=== PATIENT | male | born 1940 | race Caucasian/White ===

== ENCOUNTER → 2018-09-29 10:09 | Outpatient (CLI) | payer OTHER, SELFPAY ==
[2018-09-29 11:30] LABS: Add Manual Diff / Slide Review NO; Basophils Percent Auto 0.8 % (0-2); Eosinophils Percent Auto 1.8 % (2-4); Hematocrit 42.4 % (41-53); Hemoglobin 14.6 g/dL (13.5-17.5); Lymphocytes Percent Auto 21.1 % (25-40); Mean Corpuscular HGB Conc 34.4 % (30-36); Mean Corpuscular Hemoglobin 32.9 PG (26-34); Mean Corpuscular Volume 95.6 fL (80-100); Monocytes Percent Auto 11.4 % (3-14); Neutrophils Absolute Auto 2900 /uL (3000-5900); Neutrophils Percent Auto 64.9 % (50-75); Platelet Count 315 X10^3/uL (150-400); Red Blood Cell Count 4.43 X10^6/uL (4.5-5.9); Red Cell Distribution Width 13.1 % (11.6-14.8); White Blood Cell Count 4.4 X10^3/uL (4.5-11.0)
[2018-09-29 11:45] LABS: Carbon Dioxide 29 mmol/L (22-32); Chloride 94 mmol/L (98-107); HEMOLYSIS < 15 (0-50); Potassium 4.5 mmol/L (3.4-5.1); Sodium 134 mmol/L (137-145)
== END ==
PROVIDERS: Visit Provider Orthopaedic Surgery
DX: M17.12 Unilateral primary osteoarthritis, left knee (principal); Z01.812 Encounter for preprocedural laboratory examination
CPT/HCPCS: 36415; 80051; 85025; 93005

== ENCOUNTER → 2018-10-24 11:00 | Outpatient (CLI) | payer OTHER, SELFPAY ==
[2018-10-24 12:03] LABS: Carbon Dioxide 29 mmol/L (22-32); Chloride 93 mmol/L (98-107); HEMOLYSIS < 15 (0-50); Potassium 4.2 mmol/L (3.4-5.1); Sodium 132 mmol/L (137-145)
[2018-10-24 12:21] LABS: Add Manual Diff / Slide Review NO; Basophils Percent Auto 0.9 % (0-2); Eosinophils Percent Auto 1.5 % (2-4); Hematocrit 41.4 % (41-53); Hemoglobin 14.1 g/dL (13.5-17.5); Lymphocytes Percent Auto 23.1 % (25-40); Mean Corpuscular HGB Conc 34.1 % (30-36); Mean Corpuscular Hemoglobin 32.9 PG (26-34); Mean Corpuscular Volume 96.5 fL (80-100); Monocytes Percent Auto 12.6 % (3-14); Neutrophils Absolute Auto 2300 /uL (3000-5900); Neutrophils Percent Auto 61.9 % (50-75); Platelet Count 314 X10^3/uL (150-400); Red Blood Cell Count 4.29 X10^6/uL (4.5-5.9); Red Cell Distribution Width 12.8 % (11.6-14.8); White Blood Cell Count 3.7 X10^3/uL (4.5-11.0)
== END ==
PROVIDERS: Visit Provider Orthopaedic Surgery
DX: Z01.818 Encounter for other preprocedural examination (principal)
CPT/HCPCS: 36415; 80051; 85025

== ENCOUNTER → 2018-11-17 15:08 | Outpatient (CLI) | payer OTHER, SELFPAY ==
[2018-11-17 16:05] LABS: Add Manual Diff / Slide Review NO; Basophils Percent Auto 0.7 % (0-2); Hematocrit 41.8 % (41-53); Hemoglobin 14.3 g/dL (13.5-17.5); Lymphocytes Percent Auto 17.2 % (25-40); Mean Corpuscular HGB Conc 34.3 % (30-36); Mean Corpuscular Hemoglobin 32.9 PG (26-34); Mean Corpuscular Volume 96.2 fL (80-100); Monocytes Percent Auto 11.5 % (3-14); Neutrophils Absolute Auto 3500 /uL (1500-7000); Neutrophils Percent Auto 69.6 % (50-75); Platelet Count 321 X10^3/uL (150-400); Red Blood Cell Count 4.35 X10^6/uL (4.5-5.9); White Blood Cell Count 5.1 X10^3/uL (4.5-11.0)
[2018-11-17 16:44] LABS: Blood Urea Nitrogen 16 mg/dL (9-20); Calcium 9.9 mg/dL (8.4-10.2); Carbon Dioxide 27 mmol/L (22-32); Chloride 93 mmol/L (98-107); Estimated Glomerular Filt Rate > 60.0 mL/min (>60); Glucose 89 mg/dL (80-110); HEMOLYSIS < 15 (0-50); Potassium 4.2 mmol/L (3.4-5.1); Sodium 131 mmol/L (137-145)
== END ==
PROVIDERS: Visit Provider Physician Assistant Surgical
DX: Z01.818 Encounter for other preprocedural examination (principal)
CPT/HCPCS: 36415; 80048; 85025

== ENCOUNTER 2018-12-17 09:11 | Inpatient (IN) | payer OTHER, SELFPAY ==
[2018-11-27 08:32] VITALS: BMI 26.7
[2018-12-17] VITALS (14 sets, daily range): BP systolic 114–164; BP diastolic 68–93; PULSE 69–85; RESP 14–20; TEMP 36–37; O2SAT 93–99; BMI 26.6
--- NOTE | 2018-12-17 06:00 | DI.RAD.S_ITS ---
PROCEDURE: XR KNEE LT 1TO2V INDICATIONS: post op film TECHNIQUE: 2 view(s) of the knee acquired. COMPAR[facility]: [facility] SullyHarry Ramirez, CR, XR BONE LENGTH SCANOGRAM, 08/28/2018, 9:25. FINDINGS: Bones: Patient is status post knee joint arthroplasty. Hardware components are in expected positions. Visualized bony structures are intact. Soft tissues: Overlying postoperative changes are noted. IMPRESSION: Left knee total plasty with prosthesis in anatomic alignment. Dictated by: Jen Carmichael M.D. on 12/17/2018 at 14:25 Approved by: Jen Carmichael M.D. on 12/17/2018 at 14:26
--- NOTE | 2018-12-17 10:12 | PM.PREOP ---
Pre-operative Note Interval Note History & Physical reviewed/Exam performed by Physician: Yes Changes to H&P: No
--- NOTE | 2018-12-17 10:13 | P.OP_ITS ---
Operative Date/Time/Diagnoses Date of procedure: 12/17/18 Time of procedure: 13:36 Pre-op diagnosis: Left knee osteoarthritis History of previous high tibial osteotomy Post-op diagnosis: same Procedure & Clinicians Procedure: Left total knee arthroplasty Removal of jad left proximal tibia Same procedure as scheduled: Yes Indications: The patient presents today for total knee arthroplasty after failure of conservative treatment. The nature of the procedure including the risks and benefits, alternatives, postoperative course and expected outcome were discussed and all questions answered. Consent was obtained. Operative site confirmed and marked. Surgeon: Lalo Tomlinson Operative Notes Implants & Drains: Bobo and Nephkrissy Cardozo BCS: 7 femoral component, 6 tibial component with 100 mm by 16 mm stem extension, 9 mm BCS polyethylene tray and 35 x 9 mm round patella Procedure in detail: The patient was taken to the operative suite and placed under general and spinal anesthesia. The patient was given prophylactic antibiotics prior to surgery. The patient was also given tranexamic acid, 1 g, just prior to surgery for postoperative hemostasis. The lateral knee was prepped and the joint injected with 20 mL of 1% Lidocaine with epinephrine. The knee was then prepped and draped in usual sterile fashion. The leg was exsanguinated with an Esmarch dressing and the tourniquet raised to Two hundred fifty torr. The vertical limb of the previous lateral incision for his high tibial osteotomy was opened for a length of 4 cm. The fascia was opened and the jad were identified . Both jad were removed with minimal bone loss. The fascia was closed with #1 Vicryl. Subcutaneous tissue was closed with 2 Vicryl and the skin with jad. A 15 cm anterior incision was made. Next a medial trivector arthrotomy was made. The extensor mechanism was marked to ensure accurate repair. Initial exposing dissection was carried out medially and laterally. The knee was then extended and the patellar thickness was measured and a cut made removing approximately 9 mm of bone. The patella was then sized and drilled. Some excess lateral bone was excised and the patellofemoral ligament released. The knee was then flexed and the intramedullary femoral guide hayden placed. The distal femoral cut was made in 6? of valgus at the +0 position. The femoral size was measured and the appropriate cutting block was then placed and the anterior, posterior and chamfer cuts made. The extra medullary tibial alignment hayden was then placed along the anatomic axis of the tibia approximating the normal slope. The guide was set to remove approximately 2 lateral side. The proximal tibial cut was then made with an oscillating saw. A fairly minimal cut was made initially to check the gaps. In extension the knee had appropriate laxity medially but was somewhat tight laterally. Inflexion there was some excessive laxity medially and it was slightly tight laterally. I felt that a 2 degree valgus cut of the tibia with best correct the gaps. After the cut was made the flexion extends were well-balanced except for some increased laxity medially in flexion. All meniscus and bony debris was then removed. The soft tissues were then injected with a combination of 20 mL of half percent Marcaine with epinephrine and 20 mL of Exparel. The trial components were then placed. The knee went into full extension and flexion beyond 120?. There was excellent medial- lateral balance in extension with still some laxity medially in flexion. Patellar tracking was excellent. The trial components were removed and the knee was cleansed with Pulsavac irrigation and dried. The final components were cemented in with high viscosity vacuum mixed bone cement with antibiotics. The knee was held in extension and the patellar clamp until the cement had adequately cured. The knee was irrigated and inspected for any further debris. The knee was then irrigated with dilute Betadine solution. The extensor mechanism was closed with 5 interrupted #1 Vicryl sutures in 90 degrees of flexion. The joint was then injected with a combination of 1 g of tranexamic acid and 20 mL of quarter percent Marcaine with epinephrine. The subcutaneous tissue was closed with 2-0 Vicryl. The skin was closed with jad and surgical adhesive. An Aquacell dressing and Tony wrap were then applied. The patient tolerated the procedure well and was returned to recovery room in good condition. Plan for aftercare: [facility] protocol for total knee arthroplasty.
[2018-12-17] MEDS: ACETAMINOPHEN 325 MG TABLET 975 MG PO ×3 (10:23→20:36)
[2018-12-17] MEDS: LACTATED RINGERS 1,000 ML 42 ML IV (10:23)
[2018-12-17] MEDS: PREGABALIN 75 MG CAPSULE PO (10:23)
[2018-12-17] MEDS: CELECOXIB 200 MG CAPSULE PO (10:23)
[2018-12-17] MEDS: CEFAZOLIN 2 GM/100 ML FROZ.PIGGY IV ×2 (10:50→19:26)
--- NOTE | 2018-12-17 11:44 | SUR.OPER ---
Supine on padded OR bed. Pillow under head, arms secured on padded armboards <90 degree abduction. Safety belt across torso. Non-operative leg secured with tape over blanket over lower leg. Operative leg secured in DeMayo/Pavel positioner. Foam padded brace at thigh of operative leg.
[2018-12-17] MEDS: TRANEXAMIC ACID 1,000 MG VIAL 1000 MG INJ (11:53)
[2018-12-17] MEDS: LIDOCAINE 1% W/EPI INJ 20 ML INJ (11:53)
[2018-12-17] MEDS: POVIDONE-IODINE 15 ML, SODIUM CHLORIDE 0.9% 250 ML TOP (11:53)
[2018-12-17] MEDS: BUPIVACAINE 0.5% W/ EPI (PF) 10 ML, TRANEXAMIC ACID 1,000 MG, SODIUM CHLORIDE 0.9% 20 ML INJ (11:54)
[2018-12-17] MEDS: BUPIVACAINE LIPOSOME 266 MG/20 ML VIAL INJ (11:55)
[2018-12-17] MEDS: BUPIVACAINE 0.25% W/ EPI VIAL 50 ML INJ (11:58)
--- NOTE | 2018-12-17 13:57 | SUR.PHASEI ---
REPORT CALLED TO KARTIK CUI ON ACUTE CARE FLOOR. PT IN STABLE CONDITION, VSS. PT LAYING IN BED TALKING TO RN. PT DENIES ANY NAUSEA/ PAIN/OR DISCOMFORT. DRSG TO SURGICAL SITE REMAINS C/D/I. SURGICAL EXTREMITY +PULSE, WARM TO TOUCH, +STRENGTH. PT BEING TRANSFERRED TO FLOOR AT THIS TIME.
--- NOTE | 2018-12-17 14:09 | SUR.PHASEI ---
PT TRANSFERRED TO ACUTE CARE FLOOR IN STABLE CONDITION. PT ALERT AND TALKING TO STAFF THROUGHOUT TRANSFERED. BEDSIDE REPORT GIVEN TO KARTIK CUI. TRANSFERRED CARE OF PT TO KARTIK CUI AT THAT TIME.
[2018-12-17] MEDS: LACTATED RINGERS 1,000 ML 125 ML IV ×2 (16:02→23:26)
[2018-12-17] MEDS: ASPIRIN EC 81 MG TABLET PO (20:36)
--- NOTE | 2018-12-17 22:26 | PC.NURSE ---
Evening Shift Note- Patient unable to void after surgery. Patient arrived to room approx 1430, patient bladder scanned at 2115. Over 950cc'S urine shown on bladder scan. Called on-call surgeon Dr. Bobo due to patient history of prostate issues and urinary retentionafter surgery. Recieved orders to place miranda and leave in over night. 16 Fr Coude Cath with 5cc balloon used. patient tolerated. Miranda patent and draining clear yellow urine. miranda to d/c in the morning.
--- NOTE | 2018-12-17 23:39 | PC.NURSE ---
Addendum entered by Sanaz Sweeney R.N. 12/18/18 06:08: Slept at intervals. CMS remains intact. Patient continues to deny pain. Original Note: Patient is alert and oriented. Breath sounds CTA with RA sat of 96%; on continuous oximetry. HRR. Denies nausea. BT present and states he has passed flatus. Indwelling catheter is patent with clear, light miryam urine. Able to turn self in bed. Reportedly out of bed with 1 assist + walker and states he has no weakness or unsteadiness. Dressing (Aquacel + ralf wrap) to left knee is CDI. Denies pain. CMS is intact. Wearing bilateral SCD's. Fall risk score is moderate; bed alarm is activated.
[2018-12-18] VITALS (7 sets, daily range): BP systolic 116–142; BP diastolic 58–72; PULSE 65–80; RESP 16–20; TEMP 36.3–37.1; O2SAT 93–98
[2018-12-18] MEDS: CEFAZOLIN 2 GM/100 ML FROZ.PIGGY IV (03:14)
[2018-12-18 05:41] LABS: Hematocrit 35.6 % (41-53); Hemoglobin 12.2 g/dL (13.5-17.5)
[2018-12-18] MEDS: ASPIRIN EC 81 MG TABLET PO ×2 (08:47→20:40)
[2018-12-18] MEDS: LISINOPRIL 20 MG TABLET 40 MG PO (08:47)
[2018-12-18] MEDS: AMLODIPINE 5 MG TABLET 10 MG PO (08:48)
[2018-12-18] MEDS: hydroCHLOROthiazide 25 MG TABLET PO (08:48)
[2018-12-18] MEDS: ACETAMINOPHEN 325 MG TABLET 975 MG PO ×2 (08:48→14:19)
--- NOTE | 2018-12-18 09:15 | PT.IIE ---
Current Diagnoses Unilateral primary osteoarthritis, left knee (12/17/18) Surgery Performed Operation Date: 12/17/18 11:00 Actual Procedures p Total Knee Arthroplasty w/Hardware removal(Left) - Lalo Tomlinson MD Surgical History (Last Updated 11/27/18 @ 09:21 by Nikki Mario, RN) History of arthroplasty of right knee (Acute ~2007) History of prostate surgery (Acute ~2003) Hx of decompressive lumbar laminectomy (Acute ~2011) Hx of hernia repair (Acute) Status post cataract extraction of both eyes with insertion of intraocular lens (Acute ~2016) Status post osteotomy (Acute ~1995) Medical History (Last Updated 11/27/18 @ 09:21 by Nikki Mario RN) Basal cell carcinoma (BCC) (Acute) HTN (hypertension) (Acute) Hypochloremia (Acute) Hyponatremia (Acute) Osteoarthritis (Acute) Spinal stenosis (Acute) Physical Therapy Inpatient Evaluation/Re-Eval M1 PT/OT-IP Prior Functional Status Start: 12/18/18 14:14 Freq: NEEDED Status: Active Protocol: Document 12/18/18 09:15 AB (Rec: 12/18/18 14:30 AB [email or web address]) Medical Review Prior Functional Status Medical History Reviewed Yes Communication able to make needs known Mobility and Gait pt stated that he is independent with all mobilities and ambulation without AD Social History Household Members spouse Living Arrangements House Number of Floors (Floors) Two Floors Number of Stairs To Enter/Railing? pt stays on main level of the house; has 2 steps without rail s but has L ledge to lean onto Home Environment Standard Height Toilet Walk in Shower Home Equipment Front Wheel Walker Crutches Raised Toilet Seat w/Armrests Shower Seat without Backrest Hand Held Shower Grab Bars In Shower Employment Status Retired M2 PT-IP Current Condition Start: 12/18/18 14:14 Freq: NEEDED Status: Active Protocol: Document 12/18/18 09:15 AB (Rec: 12/18/18 14:30 AB [email or web address]) Physical Therapy Current Condition Current Condition Evaluation Date 12/18/18 Treatment Diagnosis s/p L TKA; difficulty in walking Onset Date 12/17/18 Weight Bearing Status Weight Bearing Status Weight Bear as Tolerated M3 PT-IP Subjective Start: 12/18/18 14:14 Freq: NEEDED Status: Active Protocol: Document 12/18/18 09:15 AB (Rec: 12/18/18 14:30 AB [email or web address]) Subjective Physical Therapy Visit Type Type Initial Evaluation Visit Start Time 09:15 Visit Stop Time 10:15 Total Visit Minutes 60 Number of JAVA SOFTWARE Visits 0 Physical Therapy Visit Comments Patient Comments pt agreeable to do PT Therapy Pain Assessment Pain When Pain Assessed At Rest Pain Present Pain Present Pain Reported Location L knee Intensity 3 Scale Used Numeric (1 - 10) Pain Management Techniques Apply Cold Timing of Activity with Medications M4 PT-IP Mobility and Gait Start: 12/18/18 14:14 Freq: NEEDED Status: Active Protocol: Document 12/18/18 09:15 AB (Rec: 12/18/18 14:30 AB [email or web address]) PT-Bed Mobility Assessment Supine to Sit Supine to Sit Standby Assistance 1 Person Assistance Sit to Supine Sit to Supine Standby Assistance 1 Person Assistance PT-Transfer Assessment Sit to and From Stand Sit to and from Stand Contact Guard Assistance Equipment Transfer Assistive Device Gait Belt Front Wheeled Walker Orthotic/Prosthetic Devices or Brace: No Gait Assessment Gait Gait Assistance Required: Contact Guard Assist Distance (Feet) 100 Able to Maintain Weight Bearing Status Yes During Gait Assistive Devices Assistive Device Gait Belt Front Wheeled Walker Orthotic/Prosthetic Devices or Brace: No Gait Deviations General Gait Pattern Antalgic Decreased Stride Length Decreased Feet Clearance Factors Limiting Gait Function Factors Limiting Gait Function Decreased Activity Tolerance Decreased Strength Limited Range of Motion Pain Poor Balance Poor Safety Awareness Stair Climbing Assessment Evaluation Level of Assist On Stairs Contact Guard Assistance Devices Stair Climbing Assistive Devices Axillary Crutches Left Railing Technique/Endurance Stair Climbing Direction Ascend and Descend Stair Climbing Technique Step to Step Number of Steps Climbed 3 Query Text: Stair Climbing Set # Repetitions (reps) 2 PT-Balance Assessment Sitting Balance and Reactions Static Sitting Balance Ability Good Dynamic Sitting Balance Ability Good Standing Balance and Reactions Static Standing Balance Ability Fair Dynamic Standing Balance Ability Fair Device Used FWW M5 PT-IP Objective Assessments Start: 12/18/18 14:14 Freq: NEEDED Status: Active Protocol: Document 12/18/18 09:15 AB (Rec: 12/18/18 14:30 AB [email or web address]) Orientation Orientation/Cognition Level of Alertness Alert Orientation Name Age Birthday Month Date Year Day of Week Place Situation Safety Awareness Understands Safety Issues Memory Description No Deficits Noted Gross Range of Motion Lower Extremity ROM Assessment Left Impaired Impairments L knee flexion: ~ 70 deg L knee extension: lacking ~ 10 deg to neutral Strength Lower Extremity Strength Assessment Left Impaired Knee 3+/5 Coordination Assessment Gross Coordination Gross Coordination WNL Muscle Tone Muscle Tone WNL Yes M6 PT-IP Treatment Start: 12/18/18 14:14 Freq: NEEDED Status: Active Protocol: Document 12/18/18 09:15 AB (Rec: 12/18/18 14:30 AB [email or web address]) Physical Therapy Treatment Education Education Provided Precautions Weight Bearing Status Post-Op Packet Safety Other Treatments Other Treatment Performed caregiver training conducted for use of safety belt, transfers, ambulation and stair climbing. pt's spouse was able to assist pt safely. M7 PT-IP Assessment and Plan Start: 12/18/18 14:14 Freq: NEEDED Status: Active Protocol: Document 12/18/18 09:15 AB (Rec: 12/18/18 14:30 AB [email or web address]) PT Summary Assessment and Plan Potential Rehabilitation Potential Good Status of Condition at Evaluation Stable Summary Impairments Pain ROM Strength Balance Coordination Bed Mobility Transfers Gait Activity Tolerance Assessment Summary pt doing well with mobility and will have spouse to assist him at home. caregiver training conducted and spouse is able to assist pt safely. pt stated that he is set up for outpt PT already. Goals Bed Mobility Goal Independent Transfer Goal Independent Front Wheeled Walker Gait Goal Independent Front Wheel Walker Gait Distance 250 Other Goals up/down 2 steps L rail/crutch SBA Days to Meet Goals 3 Frequency of Treatment Frequency Of Treatment Twice a Day Treatment Plan Physical Therapy Treatment Plan Bed Mobility Training Transfer Training Gait Training Therapeutic Exercise Balance Retraining Post Op Education Discharge Planning Hot or Cold Pack Neuromuscular Re-ed Coordination Retraining Manual Therapy Other Recommendations and Next Treatment ambulation, stair climbing, Focus caregiver training Recommendations To Nursing Amount of Assist Needed 1 Person Assist Discharge Recommendations PT Discharge Recommendations Home with Assistance Outpatient PT
[2018-12-18] MEDS: TAMSULOSIN 0.4 MG CAPSULE PO (09:28)
--- NOTE | 2018-12-18 14:15 | CM.IDA ---
Discharge Planning/Care Management CM Discharge Assessment Start: 12/18/18 14:10 Freq: Status: Active Protocol: Document 12/18/18 14:10 EDGAR (Rec: 12/18/18 14:14 EDGAR [email or web address]) Discharge Planning Assessment Assigned Yard Inspector MAURA Grullon DPOA/Assigned Designee Name Nina Saenz, spouse Contact Information [phone] Advance Directives? Yes Advance Directives on File No History Provided By Patient Prior Living Arrangements House Household Members spouse Type of transporation used prior to Drives own vehicle admit Independent with ADL's Yes Is patient alert and oriented? Yes Barriers to Discharge No Comment Met w/pt and his Nina. Pt indp at baseline, active. Pt and spouse very pleasant and appreciative of the visit. Both expect no DC needs although pt still has not voided today after removal of catheter this morning. Both awaiting pt to void since they are eager to get pt home. Pt has h/o multiple surgeries, he feels he has what he needs at home and spouse available to assist 24/06. Home likely today or tomorrow, w/spouse and likely outpt PT, no PT notes available. Discharge Plan Home Transportation Arrangement Family Referrals Initiated None needed Whiteboard Updated in Patient Room with Yes name and ext. # of Yard Inspector Review Status In Process
--- NOTE | 2018-12-18 16:08 | PT.IPTN ---
Current Diagnoses Unilateral primary osteoarthritis, left knee (12/17/18) Surgery Performed Operation Date: 12/17/18 11:00 Actual Procedures p Total Knee Arthroplasty w/Hardware removal(Left) - Lalo Tomlinson MD Physical Therapy Treatment Note M2 PT-IP Current Condition Start: 12/18/18 14:14 Freq: NEEDED Status: Active Protocol: Document 12/18/18 09:15 AB (Rec: 12/18/18 14:30 AB [email or web address]) Physical Therapy Current Condition Current Condition Evaluation Date 12/18/18 Treatment Diagnosis s/p L TKA; difficulty in walking Onset Date 12/17/18 Weight Bearing Status Weight Bearing Status Weight Bear as Tolerated M3 PT-IP Subjective Start: 12/18/18 14:14 Freq: NEEDED Status: Active Protocol: Document 12/18/18 15:58 SA (Rec: 12/18/18 16:08 SA [id number]) Subjective Physical Therapy Visit Type Type Treatment Note Visit Start Time 14:45 Visit Stop Time 15:10 Total Visit Minutes 25 Number of CEMENT PRODUCTION PLANT OPERATOR Visits 1 Physical Therapy Visit Comments Patient Comments Pt in bed with present, agreeable to PT. Nursing to re-catheter patient as he was unable to urinate today. Therapy Pain Assessment Pain When Pain Assessed During Mobility Pain Present Pain Present Pain Reported Location L knee Intensity 4 Scale Used Numeric (1 - 10) Pain Management Techniques Apply Cold Timing of Activity with Medications M4 PT-IP Mobility and Gait Start: 12/18/18 14:14 Freq: NEEDED Status: Active Protocol: Document 12/18/18 15:58 SA (Rec: 12/18/18 16:08 SA [id number]) PT-Bed Mobility Assessment Rolling Type of Rolling Roll to Right Level of Assist Standby Assistance Supine to Sit Supine to Sit Standby Assistance 1 Person Assistance Sit to Supine Sit to Supine Standby Assistance 1 Person Assistance Scooting Scooting to Edge of Bed Standby Assistance PT-Transfer Assessment Sit to and From Stand Sit to and from Stand Standby Assistance Equipment Transfer Assistive Device Gait Belt Front Wheeled Walker Orthotic/Prosthetic Devices or Brace: No Transfers Transfer Destination Bed Transfer Technique Stand Step Pivot Transfer Ability Level of Assist Standby Assistance Comments Mobility Comments Pt SBA with mobility tasks, demonstrates safe use of FWW and safety habits. Gait Assessment Gait Gait Assistance Required: Standby Assistance Contact Guard Assist Distance (Feet) 150 Able to Maintain Weight Bearing Status Yes During Gait Assistive Devices Assistive Device Gait Belt Front Wheeled Walker Orthotic/Prosthetic Devices or Brace: No Gait Deviations General Gait Pattern Antalgic Decreased Stride Length Decreased Feet Clearance Factors Limiting Gait Function Factors Limiting Gait Function Decreased Activity Tolerance Decreased Strength Limited Range of Motion Pain Poor Balance Poor Safety Awareness Comments Gait Comments Pt with even step length and good foot elevation, WBs heavily through UEs and is able to partially correct with cues, good gait speed and safe with use of FWW. Stair Climbing Assessment Evaluation Level of Assist On Stairs Contact Guard Assistance Devices Stair Climbing Assistive Devices Axillary Crutches Left Railing Technique/Endurance Stair Climbing Direction Ascend and Descend Stair Climbing Technique Step to Step Number of Steps Climbed 3 Query Text: Stair Climbing Set # Repetitions (reps) 3 Comments Stair Climbing Comments Conducted cargiver training with , last repetition was completed with pt and as caregiveer, min cues required . Pt use single crutch in RUE and L ascending ledge. PT-Balance Assessment Sitting Balance and Reactions Static Sitting Balance Ability Good Dynamic Sitting Balance Ability Good M5 PT-IP Objective Assessments Start: 12/18/18 14:14 Freq: NEEDED Status: Active Protocol: Document 12/18/18 09:15 AB (Rec: 12/18/18 14:30 AB [email or web address]) Orientation Orientation/Cognition Level of Alertness Alert Orientation Name Age Birthday Month Date Year Day of Week Place Situation Safety Awareness Understands Safety Issues Memory Description No Deficits Noted Gross Range of Motion Lower Extremity ROM Assessment Left Impaired Impairments L knee flexion: ~ 70 deg L knee extension: lacking ~ 10 deg to neutral Strength Lower Extremity Strength Assessment Left Impaired Knee 3+/5 Coordination Assessment Gross Coordination Gross Coordination WNL Muscle Tone Muscle Tone WNL Yes M6 PT-IP Treatment Start: 12/18/18 14:14 Freq: NEEDED Status: Active Protocol: Document 12/18/18 15:58 SA (Rec: 12/18/18 16:08 SA [id number]) Physical Therapy Treatment Exercises Exercises Ankle Pumps Quad Sets Heel Slides Seated Knee Flexion/Extension Education Education Provided Precautions Weight Bearing Status Post-Op Packet Safety Other Treatments Other Treatment Performed Continued caregiver training with , she was able to reverse demonstrate most tasks . M7 PT-IP Assessment and Plan Start: 12/18/18 14:14 Freq: NEEDED Status: Active Protocol: Document 12/18/18 15:58 SA (Rec: 12/18/18 16:08 [email or web address]) PT Summary Assessment and Plan Summary Assessment Summary Pt progressing well with functional mobility, gait and stair climb. Ready for d/c home with from PT perspective but pt continues to have urinary retention issues. Frequency of Treatment Frequency Of Treatment Twice a Day Recommendations To Nursing Amount of Assist Needed 1 Person Assist Discharge Recommendations PT Discharge Recommendations Home with Assistance Outpatient PT
[2018-12-18] MEDS: OXYCODONE IR 5 MG TABLET PO (20:41)
[2018-12-19] VITALS (7 sets, daily range): BP systolic 108–141; BP diastolic 60–84; PULSE 76–99; RESP 16–20; TEMP 36.7–37.2; O2SAT 93–97
--- NOTE | 2018-12-19 00:10 | PC.NURSE ---
Addendum entered by Sanaz Sweeney R.N. 12/19/18 05:17: 0500 Catheter d'cd as per order; had 550cc UOP. Tolerated procedure well. Instructed in sx/prevention of UTI; verbalizes understanding. Original Note: Addendum entered by Sanaz Sweeney R.N. 12/19/18 03:51: Complains of 5/10 left knee pain; medicated with Oxycodone. Original Note: Patient is alert and oriented. Breath sounds with inspiratory crackles in left LL; RA sat is 93%. Patient states he has been working with I.S. and able to get to 2500; reminded to be coughing as well as deep breathing. HRR. Denies nausea. BT present and is passing flatus. Dressing/ralf to left knee is CDI. States pain is 1/10 at rest and 4/10 with movement but tolerable and declines offer of pain med; ice pack applied for comfort. CMS intact bilaterally. Able to move self in bed. States he is doing well with therapy and plan is to DC home in morning. Indwelling catheter is patent; was replaced after patient unable to void yesterday after catheter removal and plan is to remove at 0500 this morning. Wearing bilateral SCD's. Fall risk score is moderate; bed alarm is activated.
[2018-12-19] MEDS: OXYCODONE IR 5 MG TABLET PO ×4 (03:42→12:28)
[2018-12-19] MEDS: ACETAMINOPHEN 325 MG TABLET 975 MG PO ×3 (08:46→21:35)
[2018-12-19] MEDS: TAMSULOSIN 0.4 MG CAPSULE PO (08:47)
[2018-12-19] MEDS: ASPIRIN EC 81 MG TABLET PO ×2 (08:48→21:35)
[2018-12-19] MEDS: SODIUM CHLORIDE 0.9% FLUSH 10 ML IV ×2 (08:48→21:36)
[2018-12-19] MEDS: hydroCHLOROthiazide 25 MG TABLET PO (08:48)
--- NOTE | 2018-12-19 09:23 | PM.DS.1 ---
History of Present Illness Date Patient Seen: 12/19/18 Time Patient Seen: 09:23 Chief complaint: total knee arthroplasty left [id number] Narrative: The patient presents today for total knee arthroplasty after failure of conservative treatment. The nature of the procedure including the risks and benefits, alternatives, postoperative course and expected outcome were discussed and all questions answered. Consent was obtained. Operative site confirmed and marked. Discharge Providers Date of admission: 12/17/18 09:11 Primary care physician: JILLIAN WHITE Consults: 12/17/18 14:13 Consult to Discharge Planning Routine Comment: Consult to Physical Therapy Evaluate & Treat Comment: Physician Instructions: postop TKA protocol Consult to Respiratory Therapy Evaluate & Treat Comment: Physician Instructions: Evaluate and treat Discharge provider: Abigail Pollard PA-C Discharge Date: 12/20/18 Summary Discharge Diagnosis: s/p total knee arthroplasty Hypertension History of Prostate surgery Hospital Course: Sunny was admitted for left total knee arthroplasty with Dr. Tomlinson and he consented to procedure. Hospital course was remarkable for urinary retention. The patient has had previous prostate surgery. Following previous surgeries he required multiple in-out catheterizations and prolonged catheterizations. Throughout his stay he had urinary retention symptoms worse at night requiring catheterization each night of his stay. On POD #3 patient was ready for DC home with his . His pain was well controlled. He has mobilized with PT throughout his stay. He was eating and voiding without difficulty or assistance. Status at Discharge Functional status at discharge: uses cane/walker Exam Vital Signs (past 8 hours): - 12/19/18 03:52 12/19/18 08:00 12/19/18 08:42 Temperature 98.4 F 98.1 F Pulse Rate 76 79 83 Respiratory Rate 18 16 Blood Pressure 135/71 122/70 108/60 Pulse Oximetry 93 97 12/19/18 08:43 Temperature Pulse Rate 83 Respiratory Rate Blood Pressure 108/60 Pulse Oximetry Fraction of Inspired Oxygen 21 Oxygen Delivery Method Room Air Oxygen Flow Rate 0 Narrative Exam Narrative: Patient sitting up in bed in NAD. He is alert and oriented X3. Dressing on left knee is CDI. Calves are soft, compressible, and nontender bilaterally. SILT throughout BLEs. He is able to actively dorsiflex and plantarflex. Pain well controlled last night. Denies chest pain or shortness of breath. Objective Labs Result Diagrams: 12/18/18 05:20 Discharge Plan Discharge Plan Patient Disposition: Home Discharge comment: See [facility] manual for postoperative instructions. Discharge Med Rec/Prescriptions Prescriptions: New tamsulosin [Flomax] 0.4 mg Capsule 0.4 mg PO DAILY Qty: 30 RF: 0 Continue amlodipine 10 mg Tablet 10 mg PO DAILY RF: 0 ibuprofen 200 mg Tablet 2 tab PO DAILY PRN (Reason: pain) RF: 0 hydrochlorothiazide 25 mg Tablet 25 mg PO DAILY RF: 0 lisinopril 40 mg Tablet 40 mg PO DAILY RF: 0 cholecalciferol (vitamin D3) [Vitamin D3] 400 unit Tablet 400 unit PO DAILY RF: 0 Follow up/Referrals: JILLIAN WHITE [Other] Lalo Tomlinson MD [Physician] - 1 Week Provider Discharge Instructions Diet: Regular Activity: Activity as tolerated. Start physical therapy as directed. Cold/Heat Therapy: Ice the knee as needed for comfort. Skin/Wound/Dressing Care Report to your healthcare provider any signs of infection, such as:: chills, fever, increased pain, unusual drainage and unusual redness Dressing: May leave dressing in place for 7-10 days. May shower over dressing. Visit Report/Discharge Packet Instructions: DI for Knee Replacement Visit Report Forms: Stroke Signs & Symptoms Discharge Data Attending Provider: Lalo Tomlinson Admit Date/Time: 12/17/18 09:11 Quality VTE Deep Vein Thrombosis/Pulmonary Embolism Present on Admission: No
[2018-12-19] MEDS: ONDANSETRON 4 MG ODT PO (11:31)
[2018-12-19] MEDS: SODIUM CHLORIDE 0.9% 500 ML 1000 ML IV (11:55)
--- NOTE | 2018-12-19 11:56 | PT.IPTN ---
Current Diagnoses Unilateral primary osteoarthritis, left knee (12/17/18) Retention of urine, unspecified (12/17/18) Presence of unspecified artificial knee joint (12/17/18) Surgery Performed Operation Date: 12/17/18 11:00 Actual Procedures p Total Knee Arthroplasty w/Hardware removal(Left) - Lalo Tomlinson MD Physical Therapy Treatment Note M2 PT-IP Current Condition Start: 12/18/18 14:14 Freq: NEEDED Status: Active Protocol: Document 12/18/18 09:15 AB (Rec: 12/18/18 14:30 AB [email or web address]) Physical Therapy Current Condition Current Condition Evaluation Date 12/18/18 Treatment Diagnosis s/p L TKA; difficulty in walking Onset Date 12/17/18 Weight Bearing Status Weight Bearing Status Weight Bear as Tolerated M3 PT-IP Subjective Start: 12/18/18 14:14 Freq: NEEDED Status: Active Protocol: Document 12/19/18 11:56 AB (Rec: 12/19/18 13:31 AB [id number]) Subjective Physical Therapy Visit Type Notes checked pt and pt in the toilet with NAC. spouse in room and stated that pt is not feeling well and has more pain today and is nauseated and will not be able to do PT. will f/u. M4 PT-IP Mobility and Gait Start: 12/18/18 14:14 Freq: NEEDED Status: Active Protocol: Document 12/18/18 15:58 SA (Rec: 12/18/18 16:08 SA [id number]) PT-Bed Mobility Assessment Rolling Type of Rolling Roll to Right Level of Assist Standby Assistance Supine to Sit Supine to Sit Standby Assistance 1 Person Assistance Sit to Supine Sit to Supine Standby Assistance 1 Person Assistance Scooting Scooting to Edge of Bed Standby Assistance PT-Transfer Assessment Sit to and From Stand Sit to and from Stand Standby Assistance Equipment Transfer Assistive Device Gait Belt Front Wheeled Walker Orthotic/Prosthetic Devices or Brace: No Transfers Transfer Destination Bed Transfer Technique Stand Step Pivot Transfer Ability Level of Assist Standby Assistance Comments Mobility Comments Pt SBA with mobility tasks, demonstrates safe use of FWW and safety habits. Gait Assessment Gait Gait Assistance Required: Standby Assistance Contact Guard Assist Distance (Feet) 150 Able to Maintain Weight Bearing Status Yes During Gait Assistive Devices Assistive Device Gait Belt Front Wheeled Walker Orthotic/Prosthetic Devices or Brace: No Gait Deviations General Gait Pattern Antalgic Decreased Stride Length Decreased Feet Clearance Factors Limiting Gait Function Factors Limiting Gait Function Decreased Activity Tolerance Decreased Strength Limited Range of Motion Pain Poor Balance Poor Safety Awareness Comments Gait Comments Pt with even step length and good foot elevation, WBs heavily through UEs and is able to partially correct with cues, good gait speed and safe with use of FWW. Stair Climbing Assessment Evaluation Level of Assist On Stairs Contact Guard Assistance Devices Stair Climbing Assistive Devices Axillary Crutches Left Railing Technique/Endurance Stair Climbing Direction Ascend and Descend Stair Climbing Technique Step to Step Number of Steps Climbed 3 Query Text: Stair Climbing Set # Repetitions (reps) 3 Comments Stair Climbing Comments Conducted cargiver training with , last repetition was completed with pt and as caregiveer, min cues required . Pt use single crutch in RUE and L ascending ledge. PT-Balance Assessment Sitting Balance and Reactions Static Sitting Balance Ability Good Dynamic Sitting Balance Ability Good M5 PT-IP Objective Assessments Start: 12/18/18 14:14 Freq: NEEDED Status: Active Protocol: Document 12/18/18 09:15 AB (Rec: 12/18/18 14:30 AB [email or web address]) Orientation Orientation/Cognition Level of Alertness Alert Orientation Name Age Birthday Month Date Year Day of Week Place Situation Safety Awareness Understands Safety Issues Memory Description No Deficits Noted Gross Range of Motion Lower Extremity ROM Assessment Left Impaired Impairments L knee flexion: ~ 70 deg L knee extension: lacking ~ 10 deg to neutral Strength Lower Extremity Strength Assessment Left Impaired Knee 3+/5 Coordination Assessment Gross Coordination Gross Coordination WNL Muscle Tone Muscle Tone WNL Yes M6 PT-IP Treatment Start: 12/18/18 14:14 Freq: NEEDED Status: Active Protocol: Document 12/18/18 15:58 SA (Rec: 12/18/18 16:08 [id number]) Physical Therapy Treatment Exercises Exercises Ankle Pumps Quad Sets Heel Slides Seated Knee Flexion/Extension Education Education Provided Precautions Weight Bearing Status Post-Op Packet Safety Other Treatments Other Treatment Performed Continued caregiver training with , she was able to reverse demonstrate most tasks . M7 PT-IP Assessment and Plan Start: 12/18/18 14:14 Freq: NEEDED Status: Active Protocol: Document 12/18/18 15:58 SA (Rec: 12/18/18 16:08 SA [id number]) PT Summary Assessment and Plan Summary Assessment Summary Pt progressing well with functional mobility, gait and stair climb. Ready for d/c home with from PT perspective but pt continues to have urinary retention issues. Frequency of Treatment Frequency Of Treatment Twice a Day Recommendations To Nursing Amount of Assist Needed 1 Person Assist Discharge Recommendations PT Discharge Recommendations Home with Assistance Outpatient PT
--- NOTE | 2018-12-19 12:07 | PM.PNPO.1 ---
Subjective Date Patient Seen: 12/19/18 Time Patient Seen: 10:07 Interval history: POD #2 s/p left TKA with Dr. Tomlinson. Patient has had previous prostate cancer, and difficulty urinating after previous surgeries. Patient's catheter was removed yesterday but need to be placed again later in the afternoon. This catheter was removed this morning. He had a bladder scan done this morning with only 300 ml. Patient did have increased pain with ambulation with physical therapy. He did get lightheaded. Exam Vital Signs (past 8 hours): - 12/19/18 08:00 12/19/18 08:42 12/19/18 08:43 Temperature 98.1 F Pulse Rate 79 83 83 Respiratory Rate 16 Blood Pressure 122/70 108/60 108/60 Pulse Oximetry 97 Fraction of Inspired Oxygen 21 Oxygen Delivery Method Room Air Oxygen Flow Rate 0 Narrative Exam Narrative: Patient is sitting at bedside chair in no acute distress. He is alert and oriented x3. Both dressings on left knee is CDI. Calves are soft, compressible, nontender bilaterally. He is able to actively dorsiflex and plantar flex. Sensation intact light touch throughout bilateral lower extremities. Objective Labs Result Diagrams: 12/18/18 05:20 Assessment & Plan Post-op (1) S/P total knee arthroplasty: Current Visit: Yes Status: Acute (2) Urinary retention: Current Visit: Yes Status: Acute Postoperative Procedures Operation Date: 12/17/18 11:00 Actual Procedures Side Surgeon p Total Knee Arthroplasty w/Hardware removal Left Lalo Tomlinson MD Patient will continue mobilize with physical therapy. He needs to take his time when going from sitting to standing position. He will need to increase his fluids and will get a bolus. Continue to bladder scan patient if not urinating. Patient could possibly discharge home tonight if pain well controlled and urinating on his own. If he is not, then we will evaluate him again tomorrow. Quality VTE Deep Vein Thrombosis/Pulmonary Embolism Present on Admission: No
--- NOTE | 2018-12-19 12:40 | PT.IPTN ---
Current Diagnoses Unilateral primary osteoarthritis, left knee (12/17/18) Retention of urine, unspecified (12/17/18) Presence of unspecified artificial knee joint (12/17/18) Surgery Performed Operation Date: 12/17/18 11:00 Actual Procedures p Total Knee Arthroplasty w/Hardware removal(Left) - Lalo Tomlinson MD Physical Therapy Treatment Note M2 PT-IP Current Condition Start: 12/18/18 14:14 Freq: NEEDED Status: Active Protocol: Document 12/18/18 09:15 AB (Rec: 12/18/18 14:30 AB [email or web address]) Physical Therapy Current Condition Current Condition Evaluation Date 12/18/18 Treatment Diagnosis s/p L TKA; difficulty in walking Onset Date 12/17/18 Weight Bearing Status Weight Bearing Status Weight Bear as Tolerated M3 PT-IP Subjective Start: 12/18/18 14:14 Freq: NEEDED Status: Active Protocol: Document 12/19/18 12:40 AB (Rec: 12/19/18 16:03 AB [id number]) Subjective Physical Therapy Visit Type Type Treatment Note Visit Start Time 12:40 Visit Stop Time 13:40 Total Visit Minutes 60 Number of FOOD CHECKER Visits 0 Physical Therapy Visit Comments Patient Comments pt stated that he was not feeling well this morning and has an episode of nausea and dizziness Therapy Pain Assessment Pain When Pain Assessed At Rest Pain Present Pain Present Pain Reported Location L knee Intensity 5 Scale Used Numeric (1 - 10) Pain Management Techniques Apply Cold Re-positioning Timing of Activity with Medications M4 PT-IP Mobility and Gait Start: 12/18/18 14:14 Freq: NEEDED Status: Active Protocol: Document 12/19/18 12:40 AB (Rec: 12/19/18 16:03 AB [id number]) PT-Transfer Assessment Sit to and From Stand Sit to and from Stand Contact Guard Assistance 1 Person Assistance Use of Upper Extremities Equipment Transfer Assistive Device Gait Belt Front Wheeled Walker Orthotic/Prosthetic Devices or Brace: No Comments Mobility Comments BP monitored during tx session . initial BP reclined on chair: 144/70 ; BP upright on chair prior to standin/ 62. pt completed sit to stand CGA. Pt required CGA to maintain standing using FWW for support. BP in standin/67. pt amublated in room using FWW ~ 30 ft without c/o lightheadedness/nausea. BP sitting on chair after ambulation: 127/57. pt agreed to ambulate out in the hallway Gait Assessment Gait Gait Assistance Required: Contact Guard Assist Minimum Assistance Distance (Feet) 150 Able to Maintain Weight Bearing Status Yes During Gait Assistive Devices Assistive Device Gait Belt Front Wheeled Walker Orthotic/Prosthetic Devices or Brace: No Gait Deviations General Gait Pattern Antalgic Decreased Stride Length Decreased Feet Clearance Factors Limiting Gait Function Factors Limiting Gait Function Decreased Activity Tolerance Decreased Strength Limited Range of Motion Pain Poor Balance Poor Safety Awareness Comments Gait Comments pt ambulated in the hallway using FWW ~ 150 ft CGA to min A with (+) L knee buckling x 2 but able to catch himself. pt cued with quads activation. educated spouse to hold on to pt at home for safety and agreed. caregiver training with spouse was conducted yesterday. Pt and spouse stated that they are confident with stair climbing and does not want to do it again this afternoon. BP sitting on chair after ambulation in hallway: 129/64 M5 PT-IP Objective Assessments Start: 12/18/18 14:14 Freq: NEEDED Status: Active Protocol: Document 12/18/18 09:15 AB (Rec: 12/18/18 14:30 AB [email or web address]) Orientation Orientation/Cognition Level of Alertness Alert Orientation Name Age Birthday Month Date Year Day of Week Place Situation Safety Awareness Understands Safety Issues Memory Description No Deficits Noted Gross Range of Motion Lower Extremity ROM Assessment Left Impaired Impairments L knee flexion: ~ 70 deg L knee extension: lacking ~ 10 deg to neutral Strength Lower Extremity Strength Assessment Left Impaired Knee 3+/5 Coordination Assessment Gross Coordination Gross Coordination WNL Muscle Tone Muscle Tone WNL Yes M6 PT-IP Treatment Start: 12/18/18 14:14 Freq: NEEDED Status: Active Protocol: Document 12/19/18 12:40 AB (Rec: 12/19/18 16:03 AB [id number]) Physical Therapy Treatment Education Education Provided Precautions Safety M7 PT-IP Assessment and Plan Start: 12/18/18 14:14 Freq: NEEDED Status: Active Protocol: Document 12/19/18 12:40 AB (Rec: 12/19/18 16:03 AB [id number]) PT Summary Assessment and Plan Potential Rehabilitation Potential Good Summary Impairments Pain ROM Strength Balance Coordination Sensation Bed Mobility Transfers Gait Activity Tolerance Progress Towards Goals Progressing Toward Goals Assessment Summary pt requiring CGA to min A with ambulation and plans to go home with spouse to assist him . caregiver training was conducted yesterday as well as stair training. pt may go home when medically stable. Goals Bed Mobility Goal Independent Transfer Goal Independent Front Wheeled Walker Gait Goal Independent Front Wheel Walker Gait Distance 250 Other Goals up/down 2 steps L rail/crutch SBA Days to Meet Goals 3 Frequency of Treatment Frequency Of Treatment Twice a Day Treatment Plan Physical Therapy Treatment Plan Bed Mobility Training Transfer Training Gait Training Therapeutic Exercise Balance Retraining Post Op Education Discharge Planning Hot or Cold Pack Neuromuscular Re-ed Coordination Retraining Manual Therapy Other Recommendations and Next Treatment ambulation, stair climbing, Focus caregiver training Recommendations To Nursing Amount of Assist Needed 1 Person Assist Discharge Recommendations PT Discharge Recommendations Home with Assistance Outpatient PT
--- NOTE | 2018-12-19 12:41 | PC.NURSE ---
Patient has been unable to void, ambulating resulted in patient reporting nausea and feeling lightheaded. Pain also increased significantly. 300ml bladder scan - 500ml bolus given. [place] oxy[place]one to 10mg as an option. Gave an additional 5 to equal a 10mg dose. He is resting in the chair comfortably at this time.
[2018-12-19] MEDS: OXYCODONE IR 10 MG TABLET PO ×2 (16:21→19:43)
--- NOTE | 2018-12-19 22:37 | PC.NURSE ---
Evening shift 1530: Assumed care of pt with safe hand off. Safety checks done. Pt a/o x4. Complains of left knee pain 5/10. Pt able to void in urinal. PO pain medication given 1700: Pt voided 275 ml. Bladder scanned post void >900. Educated pt on need to attempt to void again otherwise a miranda will need to be placed again. 1800: Dr. Langford called for pt's urinary retention. OK to place Miranda catheter over night. Updated pt. Pt would like to wait an hour. 1900: 16 fr Miranda catheter placed, first attempt using sterile technique. Pt tolerated well. 400 ml drained into Miranda 5 minutes post placement.
[2018-12-20 00:41] VITALS: BP 130/73; PULSE 93; RESP 20; TEMP 36.8; O2SAT 92
[2018-12-20] MEDS: OXYCODONE IR 5 MG TABLET PO ×2 (00:42→07:47)
[2018-12-20 06:46] VITALS: BP 155/83; PULSE 102; RESP 20; TEMP 36.7; O2SAT 94
[2018-12-20] MEDS: ACETAMINOPHEN 325 MG TABLET 975 MG PO ×2 (07:41→15:38)
[2018-12-20] MEDS: AMLODIPINE 5 MG TABLET 10 MG PO (07:42)
[2018-12-20 07:43] VITALS: BP 155/72; PULSE 105
[2018-12-20] MEDS: LISINOPRIL 20 MG TABLET 40 MG PO (07:43)
[2018-12-20] MEDS: ASPIRIN EC 81 MG TABLET PO (07:43)
[2018-12-20] MEDS: TAMSULOSIN 0.4 MG CAPSULE PO (07:44)
[2018-12-20] MEDS: SODIUM CHLORIDE 0.9% FLUSH 10 ML IV (07:44)
[2018-12-20] MEDS: hydroCHLOROthiazide 25 MG TABLET PO (07:44)
[2018-12-20 08:00] VITALS: PULSE 84; RESP 20; TEMP 37; O2SAT 96
--- NOTE | 2018-12-20 09:36 | PT.IPTN ---
Current Diagnoses Unilateral primary osteoarthritis, left knee (12/17/18) Retention of urine, unspecified (12/17/18) Presence of unspecified artificial knee joint (12/17/18) Surgery Performed Operation Date: 12/17/18 11:00 Actual Procedures p Total Knee Arthroplasty w/Hardware removal(Left) - Lalo Tomlinson MD Physical Therapy Treatment Note M2 PT-IP Current Condition Start: 12/18/18 14:14 Freq: NEEDED Status: Active Protocol: Document 12/18/18 09:15 AB (Rec: 12/18/18 14:30 AB [email or web address]) Physical Therapy Current Condition Current Condition Evaluation Date 12/18/18 Treatment Diagnosis s/p L TKA; difficulty in walking Onset Date 12/17/18 Weight Bearing Status Weight Bearing Status Weight Bear as Tolerated M3 PT-IP Subjective Start: 12/18/18 14:14 Freq: NEEDED Status: Active Protocol: Document 12/20/18 09:36 AB (Rec: 12/20/18 12:52 AB [id number]) Subjective Physical Therapy Visit Type Type Treatment Note Visit Start Time 09:36 Visit Stop Time 10:22 Total Visit Minutes 46 Number of BODY STRAIGHTENER Visits 0 Physical Therapy Visit Comments Patient Comments pt agreeable to do PT Therapy Pain Assessment Pain When Pain Assessed At Rest Pain Present Pain Present Pain Reported Location L knee Intensity 3 Scale Used Numeric (1 - 10) Pain Management Techniques Apply Cold Re-positioning Timing of Activity with Medications M4 PT-IP Mobility and Gait Start: 12/18/18 14:14 Freq: NEEDED Status: Active Protocol: Document 12/20/18 09:36 AB (Rec: 12/20/18 12:52 AB [id number]) PT-Transfer Assessment Sit to and From Stand Sit to and from Stand Standby Assistance Use of Upper Extremities Comments Mobility Comments BP monitored: sitting on chair prior to tx session: 96/54. pt stated that he was a little lightheaded. Checked BP again prior to standin/53 . pt completed sit to stand SBA. BP checked after ~ 2min of standing with c/o light headedness with standing but not more than what he felt when he was sitting. BP: 89/ 52. instructed pt to sit down . reclined pt on chair. BP: 122/58. Pt rested for a few minutes. sat pt upright again and BP: 98/52. Pt agreed to stand again. completed with SBA. stood up for a few minutes. continued to c/o lightheadedness but not worse. BP: 101/55, pt completed marching in place using FWW for support CGA and cues for L quads activation. BP checked again: 99/54. ambulated in room using FWW ~ 25 ft CGA in room. pt stated that lightheadedness is the same. BP checked: 78/42. instructed pt to sit down. BP checked: 119/52. Set pt up on chair. ice pack, call light and table placed within reach. Left pt with spouse in room. spouse expressed concerns regarding BP. informed nurse regarding BP and family's concerns. Gait Assessment Gait Gait Assistance Required: Contact Guard Assist Distance (Feet) 25 Able to Maintain Weight Bearing Status Yes During Gait Assistive Devices Assistive Device Gait Belt Front Wheeled Walker Gait Deviations General Gait Pattern Antalgic Factors Limiting Gait Function Factors Limiting Gait Function Decreased Activity Tolerance Decreased Strength Pain Poor Balance Poor Safety Awareness Comments Gait Comments pls refer to mobility section for details M5 PT-IP Objective Assessments Start: 12/18/18 14:14 Freq: NEEDED Status: Active Protocol: Document 12/18/18 09:15 AB (Rec: 12/18/18 14:30 AB [email or web address]) Orientation Orientation/Cognition Level of Alertness Alert Orientation Name Age Birthday Month Date Year Day of Week Place Situation Safety Awareness Understands Safety Issues Memory Description No Deficits Noted Gross Range of Motion Lower Extremity ROM Assessment Left Impaired Impairments L knee flexion: ~ 70 deg L knee extension: lacking ~ 10 deg to neutral Strength Lower Extremity Strength Assessment Left Impaired Knee 3+/5 Coordination Assessment Gross Coordination Gross Coordination WNL Muscle Tone Muscle Tone WNL Yes M6 PT-IP Treatment Start: 12/18/18 14:14 Freq: NEEDED Status: Active Protocol: Document 12/20/18 09:36 AB (Rec: 12/20/18 12:52 AB [id number]) Physical Therapy Treatment Exercises Exercises Heel Slides Education Education Provided Precautions Safety M7 PT-IP Assessment and Plan Start: 12/18/18 14:14 Freq: NEEDED Status: Active Protocol: Document 12/20/18 09:36 AB (Rec: 12/20/18 12:52 AB [id number]) PT Summary Assessment and Plan Potential Rehabilitation Potential Good Summary Impairments Pain ROM Strength Balance Coordination Sensation Tone Cognition Bed Mobility Transfers Gait Activity Tolerance Progress Towards Goals Slow Progress due to Activity Tolerance Assessment Summary pt continues to have decrease BP with upright activities affecting mobility. pt requiring SBA to CGA with transfers and ambulation and caregiver training has been completed prior. pt may go home when medically stable. Goals Bed Mobility Goal Independent Transfer Goal Independent Front Wheeled Walker Gait Goal Independent Front Wheel Walker Gait Distance 250 Other Goals up/down 2 steps L rail/crutch SBA Days to Meet Goals 3 Frequency of Treatment Frequency Of Treatment Twice a Day Treatment Plan Physical Therapy Treatment Plan Bed Mobility Training Transfer Training Gait Training Therapeutic Exercise Balance Retraining Post Op Education Discharge Planning Hot or Cold Pack Neuromuscular Re-ed Coordination Retraining Manual Therapy Other Recommendations and Next Treatment ambulation, stair climbing, Focus caregiver training Recommendations To Nursing Amount of Assist Needed 1 Person Assist Discharge Recommendations PT Discharge Recommendations Home with Assistance Outpatient PT
--- NOTE | 2018-12-20 10:29 | PC.NURSE ---
Pt requesting urinary catheter be removed. States he thinks he will be able to void without it. Mcnamara removed at 0800 and pt has not yet voided. Seen by PA and plan to dc home after voiding. If no void, will replace catheter. Pt given 5mg oxycodone and noted hypotension after standing with PT with BP systolic 78. Pt sympomatic at the time and was seated. BP retaken with BP in normal range. Pt advised to see PCP about adjusting BP medications and advised about precautions when first standing to avoid postural hypotension. IV removed and pt is being prepared for dc later this afternoon.
[2018-12-20 12:00] VITALS: BP 116/59; PULSE 108; RESP 18; TEMP 37; O2SAT 99
[2018-12-20] MEDS: OXYCODONE IR 10 MG TABLET PO (12:46)
--- NOTE | 2018-12-20 14:29 | PT.IPTN ---
Current Diagnoses Unilateral primary osteoarthritis, left knee (12/17/18) Retention of urine, unspecified (12/17/18) Presence of unspecified artificial knee joint (12/17/18) Surgery Performed Operation Date: 12/17/18 11:00 Actual Procedures p Total Knee Arthroplasty w/Hardware removal(Left) - Lalo Tomlinson MD Physical Therapy Treatment Note M2 PT-IP Current Condition Start: 12/18/18 14:14 Freq: NEEDED Status: Active Protocol: Document 12/18/18 09:15 AB (Rec: 12/18/18 14:30 AB [email or web address]) Physical Therapy Current Condition Current Condition Evaluation Date 12/18/18 Treatment Diagnosis s/p L TKA; difficulty in walking Onset Date 12/17/18 Weight Bearing Status Weight Bearing Status Weight Bear as Tolerated M3 PT-IP Subjective Start: 12/18/18 14:14 Freq: NEEDED Status: Active Protocol: Document 12/20/18 14:29 AB (Rec: 12/20/18 15:28 AB [id number]) Subjective Physical Therapy Visit Type Type Treatment Note Visit Start Time 14:29 Visit Stop Time 14:55 Total Visit Minutes 26 Number of LOGISTICS PROGRAM MANAGER Visits 0 Physical Therapy Visit Comments Patient Comments pt wants to walk Therapy Pain Assessment Pain When Pain Assessed At Rest Pain Present Pain Present Pain Reported Location L knee Intensity 4 Scale Used Numeric (1 - 10) Pain Management Techniques Apply Cold M4 PT-IP Mobility and Gait Start: 12/18/18 14:14 Freq: NEEDED Status: Active Protocol: Document 12/20/18 14:29 AB (Rec: 12/20/18 15:28 AB [id number]) PT-Bed Mobility Assessment Supine to Sit Supine to Sit Standby Assistance PT-Transfer Assessment Comments Mobility Comments BP monitored: BP sittin/ 59 standin/59 after 2 min of standin/72 after ambulation: 108/55 Gait Assessment Gait Gait Assistance Required: Standby Assistance Contact Guard Assist 1 Person Assist Distance (Feet) 250 Able to Maintain Weight Bearing Status Yes During Gait Assistive Devices Assistive Device Gait Belt Front Wheeled Walker Orthotic/Prosthetic Devices or Brace: Yes Gait Deviations General Gait Pattern Antalgic Factors Limiting Gait Function Factors Limiting Gait Function Decreased Activity Tolerance Decreased Strength Pain Poor Balance Comments Gait Comments pt requires cues to activate L quads. needing CGA towards end of ambulation with (+) L knee slightly giving out. educated pt regarding safety and doing activities in phases and setting up chair stations to rest due to decrease activity tolerance and BP issues. pt and spouse understood and agreed. M5 PT-IP Objective Assessments Start: 12/18/18 14:14 Freq: NEEDED Status: Active Protocol: Document 12/18/18 09:15 AB (Rec: 12/18/18 14:30 AB [email or web address]) Orientation Orientation/Cognition Level of Alertness Alert Orientation Name Age Birthday Month Date Year Day of Week Place Situation Safety Awareness Understands Safety Issues Memory Description No Deficits Noted Gross Range of Motion Lower Extremity ROM Assessment Left Impaired Impairments L knee flexion: ~ 70 deg L knee extension: lacking ~ 10 deg to neutral Strength Lower Extremity Strength Assessment Left Impaired Knee 3+/5 Coordination Assessment Gross Coordination Gross Coordination WNL Muscle Tone Muscle Tone WNL Yes M6 PT-IP Treatment Start: 12/18/18 14:14 Freq: NEEDED Status: Active Protocol: Document 12/20/18 14:29 AB (Rec: 12/20/18 15:28 AB [id number]) Physical Therapy Treatment Education Education Provided Precautions Safety M7 PT-IP Assessment and Plan Start: 12/18/18 14:14 Freq: NEEDED Status: Active Protocol: Document 12/20/18 14:29 AB (Rec: 12/20/18 15:28 AB [id number]) PT Summary Assessment and Plan Potential Rehabilitation Potential Good Summary Impairments Pain ROM Strength Balance Bed Mobility Transfers Gait Activity Tolerance Progress Towards Goals Slow Progress due to Activity Tolerance Assessment Summary pt continues to have decrease BP with activity but able to ambulate without issues. educated to f/u with primary physician and educated on phasing activities for safety. pt plans to go home with spouse to assist. Goals Bed Mobility Goal Independent Transfer Goal Independent Front Wheeled Walker Gait Goal Independent Front Wheel Walker Gait Distance 250 Other Goals up/down 2 steps L rail/crutch SBA Days to Meet Goals 3 Frequency of Treatment Frequency Of Treatment Twice a Day Treatment Plan Physical Therapy Treatment Plan Bed Mobility Training Transfer Training Gait Training Therapeutic Exercise Balance Retraining Post Op Education Discharge Planning Hot or Cold Pack Neuromuscular Re-ed Coordination Retraining Manual Therapy Other Recommendations and Next Treatment ambulation, stair climbing, Focus caregiver training Recommendations To Nursing Amount of Assist Needed 1 Person Assist Discharge Recommendations PT Discharge Recommendations Home with Assistance Outpatient PT
--- NOTE | 2018-12-20 16:11 | PC.NURSE ---
Addendum entered by Kaitlin Lee R.N. 12/20/18 16:57: 400cc urine drained from miranda before switched to leg bag. spouse and pt instructed on the same. Original Note: DC/miranda pt denies any lightheaded/dizziness. VSS. Unable to void. This RN called who states to place indwelling miranda and educate pt on miranda and leg bag. miranda to be maintained until pt's f/u appt saturday. All teaching provided and supplies given to pt and spouse. 16F miranda placed with clear yellow urine outflow.
[2018-12-20 16:28] VITALS: BP 146/74; PULSE 92; RESP 20; TEMP 36.7; O2SAT 100
== END 2018-12-20 16:57 | disposition home or self-care (01) | DRG 470 ==
PROVIDERS: Admitting Provider Orthopaedic Surgery; Visit Provider Orthopaedic Surgery
PROC: 0SRD0JZ Replacement of Left Knee Joint with Synthetic Substitute, Open Approach (ICD-10-PCS; CPT 27447; principal; 2018-12-17 11:00)
DX: M17.12 Unilateral primary osteoarthritis, left knee (principal); I10 Essential (primary) hypertension; Z87.891 Personal history of nicotine dependence; Z96.651 Presence of right artificial knee joint; R33.9 Retention of urine, unspecified; Z85.46 Personal history of malignant neoplasm of prostate
CPT/HCPCS: 36415; 73560; 85014; 85018; 94760; 94762; 97116; 97161; 97530; C1776; C9290; J0690; J1100; J2250; J2274; J2405; J2704; J3010

== ENCOUNTER 2019-01-09 19:48 | Emergency (ER) | payer OTHER, SELFPAY ==
[2018-12-17 17:20] VITALS: BMI 26.6
[2019-01-09 19:52] VITALS: BP 179/84; PULSE 77; RESP 18; TEMP 36.4; O2SAT 100
--- NOTE | 2019-01-09 20:23 | ED.MALEGU ---
HPI - Male Genitourinary <REYES Sorensen - Last Filed: 01/09/19 22:20> General Chief complaint: Urogenital-Male Stated complaint: BLOOD IN CATH Time Seen by Provider: 01/09/19 20:23 Source: patient Mode of arrival: ambulatory Limitations: no limitations History of Present Illness HPI Narrative: 78-year-old male with history of a bladder cancer and urinary retention who is a nonsmoker here for comfort point of having clots in his Mcnamara catheter since earlier today. He states that he was doing physical therapy for his knee earlier today when he was doing the physical therapy felt like the Mcnamara bag was pulling on the Mcnamara catheter since that timeframe he reports having some blood clots and states that the Mcnamara catheter is not draining at this point. He denies any abdominal pain. Denies any flank pain. No burning. He positive p.o. intake. No nausea vomiting. No other concerns or complaints at this timeframe. Mcnamara catheter has been in the for approximately 1 week. He has a Mcnamara catheter after having urinary retention since December of This year post surgery. He is currently followed by Urology in [place] for this. Related Data Home Medications Medication Instructions Recorded Confirmed amlodipine 10 mg PO DAILY 11/27/18 12/17/18 cholecalciferol (vitamin D3) 400 unit PO DAILY 11/27/18 12/17/18 [Vitamin D3] hydrochlorothiazide 25 mg PO DAILY 11/27/18 12/17/18 ibuprofen 2 tab PO DAILY PRN 11/27/18 12/17/18 lisinopril 40 mg PO DAILY 11/27/18 12/17/18 Previous Rx's Medication Instructions Recorded tamsulosin [Flomax] 0.4 mg PO DAILY #30 cap 12/19/18 Allergies Allergy/AdvReac Type Severity Reaction Status Date / Time codeine [CODEINE] Allergy Intermediate HIVES, SOB Verified 12/17/18 10:01 Review of Systems <REYES Sorensen - Last Filed: 01/09/19 22:20> Constitutional Denies chills, Denies fever(s), Denies lethargy and Denies weakness Eyes Denies change in vision, Denies eye discharge, Denies irritation and Denies loss of vision ENT Ears, Nose, Mouth, and Throat: Denies change in voice, Denies neck pain and Denies sore throat Cardiovascular Denies chest pain, Denies irregular heart rhythm, Denies lightheadedness, Denies palpitations, Denies dyspnea, Denies dyspnea on exertion and Denies orthopnea Respiratory Denies cough, Denies dyspnea, Denies dyspnea on exertion and Denies wheezing Gastrointestinal Gastrointestinal: Denies abdominal pain, Denies change in bowel habits, Denies diarrhea, Denies nausea and Denies vomiting Genitourinary Comments: clots and blockage of Mcnamara catheter Musculoskeletal Denies neck pain Integumentary/Breasts Denies pruritus, Denies erythema, Denies rash and Denies wounds Neurologic Denies loss of vision and Denies weakness Endocrine Denies palpitations Hematologic/Lymphatic Denies easy bruising Allergic/Immunologic Denies wheezing PFSH <REYES Sorensen - Last Filed: 01/09/19 22:20> Medical History Basal cell carcinoma (BCC) (Acute) HTN (hypertension) (Acute) Hypochloremia (Acute) Hyponatremia (Acute) Osteoarthritis (Acute) Spinal stenosis (Acute) Surgical History History of arthroplasty of right knee (Acute ~2007) History of prostate surgery (Acute ~2003) Hx of decompressive lumbar laminectomy (Acute ~2011) Hx of hernia repair (Acute) Status post cataract extraction of both eyes with insertion of intraocular lens (Acute ~2016) Status post osteotomy (Acute ~1995) Social History Smoking Status: Never smoker Social History Smoking Status: Never smoker Exam <REYES Sorensen - Last Filed: 01/09/19 22:20> Initial Vital Signs Initial Vital Signs: Vital Signs Temperature 97.5 F L 01/09/19 19:52 Pulse Rate 77 01/09/19 19:52 Respiratory Rate 18 01/09/19 19:52 Blood Pressure 179/84 H 01/09/19 19:52 Pulse Oximetry 100 01/09/19 19:52 Const General: cooperative and well developed Nutritional Appearance: well nourished Orientation: alert, awake, oriented x3 and not confused HENMT Mouth: oral mucosae normal and moist mucous membranes Eyes Conjunctivae: conjunctivae normal Sclera: sclerae normal Pupils: PERRL EOM: EOM intact bilaterally Resp Effort & Inspection: normal respiratory effort, able to speak in complete sentences, no respiratory distress and no use of accessory muscles Auscultation: clear to auscultation bilaterally, no rales, no rhonchi and no wheezes Cardio Rate: regular rate Rhythm: regular rhythm Heart Sounds: no click, no gallops, no murmurs and no rubs Pulses: normal peripheral pulses GI Inspection: non-distended Palpation: soft, no hepatosplenomegaly, No guarding, No pulsatile mass and No tender Auscultation: normal bowel sounds General: No CVA tenderness Skin General: no rashes or lesions noted, No jaundice and No petechiae Neuro General: alert, oriented x3, gait normal and no focal motor deficits Speech: speech normal <Vaibhav Patel DO - Last Filed: 01/09/19 23:33> Initial Vital Signs Initial Vital Signs: Vital Signs Temperature 97.5 F L 01/09/19 19:52 Pulse Rate 77 01/09/19 19:52 Respiratory Rate 18 01/09/19 19:52 Blood Pressure 179/84 H 01/09/19 19:52 Pulse Oximetry 100 01/09/19 19:52 Course <REYES Sorensen - Last Filed: 01/09/19 22:20> Vital Signs - 8 hr 01/09/19 19:52 01/09/19 21:41 Temperature 97.5 F L Pulse Rate 77 75 Respiratory Rate 18 16 Blood Pressure 179/84 H Blood Pressure [Left Arm] 164/84 H Pulse Oximetry 100 96 <Vaibhav Patel DO - Last Filed: 01/09/19 23:33> Vital Signs - 8 hr 01/09/19 19:52 01/09/19 21:41 Temperature 97.5 F L Pulse Rate 77 75 Respiratory Rate 18 16 Blood Pressure 179/84 H Blood Pressure [Left Arm] 164/84 H Pulse Oximetry 100 96 MDM - Male Genitourinary <REYES Sorensen - Last Filed: 01/09/19 22:20> MDM Narrative Medical decision making narrative: Mcnamara catheter was irrigated a couple of times with normal saline and was able to drain out approximately 600 mL of urine. Patient states he feels or much better this time. He is instructed to follow up with primary care provider and Urology. For any worsening symptoms return to the emergency room. Discharge Plan Departure Patient Disposition: Home Clinical Impression: Complication of Mcnamara catheter Qualifiers: Encounter type: initial encounter Qualified Code(s): T83.9XXA - Unspecified complication of genitourinary prosthetic device, implant and graft, initial encounter Discharge Date/Time: 01/09/19 21:53 Interventions: ED Discharge Assessment Last Done: 01/09/19 21:51 Instructions: How to Care for Your Mcnamara Catheter -- Male Activity Restrictions/Additional Instructions: Mcnamara catheter was irrigated and is now draining. Follow up with her primary care provider. Follow up with Urology. For any worsening symptoms return to the emergency room. Prescriptions: No Action amlodipine 10 mg Tablet 10 mg PO DAILY RF: 0 ibuprofen 200 mg Tablet 2 tab PO DAILY PRN (Reason: pain) RF: 0 hydrochlorothiazide 25 mg Tablet 25 mg PO DAILY RF: 0 lisinopril 40 mg Tablet 40 mg PO DAILY RF: 0 cholecalciferol (vitamin D3) [Vitamin D3] 400 unit Tablet 400 unit PO DAILY RF: 0 tamsulosin [Flomax] 0.4 mg Capsule 0.4 mg PO DAILY Qty: 30 RF: 0 Referrals: [facility] [Provider Group] <Vaibhav Patel DO - Last Filed: 01/09/19 23:33> [facility] Rex Attestation: I was available for consultation during this patient's emergency department encounter
[2019-01-09 21:41] VITALS: BP 164/84; PULSE 75; RESP 16; O2SAT 96
== END 2019-01-09 21:53 | disposition home or self-care (01) ==
PROVIDERS: Emergency Provider Nurse Practitioner Family
DX: T83.9XXA Unspecified complication of genitourinary prosthetic device, implant and graft, initial encounter (principal)
CPT/HCPCS: 51700; 51798; 99283

== ENCOUNTER 2019-02-09 10:30 | Outpatient (RCR) | payer OTHER, SELFPAY ==
--- NOTE | 2018-12-08 16:33 | PT.OIE ---
Current Diagnoses Unilateral primary osteoarthritis, left knee (12/08/18) Other specified postprocedural states (12/08/18) Past Medical History (Last Updated 11/27/18 @ 09:21 by Nikki Mario RN) Basal cell carcinoma (BCC) (Acute) HTN (hypertension) (Acute) Hypochloremia (Acute) Hyponatremia (Acute) Osteoarthritis (Acute) Spinal stenosis (Acute) Past Surgical History (Last Updated 11/27/18 @ 09:21 by Nikki Mario RN) History of arthroplasty of right knee (Acute ~2007) History of prostate surgery (Acute ~2003) Hx of decompressive lumbar laminectomy (Acute ~2011) Hx of hernia repair (Acute) Status post cataract extraction of both eyes with insertion of intraocular lens (Acute ~2016) Status post osteotomy (Acute ~1995) Provider Visit Care Team Role Provider Type Primary Care Provider Specialty: Address: Phone: Fax: Email: Lalo Tomlinson MD Attending Provider Physician Specialty: Orthopedics Address: [address] [place] [address], [id number] Email: [email or web address] Therapy Initial Evaluation PT-OP-A Visit Information Start: 12/08/18 08:33 Freq: Status: Active Protocol: Document 12/08/18 11:32 LRN (Rec: 12/08/18 12:45 LRN [id number]) Out-Patient Physical Therapy Visit Information Visit Information Visit Type Initial Evaluation Visit Start Time 10:35 Visit Stop Time 11:20 Total Visit Minutes 45 Visit Number 1 Number of FORENSIC AUDIT EXPERT Visits 0 Evaluation Information Evaluation Date 12/08/18 Precautions Precautions Pt reports: Hx of Prostate CA 2003; R TKA 2007, Fusion of Lower Lumbar spine. PT-OP-B Current Condition Start: 12/08/18 08:33 Freq: Status: Active Protocol: Document 12/08/18 11:32 LRN (Rec: 12/08/18 12:45 LRN [id number]) Current Condition History of Current Condition Onset Date 5 yrs ago Current Complaints Limited in function with walking, especially downhill ambulation. History of Current Condition Pt has a 5 yr history of arthritis of the knees and has had a R TKA in 2007. He is here today for a preop physical therapy visit for an elective L TKA on 12/17/18 per [facility] protocol, pre and post operatively. Future Testing and Treatments Planned The pt is scheduled for a physical therapy re-assessment and rehabilitation post operatively starting on . Treatment Goals Patient/Caregiver Goals Today, set up and training for use of crutches and walker, and self care instructions. Post-surgery he hopes to regain mobility to exercise and hike and to be able to walk downhill without pain. Prior Functional Status Baseline Function- ADL's Independent Baseline Function- Mobility Independent Baseline Function- Recreation/Hobbies Progressive difficulty walking downhill. Current Functional Impairments (Reported) Functional Limitations- Mobility/Gait Walking with increasing level of difficulty over time. Functional Limitations- Recreation/ Painful walking downhill. Hobbies Limited with ability to exercise due to L knee pain. Personal Factors Other Personal Factors That May Effect Chronicity of condition. Therapy/Recovery PT-OP-C Subjective Start: 12/08/18 08:33 Freq: Status: Active Protocol: Document 12/08/18 11:32 LRN (Rec: 12/08/18 12:45 LRN [id number]) Patient Questionnaires Lower Extremity Functional Scale LEFS Score 48 LEFS Impairment 20 to 39% Impaired (Score 48- 62) OP-PT Pain Assessment Pain Assessment Grid Paper Pain Assessment Grid Completed Yes Location L knee Pain Location Details Generally at joint Intensity 8 Scale Used Numeric (1 - 10) Description Aching Description- Other Pain at least is 0 Pain Aggravating Factors Exercise Walking PT-OP-G Mobility & Gait Start: 12/08/18 08:33 Freq: Status: Active Protocol: Document 12/08/18 11:32 LRN (Rec: 12/08/18 12:45 LRN [id number]) OP Mobility Evaluation Bed Mobility Rolling Independent Supine to and from Sit Independent Transfers Sit to Stand Independent Bed to Chair Transfers Independent Car Transfers Independent OP Gait Assessment Comments Gait Comments Pt currently can ambulate with a mild antalgic gait, FWBing bilaterally, no assistive device. With training the pt was able to demonstrate a mlkw-[id number]-[id number] pattern and a normal gait pattern, w/partial WBing LLE/ FWW and crutches using. Stair Climbing Evaluation Evaluation Level of Assist On Stairs Independent Comments Stair Climbing Comments Pt was independent with stair ambulation w/partial weight bearing LLE/2 railings. Pt was independent with stair ambulation w/FWBing bilaterally/use of bilateral railing. PT-OP-K Range of Motion Start: 12/08/18 08:33 Freq: Status: Active Protocol: Document 12/08/18 11:32 LRN (Rec: 12/08/18 12:45 LRN [id number]) Knee Goniometric Range of Motion Knee Measured in Degrees Right Knee ROM WFL No Patient Position Supine Flexion Active (degrees) 110 Left Patient Position Supine Flexion Active (degrees) 105 Knee ROM Limitations Comments Bilateral Knee ext: Lacks 3 deg's. PT-OP-M Strength Start: 12/08/18 08:33 Freq: Status: Active Protocol: Document 12/08/18 11:32 LRN (Rec: 12/08/18 12:45 LRN [id number]) Hip Strength Hip Manual Muscle Testing Left Flexion (L2) 3+ Fair+ Knee Strength Knee Manual Muscle Testing Right Flexion (S2) 4+ Good+ Extension (L3) 5 Normal Left Flexion (S2) 3+ Fair+ Extension (L3) 4 Good PT-OP-Q Treatments Start: 12/08/18 08:33 Freq: Status: Active Protocol: Document 12/08/18 11:32 LRN (Rec: 12/08/18 12:45 LRN [id number]) Therapeutic Activity Therapeutic Activity Transfers Name Transfer training Comments In/out of car, In/out of bed, Up/down chair & bed with use of Assistive device as appropriate. Gait Training Gait Activity 1 Description Gait training with use of FWW & Crutches Device Used FWW & Crutches Surface Level Distance/Duration 100+' Treatment Focus Step to and Normal gait with use of assistive devices. Comments FWW & Crutches were adjusted and training given as to proper use. Self-Care/Home Management Treatment Education Patient Education Home Exercise Program Other Education Educated pt in fainting precautions, use of crotherapy and frostbite prevention, proper elevation techniques in supine and sitting, reviewed use of DME's as appropriate, and discussed edema management . Activities Self-Care/Home Management Activities Issued HEP of SAQ. Reviewed exercise handouts issued by physician office. PT-OP-T Assessment and Plan Start: 12/08/18 08:33 Freq: Status: Active Protocol: Document 12/08/18 11:32 LRN (Rec: 12/08/18 12:45 LRN [id number]) Physical Therapy Assessment Rehab Potential Rehabilitation Potential Excellent Evaluation Complexity Number of Personal Factors/Comorbidities 1-2 Number of Body Systems Impaired 4 or More Clinical Presentation at Evaluation Evolving Impairments Impairments Activity Tolerance Pain ROM Strength Other Concerns Age Related Concerns Pt is 64+ yrs old. Barriers to Rehabilitation Chronicity of condition. Goals Three Impairment Decreased function per LEFS score of 48 Developer Automatic Goal (LTG) LEFS score of no less than 63. LTG Duration 02/11/19 Two Impairment Pt lacks knowledge of self care/HEP post-operative LTKA on 12/17/18. Half-Way Goal (LTG) Pt will be independent with a HEP of self care ex's. LTG Duration 02/11/19 One Impairment Pt lacks self care knowledge per [facility] protocol for pre-op care. Short Term Goal (STG) Pt will be educated in safe and proper management for mobility and self care per [facility] protocol pre- operatively. STG Duration 12/08/18. Assessment Summary Assessment Pt presents with good limited L knee mobility and strength and pain limiting ability to participate in recreational activities of walking ( primarily walking downhill). The pt was very receptive to L TKA training and education in self care activities pre- operatively. His loaned walker and crutches have been adjusted for is height although the crutches might be better set 1 below the pt's reported height for better comfort. The pt will continue with his ex's per his handouts and will be seen for a re-check and rehabilitation post operatively. Physical Therapy Plan Frequency and Duration Frequency of Treatment 2x/Week Plan of Care Start Date 12/08/18 Plan of Care End Date 02/11/19 Therapeutic Interventions Therapeutic Interventions Aquatic Therapy Balance Training Gait Training Home Exercise Program Manual Therapy Neuromuscular Re-education Patient/Caregiver Education Self-Care/Home Management Soft Tissue Mobilization Taping Therapeutic Activities Therapeutic Exercises Modalities Cold Pack/Ice Massage Next Visit Focus/Plan Next Note Type Re-Evaluation Next Visit Plan Re-Eval due to pt change in status to post-operative L TKA .
--- NOTE | 2018-12-08 16:34 | PT.OPPOC ---
Current Diagnoses Unilateral primary osteoarthritis, left knee (12/08/18) Other specified postprocedural states (12/08/18) Provider Visit Care Team Role Provider Type Primary Care Provider Specialty: Address: Phone: Fax: Email: Lalo Tomlinson MD Attending Provider Physician Specialty: Orthopedics Address: [address] [place] [address], [place], [address] Email: [email or web address] Plan Of Care PT-OP-T Assessment and Plan Start: 12/08/18 08:33 Freq: Status: Active Protocol: Document 12/08/18 11:32 LRN (Rec: 12/08/18 12:45 LRN [id number]) Physical Therapy Assessment Rehab Potential Rehabilitation Potential Excellent Evaluation Complexity Number of Personal Factors/Comorbidities 1-2 Number of Body Systems Impaired 4 or More Clinical Presentation at Evaluation Evolving Impairments Impairments Activity Tolerance Pain ROM Strength Other Concerns Age Related Concerns Pt is 64+ yrs old. Barriers to Rehabilitation Chronicity of condition. Goals Three Impairment Decreased function per LEFS score of 48 Security Services Manager Goal (LTG) LEFS score of no less than 63. LTG Duration 02/11/19 Two Impairment Pt lacks knowledge of self care/HEP post-operative LTKA on 12/17/18. Chcf Goal (LTG) Pt will be independent with a HEP of self care ex's. LTG Duration 02/11/19 One Impairment Pt lacks self care knowledge per [facility] protocol for pre-op care. Short Term Goal (STG) Pt will be educated in safe and proper management for mobility and self care per [facility] protocol pre- operatively. STG Duration 12/08/18. Assessment Summary Assessment Pt presents with good limited L knee mobility and strength and pain limiting ability to participate in recreational activities of walking ( primarily walking downhill). The pt was very receptive to L TKA training and education in self care activities pre- operatively. His loaned walker and crutches have been adjusted for is height although the crutches might be better set 1 below the pt's reported height for better comfort. The pt will continue with his ex's per his handouts and will be seen for a re-check and rehabilitation post operatively. Physical Therapy Plan Frequency and Duration Frequency of Treatment 2x/Week Plan of Care Start Date 12/08/18 Plan of Care End Date 02/11/19 Therapeutic Interventions Therapeutic Interventions Aquatic Therapy Balance Training Gait Training Home Exercise Program Manual Therapy Neuromuscular Re-education Patient/Caregiver Education Self-Care/Home Management Soft Tissue Mobilization Taping Therapeutic Activities Therapeutic Exercises Modalities Cold Pack/Ice Massage Next Visit Focus/Plan Next Note Type Re-Evaluation Next Visit Plan Re-Eval due to pt change in status to post-operative L TKA . Plan of Care Dates Plan of Care Start Date 12/08/18 Plan of Care End Date 02/11/19 Please Sign and Return: I have reviewed this Plan of Care and certify that the skilled therapy services above are required to meet the patient?s needs. Physician Signature Date Printed Name and Credentials Clinical Instructor Signature Printed Name and Credentials
--- NOTE | 2018-12-22 12:29 | PT.OTRE ---
Current Diagnoses Unilateral primary osteoarthritis, left knee (12/22/18) Other specified postprocedural states (12/22/18) Past Medical History (Last Updated 11/27/18 @ 09:21 by Nikki Mario RN) Basal cell carcinoma (BCC) (Acute) HTN (hypertension) (Acute) Hypochloremia (Acute) Hyponatremia (Acute) Osteoarthritis (Acute) Spinal stenosis (Acute) Surgical History (Last Updated 11/27/18 @ 09:21 by Nikki Mario RN) History of arthroplasty of right knee (Acute ~2007) History of prostate surgery (Acute ~2003) Hx of decompressive lumbar laminectomy (Acute ~2011) Hx of hernia repair (Acute) Status post cataract extraction of both eyes with insertion of intraocular lens (Acute ~2016) Status post osteotomy (Acute ~1995) Provider Visit Care Team Role Provider Type Primary Care Provider Specialty: Address: Phone: Fax: Email: Lalo Tomlinson MD Attending Provider Physician Specialty: Orthopedic Surgery Address: [address] [place] [address], [id number] Email: [email or web address] Physical Therapy Re-Evaluation PT-OP-A Visit Information Start: 12/08/18 08:33 Freq: Status: Active Protocol: Document 12/22/18 10:30 HH (Rec: 12/22/18 12:27 [email or web address]) Out-Patient Physical Therapy Visit Information Visit Information Visit Type Treatment Note Visit Note Re-eval today. Pt underwent L TKA on 12/17/18 at . Visit Start Time 10:30 Visit Stop Time 11:25 Total Visit Minutes 55 Visit Number 2 Number of SVP CHIEF MARKETING OFFICER Visits 0 PT-OP-B Current Condition Start: 12/08/18 08:33 Freq: Status: Active Protocol: Document 12/22/18 10:30 HH (Rec: 12/22/18 12:27 [email or web address]) Current Condition History of Current Condition Onset Date 12/17/18 Current Complaints Limited in function with walking, especially downhill ambulation. History of Current Condition Pt underwent L TKA on 12/17/18 at due to history of arthritis. Pt was hospitalized until last Saturday due to onset of hypotension, diarrhea , dizziness and nausea feeling . Pt had multiple episodes of hypotension at 70s/50s during hospital stay. But his states his BP has been stabilized since d/c 110s/70s. Pt reports his pain has been well controlled at around 3-5/ 10 in a daily basis. However, pt reports he feels very nausea and dizzy yesterday most likely because he took oxycodone, tylenol, ibuprofen and aspirin together in the morning. Pt's states He probably took too much meds at the same time but we will ask the PA tomorrow. Pt also has been using his FWW primarily and crutches for 2 steps to get into the house. Pt lives on the [facility] right now but he has a recreational floor at the basement which has 19 steps to go down. Future Testing and Treatments Planned pt is scheduled for follow up with PA 12/23/18 and possibly removal of catheter PT-OP-C Subjective Start: 12/08/18 08:33 Freq: Status: Active Protocol: Document 12/22/18 10:30 HH (Rec: 12/22/18 12:27 HH [email or web address]) OP-PT Subjective Patient Comments Patient Comments I still have my catheter on and will ask the PA to take it away tomorrow. And i only took 2 tylenol this morning. Patient Reported Progress Improving OP-PT Pain Assessment Location L knee Pain Location Details Generally at joint Intensity 5 Scale Used Numeric (1 - 10) Description Aching Pain Aggravating Factors Exercise Walking PT-OP-G Mobility & Gait Start: 12/08/18 08:33 Freq: Status: Active Protocol: Document 12/22/18 10:30 HH (Rec: 12/22/18 12:27 HH [email or web address]) OP Mobility Evaluation Bed Mobility Rolling Independent Supine to and from Sit Independent Transfers Sit to Stand Independent Bed to Chair Transfers Independent with FWW Car Transfers Independent with FWW OP Gait Assessment Assistive Devices Assistive Device Gait Belt Front Wheeled Walker Gait Deviations General Gait Pattern Antalgic Decreased Stride Length Decreased Feet Clearance Comments Gait Comments Pt currently amb with finger touch with the FWW to facilitate FWB. He does demonstrate slight L antalgic gait due to pain but he is aware of it and cont increase Wb on his L side. Pt's also states pt has been doing high knee walking occasionally to facilitate single leg stance and WB. PT-OP-K Range of Motion Start: 12/08/18 08:33 Freq: Status: Active Protocol: Document 12/22/18 10:30 HH (Rec: 12/22/18 12:27 [email or web address]) Knee Goniometric Range of Motion Knee Measured in Degrees Right Knee ROM WFL No Patient Position Sitting Flexion Active (degrees) 110 Extension Active (degrees) 3 Left Patient Position Sitting Flexion Active (degrees) 90 Flexion Passive (degrees) 100 Extension Active (degrees) 6 Extension Passive (degrees) 4 PT-OP-M Strength Start: 12/08/18 08:33 Freq: Status: Active Protocol: Document 12/22/18 10:30 HH (Rec: 12/22/18 12:27 [email or web address]) Hip Strength Hip Manual Muscle Testing Left Flexion (L2) 3+ Fair+ Knee Strength Knee Manual Muscle Testing Right Flexion (S2) 4+ Good+ Extension (L3) 5 Normal Left Flexion (S2) 3- Fair- Extension (L3) 3- Fair- PT-OP-Q Treatments Start: 12/08/18 08:33 Freq: Status: Active Protocol: Document 12/22/18 10:30 HH (Rec: 12/22/18 12:27 [email or web address]) Therapeutic Exercises Supine Exercises L knee flexion Equipment Used towel for sliding Reps/Minutes 6 x 3 L TKE Supine Exercise Name iso hold Equipment Used towel at ankle Reps/Minutes 10 secs hold x 8 Comments iso hold Sitting Exercises L TKe Equipment Used slider Comments active knee ext to 3 degrees ER L knee flexion Sitting Exercise Name end range knee flexion Equipment Used slider Comments active knee flexion to 105 degrees sit to stand Reps/Minutes 3 x 3 Comments with hip hinge and use of momentum Manual Therapy Treatment Soft Tissue Mobilization l TKE Mobilization Type Sustained Pressure Intensity/Depth Superficial Body Position Supine PT-OP-T Assessment and Plan Start: 12/08/18 08:33 Freq: Status: Active Protocol: Document 12/22/18 10:30 HH (Rec: 12/22/18 12:27 [email or web address]) Physical Therapy Assessment Rehab Potential Rehabilitation Potential Excellent Impairments Impairments Activity Tolerance Pain ROM Strength Goals 5 Impairment Pain Short Term Goal (STG) To reduce his knee pain by 2/ 10 points during mobility Usp Goal (LTG) To reduce his knee pain by 4/ 10 points during mobility LTG Duration 02/11/19 4 Impairment ROM Short Term Goal (STG) To increase L knee flexion by 10 degrees Postdoctoral Research Fellow Goal (LTG) To increase L knee flexion by 20 degrees LTG Duration 02/11/19 Three Impairment Decreased function per LEFS score of 48 Usp Goal (LTG) LEFS score of no less than 63. LTG Duration 02/11/19 Two Impairment Pt lacks knowledge of self care/HEP post-operative LTKA on 12/17/18. Usp Goal (LTG) Pt will be independent with a HEP of self care ex's. LTG Duration 02/11/19 One Impairment Pt lacks self care knowledge per [facility] protocol for pre-op care. Short Term Goal (STG) Pt will be educated in safe and proper management for mobility and self care per [facility] protocol pre- operatively. Assessment Summary Assessment Pt is s/p week 1 L TKA. Pt is compliant to current HEP except terminal knee extension . Pt education on importance of L TKE on gait mechanics today. Upon assessment, pt has difficulty to engage quad muscle for knee extension who requires tactile cues and use of his good R knee for comparison. Introduced hip hinge (use of momentum) to facilitate sit to stand movements. Pt is also able to reach active L knee flexion to 105 degrees at the end of tx session and states reduced pain and increased fluidity of knee ROM. Pt's BP also maintains at safe and stable range 110s/70s. Pt will follow up with his PA tomorrow and possibly remove his catheter and ralf wrap. Physical Therapy Plan Frequency and Duration Frequency of Treatment 2x/Week Plan of Care Start Date 12/08/18 Plan of Care End Date 02/11/19 Therapeutic Interventions Therapeutic Interventions Aquatic Therapy Balance Training Gait Training Home Exercise Program Manual Therapy Neuromuscular Re-education Patient/Caregiver Education Self-Care/Home Management Soft Tissue Mobilization Taping Therapeutic Activities Therapeutic Exercises Modalities Cold Pack/Ice Massage Next Visit Focus/Plan Next Note Type Treatment Note Next Visit Plan cont monitor pt's BP reassess L TKE, overall ROM gait training without FWW possible recumbent bike
--- NOTE | 2018-12-26 09:00 | PT.OTN ---
Current Diagnoses Unilateral primary osteoarthritis, left knee (12/26/18) Other specified postprocedural states (12/26/18) Physical Therapy Treatment Note PT-OP-A Visit Information Start: 12/08/18 08:33 Freq: Status: Active Protocol: Document 12/26/18 09:00 RCC (Rec: 12/26/18 13:46 RCC [email or web address]) Out-Patient Physical Therapy Visit Information Visit Information Visit Type Treatment Note Visit Start Time 09:00 Visit Stop Time 09:50 Total Visit Minutes 50 Visit Number 3 Number of WASTE EXAMINER Visits 0 Evaluation Information Evaluation Date 12/08/18 PT-OP-B Current Condition Start: 12/08/18 08:33 Freq: Status: Active Protocol: Document 12/22/18 10:30 HH (Rec: 12/22/18 12:27 HH [email or web address]) Current Condition History of Current Condition Onset Date 12/17/18 Current Complaints Limited in function with walking, especially downhill ambulation. History of Current Condition Pt underwent L TKA on 12/17/18 at due to history of arthritis. Pt was hospitalized until last Saturday due to onset of hypotension, diarrhea , dizziness and nausea feeling . Pt had multiple episodes of hypotension at 70s/50s during hospital stay. But his states his BP has been stabilized since d/c 110s/70s. Pt reports his pain has been well controlled at around 3-5/ 10 in a daily basis. However, pt reports he feels very nausea and dizzy yesterday most likely because he took oxycodone, tylenol, ibuprofen and aspirin together in the morning. Pt's states He probably took too much meds at the same time but we will ask the PA tomorrow. Pt also has been using his FWW primarily and crutches for 2 steps to get into the house. Pt lives on the [facility] right now but he has a recreational floor at the basement which has 19 steps to go down. Future Testing and Treatments Planned pt is scheduled for follow up with PA 12/23/18 and possibly removal of catheter PT-OP-C Subjective Start: 12/08/18 08:33 Freq: Status: Active Protocol: Document 12/26/18 09:00 RCC (Rec: 12/26/18 13:46 RCC [email or web address]) OP-PT Subjective Patient Comments Patient Comments Pt and reports BP has been stable. Pt has had a difficult time sleeping as he possible has sleep apnea, and managing his catheter. He reports compliance with HEP. PT-OP-G Mobility & Gait Start: 12/08/18 08:33 Freq: Status: Active Protocol: Document 12/22/18 10:30 HH (Rec: 12/22/18 12:27 HH [email or web address]) OP Mobility Evaluation Bed Mobility Rolling Independent Supine to and from Sit Independent Transfers Sit to Stand Independent Bed to Chair Transfers Independent with FWW Car Transfers Independent with FWW OP Gait Assessment Assistive Devices Assistive Device Gait Belt Front Wheeled Walker Gait Deviations General Gait Pattern Antalgic Decreased Stride Length Decreased Feet Clearance Comments Gait Comments Pt currently amb with finger touch with the FWW to facilitate FWB. He does demonstrate slight L antalgic gait due to pain but he is aware of it and cont increase Wb on his L side. Pt's also states pt has been doing high knee walking occasionally to facilitate single leg stance and WB. PT-OP-K Range of Motion Start: 12/08/18 08:33 Freq: Status: Active Protocol: Document 12/26/18 09:00 RCC (Rec: 12/26/18 13:46 RCC [email or web address]) Knee Goniometric Range of Motion Knee Measured in Degrees Left Patient Position Supine Flexion Active (degrees) 100 Extension Active (degrees) 3 Extension Passive (degrees) 2 PT-OP-M Strength Start: 12/08/18 08:33 Freq: Status: Active Protocol: Document 12/22/18 10:30 HH (Rec: 12/22/18 12:27 HH [email or web address]) Hip Strength Hip Manual Muscle Testing Left Flexion (L2) 3+ Fair+ Knee Strength Knee Manual Muscle Testing Right Flexion (S2) 4+ Good+ Extension (L3) 5 Normal Left Flexion (S2) 3- Fair- Extension (L3) 3- Fair- PT-OP-Q Treatments Start: 12/08/18 08:33 Freq: Status: Active Protocol: Document 12/26/18 09:00 RCC (Rec: 12/26/18 13:46 RCC [email or web address]) Cardio Equipment Recumbent Bicycle Duration (Minutes) 6 Resistance 1 Other progression of ROM L knee Therapeutic Exercises Supine Exercises HS stretch Side left Reps/Minutes 2x30 sec Comments manual Quad set Side left Reps/Minutes 2x10 L knee flexion Supine Exercise Name heel slides Side left Equipment Used towel for sliding Reps/Minutes 2x10 Sitting Exercises knee extension Sitting Exercise Name L knee extension 90 to 5 degrees Side left Reps/Minutes x12 Comments no pain Standing Exercises TKE Side left Resistance L2 band Reps/Minutes 2x10 Manual Therapy Treatment Soft Tissue Mobilization L knee Mobilization Type Other Intensity/Depth Superficial Body Position Supine Comments gentle for edema Joint Mobilizations L tibiofemoral Direction AP Grade II Body Position Supine Reps/Duration 5 min PT-OP-R Modalities Start: 12/08/18 08:33 Freq: Status: Active Protocol: Document 12/26/18 09:00 [facility] (Rec: 12/26/18 13:46 [facility] [email or web address]) Hot Pack/Cold Pack Treatment Cold Pack Location L knee Patient Position Supine Treatment Duration (minutes) 10 Comments 5 min with towel under calf to increase extension, 5 min with LEs elevated on bolster PT-OP-T Assessment and Plan Start: 12/08/18 08:33 Freq: Status: Active Protocol: Document 12/26/18 09:00 [facility] (Rec: 12/26/18 13:46 [facility] [email or web address]) Physical Therapy Assessment Assessment Summary Assessment Pt tolerated standing TKE well with good weight shift and improved quadriceps activation on the L knee. Pt is ambulating with a single axillary crutch with good technique and appropriate crutch height. Pt's sleep disruptions appear to not be due to significant pain, and he is following up with his PCP to discuss sleep assistance options. Physical Therapy Plan Frequency and Duration Frequency of Treatment 2x/Week Plan of Care Start Date 12/08/18 Plan of Care End Date 02/11/19 Next Visit Focus/Plan Next Note Type Treatment Note Next Visit Plan gait training, progress L knee ROM as tolerated
--- NOTE | 2018-12-29 15:30 | PT.OTN ---
Current Diagnoses Unilateral primary osteoarthritis, left knee (12/29/18) Other specified postprocedural states (12/29/18) Physical Therapy Treatment Note PT-OP-A Visit Information Start: 12/08/18 08:33 Freq: Status: Active Protocol: Document 12/29/18 10:40 LRN (Rec: 12/29/18 11:17 LRN [id number]) Out-Patient Physical Therapy Visit Information Visit Information Visit Type Treatment Note Visit Start Time 10:40 Visit Stop Time 11:34 Total Visit Minutes 54 Visit Number 4 Number of ICT PROJECT MANAGER Visits 0 Evaluation Information Evaluation Date 12/08/18 PT-OP-B Current Condition Start: 12/08/18 08:33 Freq: Status: Active Protocol: Document 12/22/18 10:30 HH (Rec: 12/22/18 12:27 HH [email or web address]) Current Condition History of Current Condition Onset Date 12/17/18 Current Complaints Limited in function with walking, especially downhill ambulation. History of Current Condition Pt underwent L TKA on 12/17/18 at due to history of arthritis. Pt was hospitalized until last Saturday due to onset of hypotension, diarrhea , dizziness and nausea feeling . Pt had multiple episodes of hypotension at 70s/50s during hospital stay. But his states his BP has been stabilized since d/c 110s/70s. Pt reports his pain has been well controlled at around 3-5/ 10 in a daily basis. However, pt reports he feels very nausea and dizzy yesterday most likely because he took oxycodone, tylenol, ibuprofen and aspirin together in the morning. Pt's states He probably took too much meds at the same time but we will ask the PA tomorrow. Pt also has been using his FWW primarily and crutches for 2 steps to get into the house. Pt lives on the [facility] right now but he has a recreational floor at the basement which has 19 steps to go down. Future Testing and Treatments Planned pt is scheduled for follow up with PA 12/23/18 and possibly removal of catheter PT-OP-C Subjective Start: 12/08/18 08:33 Freq: Status: Active Protocol: Document 12/29/18 10:40 LRN (Rec: 12/29/18 11:17 LRN [id number]) OP-PT Subjective Patient Comments Patient Comments Seeing Saturday (4 days). Had a little pain after last session because of the assisted knee straightening. PT-OP-G Mobility & Gait Start: 12/08/18 08:33 Freq: Status: Active Protocol: Document 12/22/18 10:30 HH (Rec: 12/22/18 12:27 HH [email or web address]) OP Mobility Evaluation Bed Mobility Rolling Independent Supine to and from Sit Independent Transfers Sit to Stand Independent Bed to Chair Transfers Independent with FWW Car Transfers Independent with FWW OP Gait Assessment Assistive Devices Assistive Device Gait Belt Front Wheeled Walker Gait Deviations General Gait Pattern Antalgic Decreased Stride Length Decreased Feet Clearance Comments Gait Comments Pt currently amb with finger touch with the FWW to facilitate FWB. He does demonstrate slight L antalgic gait due to pain but he is aware of it and cont increase Wb on his L side. Pt's also states pt has been doing high knee walking occasionally to facilitate single leg stance and WB. PT-OP-K Range of Motion Start: 12/08/18 08:33 Freq: Status: Active Protocol: Document 12/26/18 09:00 RCC (Rec: 12/26/18 13:46 RCC [email or web address]) Knee Goniometric Range of Motion Knee Measured in Degrees Left Patient Position Supine Flexion Active (degrees) 100 Extension Active (degrees) 3 Extension Passive (degrees) 2 PT-OP-M Strength Start: 12/08/18 08:33 Freq: Status: Active Protocol: Document 12/22/18 10:30 HH (Rec: 12/22/18 12:27 HH [email or web address]) Hip Strength Hip Manual Muscle Testing Left Flexion (L2) 3+ Fair+ Knee Strength Knee Manual Muscle Testing Right Flexion (S2) 4+ Good+ Extension (L3) 5 Normal Left Flexion (S2) 3- Fair- Extension (L3) 3- Fair- PT-OP-Q Treatments Start: 12/08/18 08:33 Freq: Status: Active Protocol: Document 12/29/18 10:40 LRN (Rec: 12/29/18 11:17 LRN [id number]) Cardio Equipment Recumbent Bicycle Duration (Minutes) 8 Resistance 0 Seat Position 8 Therapeutic Exercises Supine Exercises SLR Side left Reps/Minutes 10x Comments Quad set before lifting Quad set Side left Reps/Minutes 2x10 L knee flexion Supine Exercise Name heel slides Side left Equipment Used Gait belt Reps/Minutes 2x10 Comments Self assisted heel slide L TKE Supine Exercise Name iso hold Equipment Used Small bolster under the knee Reps/Minutes 10 secs hold x 8 Comments iso hold Sitting Exercises knee extension Sitting Exercise Name L knee extension 90 to 5 degrees Side left Resistance 1# Reps/Minutes x12 Comments no pain sit to stand Reps/Minutes 10x Comments with hip hinge and use of momentum Standing Exercises TKE Standing Exercise Name Shallow squats Side left Resistance L2 band Reps/Minutes 2x10 PT-OP-R Modalities Start: 12/08/18 08:33 Freq: Status: Active Protocol: Document 12/26/18 09:00 RCC (Rec: 12/26/18 13:46 RCC [email or web address]) Hot Pack/Cold Pack Treatment Cold Pack Location L knee Patient Position Supine Treatment Duration (minutes) 10 Comments 5 min with towel under calf to increase extension, 5 min with LEs elevated on bolster PT-OP-T Assessment and Plan Start: 12/08/18 08:33 Freq: Status: Active Protocol: Document 12/29/18 10:40 LRN (Rec: 12/29/18 11:17 LRN [id number]) Physical Therapy Assessment Assessment Summary Assessment L knee active flex is 97 deg's , improved. Physical Therapy Plan Frequency and Duration Frequency of Treatment 2x/Week Plan of Care Start Date 12/08/18 Plan of Care End Date 02/11/19 Next Visit Focus/Plan Next Note Type Treatment Note Next Visit Plan gait training, progress L knee ROM as tolerated
--- NOTE | 2019-01-05 12:09 | PT.OTN ---
Current Diagnoses Unilateral primary osteoarthritis, left knee (01/05/19) Other specified postprocedural states (01/05/19) Physical Therapy Treatment Note PT-OP-A Visit Information Start: 12/08/18 08:33 Freq: Status: Active Protocol: Document 01/05/19 10:34 LRN (Rec: 01/05/19 11:49 LRN [id number]) Out-Patient Physical Therapy Visit Information Visit Information Visit Type Treatment Note Visit Start Time 10:34 Visit Stop Time 11:30 Total Visit Minutes 56 Visit Number 5 Number of HOSPICE MUSIC THERAPY Visits 0 Evaluation Information Evaluation Date 12/08/18 PT-OP-B Current Condition Start: 12/08/18 08:33 Freq: Status: Active Protocol: Document 12/22/18 10:30 HH (Rec: 12/22/18 12:27 HH [email or web address]) Current Condition History of Current Condition Onset Date 12/17/18 Current Complaints Limited in function with walking, especially downhill ambulation. History of Current Condition Pt underwent L TKA on 12/17/18 at due to history of arthritis. Pt was hospitalized until last Saturday due to onset of hypotension, diarrhea , dizziness and nausea feeling . Pt had multiple episodes of hypotension at 70s/50s during hospital stay. But his states his BP has been stabilized since d/c 110s/70s. Pt reports his pain has been well controlled at around 3-5/ 10 in a daily basis. However, pt reports he feels very nausea and dizzy yesterday most likely because he took oxycodone, tylenol, ibuprofen and aspirin together in the morning. Pt's states He probably took too much meds at the same time but we will ask the PA tomorrow. Pt also has been using his FWW primarily and crutches for 2 steps to get into the house. Pt lives on the [facility] right now but he has a recreational floor at the basement which has 19 steps to go down. Future Testing and Treatments Planned pt is scheduled for follow up with PA 12/23/18 and possibly removal of catheter PT-OP-C Subjective Start: 12/08/18 08:33 Freq: Status: Active Protocol: Document 01/05/19 10:34 LRN (Rec: 01/05/19 11:49 LRN [id number]) OP-PT Subjective Patient Comments Patient Comments Has been trying to walk without support and doing ex's 3x/day, so has had more pain and couldn't sleep well. Today pain in L knee. Catheter still in. PT-OP-G Mobility & Gait Start: 12/08/18 08:33 Freq: Status: Active Protocol: Document 12/22/18 10:30 HH (Rec: 12/22/18 12:27 HH [email or web address]) OP Mobility Evaluation Bed Mobility Rolling Independent Supine to and from Sit Independent Transfers Sit to Stand Independent Bed to Chair Transfers Independent with FWW Car Transfers Independent with FWW OP Gait Assessment Assistive Devices Assistive Device Gait Belt Front Wheeled Walker Gait Deviations General Gait Pattern Antalgic Decreased Stride Length Decreased Feet Clearance Comments Gait Comments Pt currently amb with finger touch with the FWW to facilitate FWB. He does demonstrate slight L antalgic gait due to pain but he is aware of it and cont increase Wb on his L side. Pt's also states pt has been doing high knee walking occasionally to facilitate single leg stance and WB. PT-OP-K Range of Motion Start: 12/08/18 08:33 Freq: Status: Active Protocol: Document 01/05/19 10:34 LRN (Rec: 01/05/19 12:04 LRN [id number]) Knee Goniometric Range of Motion Knee Measured in Degrees Right Knee ROM WFL No Patient Position Sitting Flexion Active (degrees) 110 Extension Active (degrees) 3 Left Patient Position Supine Flexion Active (degrees) 100 Knee ROM Limitations Comments L knee active extension: lacks 5 deg's. PT-OP-M Strength Start: 12/08/18 08:33 Freq: Status: Active Protocol: Document 12/22/18 10:30 HH (Rec: 12/22/18 12:27 HH [email or web address]) Hip Strength Hip Manual Muscle Testing Left Flexion (L2) 3+ Fair+ Knee Strength Knee Manual Muscle Testing Right Flexion (S2) 4+ Good+ Extension (L3) 5 Normal Left Flexion (S2) 3- Fair- Extension (L3) 3- Fair- PT-OP-Q Treatments Start: 12/08/18 08:33 Freq: Status: Active Protocol: Document 01/05/19 10:34 LRN (Rec: 01/05/19 11:49 LRN [id number]) Cardio Equipment Recumbent Bicycle Duration (Minutes) 8 Resistance 0 Seat Position 8 Therapeutic Exercises Supine Exercises LE Roll in/out Supine Exercise Name Roll in/outs Side right Reps/Minutes 15x Comments Handout for PF strengthening HS stretch Side left Reps/Minutes 2x30 sec Comments manual Quad set Side left Reps/Minutes 3x10 L knee flexion Supine Exercise Name heel slides Side left Reps/Minutes 6 x Comments Self assisted heel slide Sidelying Exercises Glut Medius/Hip AB strengthening Sidelying Exercise Name Clamshell Side left Reps/Minutes 25 x Standing Exercises Hip AB Side left Resistance 0 Reps/Minutes 15x Gait Training Gait Activity 1 Description Gait training with/without SPC Device Used SPC Surface Level Distance/Duration 15' Treatment Focus Normalizing gait: improve hip lateral shift left and decrease Trendelenburg Comments FWW & Crutches were adjusted and training given as to proper use. Manual Therapy Treatment Soft Tissue Mobilization L knee Body Location Anterior L knee, & above and below. Mobilization Type Myofascial Release Intensity/Depth Moderate Body Position Supine w/L leg elevated Comments Gently for edema and to improve tissue mobility. Joint Mobilizations L tibiofemoral Direction AP Grade II Body Position Supine Reps/Duration 5 min Self-Care/Home Management Treatment Education Patient Education Home Exercise Program Activities Self-Care/Home Management Activities Handout issued for PF exercise to be done with Roll in/out ex. PT-OP-R Modalities Start: 12/08/18 08:33 Freq: Status: Active Protocol: Document 12/26/18 09:00 RCC (Rec: 12/26/18 13:46 RCC [email or web address]) Hot Pack/Cold Pack Treatment Cold Pack Location L knee Patient Position Supine Treatment Duration (minutes) 10 Comments 5 min with towel under calf to increase extension, 5 min with LEs elevated on bolster PT-OP-T Assessment and Plan Start: 12/08/18 08:33 Freq: Status: Active Protocol: Document 01/05/19 10:34 LRN (Rec: 01/05/19 11:49 LRN [id number]) Physical Therapy Assessment Goals 5 Impairment Pain Short Term Goal (STG) To reduce his knee pain by 2/ 10 points during mobility Alf Goal (LTG) To reduce his knee pain by 4/ 10 points during mobility LTG Duration 02/11/19 4 Impairment ROM Short Term Goal (STG) To increase L knee flexion by 10 degrees Alf Goal (LTG) To increase L knee flexion by 20 degrees LTG Duration 02/11/19 Three Impairment Decreased function per LEFS score of 48 [employer] Goal (LTG) LEFS score of no less than 63. LTG Duration 02/11/19 Two Impairment Pt lacks knowledge of self care/HEP post-operative LTKA on 12/17/18. Alf Goal (LTG) Pt will be independent with a HEP of self care ex's. LTG Duration 02/11/19 One Impairment Pt lacks self care knowledge per [facility] protocol for pre-op care. Short Term Goal (STG) Pt will be educated in safe and proper management for mobility and self care per [facility] protocol pre- operatively. Assessment Summary Assessment L knee AROM is 5-100 deg's, improved. Gait without cane is a Trendelenburg type gait with decreased L hip AB strength and too much R hip IR on stance phase. Physical Therapy Plan Frequency and Duration Frequency of Treatment 2x/Week Plan of Care Start Date 12/08/18 Plan of Care End Date 02/11/19 Next Visit Focus/Plan Next Note Type Treatment Note Next Visit Plan Cont manual therapy/MFR, Gait training, progress L knee ROM and strength, edema and soft tissue mobility management ( STM, K-tape).
--- NOTE | 2019-01-08 11:59 | PT.OTN ---
Current Diagnoses Unilateral primary osteoarthritis, left knee (01/08/19) Other specified postprocedural states (01/08/19) Physical Therapy Treatment Note PT-OP-A Visit Information Start: 12/08/18 08:33 Freq: Status: Active Protocol: Document 01/08/19 10:34 LRN (Rec: 01/08/19 11:18 LRN [id number]) Out-Patient Physical Therapy Visit Information Visit Information Visit Type Treatment Note Visit Start Time 10:34 Visit Stop Time 11:29 Total Visit Minutes 55 Visit Number 5 Number of INTAKE MANAGER Visits 0 Evaluation Information Evaluation Date 12/08/18 PT-OP-B Current Condition Start: 12/08/18 08:33 Freq: Status: Active Protocol: Document 12/22/18 10:30 HH (Rec: 12/22/18 12:27 HH [email or web address]) Current Condition History of Current Condition Onset Date 12/17/18 Current Complaints Limited in function with walking, especially downhill ambulation. History of Current Condition Pt underwent L TKA on 12/17/18 at due to history of arthritis. Pt was hospitalized until last Saturday due to onset of hypotension, diarrhea , dizziness and nausea feeling . Pt had multiple episodes of hypotension at 70s/50s during hospital stay. But his states his BP has been stabilized since d/c 110s/70s. Pt reports his pain has been well controlled at around 3-5/ 10 in a daily basis. However, pt reports he feels very nausea and dizzy yesterday most likely because he took oxycodone, tylenol, ibuprofen and aspirin together in the morning. Pt's states He probably took too much meds at the same time but we will ask the PA tomorrow. Pt also has been using his FWW primarily and crutches for 2 steps to get into the house. Pt lives on the [facility] right now but he has a recreational floor at the basement which has 19 steps to go down. Future Testing and Treatments Planned pt is scheduled for follow up with PA 12/23/18 and possibly removal of catheter PT-OP-C Subjective Start: 12/08/18 08:33 Freq: Status: Active Protocol: Document 01/08/19 10:34 LRN (Rec: 01/08/19 11:18 LRN [id number]) OP-PT Subjective Patient Comments Patient Comments States he has been working on his walking. Pain in the knee is 1-1.5 since he has been massaging his scar. PT-OP-G Mobility & Gait Start: 12/08/18 08:33 Freq: Status: Active Protocol: Document 12/22/18 10:30 HH (Rec: 12/22/18 12:27 HH [email or web address]) OP Mobility Evaluation Bed Mobility Rolling Independent Supine to and from Sit Independent Transfers Sit to Stand Independent Bed to Chair Transfers Independent with FWW Car Transfers Independent with FWW OP Gait Assessment Assistive Devices Assistive Device Gait Belt Front Wheeled Walker Gait Deviations General Gait Pattern Antalgic Decreased Stride Length Decreased Feet Clearance Comments Gait Comments Pt currently amb with finger touch with the FWW to facilitate FWB. He does demonstrate slight L antalgic gait due to pain but he is aware of it and cont increase Wb on his L side. Pt's also states pt has been doing high knee walking occasionally to facilitate single leg stance and WB. PT-OP-K Range of Motion Start: 12/08/18 08:33 Freq: Status: Active Protocol: Document 01/05/19 10:34 LRN (Rec: 01/05/19 12:04 LRN [id number]) Knee Goniometric Range of Motion Knee Measured in Degrees Right Knee ROM WFL No Patient Position Sitting Flexion Active (degrees) 110 Extension Active (degrees) 3 Left Patient Position Supine Flexion Active (degrees) 100 Knee ROM Limitations Comments L knee active extension: lacks 5 deg's. PT-OP-M Strength Start: 12/08/18 08:33 Freq: Status: Active Protocol: Document 12/22/18 10:30 HH (Rec: 12/22/18 12:27 HH [email or web address]) Hip Strength Hip Manual Muscle Testing Left Flexion (L2) 3+ Fair+ Knee Strength Knee Manual Muscle Testing Right Flexion (S2) 4+ Good+ Extension (L3) 5 Normal Left Flexion (S2) 3- Fair- Extension (L3) 3- Fair- PT-OP-Q Treatments Start: 12/08/18 08:33 Freq: Status: Active Protocol: Document 01/08/19 10:34 LRN (Rec: 01/08/19 11:18 LRN [id number]) Cardio Equipment Recumbent Bicycle Duration (Minutes) 10 Resistance 0 Seat Position 8 Therapeutic Exercises Supine Exercises SLR Side left Reps/Minutes 30x Comments Quad set before lifting Quad set Side left Reps/Minutes 3x10 Sitting Exercises L knee Flexion Sitting Exercise Name Knee flexion strengthening Side left Resistance Lev 2 T- Band Gait Training Gait Activity 1 Description Gait training with/without SPC Device Used SPC Surface Level Distance/Duration 15' Treatment Focus Normalizing gait: improve hip lateral shift left and decrease Trendelenburg Manual Therapy Treatment Soft Tissue Mobilization Scar Body Location L knee Mobilization Type Myofascial Release Other Body Position Supine L knee Body Location Anterior L knee, & above and below. Mobilization Type Myofascial Release Intensity/Depth Moderate Body Position Supine w/L leg elevated Comments Gently for edema and to improve tissue mobility. Taping L knee Body Location L anterior knee Treatment Focus Edema reduction Type of Tape Kinesio Tape L knee Scar Body Location L knee scar Treatment Focus Scar mobilization Type of Tape Kinesio Tape Skin Inspection Good Manual Techniques Assisted knee ext stretch Type Manual assist stretch Body Location L knee Body Position Supine PT-OP-R Modalities Start: 12/08/18 08:33 Freq: Status: Active Protocol: Document 01/08/19 10:34 LRN (Rec: 01/08/19 11:18 LRN [id number]) Hot Pack/Cold Pack Treatment Cold Pack Location L knee Patient Position Supine Treatment Duration (minutes) 10 Comments Bolster for edema PT-OP-T Assessment and Plan Start: 12/08/18 08:33 Freq: Status: Active Protocol: Document 01/08/19 10:34 LRN (Rec: 01/08/19 11:18 LRN [id number]) Physical Therapy Assessment Assessment Summary Assessment Much improved gait. Minimal to no Trendelenburg type gait. The L hip lacks good weight shift and pelvic positioning requires physical and verbal cuing for proper sequencing with gait. L hip AB strength may be decreased. He may have overcompensated with changing his gait and now need a little more L hip IR with RLE swing through. Physical Therapy Plan Frequency and Duration Frequency of Treatment 2x/Week Plan of Care Start Date 12/08/18 Plan of Care End Date 02/11/19 Next Visit Focus/Plan Next Note Type Treatment Note Next Visit Plan Assess response to K-tape, may try fan strip taping if I- strips not helpful. Add LE lymphedema self massage & ex's if needed. Cont manual therapy/MFR to anterior L knee , Gait training, and progress L knee ROM and strength, edema and soft tissue mobility management (STM, K-tape).
--- NOTE | 2019-01-12 14:37 | PT.OTN ---
Current Diagnoses Unilateral primary osteoarthritis, left knee (01/12/19) Other specified postprocedural states (01/12/19) Physical Therapy Treatment Note PT-OP-A Visit Information Start: 12/08/18 08:33 Freq: Status: Active Protocol: Document 01/12/19 10:31 LRN (Rec: 01/12/19 11:20 LRN [id number]) Out-Patient Physical Therapy Visit Information Visit Information Visit Type Treatment Note Visit Start Time 10:31 Visit Stop Time 11:29 Total Visit Minutes 58 Visit Number 6 Number of NEWS COMMENTATOR Visits 0 Evaluation Information Evaluation Date 12/08/18 PT-OP-B Current Condition Start: 12/08/18 08:33 Freq: Status: Active Protocol: Document 12/22/18 10:30 HH (Rec: 12/22/18 12:27 HH [email or web address]) Current Condition History of Current Condition Onset Date 12/17/18 Current Complaints Limited in function with walking, especially downhill ambulation. History of Current Condition Pt underwent L TKA on 12/17/18 at due to history of arthritis. Pt was hospitalized until last Saturday due to onset of hypotension, diarrhea , dizziness and nausea feeling . Pt had multiple episodes of hypotension at 70s/50s during hospital stay. But his states his BP has been stabilized since d/c 110s/70s. Pt reports his pain has been well controlled at around 3-5/ 10 in a daily basis. However, pt reports he feels very nausea and dizzy yesterday most likely because he took oxycodone, tylenol, ibuprofen and aspirin together in the morning. Pt's states He probably took too much meds at the same time but we will ask the PA tomorrow. Pt also has been using his FWW primarily and crutches for 2 steps to get into the house. Pt lives on the [facility] right now but he has a recreational floor at the basement which has 19 steps to go down. Future Testing and Treatments Planned pt is scheduled for follow up with PA 12/23/18 and possibly removal of catheter PT-OP-C Subjective Start: 12/08/18 08:33 Freq: Status: Active Protocol: Document 01/12/19 10:31 LRN (Rec: 01/12/19 11:20 LRN [id number]) OP-PT Subjective Patient Comments Patient Comments States on 01/09/19 he had to go to ER because of bleeding at the catheter site. He is fine today and has modified his exercises to stay upright and is walking. He was transferring off of his sofa and the catheter caught and felt the catheter being pulled out. He is on a baby aspirin morning and night. He is trying to get in to see his urologist. K-tape was irritation and not tolerated well, prefers not to use. PT-OP-G Mobility & Gait Start: 12/08/18 08:33 Freq: Status: Active Protocol: Document 12/22/18 10:30 HH (Rec: 12/22/18 12:27 HH [email or web address]) OP Mobility Evaluation Bed Mobility Rolling Independent Supine to and from Sit Independent Transfers Sit to Stand Independent Bed to Chair Transfers Independent with FWW Car Transfers Independent with FWW OP Gait Assessment Assistive Devices Assistive Device Gait Belt Front Wheeled Walker Gait Deviations General Gait Pattern Antalgic Decreased Stride Length Decreased Feet Clearance Comments Gait Comments Pt currently amb with finger touch with the FWW to facilitate FWB. He does demonstrate slight L antalgic gait due to pain but he is aware of it and cont increase Wb on his L side. Pt's also states pt has been doing high knee walking occasionally to facilitate single leg stance and WB. PT-OP-K Range of Motion Start: 12/08/18 08:33 Freq: Status: Active Protocol: Document 01/05/19 10:34 LRN (Rec: 01/05/19 12:04 LRN [id number]) Knee Goniometric Range of Motion Knee Measured in Degrees Right Knee ROM WFL No Patient Position Sitting Flexion Active (degrees) 110 Extension Active (degrees) 3 Left Patient Position Supine Flexion Active (degrees) 100 Knee ROM Limitations Comments L knee active extension: lacks 5 deg's. PT-OP-M Strength Start: 12/08/18 08:33 Freq: Status: Active Protocol: Document 12/22/18 10:30 HH (Rec: 12/22/18 12:27 HH [email or web address]) Hip Strength Hip Manual Muscle Testing Left Flexion (L2) 3+ Fair+ Knee Strength Knee Manual Muscle Testing Right Flexion (S2) 4+ Good+ Extension (L3) 5 Normal Left Flexion (S2) 3- Fair- Extension (L3) 3- Fair- PT-OP-Q Treatments Start: 12/08/18 08:33 Freq: Status: Active Protocol: Document 01/12/19 10:31 LRN (Rec: 01/12/19 11:20 LRN [id number]) Therapeutic Exercises Supine Exercises Bridge w/T-Ball Reps/Minutes 15x Knee flex w/T-Ball Side left Reps/Minutes 15x Comments With added heel dig LLE lymph ex Side left Reps/Minutes 10x each L TKE Supine Exercise Name LE lymph ex program Reps/Minutes 10x each movement Comments Heel slide, BKFO, SLR, TKE, ankle IV/EV Sitting Exercises L knee Flexion Sitting Exercise Name Stretch Side left Manual Therapy Treatment Soft Tissue Mobilization LE Lymph massage Body Location Left LE Mobilization Type Manual Lymphatic Drainage Intensity/Depth Superficial Body Position Supine Self-Care/Home Management Treatment Education Patient Education Home Exercise Program Activities Self-Care/Home Management Activities Issued & Reviewed manual self LE lymph massage and exercise program. PT-OP-R Modalities Start: 12/08/18 08:33 Freq: Status: Active Protocol: Document 01/12/19 10:31 LRN (Rec: 01/12/19 11:20 LRN [id number]) Hot Pack/Cold Pack Treatment Cold Pack Location L knee Patient Position Supine Treatment Duration (minutes) 10 Comments Cryocuff with Bolster for edema PT-OP-T Assessment and Plan Start: 12/08/18 08:33 Freq: Status: Active Protocol: Document 01/12/19 10:31 LRN (Rec: 01/12/19 11:20 LRN [id number]) Physical Therapy Assessment Goals 5 Impairment Pain Short Term Goal (STG) To reduce his knee pain by 2/ 10 points during mobility Senior Process Engineer Goal (LTG) To reduce his knee pain by 4/ 10 points during mobility LTG Duration 02/11/19 4 Impairment ROM Short Term Goal (STG) To increase L knee flexion by 10 degrees Senior Process Engineer Goal (LTG) To increase L knee flexion by 20 degrees LTG Duration 02/11/19 Three Impairment Decreased function per LEFS score of 48 Senior Process Engineer Goal (LTG) LEFS score of no less than 63. LTG Duration 02/11/19 Two Impairment Pt lacks knowledge of self care/HEP post-operative LTKA on 12/17/18. Senior Living Goal (LTG) Pt will be independent with a HEP of self care ex's. LTG Duration 02/11/19 (Progressing) One Impairment Pt lacks self care knowledge per [facility] protocol for pre-op care. Short Term Goal (STG) Pt will be educated in safe and proper management for mobility and self care per [facility] protocol pre- operatively. STG Duration GOAL MET Progress Towards Goals Progress Towards Goals Slow Progress due to Medical Issues Progress Comments Goal #1: MET. Goal #2: Progressing HEP. Goal #3: LEFS score not assessed. Goal #4: L knee ROM same @ 105 deg's flexion. Goal #5: Progressing, pt reporting not much pain, formal assessment not performed. Assessment Summary Assessment Poor tolerance to use of K- tape. Pt having other medical issues with catheter. L knee AROM is same overall at 105 deg's flexion. Minimal to no Trendelenburg type gait with SPC. Will cont with improving L knee ROM, hip strengthening and gait training next session with caution of catheter and bag positioning. Physical Therapy Plan Frequency and Duration Frequency of Treatment 2x/Week Plan of Care Start Date 12/08/18 Plan of Care End Date 02/11/19 Next Visit Focus/Plan Next Note Type Treatment Note Next Visit Plan Review LE lymphedema self massage & ex's. Progress L knee ROM and strength, cont manual therapy/MFR to anterior L knee to improve knee ROM, Gait training. Recheck knee ext ROM. Progress Knee flexion to 110 deg's within the week.
--- NOTE | 2019-01-15 11:40 | PT.OTN ---
Current Diagnoses Unilateral primary osteoarthritis, left knee (01/15/19) Other specified postprocedural states (01/15/19) Physical Therapy Treatment Note PT-OP-A Visit Information Start: 12/08/18 08:33 Freq: Status: Active Protocol: Document 01/15/19 10:34 LRN (Rec: 01/15/19 11:39 LRN [id number]) Out-Patient Physical Therapy Visit Information Visit Information Visit Type Treatment Note Visit Start Time 10:34 Visit Stop Time 11:30 Total Visit Minutes 56 Visit Number 7 Number of INTERNET RESEARCHER Visits 0 Evaluation Information Evaluation Date 12/08/18 PT-OP-B Current Condition Start: 12/08/18 08:33 Freq: Status: Active Protocol: Document 12/22/18 10:30 HH (Rec: 12/22/18 12:27 HH [email or web address]) Current Condition History of Current Condition Onset Date 12/17/18 Current Complaints Limited in function with walking, especially downhill ambulation. History of Current Condition Pt underwent L TKA on 12/17/18 at due to history of arthritis. Pt was hospitalized until last Saturday due to onset of hypotension, diarrhea , dizziness and nausea feeling . Pt had multiple episodes of hypotension at 70s/50s during hospital stay. But his states his BP has been stabilized since d/c 110s/70s. Pt reports his pain has been well controlled at around 3-5/ 10 in a daily basis. However, pt reports he feels very nausea and dizzy yesterday most likely because he took oxycodone, tylenol, ibuprofen and aspirin together in the morning. Pt's states He probably took too much meds at the same time but we will ask the PA tomorrow. Pt also has been using his FWW primarily and crutches for 2 steps to get into the house. Pt lives on the [facility] right now but he has a recreational floor at the basement which has 19 steps to go down. Future Testing and Treatments Planned pt is scheduled for follow up with PA 12/23/18 and possibly removal of catheter PT-OP-C Subjective Start: 12/08/18 08:33 Freq: Status: Active Protocol: Document 01/15/19 10:34 LRN (Rec: 01/15/19 11:39 LRN [id number]) OP-PT Subjective Patient Comments Patient Comments Worked out on recumbent bike yesterday at local gym, feels it helped his ROM. Taking 2 oxycodone before coming to PT and before exerise. PT-OP-G Mobility & Gait Start: 12/08/18 08:33 Freq: Status: Active Protocol: Document 12/22/18 10:30 HH (Rec: 12/22/18 12:27 HH [email or web address]) OP Mobility Evaluation Bed Mobility Rolling Independent Supine to and from Sit Independent Transfers Sit to Stand Independent Bed to Chair Transfers Independent with FWW Car Transfers Independent with FWW OP Gait Assessment Assistive Devices Assistive Device Gait Belt Front Wheeled Walker Gait Deviations General Gait Pattern Antalgic Decreased Stride Length Decreased Feet Clearance Comments Gait Comments Pt currently amb with finger touch with the FWW to facilitate FWB. He does demonstrate slight L antalgic gait due to pain but he is aware of it and cont increase Wb on his L side. Pt's also states pt has been doing high knee walking occasionally to facilitate single leg stance and WB. PT-OP-K Range of Motion Start: 12/08/18 08:33 Freq: Status: Active Protocol: Document 01/15/19 10:34 LRN (Rec: 01/15/19 11:39 LRN [id number]) Knee Goniometric Range of Motion Knee Measured in Degrees Left Patient Position Supine Flexion Active (degrees) 105 Flexion Passive (degrees) 108 Extension Passive (degrees) 0 Knee ROM Limitations Comments Active L knee ext lacks 2-3 deg's. PT-OP-M Strength Start: 12/08/18 08:33 Freq: Status: Active Protocol: Document 12/22/18 10:30 HH (Rec: 12/22/18 12:27 HH [email or web address]) Hip Strength Hip Manual Muscle Testing Left Flexion (L2) 3+ Fair+ Knee Strength Knee Manual Muscle Testing Right Flexion (S2) 4+ Good+ Extension (L3) 5 Normal Left Flexion (S2) 3- Fair- Extension (L3) 3- Fair- PT-OP-Q Treatments Start: 12/08/18 08:33 Freq: Status: Active Protocol: Document 01/15/19 10:34 LRN (Rec: 01/15/19 11:39 LRN [id number]) Cardio Equipment Recumbent Bicycle Duration (Minutes) 10 Resistance 0 Seat Position 8 Therapeutic Exercises Supine Exercises Knee flex w/T-Ball Supine Exercise Name Knee flex & ext w/T-Ball Side left Reps/Minutes 30x Comments With added heel dig HS stretch Side left Reps/Minutes 2x30 sec Comments manual Quad set Side left Reps/Minutes 3' L knee flexion Supine Exercise Name heel slides with and without assist Side left Reps/Minutes 5' Comments Self assisted and passive heel slide Prone Exercises L knee flex/ext Side left Resistance 2# Comments Folded towel above knee Gait Training Gait Activity 1 Description Gait training with/without SPC Device Used SPC & w/o SPC Surface Level Distance/Duration 12' Treatment Focus Normalizing gait: improve hip lateral shift left and decrease Trendelenburg Manual Therapy Treatment Soft Tissue Mobilization Scar Body Location L knee Mobilization Type Myofascial Release Other Body Position Supine L knee Body Location Anterior L knee, & above and below. Mobilization Type Myofascial Release Intensity/Depth Moderate Body Position Supine w/L leg elevated Comments To improve tissue mobility. Manual Techniques Assisted knee ext stretch Type Manual assist stretch Body Location L knee Body Position Supine PT-OP-R Modalities Start: 12/08/18 08:33 Freq: Status: Active Protocol: Document 01/15/19 10:34 LRN (Rec: 01/15/19 11:39 LRN [id number]) Hot Pack/Cold Pack Treatment Cold Pack Location L knee Patient Position Supine Treatment Duration (minutes) 10 Comments Cryocuff with Bolster for edema PT-OP-T Assessment and Plan Start: 12/08/18 08:33 Freq: Status: Active Protocol: Document 01/15/19 10:34 LRN (Rec: 01/15/19 11:39 LRN [id number]) Physical Therapy Assessment Goals 5 Impairment Pain Short Term Goal (STG) To reduce his knee pain by 2/ 10 points during mobility STG Duration GOAL MET Regional Climate Change Analyst Goal (LTG) To reduce his knee pain by 4/ 10 points during mobility LTG Duration 02/11/19 (01/15/19: GOAL MET) 4 Impairment ROM Short Term Goal (STG) To increase L knee flexion by 10 degrees Regional Climate Change Analyst Goal (LTG) To increase L knee flexion by 20 degrees LTG Duration 02/11/19 Three Impairment Decreased function per LEFS score of 48 Senior Care Goal (LTG) LEFS score of no less than 63. LTG Duration 02/11/19 Two Impairment Pt lacks knowledge of self care/HEP post-operative LTKA on 12/17/18. Regional Climate Change Analyst Goal (LTG) Pt will be independent with a HEP of self care ex's. LTG Duration 02/11/19 (Progressing) One Impairment Pt lacks self care knowledge per [facility] protocol for pre-op care. STG Duration GOAL MET Progress Towards Goals Progress Towards Goals Slow Progress due to Medical Issues Progress Comments Goal #1: MET. Goal #2: Progressing HEP. Goal #3: LEFS score not assessed. Goal #4: L knee AROM 105 deg's flex, PROM 108 deg's flex. Goal #5: MET. Pt pain initally /. 01/15/19: Pain is 2-2.5/10. Assessment Summary Assessment Pt with catheter still. Pain is less overall, AROM same at 105 deg's, possibly due to hamstring weakness. Passive extension is normal. Pt gait becomes more normal without use of SPC and a faster gait. Cont with improving L knee ROM, knee/hip strength and cont monitoring gait with caution of catheter and bag positioning. Physical Therapy Plan Frequency and Duration Frequency of Treatment 2x/Week Plan of Care Start Date 12/08/18 Plan of Care End Date 02/11/19 Next Visit Focus/Plan Next Note Type Treatment Note Next Visit Plan Review LE lymphedema self massage & ex's. Progress L knee ROM and strength, cont manual therapy/MFR to anterior L knee to improve knee ROM. Recheck gait (gait speed) & knee ROM. Progress Knee active flexion to 110 deg's, passive 115-120 deg's within the week.
--- NOTE | 2019-01-22 14:45 | PT.OTN ---
Current Diagnoses Unilateral primary osteoarthritis, left knee (01/22/19) Other specified postprocedural states (01/22/19) Physical Therapy Treatment Note PT-OP-A Visit Information Start: 12/08/18 08:33 Freq: Status: Active Protocol: Document 01/22/19 10:35 LRN (Rec: 01/22/19 11:14 LRN [id number]) Out-Patient Physical Therapy Visit Information Visit Information Visit Type Aquatic Treatment Note Visit Start Time 10:35 Visit Stop Time 11:27 Total Visit Minutes 52 Visit Number 8 Number of ANALYTICAL DATA SCIENTIST Visits 0 Evaluation Information Evaluation Date 12/08/18 PT-OP-B Current Condition Start: 12/08/18 08:33 Freq: Status: Active Protocol: Document 12/22/18 10:30 HH (Rec: 12/22/18 12:27 HH [email or web address]) Current Condition History of Current Condition Onset Date 12/17/18 Current Complaints Limited in function with walking, especially downhill ambulation. History of Current Condition Pt underwent L TKA on 12/17/18 at due to history of arthritis. Pt was hospitalized until last Saturday due to onset of hypotension, diarrhea , dizziness and nausea feeling . Pt had multiple episodes of hypotension at 70s/50s during hospital stay. But his states his BP has been stabilized since d/c 110s/70s. Pt reports his pain has been well controlled at around 3-5/ 10 in a daily basis. However, pt reports he feels very nausea and dizzy yesterday most likely because he took oxycodone, tylenol, ibuprofen and aspirin together in the morning. Pt's states He probably took too much meds at the same time but we will ask the PA tomorrow. Pt also has been using his FWW primarily and crutches for 2 steps to get into the house. Pt lives on the [facility] right now but he has a recreational floor at the basement which has 19 steps to go down. Future Testing and Treatments Planned pt is scheduled for follow up with PA 12/23/18 and possibly removal of catheter PT-OP-C Subjective Start: 12/08/18 08:33 Freq: Status: Active Protocol: Document 01/22/19 10:35 LRN (Rec: 01/22/19 11:14 LRN [id number]) OP-PT Subjective Patient Comments Patient Comments Seeing Dr. Strong 01/26/19. No cane today. PT-OP-G Mobility & Gait Start: 12/08/18 08:33 Freq: Status: Active Protocol: Document 12/22/18 10:30 HH (Rec: 12/22/18 12:27 HH [email or web address]) OP Mobility Evaluation Bed Mobility Rolling Independent Supine to and from Sit Independent Transfers Sit to Stand Independent Bed to Chair Transfers Independent with FWW Car Transfers Independent with FWW OP Gait Assessment Assistive Devices Assistive Device Gait Belt Front Wheeled Walker Gait Deviations General Gait Pattern Antalgic Decreased Stride Length Decreased Feet Clearance Comments Gait Comments Pt currently amb with finger touch with the FWW to facilitate FWB. He does demonstrate slight L antalgic gait due to pain but he is aware of it and cont increase Wb on his L side. Pt's also states pt has been doing high knee walking occasionally to facilitate single leg stance and WB. PT-OP-K Range of Motion Start: 12/08/18 08:33 Freq: Status: Active Protocol: Document 01/22/19 10:35 LRN (Rec: 01/22/19 11:14 LRN [id number]) Knee Goniometric Range of Motion Knee Measured in Degrees Left Patient Position Supine Flexion Active (degrees) 111 Flexion Passive (degrees) 113 Extension Passive (degrees) 0 PT-OP-M Strength Start: 12/08/18 08:33 Freq: Status: Active Protocol: Document 12/22/18 10:30 HH (Rec: 12/22/18 12:27 HH [email or web address]) Hip Strength Hip Manual Muscle Testing Left Flexion (L2) 3+ Fair+ Knee Strength Knee Manual Muscle Testing Right Flexion (S2) 4+ Good+ Extension (L3) 5 Normal Left Flexion (S2) 3- Fair- Extension (L3) 3- Fair- PT-OP-Q Treatments Start: 12/08/18 08:33 Freq: Status: Active Protocol: Document 01/22/19 10:35 LRN (Rec: 01/22/19 11:14 LRN [id number]) Cardio Equipment Recumbent Bicycle Duration (Minutes) 10 Resistance 4 Seat Position 7 Therapeutic Exercises Supine Exercises Knee flex w/T-Ball Supine Exercise Name Knee flex & ext w/T-Ball Side left Reps/Minutes 30x Comments With added heel dig Quad set Side left Reps/Minutes 3' L knee flexion Supine Exercise Name heel slides with and without assist Side left Reps/Minutes 5' Comments Self assisted and passive heel slide Prone Exercises L knee flex/ext Side left Resistance 3# Comments Folded towel above knee Standing Exercises Hip AB Side left Resistance 3# Reps/Minutes 15x Gait Training Gait Activity 1 Description Gait training without SPC Surface Level Distance/Duration 2' Treatment Focus Normalizing gait: improve hip lateral shift left and decrease Trendelenburg Manual Therapy Treatment Soft Tissue Mobilization Scar Body Location L knee Mobilization Type Myofascial Release Other Body Position Supine Manual Techniques Assisted knee ext stretch Type Manual assist stretch Body Location L knee Body Position Supine PT-OP-R Modalities Start: 12/08/18 08:33 Freq: Status: Active Protocol: Document 01/22/19 10:35 LRN (Rec: 01/22/19 11:17 LRN [id number]) Hot Pack/Cold Pack Treatment Cold Pack Location L knee Patient Position Supine Treatment Duration (minutes) 10 Comments Cryocuff with Bolster for edema PT-OP-T Assessment and Plan Start: 12/08/18 08:33 Freq: Status: Active Protocol: Document 01/22/19 10:35 LRN (Rec: 01/22/19 11:17 LRN [id number]) Physical Therapy Assessment Progress Towards Goals Progress Towards Goals Progressing Toward Goals Progress Comments Goal #1: MET. Goal #2: Progressing HEP. Goal #3: LEFS score not assessed. Goal #4: Improving: L knee AROM 111 deg's flex, PROM 113 deg's flex. Goal #5: MET. Pt pain initially 8/10. 2/: Pain is 2-2.5/10. Assessment Summary Assessment Pt with catheter. Pain is less overall, ROM improving. Hamstring weakness. Active & passive extension is normal after stretching. Cont with improving L knee ROM, knee/hip strength and cont monitoring gait with caution of catheter and bag positioning. Physical Therapy Plan Frequency and Duration Frequency of Treatment 2x/Week Plan of Care Start Date 12/08/18 Plan of Care End Date 02/11/19 Next Visit Focus/Plan Next Note Type Treatment Note Next Visit Plan Progress L knee ROM (flex 120- 125 deg's, ext 0 deg's) and strength, cont manual therapy/ MFR to anterior L knee to improve knee ROM. Recheck gait speed & knee ROM. Progress Knee active flexion to 120 deg's, passive 120-125 deg's within the week.
--- NOTE | 2019-01-22 15:11 | PT.OTN ---
Current Diagnoses Unilateral primary osteoarthritis, left knee (01/22/19) Other specified postprocedural states (01/22/19) Physical Therapy Treatment Note PT-OP-A Visit Information Start: 12/08/18 08:33 Freq: Status: Active Protocol: Document 01/22/19 10:35 LRN (Rec: 01/22/19 11:14 LRN [id number]) Out-Patient Physical Therapy Visit Information Visit Information Visit Type Treatment Note Visit Start Time 10:35 Visit Stop Time 11:27 Total Visit Minutes 52 Visit Number 8 Number of DIRECTOR OF RESERVATIONS Visits 0 Evaluation Information Evaluation Date 12/08/18 PT-OP-B Current Condition Start: 12/08/18 08:33 Freq: Status: Active Protocol: Document 12/22/18 10:30 HH (Rec: 12/22/18 12:27 HH [email or web address]) Current Condition History of Current Condition Onset Date 12/17/18 Current Complaints Limited in function with walking, especially downhill ambulation. History of Current Condition Pt underwent L TKA on 12/17/18 at due to history of arthritis. Pt was hospitalized until last Saturday due to onset of hypotension, diarrhea , dizziness and nausea feeling . Pt had multiple episodes of hypotension at 70s/50s during hospital stay. But his states his BP has been stabilized since d/c 110s/70s. Pt reports his pain has been well controlled at around 3-5/ 10 in a daily basis. However, pt reports he feels very nausea and dizzy yesterday most likely because he took oxycodone, tylenol, ibuprofen and aspirin together in the morning. Pt's states He probably took too much meds at the same time but we will ask the PA tomorrow. Pt also has been using his FWW primarily and crutches for 2 steps to get into the house. Pt lives on the [facility] right now but he has a recreational floor at the basement which has 19 steps to go down. Future Testing and Treatments Planned pt is scheduled for follow up with PA 12/23/18 and possibly removal of catheter PT-OP-C Subjective Start: 12/08/18 08:33 Freq: Status: Active Protocol: Document 01/22/19 10:35 LRN (Rec: 01/22/19 11:14 LRN [id number]) OP-PT Subjective Patient Comments Patient Comments Seeing Dr. Strong 01/26/19. No cane today. PT-OP-G Mobility & Gait Start: 12/08/18 08:33 Freq: Status: Active Protocol: Document 12/22/18 10:30 HH (Rec: 12/22/18 12:27 HH [email or web address]) OP Mobility Evaluation Bed Mobility Rolling Independent Supine to and from Sit Independent Transfers Sit to Stand Independent Bed to Chair Transfers Independent with FWW Car Transfers Independent with FWW OP Gait Assessment Assistive Devices Assistive Device Gait Belt Front Wheeled Walker Gait Deviations General Gait Pattern Antalgic Decreased Stride Length Decreased Feet Clearance Comments Gait Comments Pt currently amb with finger touch with the FWW to facilitate FWB. He does demonstrate slight L antalgic gait due to pain but he is aware of it and cont increase Wb on his L side. Pt's also states pt has been doing high knee walking occasionally to facilitate single leg stance and WB. PT-OP-K Range of Motion Start: 12/08/18 08:33 Freq: Status: Active Protocol: Document 01/22/19 10:35 LRN (Rec: 01/22/19 11:14 LRN [id number]) Knee Goniometric Range of Motion Knee Measured in Degrees Left Patient Position Supine Flexion Active (degrees) 111 Flexion Passive (degrees) 113 Extension Passive (degrees) 0 PT-OP-M Strength Start: 12/08/18 08:33 Freq: Status: Active Protocol: Document 12/22/18 10:30 HH (Rec: 12/22/18 12:27 HH [email or web address]) Hip Strength Hip Manual Muscle Testing Left Flexion (L2) 3+ Fair+ Knee Strength Knee Manual Muscle Testing Right Flexion (S2) 4+ Good+ Extension (L3) 5 Normal Left Flexion (S2) 3- Fair- Extension (L3) 3- Fair- PT-OP-Q Treatments Start: 12/08/18 08:33 Freq: Status: Active Protocol: Document 01/22/19 10:35 LRN (Rec: 01/22/19 11:14 LRN [id number]) Cardio Equipment Recumbent Bicycle Duration (Minutes) 10 Resistance 4 Seat Position 7 Therapeutic Exercises Supine Exercises Knee flex w/T-Ball Supine Exercise Name Knee flex & ext w/T-Ball Side left Reps/Minutes 30x Comments With added heel dig Quad set Side left Reps/Minutes 3' L knee flexion Supine Exercise Name heel slides with and without assist Side left Reps/Minutes 5' Comments Self assisted and passive heel slide Prone Exercises L knee flex/ext Side left Resistance 3# Comments Folded towel above knee Standing Exercises Hip AB Side left Resistance 3# Reps/Minutes 15x Gait Training Gait Activity 1 Description Gait training without SPC Surface Level Distance/Duration 2' Treatment Focus Normalizing gait: improve hip lateral shift left and decrease Trendelenburg Manual Therapy Treatment Soft Tissue Mobilization Scar Body Location L knee Mobilization Type Myofascial Release Other Body Position Supine Manual Techniques Assisted knee ext stretch Type Manual assist stretch Body Location L knee Body Position Supine PT-OP-R Modalities Start: 12/08/18 08:33 Freq: Status: Active Protocol: Document 01/22/19 10:35 LRN (Rec: 01/22/19 11:17 LRN [id number]) Hot Pack/Cold Pack Treatment Cold Pack Location L knee Patient Position Supine Treatment Duration (minutes) 10 Comments Cryocuff with Bolster for edema PT-OP-T Assessment and Plan Start: 12/08/18 08:33 Freq: Status: Active Protocol: Document 01/22/19 10:35 LRN (Rec: 01/22/19 11:17 LRN [id number]) Physical Therapy Assessment Progress Towards Goals Progress Towards Goals Progressing Toward Goals Progress Comments Goal #1: MET. Goal #2: Progressing HEP. Goal #3: LEFS score not assessed. Goal #4: Improving: L knee AROM 111 deg's flex, PROM 113 deg's flex. Goal #5: MET. Pt pain initially 8/10. 2/: Pain is 2-2.5/10. Assessment Summary Assessment Pt with catheter. Pain is less overall, ROM improving. Hamstring weakness. Active & passive extension is normal after stretching. Cont with improving L knee ROM, knee/hip strength and cont monitoring gait with caution of catheter and bag positioning. Physical Therapy Plan Frequency and Duration Frequency of Treatment 2x/Week Plan of Care Start Date 12/08/18 Plan of Care End Date 02/11/19 Next Visit Focus/Plan Next Note Type Treatment Note Next Visit Plan Progress L knee ROM (flex 120- 125 deg's, ext 0 deg's) and strength, cont manual therapy/ MFR to anterior L knee to improve knee ROM. Recheck gait speed & knee ROM. Progress Knee active flexion to 120 deg's, passive 120-125 deg's within the week.
--- NOTE | 2019-01-26 14:33 | PT.OTN ---
Current Diagnoses Unilateral primary osteoarthritis, left knee (01/26/19) Other specified postprocedural states (01/26/19) Physical Therapy Treatment Note PT-OP-A Visit Information Start: 12/08/18 08:33 Freq: Status: Active Protocol: Document 01/26/19 10:38 LRN (Rec: 01/26/19 10:46 LRN [id number]) Out-Patient Physical Therapy Visit Information Visit Information Visit Type Treatment Note Visit Start Time 10:38 Visit Stop Time 11:16 Total Visit Minutes 38 Visit Number 9 Number of PRODUCT PICKER Visits 0 Evaluation Information Evaluation Date 12/08/18 Precautions Precautions Pt reports: Hx of Prostate CA 2003; R TKA 2007, Fusion of Lower Lumbar spine. PT-OP-B Current Condition Start: 12/08/18 08:33 Freq: Status: Active Protocol: Document 12/22/18 10:30 HH (Rec: 12/22/18 12:27 HH [email or web address]) Current Condition History of Current Condition Onset Date 12/17/18 Current Complaints Limited in function with walking, especially downhill ambulation. History of Current Condition Pt underwent L TKA on 12/17/18 at due to history of arthritis. Pt was hospitalized until last Saturday due to onset of hypotension, diarrhea , dizziness and nausea feeling . Pt had multiple episodes of hypotension at 70s/50s during hospital stay. But his states his BP has been stabilized since d/c 110s/70s. Pt reports his pain has been well controlled at around 3-5/ 10 in a daily basis. However, pt reports he feels very nausea and dizzy yesterday most likely because he took oxycodone, tylenol, ibuprofen and aspirin together in the morning. Pt's states He probably took too much meds at the same time but we will ask the PA tomorrow. Pt also has been using his FWW primarily and crutches for 2 steps to get into the house. Pt lives on the [facility] right now but he has a recreational floor at the basement which has 19 steps to go down. Future Testing and Treatments Planned pt is scheduled for follow up with PA 12/23/18 and possibly removal of catheter PT-OP-C Subjective Start: 12/08/18 08:33 Freq: Status: Active Protocol: Document 01/26/19 10:38 LRN (Rec: 01/26/19 10:46 LRN [id number]) OP-PT Subjective Patient Comments Patient Comments Saw Dr Tomlinson and was told the knee is good. PT-OP-G Mobility & Gait Start: 12/08/18 08:33 Freq: Status: Active Protocol: Document 12/22/18 10:30 HH (Rec: 12/22/18 12:27 HH [email or web address]) OP Mobility Evaluation Bed Mobility Rolling Independent Supine to and from Sit Independent Transfers Sit to Stand Independent Bed to Chair Transfers Independent with FWW Car Transfers Independent with FWW OP Gait Assessment Assistive Devices Assistive Device Gait Belt Front Wheeled Walker Gait Deviations General Gait Pattern Antalgic Decreased Stride Length Decreased Feet Clearance Comments Gait Comments Pt currently amb with finger touch with the FWW to facilitate FWB. He does demonstrate slight L antalgic gait due to pain but he is aware of it and cont increase Wb on his L side. Pt's also states pt has been doing high knee walking occasionally to facilitate single leg stance and WB. PT-OP-K Range of Motion Start: 12/08/18 08:33 Freq: Status: Active Protocol: Document 01/26/19 10:38 LRN (Rec: 01/26/19 11:15 LRN [id number]) Knee Goniometric Range of Motion Knee Measured in Degrees Left Patient Position Supine Flexion Active (degrees) 113 Flexion Passive (degrees) 115 Extension Active (degrees) 3 Extension Passive (degrees) 0 PT-OP-M Strength Start: 12/08/18 08:33 Freq: Status: Active Protocol: Document 12/22/18 10:30 HH (Rec: 12/22/18 12:27 HH [email or web address]) Hip Strength Hip Manual Muscle Testing Left Flexion (L2) 3+ Fair+ Knee Strength Knee Manual Muscle Testing Right Flexion (S2) 4+ Good+ Extension (L3) 5 Normal Left Flexion (S2) 3- Fair- Extension (L3) 3- Fair- PT-OP-Q Treatments Start: 12/08/18 08:33 Freq: Status: Active Protocol: Document 01/26/19 10:38 LRN (Rec: 01/26/19 11:15 LRN [id number]) Cardio Equipment Recumbent Bicycle Duration (Minutes) 8 Resistance 4 Seat Position 7 Gym Equipment Cable Column (Body Solid) Leg Extension Details TKE - Seat: 5 holes showing Resistance 10# Reps/Time 15x Leg Curl Details Seat: 5 holes showing Resistance 20# Reps/Time 15x1 Shuttle Recovery Unilateral Squats Details L knee Resistance 25# Shuttle Recovery Platform Stable Reps/Time 15x Bilateral Squats Resistance 50# Shuttle Recovery Platform Stable Reps/Time 15x Therapeutic Exercises Supine Exercises Quad set Side left Reps/Minutes 3' L knee flexion Supine Exercise Name heel slides with assist Side left Reps/Minutes 5' Comments Self assisted and passive heel slide Prone Exercises L knee flex/ext Side left Resistance 3# Comments Folded towel above knee Manual Therapy Treatment Soft Tissue Mobilization Scar Body Location L knee Mobilization Type Myofascial Release Other Body Position Supine L knee Body Location Anterior L knee, & above and below. Mobilization Type Myofascial Release Intensity/Depth Moderate Body Position Supine w/L leg elevated Comments To improve tissue mobility. Joint Mobilizations L tibiofemoral Direction AP Grade II Body Position Supine Reps/Duration 2 min Manual Techniques Assisted knee ext stretch Type C/R Manual assist stretch Body Location L knee Body Position Prone PT-OP-R Modalities Start: 12/08/18 08:33 Freq: Status: Active Protocol: Document 01/22/19 10:35 LRN (Rec: 01/22/19 11:17 LRN [id number]) Hot Pack/Cold Pack Treatment Cold Pack Location L knee Patient Position Supine Treatment Duration (minutes) 10 Comments Cryocuff with Bolster for edema PT-OP-T Assessment and Plan Start: 12/08/18 08:33 Freq: Status: Active Protocol: Document 01/26/19 10:38 LRN (Rec: 01/26/19 11:15 LRN [id number]) Physical Therapy Assessment Goals 5 Impairment Pain STG Duration GOAL MET [facility] Goal (LTG) To reduce his knee pain by 4/ 10 points during mobility LTG Duration 02/11/19 (01/15/19: GOAL MET) 4 Impairment ROM Short Term Goal (STG) To increase L knee flexion by 10 degrees (115 deg's). STG Duration 01/26/19: 115 deg's passively. Forward Air Controller/Air Officer Goal (LTG) To increase L knee flexion by 20 degrees (125 deg's). LTG Duration 02/11/19 Three Impairment Decreased function per LEFS score of 48 [facility] Goal (LTG) LEFS score of no less than 63. LTG Duration 02/11/19 Two Impairment Pt lacks knowledge of self care/HEP post-operative LTKA on 12/17/18. Forward Air Controller/Air Officer Goal (LTG) Pt will be independent with a HEP of self care ex's. LTG Duration 02/11/19 (Progressing) One Impairment Pt lacks self care knowledge per ed[facility]son path protocol for pre-op care. STG Duration GOAL MET Progress Towards Goals Progress Towards Goals Progressing Toward Goals Progress Comments Goal #1: MET. Goal #2: Progressing HEP. Goal #3: LEFS score not assessed. Goal #4: STG MET for PROM. L knee AROM 113 deg's flex, PROM 115 deg's flex. Goal #5: STG MET. Pt pain initially 8/10. 01/15/19: Pain is 2-2.5/10. Assessment Summary Assessment Pt having catheter removed today; therefore did not stay for Cold pack. LLE PROM improving. Hamstring weakness . Active & passive extension is normal after stretching. Cont with improving L knee ROM , knee/hip strength and cont monitoring. Physical Therapy Plan Frequency and Duration Frequency of Treatment 2x/Week Plan of Care Start Date 12/08/18 Plan of Care End Date 02/11/19 Next Visit Focus/Plan Next Note Type Treatment Note Next Visit Plan Recheck gait speed & knee ROM. Progress L knee ROM (flex 120-125 deg's, ext 0 deg's) and strength, cont manual therapy/MFR to anterior L knee to improve knee ROM. Progress Knee active flexion to 120 deg's, passive 120-125 deg's within the week.
--- NOTE | 2019-01-29 16:03 | PT.OTN ---
Current Diagnoses Unilateral primary osteoarthritis, left knee (01/29/19) Other specified postprocedural states (01/29/19) Physical Therapy Treatment Note PT-OP-A Visit Information Start: 12/08/18 08:33 Freq: Status: Active Protocol: Document 01/29/19 10:35 LRN (Rec: 01/29/19 10:43 LRN [id number]) Out-Patient Physical Therapy Visit Information Visit Information Visit Type Progress Note Visit Start Time 10:35 Visit Stop Time 11:30 Total Visit Minutes 55 Visit Number 10 Number of STUDIO MODEL Visits 0 Evaluation Information Evaluation Date 12/08/18 Precautions Precautions Pt reports: Hx of Prostate CA 2003; R TKA 2007, Fusion of Lower Lumbar spine. PT-OP-B Current Condition Start: 12/08/18 08:33 Freq: Status: Active Protocol: Document 12/22/18 10:30 HH (Rec: 12/22/18 12:27 HH [email or web address]) Current Condition History of Current Condition Onset Date 12/17/18 Current Complaints Limited in function with walking, especially downhill ambulation. History of Current Condition Pt underwent L TKA on 12/17/18 at due to history of arthritis. Pt was hospitalized until last Saturday due to onset of hypotension, diarrhea , dizziness and nausea feeling . Pt had multiple episodes of hypotension at 70s/50s during hospital stay. But his states his BP has been stabilized since d/c 110s/70s. Pt reports his pain has been well controlled at around 3-5/ 10 in a daily basis. However, pt reports he feels very nausea and dizzy yesterday most likely because he took oxycodone, tylenol, ibuprofen and aspirin together in the morning. Pt's states He probably took too much meds at the same time but we will ask the PA tomorrow. Pt also has been using his FWW primarily and crutches for 2 steps to get into the house. Pt lives on the [facility] right now but he has a recreational floor at the basement which has 19 steps to go down. Future Testing and Treatments Planned pt is scheduled for follow up with PA 12/23/18 and possibly removal of catheter PT-OP-C Subjective Start: 12/08/18 08:33 Freq: Status: Active Protocol: Document 01/29/19 10:35 LRN (Rec: 01/29/19 10:43 LRN [id number]) OP-PT Subjective Patient Comments Patient Comments Catheter is out, slowly getting better with voiding. ROM improving, needs more strength in the L knee. Patient Reported Progress Improving Patient Questionnaires Lower Extremity Functional Scale LEFS Score 52 LEFS Impairment 20 to 39% Impaired (Score 48- 62) OP-PT Pain Assessment Pain Assessment Grid Paper Pain Assessment Grid Completed Yes Location L knee Pain Location Details Inferiomedial & Inferolateral Intensity 3 Scale Used Numeric (1 - 10) Description Aching Sharp Frequency Occasional Pain Aggravating Factors Activity Comments Pain Comments Pain only when moving wrong. PT-OP-G Mobility & Gait Start: 12/08/18 08:33 Freq: Status: Active Protocol: Document 01/29/19 10:35 LRN (Rec: 01/29/19 10:43 LRN [id number]) OP Gait Assessment Assistive Devices Assistive Device None Comments Gait Comments Pt currently ambulates without an assistive device. He demonstrates a slight Trendelenberg type gait on the ...... due to weakness of the hip AB's. PT-OP-K Range of Motion Start: 12/08/18 08:33 Freq: Status: Active Protocol: Document 01/29/19 10:35 LRN (Rec: 01/29/19 10:46 LRN [id number]) Knee Goniometric Range of Motion Knee Measured in Degrees Right Knee ROM WFL No Patient Position Supine Flexion Active (degrees) 105 Flexion Passive (degrees) 105 Extension Active (degrees) 3 Extension Passive (degrees) 0 Left Patient Position Supine Flexion Active (degrees) 113 Flexion Passive (degrees) 115 Extension Active (degrees) 3 Extension Passive (degrees) 0 PT-OP-M Strength Start: 12/08/18 08:33 Freq: Status: Active Protocol: Document 01/29/19 10:35 LRN (Rec: 01/29/19 10:46 LRN [id number]) Knee Strength Knee Manual Muscle Testing Right Flexion (S2) 4+ Good+ Extension (L3) 5 Normal Left Flexion (S2) 3+ Fair+ Extension (L3) 4 Good PT-OP-Q Treatments Start: 12/08/18 08:33 Freq: Status: Active Protocol: Document 01/29/19 10:35 LRN (Rec: 01/29/19 11:00 LRN [id number]) Cardio Equipment Bicycle (Upright) Duration (Minutes) 10 Resistance 5 Seat Position 4 Rowing Machine Duration (Minutes) 10 Resistance 5 Other Seat 4 Gym Equipment Cable Column (Body Solid) Leg Extension Details TKE - Seat: 5 holes showing Resistance 0# Reps/Time 15x Leg Curl Details Seat: 5 holes showing Resistance 30# Reps/Time 15x1 Therapeutic Exercises Supine Exercises Quad set Supine Exercise Name AROM/PROM Side bilateral Reps/Minutes 5' Comments Only ROM taken on right after AROM L knee flexion Supine Exercise Name heel slides with/without assist Side bilateral Reps/Minutes 9' Comments Only ROM taken on right after AROM Standing Exercises Hip AB Side left Resistance 3# Reps/Minutes 15x Manual Therapy Treatment Soft Tissue Mobilization Scar Body Location L knee Mobilization Type Myofascial Release Other Body Position Supine PT-OP-R Modalities Start: 12/08/18 08:33 Freq: Status: Active Protocol: Document 01/29/19 10:35 LRN (Rec: 01/29/19 11:00 LRN [id number]) Hot Pack/Cold Pack Treatment Cold Pack Location L knee Patient Position Supine Treatment Duration (minutes) 10 Comments Cryocuff with Bolster for edema PT-OP-T Assessment and Plan Start: 12/08/18 08:33 Freq: Status: Active Protocol: Document 01/29/19 10:35 LRN (Rec: 01/29/19 10:46 LRN [id number]) Physical Therapy Assessment Rehab Potential Rehabilitation Potential Excellent Evaluation Complexity Number of Personal Factors/Comorbidities 1-2 Number of Body Systems Impaired 4 or More Clinical Presentation at Evaluation Evolving Impairments Impairments Gait ROM Strength Other Concerns Age Related Concerns Pt is 64+ yrs old. Barriers to Rehabilitation Chronicity of condition. Goals 5 Impairment Pain STG Duration GOAL MET Metal Baler Goal (LTG) To reduce his knee pain by 4/ 10 points during mobility LTG Duration 02/11/19 (01/15/19: GOAL MET) 4 Impairment ROM Short Term Goal (STG) To increase L knee flexion by 10 degrees (115 deg's). STG Duration 01/26/19 (01/29/19: GOAL MET). [facility] Goal (LTG) To increase L knee active flexion by 15 degrees (120 deg 's). LTG Duration 02/27/19 Three Impairment Decreased function per LEFS score of 48 [facility] Goal (LTG) LEFS score of no less than 63. LTG Duration 02/27/19 (01/29/19: Progressing, score is 52) Two Impairment Pt lacks knowledge of self care/HEP post-operative LTKA on 12/17/18. [facility]pc Goal (LTG) Pt will be independent with a HEP of self care ex's. LTG Duration 02/27/19 (Progressing) One Impairment Pt lacks self care knowledge per edmondson path protocol for pre-op care. STG Duration GOAL MET Progress Towards Goals Progress Towards Goals Progressing Toward Goals Progress Comments Goal #1: MET. Goal #2: Progressing HEP. Goal #3: LEFS score improving (52, initially 48) Goal #4: STG MET for PROM. L knee AROM 113 deg's flex, PROM 115 deg's flex. Goal #5: STG MET. Pt pain initially 8/10. 01/15/19: Pain is 2-2.5/10. LTG MET. No pain except when moving wrong (twisting). Assessment Summary Assessment Pt is improving in LLE ROM. Active & passive extension is normal after stretching. The pt needs further skilled physical therapy to improve L knee ROM and strength. He has a very mild dysfunctional gait due to L LE weakness. We will plan on continuing therapy to improve L knee ROM, knee/hip strength and gait. Physical Therapy Plan Frequency and Duration Frequency of Treatment 2x/Week Plan of Care Start Date 12/08/18 Plan of Care End Date 02/27/19 Therapeutic Interventions Therapeutic Interventions Aquatic Therapy Balance Training Gait Training Home Exercise Program Manual Therapy Neuromuscular Re-education Patient/Caregiver Education Self-Care/Home Management Soft Tissue Mobilization Taping Therapeutic Activities Therapeutic Exercises Modalities Cold Pack/Ice Massage Next Visit Focus/Plan Next Note Type Treatment Note Next Visit Plan Progress L knee ROM (flex 120- 125 deg's, ext 0 deg's) and strength, cont manual therapy/ MFR to anterior L knee to improve knee ROM. Recheck gait speed.
--- NOTE | 2019-01-29 16:03 | PT.OPPOC ---
Current Diagnoses Unilateral primary osteoarthritis, left knee (01/29/19) Other specified postprocedural states (01/29/19) Provider Visit Care Team Role Provider Type Primary Care Provider Specialty: Address: Phone: Fax: Email: Lalo Tomlinson MD Attending Provider Physician Specialty: Orthopedic Surgery Address: [address] [place] [address], [place], [address] Email: [email or web address] Plan Of Care PT-OP-T Assessment and Plan Start: 12/08/18 08:33 Freq: Status: Active Protocol: Document 01/29/19 10:35 LRN (Rec: 01/29/19 10:46 LRN [id number]) Physical Therapy Assessment Rehab Potential Rehabilitation Potential Excellent Evaluation Complexity Number of Personal Factors/Comorbidities 1-2 Number of Body Systems Impaired 4 or More Clinical Presentation at Evaluation Evolving Impairments Impairments Gait ROM Strength Other Concerns Age Related Concerns Pt is 64+ yrs old. Barriers to Rehabilitation Chronicity of condition. Goals 5 Impairment Pain STG Duration GOAL MET Deep Tissue Massage Therapist Goal (LTG) To reduce his knee pain by 4/ 10 points during mobility LTG Duration 02/11/19 (01/15/19: GOAL MET) 4 Impairment ROM Short Term Goal (STG) To increase L knee flexion by 10 degrees (115 deg's). STG Duration 01/26/19 (01/29/19: GOAL MET). Deep Tissue Massage Therapist Goal (LTG) To increase L knee active flexion by 15 degrees (120 deg 's). LTG Duration 02/27/19 Three Impairment Decreased function per LEFS score of 48 [facility] Goal (LTG) LEFS score of no less than 63. LTG Duration 02/27/19 (01/29/19: Progressing, score is 52) Two Impairment Pt lacks knowledge of self care/HEP post-operative LTKA on 12/17/18. Deep Tissue Massage Therapist Goal (LTG) Pt will be independent with a HEP of self care ex's. LTG Duration 02/27/19 (Progressing) One Impairment Pt lacks self care knowledge per [facility] protocol for pre-op care. STG Duration GOAL MET Progress Towards Goals Progress Towards Goals Progressing Toward Goals Progress Comments Goal #1: MET. Goal #2: Progressing HEP. Goal #3: LEFS score improving (52, initially 48) Goal #4: STG MET for PROM. L knee AROM 113 deg's flex, PROM 115 deg's flex. Goal #5: STG MET. Pt pain initially 8/10. 01/15/19: Pain is 2-2.5/10. LTG MET. No pain except when moving wrong (twisting). Assessment Summary Assessment Pt is improving in LLE ROM. Active & passive extension is normal after stretching. The pt needs further skilled physical therapy to improve L knee ROM and strength. He has a very mild dysfunctional gait due to L LE weakness. We will plan on continuing therapy to improve L knee ROM, knee/hip strength and gait. Physical Therapy Plan Frequency and Duration Frequency of Treatment 2x/Week Plan of Care Start Date 12/08/18 Plan of Care End Date 02/27/19 Therapeutic Interventions Therapeutic Interventions Aquatic Therapy Balance Training Gait Training Home Exercise Program Manual Therapy Neuromuscular Re-education Patient/Caregiver Education Self-Care/Home Management Soft Tissue Mobilization Taping Therapeutic Activities Therapeutic Exercises Modalities Cold Pack/Ice Massage Next Visit Focus/Plan Next Note Type Treatment Note Next Visit Plan Progress L knee ROM (flex 120- 125 deg's, ext 0 deg's) and strength, cont manual therapy/ MFR to anterior L knee to improve knee ROM. Recheck gait speed. Plan of Care Dates Plan of Care Start Date 12/08/18 Plan of Care End Date 02/27/19 Please Sign and Return: I have reviewed this Plan of Care and certify that the skilled therapy services above are required to meet the patient?s needs. Physician Signature Date Printed Name and Credentials Clinical Instructor Signature Printed Name and Credentials
--- NOTE | 2019-02-02 15:56 | PT.OTN ---
Current Diagnoses Unilateral primary osteoarthritis, left knee (02/02/19) Other specified postprocedural states (02/02/19) Physical Therapy Treatment Note PT-OP-A Visit Information Start: 12/08/18 08:33 Freq: Status: Active Protocol: Document 02/02/19 10:39 LRN (Rec: 02/02/19 11:21 LRN [id number]) Out-Patient Physical Therapy Visit Information Visit Information Visit Type Treatment Note Visit Start Time 10:39 Visit Stop Time 11:31 Total Visit Minutes 52 Visit Number 11 Number of DEEP SUBMERGENCE VEHICLE CREWMEMBER Visits 0 Evaluation Information Evaluation Date 12/08/18 PT-OP-B Current Condition Start: 12/08/18 08:33 Freq: Status: Active Protocol: Document 12/22/18 10:30 HH (Rec: 12/22/18 12:27 HH [id number]) Current Condition History of Current Condition Onset Date 12/17/18 Current Complaints Limited in function with walking, especially downhill ambulation. History of Current Condition Pt underwent L TKA on 12/17/18 at due to history of arthritis. Pt was hospitalized until last Saturday due to onset of hypotension, diarrhea , dizziness and nausea feeling . Pt had multiple episodes of hypotension at 70s/50s during hospital stay. But his states his BP has been stabilized since d/c 110s/70s. Pt reports his pain has been well controlled at around 3-5/ 10 in a daily basis. However, pt reports he feels very nausea and dizzy yesterday most likely because he took oxycodone, tylenol, ibuprofen and aspirin together in the morning. Pt's states He probably took too much meds at the same time but we will ask the PA tomorrow. Pt also has been using his FWW primarily and crutches for 2 steps to get into the house. Pt lives on the [facility] right now but he has a recreational floor at the basement which has 19 steps to go down. Future Testing and Treatments Planned pt is scheduled for follow up with PA 12/23/18 and possibly removal of catheter PT-OP-C Subjective Start: 12/08/18 08:33 Freq: Status: Active Protocol: Document 02/02/19 10:39 LRN (Rec: 02/02/19 11:21 LRN [id number]) OP-PT Subjective Patient Comments Patient Comments Did bike at exercise [facility]. PT-OP-G Mobility & Gait Start: 12/08/18 08:33 Freq: Status: Active Protocol: Document 02/02/19 10:39 LRN (Rec: 02/02/19 15:50 LRN [id number]) OP Gait Assessment Comments Gait Comments Gait speed is 3.33 ft/sec. Gait appears normal, no assistive device needed. PT-OP-K Range of Motion Start: 12/08/18 08:33 Freq: Status: Active Protocol: Document 02/02/19 10:39 LRN (Rec: 02/02/19 11:21 LRN [id number]) Knee Goniometric Range of Motion Knee Measured in Degrees Left Patient Position Supine Flexion Active (degrees) 118 Flexion Passive (degrees) 119 Extension Active (degrees) 0 Extension Passive (degrees) 0 PT-OP-M Strength Start: 12/08/18 08:33 Freq: Status: Active Protocol: Document 01/29/19 10:35 LRN (Rec: 01/29/19 10:46 LRN [id number]) Knee Strength Knee Manual Muscle Testing Right Flexion (S2) 4+ Good+ Extension (L3) 5 Normal Left Flexion (S2) 3+ Fair+ Extension (L3) 4 Good PT-OP-Q Treatments Start: 12/08/18 08:33 Freq: Status: Active Protocol: Document 02/02/19 10:39 LRN (Rec: 02/02/19 11:21 LRN [id number]) Cardio Equipment Bicycle (Upright) Duration (Minutes) 8 Resistance 5 Seat Position 3 Gym Equipment Cable Column (Body Solid) Leg Extension Details TKE - Seat: 5 holes showing Resistance 15# Reps/Time 15x2 Leg Curl Details Seat: 5 holes showing Resistance 30# Reps/Time 15x2 Therapeutic Exercises Supine Exercises Quad set Supine Exercise Name AROM/PROM Side left Reps/Minutes 5' L knee flexion Supine Exercise Name heel slides with/without assist Side bilateral Reps/Minutes 9' Comments Only ROM taken on right after AROM Manual Therapy Treatment Soft Tissue Mobilization Scar Body Location L knee Mobilization Type Myofascial Release Other Body Position Supine PT-OP-R Modalities Start: 12/08/18 08:33 Freq: Status: Active Protocol: Document 02/02/19 10:39 LRN (Rec: 02/02/19 15:48 LRN [id number]) Hot Pack/Cold Pack Treatment Cold Pack Location L knee Patient Position Supine Treatment Duration (minutes) 10 Comments Cryocuff with Bolster for edema PT-OP-T Assessment and Plan Start: 12/08/18 08:33 Freq: Status: Active Protocol: Document 02/02/19 10:39 LRN (Rec: 02/02/19 11:21 LRN [id number]) Physical Therapy Assessment Goals 5 Impairment Pain STG Duration GOAL MET Jail Goal (LTG) To reduce his knee pain by 4/ 10 points during mobility LTG Duration 02/11/19 (01/15/19: GOAL MET) 4 Impairment ROM Short Term Goal (STG) To increase L knee flexion by 10 degrees (115 deg's). STG Duration 01/26/19 (01/29/19: GOAL MET). Jail Goal (LTG) To increase L knee active flexion by 15 degrees (120 deg 's). LTG Duration 02/27/19 Three Impairment Decreased function per LEFS score of 48 Jail Goal (LTG) LEFS score of no less than 63. LTG Duration 02/27/19 (01/29/19: Progressing, score is 52) Two Impairment Pt lacks knowledge of self care/HEP post-operative LTKA on 12/17/18. Sap Pp Consultant Goal (LTG) Pt will be independent with a HEP of self care ex's. LTG Duration 02/27/19 (Progressing) Progress Towards Goals Progress Towards Goals Progressing Toward Goals Progress Comments Goal #1: MET. Goal #2: Progressing HEP. Goal #3: LEFS score improving (52, initially 48) Goal #4: STG MET for PROM. L knee AROM 118 deg's flex, PROM 119 deg's flex. Goal #5: STG MET. Pt pain initially 8/10. 01/15/19: Pain is 2-2.5/10. LTG MET. No pain except when moving wrong (twisting). Assessment Summary Assessment L knee ROM improving. Pt able to achieve full knee ext actively after stretching. Scar mobility is much improved . Gt speed is 3.33 ft/sec ( Norm for his age group is 9 ft /sec). Physical Therapy Plan Frequency and Duration Frequency of Treatment 2x/Week Plan of Care Start Date 12/08/18 Plan of Care End Date 02/27/19 Next Visit Focus/Plan Next Note Type Treatment Note Next Visit Plan Progress L knee ROM (flex 120- 125 deg's, ext 0 deg's) and strength, cont manual therapy/ MFR to anterior L knee to improve knee ROM.
--- NOTE | 2019-02-05 11:44 | PT.OTN ---
Current Diagnoses Unilateral primary osteoarthritis, left knee (02/05/19) Other specified postprocedural states (02/05/19) Physical Therapy Treatment Note PT-OP-A Visit Information Start: 12/08/18 08:33 Freq: Status: Active Protocol: Document 02/05/19 10:35 LRN (Rec: 02/05/19 11:17 LRN [id number]) Out-Patient Physical Therapy Visit Information Visit Information Visit Type Treatment Note Visit Start Time 10:35 Visit Stop Time 11:27 Total Visit Minutes 52 Visit Number 12 Number of REMEDIATION CONSULTANT Visits 0 Evaluation Information Evaluation Date 12/08/18 Precautions Precautions Pt reports: Hx of Prostate CA 2003; R TKA 2007, Fusion of Lower Lumbar spine. PT-OP-B Current Condition Start: 12/08/18 08:33 Freq: Status: Active Protocol: Document 12/22/18 10:30 HH (Rec: 12/22/18 12:27 HH [id number]) Current Condition History of Current Condition Onset Date 12/17/18 Current Complaints Limited in function with walking, especially downhill ambulation. History of Current Condition Pt underwent L TKA on 12/17/18 at due to history of arthritis. Pt was hospitalized until last Saturday due to onset of hypotension, diarrhea , dizziness and nausea feeling . Pt had multiple episodes of hypotension at 70s/50s during hospital stay. But his states his BP has been stabilized since d/c 110s/70s. Pt reports his pain has been well controlled at around 3-5/ 10 in a daily basis. However, pt reports he feels very nausea and dizzy yesterday most likely because he took oxycodone, tylenol, ibuprofen and aspirin together in the morning. Pt's states He probably took too much meds at the same time but we will ask the PA tomorrow. Pt also has been using his FWW primarily and crutches for 2 steps to get into the house. Pt lives on the [facility] right now but he has a recreational floor at the basement which has 19 steps to go down. Future Testing and Treatments Planned pt is scheduled for follow up with PA 12/23/18 and possibly removal of catheter PT-OP-C Subjective Start: 12/08/18 08:33 Freq: Status: Active Protocol: Document 02/05/19 10:35 LRN (Rec: 02/05/19 11:17 LRN [id number]) OP-PT Subjective Patient Comments Patient Comments L knee is doing really well. PT-OP-G Mobility & Gait Start: 12/08/18 08:33 Freq: Status: Active Protocol: Document 02/05/19 10:35 LRN (Rec: 02/05/19 11:17 LRN [id number]) OP Gait Assessment Gait Gait Assistance Required: Independent Assistive Devices Assistive Device None Factors Limiting Gait Function Factors Limiting Gait Function Decreased Strength PT-OP-K Range of Motion Start: 12/08/18 08:33 Freq: Status: Active Protocol: Document 02/05/19 10:35 LRN (Rec: 02/05/19 11:17 LRN [id number]) Knee Goniometric Range of Motion Knee Measured in Degrees Left Patient Position Supine Flexion Active (degrees) 118 Flexion Passive (degrees) 120 Extension Passive (degrees) 0 PT-OP-M Strength Start: 12/08/18 08:33 Freq: Status: Active Protocol: Document 01/29/19 10:35 LRN (Rec: 01/29/19 10:46 LRN [id number]) Knee Strength Knee Manual Muscle Testing Right Flexion (S2) 4+ Good+ Extension (L3) 5 Normal Left Flexion (S2) 3+ Fair+ Extension (L3) 4 Good PT-OP-Q Treatments Start: 12/08/18 08:33 Freq: Status: Active Protocol: Document 02/05/19 10:35 LRN (Rec: 02/05/19 11:17 LRN [id number]) Cardio Equipment Recumbent Bicycle Duration (Minutes) 10 Resistance 4 Seat Position 7 Gym Equipment Cable Column (Body Solid) Leg Extension Details TKE - Seat: 5 holes showing Resistance 20# Reps/Time 15x2 Leg Curl Details Seat: 5 holes showing Resistance 30# Reps/Time 15x2 Therapeutic Exercises Supine Exercises HS stretch Supine Exercise Name Heel slide stretch Side left Reps/Minutes 2x30 sec Comments manual Quad set Supine Exercise Name AROM/PROM Side left Reps/Minutes 5' L knee flexion Supine Exercise Name heel slides with/without assist Side bilateral Reps/Minutes 4' Comments Only ROM taken on right after AROM Standing Exercises Hip Flex Standing Exercise Name Strengthening: Holding railing Side left Resistance Lev 2 T-Band Hip ext Standing Exercise Name Strengthening: Holding railing Side left Resistance Lev 2 T-Band Reps/Minutes 15x Manual Therapy Treatment Soft Tissue Mobilization Scar Body Location L knee Mobilization Type Myofascial Release Other Body Position Supine Self-Care/Home Management Treatment Education Patient Education Home Exercise Program Activities Self-Care/Home Management Activities Issued & reviewed HEP: Hip ext, AB, flex. PT-OP-R Modalities Start: 12/08/18 08:33 Freq: Status: Active Protocol: Document 02/02/19 10:39 LRN (Rec: 02/02/19 15:48 LRN [id number]) Hot Pack/Cold Pack Treatment Cold Pack Location L knee Patient Position Supine Treatment Duration (minutes) 10 Comments Cryocuff with Bolster for edema PT-OP-T Assessment and Plan Start: 12/08/18 08:33 Freq: Status: Active Protocol: Document 02/05/19 10:35 LRN (Rec: 02/05/19 11:17 LRN [id number]) Physical Therapy Assessment Goals 4 Impairment ROM Short Term Goal (STG) To increase L knee flexion by 10 degrees (115 deg's). STG Duration 01/26/19 GOAL MET Property Supervisor Goal (LTG) To increase L knee active flexion by 15 degrees (120 deg 's). LTG Duration 02/27/19 Three Impairment Decreased function per LEFS score of 48 Property Supervisor Goal (LTG) LEFS score of no less than 63. LTG Duration 02/27/19 (01/29/19: Progressing, score is 52) Progress Towards Goals Progress Towards Goals Progressing Toward Goals Progress Comments Goal #1: MET. Goal #2: Progressing HEP. Goal #3: LEFS score improving (52, initially 48) Goal #4: STG MET for PROM. LTG: Progressing. L knee AROM 118 deg's flex, PROM 120 deg' s flex. Goal #5: STG MET. Pt pain initially 8/10. 01/15/19: Pain is 2-2.5/10. LTG MET. No pain except when moving wrong (twisting). Assessment Summary Assessment L knee ROM continues to improve. Full knee ext actively after stretching. Scar mobility is much improved. Single leg balance on left is difficult. Physical Therapy Plan Frequency and Duration Frequency of Treatment 2x/Week Plan of Care Start Date 12/08/18 Plan of Care End Date 03/29/19 Next Visit Focus/Plan Next Note Type Discharge Summary Next Visit Plan Reassess and DC to HEP, progress L knee ROM (flex 120- 125 deg's, ext 0 deg's) educate in balance ex's for home program.
--- NOTE | 2019-02-05 11:48 | PT.OTN ---
Current Diagnoses Unilateral primary osteoarthritis, left knee (02/05/19) Other specified postprocedural states (02/05/19) Physical Therapy Treatment Note PT-OP-A Visit Information Start: 12/08/18 08:33 Freq: Status: Active Protocol: Document 02/05/19 10:35 LRN (Rec: 02/05/19 11:17 LRN [id number]) Out-Patient Physical Therapy Visit Information Visit Information Visit Type Treatment Note Visit Start Time 10:35 Visit Stop Time 11:27 Total Visit Minutes 52 Visit Number 12 Number of ELEMENTARY SUMMER SCHO[employer] TEACHER Visits 0 Evaluation Information Evaluation Date 12/08/18 Precautions Precautions Pt reports: Hx of Prostate CA 2003; R TKA 2007, Fusion of Lower Lumbar spine. PT-OP-B Current Condition Start: 12/08/18 08:33 Freq: Status: Active Protocol: Document 12/22/18 10:30 HH (Rec: 12/22/18 12:27 HH [id number]) Current Condition History of Current Condition Onset Date 12/17/18 Current Complaints Limited in function with walking, especially downhill ambulation. History of Current Condition Pt underwent L TKA on 12/17/18 at due to history of arthritis. Pt was hospitalized until last Saturday due to onset of hypotension, diarrhea , dizziness and nausea feeling . Pt had multiple episodes of hypotension at 70s/50s during hospital stay. But his states his BP has been stabilized since d/c 110s/70s. Pt reports his pain has been well controlled at around 3-5/ 10 in a daily basis. However, pt reports he feels very nausea and dizzy yesterday most likely because he took oxycodone, tylenol, ibuprofen and aspirin together in the morning. Pt's states He probably took too much meds at the same time but we will ask the PA tomorrow. Pt also has been using his FWW primarily and crutches for 2 steps to get into the house. Pt lives on the [facility] right now but he has a recreational floor at the basement which has 19 steps to go down. Future Testing and Treatments Planned pt is scheduled for follow up with PA 12/23/18 and possibly removal of catheter PT-OP-C Subjective Start: 12/08/18 08:33 Freq: Status: Active Protocol: Document 02/05/19 10:35 LRN (Rec: 02/05/19 11:17 LRN [id number]) OP-PT Subjective Patient Comments Patient Comments L knee is doing really well. PT-OP-G Mobility & Gait Start: 12/08/18 08:33 Freq: Status: Active Protocol: Document 02/05/19 10:35 LRN (Rec: 02/05/19 11:17 LRN [id number]) OP Gait Assessment Gait Gait Assistance Required: Independent Assistive Devices Assistive Device None Factors Limiting Gait Function Factors Limiting Gait Function Decreased Strength PT-OP-K Range of Motion Start: 12/08/18 08:33 Freq: Status: Active Protocol: Document 02/05/19 10:35 LRN (Rec: 02/05/19 11:17 LRN [id number]) Knee Goniometric Range of Motion Knee Measured in Degrees Left Patient Position Supine Flexion Active (degrees) 118 Flexion Passive (degrees) 120 Extension Passive (degrees) 0 PT-OP-M Strength Start: 12/08/18 08:33 Freq: Status: Active Protocol: Document 01/29/19 10:35 LRN (Rec: 01/29/19 10:46 LRN [id number]) Knee Strength Knee Manual Muscle Testing Right Flexion (S2) 4+ Good+ Extension (L3) 5 Normal Left Flexion (S2) 3+ Fair+ Extension (L3) 4 Good PT-OP-Q Treatments Start: 12/08/18 08:33 Freq: Status: Active Protocol: Document 02/05/19 10:35 LRN (Rec: 02/05/19 11:17 LRN [id number]) Cardio Equipment Recumbent Bicycle Duration (Minutes) 10 Resistance 4 Seat Position 7 Gym Equipment Cable Column (Body Solid) Leg Extension Details TKE - Seat: 5 holes showing Resistance 20# Reps/Time 15x2 Leg Curl Details Seat: 5 holes showing Resistance 30# Reps/Time 15x2 Therapeutic Exercises Supine Exercises HS stretch Supine Exercise Name Heel slide stretch Side left Reps/Minutes 2x30 sec Comments manual Quad set Supine Exercise Name AROM/PROM Side left Reps/Minutes 5' L knee flexion Supine Exercise Name heel slides with/without assist Side bilateral Reps/Minutes 4' Comments Only ROM taken on right after AROM Standing Exercises Hip Flex Standing Exercise Name Strengthening: Holding railing Side left Resistance Lev 2 T-Band Hip ext Standing Exercise Name Strengthening: Holding railing Side left Resistance Lev 2 T-Band Reps/Minutes 15x Manual Therapy Treatment Soft Tissue Mobilization Scar Body Location L knee Mobilization Type Myofascial Release Other Body Position Supine Self-Care/Home Management Treatment Education Patient Education Home Exercise Program Activities Self-Care/Home Management Activities Issued & reviewed HEP: Hip ext, AB, flex. PT-OP-R Modalities Start: 12/08/18 08:33 Freq: Status: Active Protocol: Document 02/05/19 10:35 LRN (Rec: 02/05/19 11:48 LRN [id number]) Hot Pack/Cold Pack Treatment Cold Pack Location L knee Patient Position Supine Treatment Duration (minutes) 10 Comments Cold pack with Bolster for edema management PT-OP-T Assessment and Plan Start: 12/08/18 08:33 Freq: Status: Active Protocol: Document 02/05/19 10:35 LRN (Rec: 02/05/19 11:17 LRN [id number]) Physical Therapy Assessment Goals 4 Impairment ROM Short Term Goal (STG) To increase L knee flexion by 10 degrees (115 deg's). STG Duration 01/26/19 GOAL MET Residential Goal (LTG) To increase L knee active flexion by 15 degrees (120 deg 's). LTG Duration 02/27/19 Three Impairment Decreased function per LEFS score of 48 Head Of Marketing Analytics Goal (LTG) LEFS score of no less than 63. LTG Duration 02/27/19 (01/29/19: Progressing, score is 52) Progress Towards Goals Progress Towards Goals Progressing Toward Goals Progress Comments Goal #1: MET. Goal #2: Progressing HEP. Goal #3: LEFS score improving (52, initially 48) Goal #4: STG MET for PROM. LTG: Progressing. L knee AROM 118 deg's flex, PROM 120 deg' s flex. Goal #5: STG MET. Pt pain initially 8/10. 01/15/19: Pain is 2-2.5/10. LTG MET. No pain except when moving wrong (twisting). Assessment Summary Assessment L knee ROM continues to improve. Full knee ext actively after stretching. Scar mobility is much improved. Single leg balance on left is difficult. Physical Therapy Plan Frequency and Duration Frequency of Treatment 2x/Week Plan of Care Start Date 12/08/18 Plan of Care End Date 03/29/19 Next Visit Focus/Plan Next Note Type Discharge Summary Next Visit Plan Reassess and DC to HEP, progress L knee ROM (flex 120- 125 deg's, ext 0 deg's) educate in balance ex's for home program.
--- NOTE | 2019-02-09 14:59 | PT.OTN ---
Current Diagnoses Unilateral primary osteoarthritis, left knee (02/09/19) Other specified postprocedural states (02/09/19) Physical Therapy Treatment Note PT-OP-A Visit Information Start: 12/08/18 08:33 Freq: Status: Active Protocol: Document 02/09/19 10:37 LRN (Rec: 02/09/19 12:48 LRN [id number]) Out-Patient Physical Therapy Visit Information Visit Information Visit Type Treatment Note Visit Start Time 10:37 Visit Stop Time 11:27 Total Visit Minutes 50 Visit Number 13 Number of CONTROL ROOM OPERATOR Visits 0 Evaluation Information Evaluation Date 12/08/18 Precautions Precautions Pt reports: Hx of Prostate CA 2003; R TKA 2007, Fusion of Lower Lumbar spine. PT-OP-B Current Condition Start: 12/08/18 08:33 Freq: Status: Active Protocol: Document 12/22/18 10:30 HH (Rec: 12/22/18 12:27 HH [id number]) Current Condition History of Current Condition Onset Date 12/17/18 Current Complaints Limited in function with walking, especially downhill ambulation. History of Current Condition Pt underwent L TKA on 12/17/18 at due to history of arthritis. Pt was hospitalized until last Saturday due to onset of hypotension, diarrhea , dizziness and nausea feeling . Pt had multiple episodes of hypotension at 70s/50s during hospital stay. But his states his BP has been stabilized since d/c 110s/70s. Pt reports his pain has been well controlled at around 3-5/ 10 in a daily basis. However, pt reports he feels very nausea and dizzy yesterday most likely because he took oxycodone, tylenol, ibuprofen and aspirin together in the morning. Pt's states He probably took too much meds at the same time but we will ask the PA tomorrow. Pt also has been using his FWW primarily and crutches for 2 steps to get into the house. Pt lives on the [facility] right now but he has a recreational floor at the basement which has 19 steps to go down. Future Testing and Treatments Planned pt is scheduled for follow up with PA 12/23/18 and possibly removal of catheter PT-OP-C Subjective Start: 12/08/18 08:33 Freq: Status: Active Protocol: Document 02/09/19 10:37 LRN (Rec: 02/09/19 12:48 LRN [id number]) OP-PT Subjective Patient Comments Patient Comments Going to the fitness center. Woke with L knee pain must have slept wrong Patient Questionnaires Lower Extremity Functional Scale LEFS Score 60 LEFS Impairment 1 to 19% Impaired (Score 63-79 ) OP-PT Pain Assessment Location L knee Pain Location Details Anterior knee with stretching Intensity 2 Scale Used Numeric (1 - 10) Description- Other Pain variable 0-2/10 Frequency Intermittent Pain Aggravating Factors Exercise Pain Alleviating Factors Cold Massage Rest PT-OP-G Mobility & Gait Start: 12/08/18 08:33 Freq: Status: Active Protocol: Document 02/09/19 10:37 LRN (Rec: 02/09/19 12:48 LRN [id number]) OP Mobility Evaluation Bed Mobility Rolling Independent Supine to and from Sit Independent Transfers Sit to Stand Independent Bed to Chair Transfers Independent with FWW OP Gait Assessment Gait Gait Assistance Required: Independent Able to Maintain Weight Bearing Status Yes During Gait Assistive Devices Assistive Device None Orthotic/Prosthetic Devices or Brace: No Gait Deviations General Gait Pattern Within Normal Limits Comments Gait Comments Gait speed is 3.33 ft/sec. Gait appears normal, no assistive device needed. PT-OP-K Range of Motion Start: 12/08/18 08:33 Freq: Status: Active Protocol: Document 02/09/19 10:37 LRN (Rec: 02/09/19 12:48 LRN [id number]) Knee Goniometric Range of Motion Knee Measured in Degrees Right Knee ROM WFL No Patient Position Supine Flexion Active (degrees) 105 Flexion Passive (degrees) 105 Extension Active (degrees) 3 Extension Passive (degrees) 0 Left Patient Position Supine Flexion Active (degrees) 115 Flexion Passive (degrees) 116 Extension Passive (degrees) 0 Knee ROM Limitations Knee ROM Limitations Soft Tissue Tightness Comments Pt L knee flared up today first in AM upon waking. Active L knee ext lacks 2-3 deg's. Passive L knee ext is normal. PT-OP-M Strength Start: 12/08/18 08:33 Freq: Status: Active Protocol: Document 01/29/19 10:35 LRN (Rec: 01/29/19 10:46 LRN [id number]) Knee Strength Knee Manual Muscle Testing Right Flexion (S2) 4+ Good+ Extension (L3) 5 Normal Left Flexion (S2) 3+ Fair+ Extension (L3) 4 Good PT-OP-Q Treatments Start: 12/08/18 08:33 Freq: Status: Active Protocol: Document 02/09/19 10:37 LRN (Rec: 02/09/19 12:48 LRN [id number]) Cardio Equipment Bicycle (Upright) Duration (Minutes) 10 Resistance 5 Seat Position 2 Gym Equipment Cable Column (Body Solid) Leg Extension Details TKE - Seat: 5 holes showing Resistance 20# Reps/Time 15x2 Leg Curl Details Seat: 5 holes showing Resistance 30# Reps/Time 15x2 Therapeutic Exercises Supine Exercises Quad set Supine Exercise Name AROM/PROM Side left Comments ROM taken on right after AROM L knee flexion Supine Exercise Name heel slides with/without assist Side bilateral Comments ROM taken on right after AROM Standing Exercises Balance Standing Exercise Name Reviewed standing SLS balance ex handout Side bilateral Self-Care/Home Management Treatment Education Patient Education Home Exercise Program Activities Self-Care/Home Management Activities Issued & reviewed HEP: Standing balance ex's PT-OP-R Modalities Start: 12/08/18 08:33 Freq: Status: Active Protocol: Document 02/09/19 10:37 LRN (Rec: 02/09/19 12:48 LRN [id number]) Hot Pack/Cold Pack Treatment Cold Pack Location L knee Patient Position Supine Treatment Duration (minutes) 10 Comments Cold pack with Bolster for edema management PT-OP-T Assessment and Plan Start: 12/08/18 08:33 Freq: Status: Active Protocol: Document 02/09/19 10:37 LRN (Rec: 02/09/19 12:48 LRN [id number]) Physical Therapy Assessment Goals 5 Impairment Pain STG Duration GOAL MET Care Home Goal (LTG) To reduce his knee pain by 4/ 10 points during mobility LTG Duration 02/11/19 (01/15/19: GOAL MET) 4 Impairment ROM Short Term Goal (STG) To increase L knee flexion by 10 degrees (115 deg's). STG Duration 01/26/19 GOAL MET Care Home Goal (LTG) To increase L knee active flexion by 15 degrees (120 deg 's). LTG Duration 02/27/19 (GOAL NOT MET) Three Impairment Decreased function per LEFS score of 48 R Developer Goal (LTG) LEFS score of no less than 63. LTG Duration 02/27/19 (01/29/19: GOAL NOT MET, score is 60) Two Impairment Pt lacks knowledge of self care/HEP post-operative LTKA on 12/17/18. Care Home Goal (LTG) Pt will be independent with a HEP of self care ex's. LTG Duration 02/27/19 (GOAL MET) One Impairment Pt lacks self care knowledge per [facility] protocol for pre-op care. STG Duration GOAL MET Progress Towards Goals Progress Towards Goals Progressing Toward Goals Progress Comments Goal #1: MET. Goal #2: MET. Goal #3: LEFS score improved ( score 60, initially 48), NOT MET. Scoring was done on last day when he was in a flared up state. Goal #4: STG MET for PROM. LTG: NOT MET. L knee AROM 115 deg's flex, PROM 116 deg's flex. Pt was as in a flared up state on last day. Goal #5: STG MET. LTG MET. No pain except when moving wrong (twisting). On last day pt was in a flared up state with pain rated --2/ 10. Assessment Summary Assessment Pt L knee flared up during the night with pain and stiffness on waking, rated 2/10. L knee AROM is 115 deg's, PROM is 116 deg's, she has full knee ext actively after stretching. Pt is functional and has returned to ex at his local gym and is ready to be placed on a HEP. Physical Therapy Plan Discharge Physical Therapy Discharge Comments Pt feels ready for continuing independently on a HEP. Thank you for your referral.
== END 2019-02-09 13:37 ==
LOC: PHYS 10:30
PROVIDERS: Visit Provider Orthopaedic Surgery
DX: M17.12 Unilateral primary osteoarthritis, left knee (principal); Z98.890 Other specified postprocedural states
CPT/HCPCS: 97110; 97112; 97116; 97140; 97162; 97530

== ENCOUNTER → 2019-05-22 12:51 | Outpatient (CLI) | payer OTHER, SELFPAY ==
[2018-12-17 17:20] VITALS: BMI 26.6
--- NOTE | 2019-05-22 | DI.CT.S_ITS ---
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 Additional oblique axial 3.0 mm sections acquired through the pharynx. 3 mm thick coronal and sagittal reformats were generated. For radiation dose reduction, the following was used: automated exposure control. COMPARISON: None. FINDINGS: Image quality: Excellent. Lymph nodes: No enlarged lymph nodes seen throughout the neck. Vessels: Visualized vasculature appears patent. Neck spaces: There is a right peritonsillar lesion seen that measures 4.2 x 2.9 cm in greatest axial dimension, with a craniocaudal extent of 2.2 cm. There is moderate internal enhancement seen. The pharynx demonstrates no mucosal lesions. The vocal cords, false vocal cords, pyriform sinuses, epiglottis, vallecula, and tongue base all appear normal. Extramucosal spaces appear unremarkable. Glands: The parotid and submandibular glands appear normal. Thyroid gland demonstrates no significant CT abnormality. Miscellaneous: Visualized brain and orbits appear normal. Lung apices appear clear. Superficial soft tissues appear normal. Bones: No suspicious bony lesions. Visualized sinuses and mastoids appear unremarkable. Prominent lower cervical spine degenerative changes are seen, with moderate to severe disc space narrowing at C3-C4, C4-C5, C5-C6, and C6-C7. Bridging anterior osteophytes are seen early C4-C7. There is reversal of the normal cervical lordosis, with the apex at the C5-C6 level. Grade 1 anterolisthesis is seen at C4-C5. Calcified pannus can be seen posterior to the dens. IMPRESSION: A right peritonsillar mass is seen that measures 4.2 cm. No frankly enlarged lymph nodes are seen. Prominent cervical spine degenerative changes. Dictated by: Karson Perez M.D. on 05/22/2019 at 13:56 Approved by: Karson Perez M.D. on 05/22/2019 at 14:00
[2019-05-22 13:26] LABS: BUN Creatinine Ratio 21.3 (6-22); Blood Urea Nitrogen 17 mg/dL (9-20); Estimated Glomerular Filt Rate > 60.0 mL/min (>60)
== END ==
PROVIDERS: PCP Hospitalist; Visit Provider Otolaryngology
DX: D37.05 Neoplasm of uncertain behavior of pharynx (principal); J35.9 Chronic disease of tonsils and adenoids, unspecified; M47.812 Spondylosis without myelopathy or radiculopathy, cervical region
CPT/HCPCS: 36415; 70491; 82565; 84520; Q9967

== ENCOUNTER → 2020-11-30 14:37 | Outpatient (CLI) | payer OTHER, SELFPAY ==
[2018-12-17 17:20] VITALS: BMI 26.6
--- NOTE | 2020-11-30 | DI.CT.S_ITS ---
PROCEDURE: CT SINUS SCREEN WO CON INDICATIONS: Chronic pansinusitis TECHNIQUE: Noncontrast 3.0 mm axial images acquired from the frontal sinuses to the mid-sella, with coronal and sagittal reformats. For radiation dose reduction, the following was used: automated exposure control, adjustment of mA and/or kV according to patient size. COMPARISON: None. FINDINGS: Image quality: Excellent. Complete opacification of the right maxillary sinus. There is mild left maxillary sinus mucosal thickening. Near complete opacification of the ethmoid air cells bilaterally. The sphenoid sinuses appear clear. There is complete opacification of the right frontal sinus. The left frontal sinus appears clear. Mastoid air cells appear clear. Ostiomeatal Complexes: Ostiomeatal complexes are completely opacified. No Johny cells. Miscellaneous: Visualized intra-orbital contents are normal. No pio bullosa or paradoxical turbinate curvature. Mild right nasal septal deviation. Bilateral temporomandibular joint degeneration. IMPRESSION: Pansinusitis as above. Complete opacification of the ostiomeatal complexes bilaterally Mild right nasal septal deviation Dictated by: Sean Oconnor M.D. on 11/30/2020 at 17:43 Approved by: Sean Oconnor M.D. on 11/30/2020 at 17:47
== END ==
PROVIDERS: PCP Hospitalist; Referring Provider Hospitalist; Visit Provider Otolaryngology
DX: J32.4 Chronic pansinusitis (principal); C83.11 Mantle cell lymphoma, lymph nodes of head, face, and neck; J34.2 Deviated nasal septum
CPT/HCPCS: 70486

== ENCOUNTER → 2020-12-21 13:01 | Outpatient (CLI) | payer OTHER, SELFPAY ==
[2018-12-17 17:20] VITALS: BMI 26.6
--- NOTE | 2020-12-21 | DI.CT.S_ITS ---
PROCEDURE: CT SINUS SCREEN WO CON INDICATIONS: Chronic pansinusitis TECHNIQUE: Noncontrast 3.0 mm axial images acquired from the frontal sinuses to the mid-sella, with coronal and sagittal reformats. For radiation dose reduction, the following was used: automated exposure control, adjustment of mA and/or kV according to patient size. COMPARISON: [facility], CT, CT SINUS SCREEN WO CON, 11/30/2020, 14:51. [facility], CT, CT SOFT TISSUE NECK W CON, 05/22/2019, 14:14. FINDINGS: Image quality: Excellent. Maxillary Sinuses: There is complete opacification of the right maxillary sinus. There is medial bowing and demineralization of the medial wall of the right maxillary sinus. Moderate mucosal thickening is seen within the left maxillary sinus. There is demineralization of the medial wall of the left maxillary sinus. Ethmoid Air Cells: Moderate to prominent mucosal thickening is seen within the anterior ethmoid air cells. There is demineralization of the bony ethmoid air cell septations. Sphenoid Sinuses: No bony remodeling or destruction. Sinuses are clear. Frontal Sinuses: No bony remodeling or destruction. Sinuses are clear. Ostiomeatal Complexes: Occluded. Miscellaneous: Visualized intra-orbital contents are normal. No pio bullosa or paradoxical turbinate curvature. There is mild rightward nasal septal deviation. There is focal degenerative change seen involving the left temporomandibular joint. IMPRESSION: Paranasal sinus disease is seen, which is most prominent within the right maxillary sinus. Areas of bony demineralization are seen, which are consistent with chronic sinusitis. The ostiomeatal complexes are occluded. The appearance is similar to the 11/30/2020 examination. Focal left temporomandibular joint degenerative change noted. Dictated by: Karson Perez M.D. on 12/21/2020 at 12:51 Approved by: Karson Perez M.D. on 12/21/2020 at 12:53
== END ==
PROVIDERS: PCP Hospitalist; Referring Provider Otolaryngology; Visit Provider Otolaryngology
DX: J32.4 Chronic pansinusitis (principal); J34.2 Deviated nasal septum
CPT/HCPCS: 70486

== ENCOUNTER → 2021-02-08 09:07 | Outpatient (CLI) | payer OTHER, SELFPAY ==
[2018-12-17 17:20] VITALS: BMI 26.6
[2021-02-08 11:17] LABS: COVID19 -Nasal RAPID Negative (Negative)
== END ==
PROVIDERS: PCP Hospitalist; Visit Provider Physician Assistant
DX: Z01.812 Encounter for preprocedural laboratory examination (principal); Z20.822 Contact with and (suspected) exposure to COVID-19
CPT/HCPCS: 87635

== ENCOUNTER 2021-02-09 06:30 | Day surgery (SDC) | payer OTHER, SELFPAY ==
[2018-12-17 17:20] VITALS: BMI 26.6
[2021-02-09] VITALS (10 sets, daily range): BP systolic 127–161; BP diastolic 66–89; PULSE 83–99; RESP 14–17; TEMP 36.1–36.6; O2SAT 93–98; BMI 25.3
--- NOTE | 2021-02-09 | PATH_ITS ---
[facility] Accession Number: [id number] . 01 Material submitted: . PART A: sinus, maxillary - LEFT MAXILLARY SINUS PART B: sinus, maxillary - RIGHT MAXILLARY SINUS PART C: sinus, maxillary - RT MAXILLARY SINUS . 01 Clinical history: . SDC . 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 01 Comment: Flow cytometric analysis on a portion of this specimen demonstrated an atypical B-lymphoid population expressing CD5, FMC7, CD19, intermediate/high CD20, CD22, CD38 and a small subset with CD23 expression; without CD10, CD11c or CD103. This population demonstrated lambda surface immunoglobulin light chain restriction and comprised essentially all of the B-lymphoid cells, 80% of the lymphocytes and 75% of the total viable leukocytes in the study. See report [id number]. . These findings correlate with the histologic and immunohistochemical findings. . 01 Electronically signed: . Shell Freedman MD, Pathologist NPI- [id number] . 01 Gross description: . A. The specimen is received in formalin, labeled left maxillary sinus and consists of multiple fragments of jefferson-pink soft tissue, cartilage and bone measuring 3.0 x 2.0 x 0.3 cm in aggregate. The specimen is filtered and entirely submitted following decalcification in cassette A1. B. The specimen is received in formalin, labeled right maxillary and consists of multiple jefferson-pink fragments of soft tissue, cartilage and bone measuring 4.0 x 3.0 x 2.0 cm in aggregate. The specimen is filtered and entirely submitted following decalcification in cassettes B1-B2. ([id number]) C. The specimen is received in formalin, labeled right maxillary sinus and consists of multiple jefferson-pink focally hemorrhagic fragments of soft tissue measuring 2.5 x 2.0 x 0.9 cm in aggregate. The margin of the largest fragment is inked blue and the fragment is bisected. The specimen is entirely submitted in cassette C1. ([id number]) /MRV 02/14/2021 [facility] . 01 Microscopic: . A-C: H/E sections demonstrates sheets of an atypical lymphoid infiltrate with scattered admixed unremarkable glands. The lymphoid infiltrate comprises small to medium sized cells with slightly to markedly irregular nuclear contours, many resembling centrocytes. The nuclear chromatin is variably dispersed and some nucleoli are visible. There is no evidence of a follicular growth pattern. Perivascular hyalinization is focally noted. Mitotic figures are seen. There is no evidence of tumor diathesis. . . In order to more fully characterize this process, immunohistochemical stains were indicated; these were performed on tissue from Block C. The controls reacted appropriately. . Findings: CD3: Sparse small T-cells present in diffuse distribution. (Membranous/Strong) CD5: Positive: diffuse distribution, most cells positive. (Membranous/Strong) CD10: Negative CD20: Positive: diffuse distribution, most cells positive. (Membranous/Strong) CD21: Positive: diffuse distribution, most cells positive. (Nuclear/moderate) BCL-2: Positive: diffuse distribution, most cells positive. (Nuclear/Strong) BCL-6: Negative Cyclin D1: Positive: diffuse distribution, most cells positive. (Nuclear/Strong) Ki-67: Approximately 25% positive. (Nuclear/Strong) Interpretation: Compatible with Mantle Cell Lymphoma Technical Note: The immunohistochemistry stains reported were performed at [facility] ([address], [facility] [address]). They were developed and their performance characteristics determined by [employer]. They have not been cleared or approved by the U.S. Food and Drug Administration, although such approval is not required for analyte-specific reagents of this type. . 01 Pathologist provided ICD-10: C83. CPT . 473459, 788119, 319282, V29648, D89466, [id number] Specimen Comment: A courtesy copy of this report has been sent to [phone] Performed at: [address] [facility] [address], [place], [place] [id number] MD Lalo Mcnair MD Phone: [phone]
--- NOTE | 2021-02-09 07:22 | PM.PREOP ---
Pre-operative Note COVID-19 COVID-19 status: Result pending Interval Note History & Physical reviewed/Exam performed by Physician: Yes Changes to H&P: No
--- NOTE | 2021-02-09 07:24 | PM.HP.1 ---
History of Present Illness History of Present Illness Date Patient Seen: 02/09/21 Time Patient Seen: 07:24 Chief complaint: CRS Narrative: 80-year-old male with chronic rhinosinusitis, persistent despite medical therapy, presents for septoplasty and endoscopic sinus surgery. No recent cough, cold, or fever, received medical clearance yesterday in addition. Patient History Medical History Basal cell carcinoma (BCC) HTN (hypertension) Hypochloremia Hyponatremia Osteoarthritis Spinal stenosis Surgical History History of arthroplasty of right knee (~2007) History of prostate surgery (~2003) Hx of decompressive lumbar laminectomy (~2011) Hx of hernia repair Hx of total knee arthroplasty Status post cataract extraction of both eyes with insertion of intraocular lens (~2016) Status post osteotomy (~1995) Family & Social History Tobacco & Substance use: Smoking Status Never smoker alcohol intake frequency 0-2 drinks per day Substance Use Type does not use Meds Home Medications and Allergies Home Medications Medication Instructions Recorded Confirmed Type amlodipine 5 mg PO DAILY 11/27/18 02/09/21 History cholecalciferol (vitamin D3) 400 unit PO DAILY 11/27/18 02/09/21 History [Vitamin D3] ibuprofen 2 tab PO DAILY PRN 11/27/18 02/09/21 History lisinopril 40 mg PO DAILY 11/27/18 02/09/21 History atorvastatin 20 mg PO DAILY 02/09/21 02/09/21 History Allergies Allergy/AdvReac Type Severity Reaction Status Date / Time codeine [CODEINE] Allergy Intermediate HIVES, SOB Verified 02/09/21 07:23 Review of Systems Review of Systems ROS: Yes All systems reviewed with the patient and are negative except as otherwise documented Exam Narrative Exam Narrative: Well-developed well-nourished male with stable epiphora. Heart regular rate and rhythm without murmur, lungs clear to auscultation bilaterally Assessment & Plan Assessment & Plan narrative: Assessment 1. Chronic pansinusitis 2. Nasal obstruction 3. Septal deviation 4. 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
--- NOTE | 2021-02-09 07:27 | P.OP_ITS ---
Operative Date/Time/Diagnoses Date of procedure: 02/09/21 Time of procedure: 11:20 Pre-op diagnosis: 1. Chronic rhinosinusitis 2. Nasal airway obstruction 3. Septal deviation 4. 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 Septoplasty 2. Bilateral endoscopic maxillary antrostomy 3. Bilateral endoscopic total ethmoidectomies Same procedure as scheduled: Yes Indications: 80-year-old male with the above diagnoses incompletely managed with medical therapy presents for the above procedures. Following discussion of the material risks benefits complications and alternatives, he elected to proceed. Surgeon: Neftali Hopkins Click Yes if Unassisted: Yes Anesthesia Type: General and Local Operative Notes Findings: 2-3+ right septal deviation, primarily high and posterior. Small tear right low mid septal flap, left flap intact. Mucopurulence filling each maxillary sinus, culture taken on the right. Marked hypertrophied maxillary and primarily anterior ethmoid mucosa, possible abnormal tissue, significant amounts taken primarily right greater than left maxillary sinus and sent for both routine pathology as well as rule out lymphoma. Significant oozing from the hypertrophied mucosa with a discrete vessel requiring control within the posterior superior portion of the right maxillary sinus, controlled with pressure, Afrin and epinephrine, and suction cautery. Right middle turbinate resection to improve access. No sphenoidotomy as necessary as the natural os on each side was widely patent and normal. Frontal recess not approached on either side. Closure Type: primary Specimen(s): other (Tissue right maxillary for possible lymphoma, also routine pathology, tissue left maxillary, culture right maxillary) Estimated Blood Loss (mL): 650 Blood products transfused: none Procedure in detail: Following identification and confirmation of consent the patient was brought to the operating room suite and placed in the supine position. General endotracheal anesthesia was administered. I infiltrated the septum widely bilaterally with 1% lidocaine 1 100,000 epinephrine followed by temporary packing with cotton with Afrin and 4% lidocaine only anteriorly. Fo llowing sterile prep and drape, the packing was removed and I performed a right maeve-transfixion incision, elevated the right mucoperichondrial and mucoperiosteal flap. I disarticulated near the bony/cartilaginous junction and elevated the left mucoperiosteal flap. Deviated portions of the perpendicular plate of the ethmoid and vomer were resected. The residual quadrilateral cartilage was further straightened by trimming it inferiorly as well as reducing the maxillary crest. A 2 mm strip of cartilage paralleling the residual 1 cm dorsal strut was resected to further straighten the quadrilateral cartilage. The hemitransfixion incision was closed with interrupted 5 0 chromic followed by a running 4 0 plain gut mattress suture to reapproximate the septal flaps. At case completion, 20/1000th of an inch silastic splints were placed bilaterally, sutured anteriorly with a single 4 0 nylon. Under endoscopic guidance I infiltrated the posterior and anterior superior insertion of the left middle turbinate. 1:1000 topical epinephrine on a small pledget was placed within the middle meatus for 10 minutes prior. The middle turbinate was slightly medialized and the backbiting forceps performed uncinectomy along with the microdebrider. Polyps and inflamed mucosa were resected and sent as a specimen. Large Maxillary antrostomy was created by extending the natural os posteriorly and inferiorly. The ethmoid bulla was resected with the microdebrider. I penetrated the basal lamella inferiorly and medially to enter the posterior ethmoids and trimmed the inferior half of the superior turbinate. The natural os of the sphenoid sinus was identified And did not require enlargement. Posterior to anterior ethmoid dissection was performed with the J curette and forceps although the frontal recess was not approached. Hemostasis Was excellent. On the right side I performed similar injections as well as topical treatment with epinephrine. The middle turbinate was Polypoid and was resected with cautery of the residual stump posteriorly. The uncinate process was lateralized and uncinectomy was performed with backbiting forceps. The maxillary antrostomy was performed but the mucosa was very thickened and abnormal, multiple specimens taken. Trimming the intra sinus mucosa led to an area of bleeding posteriorly and superiorly along the maxillary sinus wall which eventually required control with topical epinephrine, pressure, and suction electrocautery on a setting of 20. Valsalva did not lead to any bleeding as tested later. The ethmoid bulla was polypoid but was further resected. I penetrated the basal lamella to enter the posterior ethmoids and Again the natural os of the sphenoid was widely patent therefore not manipulated. Posterior to anterior dissection was performed bluntly To approach but not into the frontal recess but again significant polypoid tissue was resected. Irrigation with warm saline was utilized intermittently throughout the case, suction cautery for the bleeding area of the posterior maxillary sinus and middle turbinate stump only. Septal splints were placed as mentioned earlier with the posterior ends deliberately within the middle meatus. sponge counts were correct and he was extubated in the operating room and taken to recovery room in stable condition without no complication. Postoperative care: See the postop orders, patient's was notified of the operative findings.. Complications: none Post-operative Condition: stable Disposition: same day surgery Plan for aftercare: Nasal saline every hour while awake, begin irrigations t.i.d. tomorrow, 2 of the 3 with budesonide. Nasal saline spray every hour while awake, Vaseline or Polysporin to the nostrils at all times. No nose blowing, elevate head of bed. Follow-up next week as scheduled for splint removal. Ice to the upper lip if desired 24-48 hours as tolerated.
[2021-02-09] MEDS: LACTATED RINGERS 1,000 ML 42 ML IV ×2 (07:30→09:36)
--- NOTE | 2021-02-09 08:22 | SUR.OPER ---
Supine on padded OR bed, head on pillow, arms padded and tucked at side, legs uncrossed, safety belt at thigh, tape over blanket over lower legs .
[2021-02-09] MEDS: BACITRACIN 28 GM OINT 1 APPLIC TOP (08:32)
[2021-02-09] MEDS: LIDOCAINE 1% W/EPI 20 ML INJ (08:32)
[2021-02-09] MEDS: LIDOCAINE 4% SOLN 50 ML 20 ML TOP (08:33)
[2021-02-09] MEDS: OXYMETAZOLINE NASAL SPRAY 15 ML 2 SPRAYS NASAL (08:33)
[2021-02-09] MEDS: EPINEPHrine 1 MG/ML IRR (08:34)
--- NOTE | 2021-02-09 12:04 | SUR.PHASEI ---
PT TOLERATING SIPS OF WATER, USING SUCTION BY HIMSELF,
[2021-02-09] MEDS: OXYCODONE/ACETAMINOPHEN 5/325 TABLET 1 TAB PO (12:10)
== END 2021-02-09 13:15 | disposition home or self-care (01) ==
PROVIDERS: PCP Hospitalist; Referring Provider Hospitalist; Visit Provider Otolaryngology
PROC: (CPT 30520; principal; 2021-02-09 07:45)
DX: J34.2 Deviated nasal septum (principal); J32.4 Chronic pansinusitis; J34.89 Other specified disorders of nose and nasal sinuses; C83.11 Mantle cell lymphoma, lymph nodes of head, face, and neck
CPT/HCPCS: 31255; 31267; 30520; 87070; 87075; 87077; 87147; 87186; 87205; J0171; J1100; J2405; J2704; J3010

== ENCOUNTER → 2021-03-22 08:28 | Outpatient (CLI) | payer OTHER, SELFPAY ==
[2018-12-17 17:20] VITALS: BMI 26.6
[2021-03-22 09:53] LABS: Estimated Glomerular Filt Rate > 60.0 mL/min (>60)
== END ==
PROVIDERS: PCP Hospitalist; Referring Provider Radiology Radiation Oncology; Visit Provider Radiology Radiation Oncology
DX: C83.10 Mantle cell lymphoma, unspecified site (principal)
CPT/HCPCS: 36415; 82565

== ENCOUNTER 2021-06-04 23:15 | Emergency (ER) | payer OTHER, SELFPAY ==
[2018-12-17 17:20] VITALS: BMI 26.6
[2021-06-04 23:29] VITALS: BP 178/88; PULSE 86; RESP 16; TEMP 36.5; O2SAT 97; BMI 25.3
[2021-06-05] MEDS: KETOROLAC 30 MG/ML VIAL 15 MG IV (00:16)
[2021-06-05] MEDS: SODIUM CHLORIDE 0.9% 1,000 ML 1000 ML IV (00:18)
[2021-06-05] MEDS: ONDANSETRON 4 MG/2 ML INJ IV (00:18)
[2021-06-05 00:21] LABS: Add Manual Diff / Slide Review NO; Basophils Absolute Auto 0 /uL (0-100); Basophils Percent Auto 0.5 % (0-2); Eosinophils Absolute Auto 100 /uL (0-450); Eosinophils Percent Auto 2.6 % (2-4); Hematocrit 40.7 % (41-53); Hemoglobin 13.6 g/dL (13.5-17.5); Lymphocytes Absolute Auto 800 /uL (1100-4500); Lymphocytes Percent Auto 14.2 % (25-40); Mean Corpuscular HGB Conc 33.5 % (30-36); Mean Corpuscular Hemoglobin 31.5 PG (26-34); Mean Corpuscular Volume 93.9 fL (80-100); Monocytes Absolute Auto 600 /uL (0-900); Neutrophils Absolute Auto 4100 /uL (1500-7000); Neutrophils Percent Auto 71.7 % (50-75); Platelet Count 218 X10^3/uL (150-400); Red Blood Cell Count 4.33 X10^6/uL (4.5-5.9); Red Cell Distribution Width 13.7 % (11.6-14.8); White Blood Cell Count 5.7 X10^3/uL (4.5-11.0)
[2021-06-05 00:22] LABS: BUN Creatinine Ratio 36.7 (6-22); Blood Urea Nitrogen 29 mg/dL (9-20); Calcium 9.6 mg/dL (8.4-10.2); Carbon Dioxide 23 mmol/L (22-32); Chloride 100 mmol/L (98-107); Estimated Glomerular Filt Rate > 60.0 mL/min (>60); Glucose 122 mg/dL (80-110); HEMOLYSIS < 15 (0-50); Potassium 4.2 mmol/L (3.4-5.1); Sodium 132 mmol/L (137-145)
--- NOTE | 2021-06-05 00:56 | DI.CT.S_ITS ---
PROCEDURE: CT KIDNEY URETER BLADDER (KUB) COMPARISON: [place], [place], PET NECK TO MID THIGH, 04/17/2021, 10:19. INDICATIONS: severe colicky left flank pain FINDINGS: The urinary bladder is distended, measuring up to 11.1 cm AP, 10.7 cm transverse, and 15.5 cm craniocaudad. Bilateral moderately severe to severe hydronephrosis is present. This was slightly greater on the left than the right but appears to be near equivalent at this time, when compared to the PET-CT scanning from 04/17/21. IMPRESSION: Bilateral moderately severe to severe hydronephrosis, having progressed on the right and associated with perinephric edema on the left. No calculus found, no definite mass identified, large bladder volume as discussed with the largest craniocaudad length of the bladder at 15.5 cm. Urology consultation likely is warranted. As noted, the hydronephrosis is greater on the left than the right but had been significantly greater on the left than the right on nuclear medicine PET-CT scanning from mid April of this year. The bladder distension was previously present. A Mcnamara catheter is not seen in place. Dictated by: Ventura Hinds M.D. on 06/05/2021 at 11:38 Approved by: Ventura Hinds M.D. on 06/05/2021 at 11:42
--- NOTE | 2021-06-05 02:52 | ED_ITS ---
HPI - Male Genitourinary General Chief complaint: Urogenital-Male Stated complaint: Extreme back pain, [place] vomiting Time Seen by Provider: 06/04/21 23:42 Source: patient Mode of arrival: Ambulatory Limitations: no limitations History of Present Illness HPI Narrative: 80-year-old male nonsmoker with history of hypertension and hyperlipidemia presents with a chief complaint of left back pain that started this morning. He states that it has been gradually worsening and is now wrapping around his flank to his left lower belly. He states there is no obvious provocation or palliation but there are times when the pain ramps up and seems to intensify with no obvious provocation. He is nauseated but denies any vomiting. He denies any obvious difficulty with urination including dysuria, frequency or urgency. He has no obvious hematuria fever or chills. He denies any recent trauma or injury. Related Data Home Medications Medication Instructions Recorded Confirmed amlodipine 10 mg tablet 5 mg PO DAILY 11/27/18 02/09/21 cholecalciferol (vitamin D3) 10 400 unit PO DAILY 11/27/18 02/09/21 mcg (400 unit) tablet (Vitamin D3) ibuprofen 200 mg tablet 2 tab PO DAILY PRN 11/27/18 02/09/21 lisinopril 40 mg tablet 40 mg PO DAILY 11/27/18 02/09/21 atorvastatin 20 mg tablet 20 mg PO DAILY 02/09/21 02/09/21 Previous Rx's Medication Instructions Recorded tamsulosin 0.4 mg capsule (Flomax) 0.4 mg PO DAILY #20 cap 06/05/21 Allergies Allergy/AdvReac Type Severity Reaction Status Date / Time codeine [CODEINE] Allergy Intermediate HIVES, SOB Verified 02/09/21 07:23 Review of Systems Review of Systems Narrative: GENERAL: Denies chills, fatigue, malaise, fever, sweats. HEENT: Denies sinus pain, ear pain, sore throat, difficulty swallowing, dizziness. RESPIRATORY: Denies dyspnea, cough, wheezing, hemoptysis, sputum. CARDIOVASCULAR: Denies chest pain, palpitations, orthopnea, edema, GASTROINTESTINAL: Denies nausea, vomiting, abdominal pain, diarrhea, constipation, melena. : See HPI MUSCULOSKELETAL: See HPI SKIN: Denies rash, skin lesions, or other NEUROLOGIC: Denies weakness, headache, numbness, change in speech, confusion, seizures, incoordination. PSYCHIATRIC: No concerning psychosocial issues. 12 point review of systems is negative except for those stated above Patient History Medical History Basal cell carcinoma (BCC) HTN (hypertension) Hypochloremia Hyponatremia Osteoarthritis Spinal stenosis Surgical History History of arthroplasty of right knee (~2007) History of prostate surgery (~2003) Hx of decompressive lumbar laminectomy (~2011) Hx of hernia repair Hx of total knee arthroplasty Status post cataract extraction of both eyes with insertion of intraocular lens (~2016) Status post osteotomy (~1995) Social History household members: spouse Smoking Status: Never smoker alcohol intake: current Smoking Status: Never smoker alcohol intake frequency: 0-2 drinks per day Substance Use Type: does not use Exam Narrative Exam Narrative: GENERAL: [80] year old patient appears stated age. Well- developed patient, in mild distress. HEAD: Atraumatic. Normocephalic. EYES: Pupils equal round and reactive. Extraocular motions intact. No scleral icterus. No injection or drainage. ENT: Nose without bleeding, purulent drainage. Throat without erythema, tonsillar hypertrophy or exudate. Airway patent. NECK: Trachea midline. Non tender CARDIOVASCULAR: Regular rate and rhythm without murmurs, gallops, or rubs. RESPIRATORY: Clear to auscultation. Breath sounds equal bilaterally. No wheezes, rales, or rhonchi. GASTROINTESTINAL: Abdomen soft, non-tender, nondistended. EXTREMITIES: No edema or joint tenderness. BACK: Nontender without deformity or crepitance. No flank tenderness. NEURO: AOx3. SKIN: No rash or erythema of visible areas Initial Vital Signs Initial Vital Signs: Vital Signs Temperature 97.7 F 06/04/21 23:29 Pulse Rate 86 06/04/21 23:29 Respiratory Rate 16 06/04/21 23:29 Blood Pressure 178/88 H 06/04/21 23:29 Pulse Oximetry 97 06/04/21 23:29 Course Orders Ordered: ED Orders 06/05/21 00:07 Basic Metabolic Panel Stat Complete Blood Count AUTO DIFF Stat 06/05/21 00:56 CT kidney ureter bladder (KUB) Stat Discontinued Medications Sodium Chloride (Normal Saline 0.9%) 1,000 mls @ 1,000 mls/hr IV BOLUS ONE Stop: 06/05/21 01:04 Last Infusion: 06/05/21 01:20 Dose: 0 mls/hr Documented by: Admin: 06/05/21 00:18 Dose: 1,000 mls/hr Documented by: PASCUAL Ketorolac Tromethamine (Ketorolac 30 Mg/Ml Vial) 15 mg IV NOW ONE Stop: 06/05/21 00:11 Last Admin: 06/05/21 00:16 Dose: 15 mg Documented by: PASCUAL Ondansetron HCl (Ondansetron 4 Mg/2 Ml Inj) 4 mg IV NOW ONE Stop: 06/05/21 00:11 Last Admin: 06/05/21 00:18 Dose: 4 mg Documented by: PASCUAL Vital Signs Vital signs: Vital Signs - 8 hr 06/04/21 23:29 Temperature 97.7 F Pulse Rate 86 Respiratory Rate 16 Blood Pressure 178/88 H Pulse Oximetry 97 MDM - Male Genitourinary Lab Data Result diagrams: 06/04/21 23:50 06/04/21 23:50 Labs: Lab Results 06/04/21 06/04/21 Range/Units 23:50 23:50 WBC 5.7 (4.5-11.0) X10^3/uL RBC 4.33 L (4.5-5.9) X10^6/uL Hgb 13.6 (13.5-17.5) g/dL Hct 40.7 L (41-53) % MCV 93.9 (80-100) fL MCH 31.5 (26-34) PG MCHC 33.5 (30-36) % RDW 13.7 (11.6-14.8) % Plt Count 218 (150-400) X10^3/uL Neut % (Auto) 71.7 (50-75) % Lymph % (Auto) 14.2 L (25-40) % [place] % (Auto) 11.0 (3-14) % Eos % (Auto) 2.6 (2-4) % Baso % (Auto) 0.5 (0-2) % Neut # (Auto) 4100 (6312-9967) /uL Lymph # (Auto) 800 L (7502-8746) /uL [place] # (Auto) 600 (0-900) /uL Eos # (Auto) 100 (0-450) /uL Baso # (Auto) 0 (0-100) /uL Sodium 132 L (137-145) mmol/L Potassium 4.2 (3.4-5.1) mmol/L Chloride 100 (98-107) mmol/L Carbon Dioxide 23 (22-32) mmol/L BUN 29 H (9-20) mg/dL Creatinine 0.79 (0.66-1.25) mg/dL Estimated GFR > 60.0 (>60) mL/min BUN/Creatinine Ratio 36.7 H (6-22) Glucose 122 H (80-110) mg/dL Calcium 9.6 (8.4-10.2) mg/dL Urine Dip Bedside Urine Glucose Negative Bedside Urine Bilirubin - Negative Bedside Urine Ketone - Negative Urine Specific [place] 1.020 Bedside Urine Occult Blood - Negative Bedside Urine pH 6.0 Bedside Urine Protein - Negative Bedside Urine Urobilinogen - Negative Bedside Urine Nitrite - Negative Bedside Urine Leukocytes - Negative Esterase Imaging Data CT scan - abdomen/pelvis: Radiologist's Impression: Severe bilateral hydroureteronephrosis with distended bladder MDM Narrative Medical decision making narrative: Patient with multiple diagnoses considered including kidney stone, bowel obstruction versus other. CT would suggest bilateral severe hydro ureteral nephrosis and a distended bladder, a bladder scan noted 600 mils after the patient attempted to urinate which would suggest an obstructive uropathy. Mcnamara catheter recommended, but after lengthy discussion and shared decision making we elect to try a course of flomax first. Return precautions given and questions answered to his apparent satisfaction Discharge Plan Departure Patient Disposition: Home Clinical Impression: Urinary retention Instructions: DI for Urinary Retention in Men Activity Restrictions/Additional Instructions: *You have been diagnosed with [flank pain due to obstructive uropathy] *What to do: *Please continue to take your regular medications as directed. [x ] New medication prescriptions sent to your pharmacy: [[facility] ] [ ] New medication written as a paper prescription [ ] No new medications given *Please follow up with your urologist, call for an appointment. Let them know you were seen in the Emergency Department and that we ask that you be seen in follow up. We will electronically transmit a record of today's note if your PCP is in our system *Return to Emergency Department if you should have any new, worsening or concerning symptoms, such as [fever greater than 101 F, shaking chills, worsening pain, persistent vomiting or other bothersome symptoms] Prescriptions: New tamsulosin [Flomax] 0.4 mg capsule 0.4 mg PO DAILY Qty: 20 RF: 0 No Action amlodipine 10 mg Tablet 5 mg PO DAILY RF: 0 ibuprofen 200 mg Tablet 2 tab PO DAILY PRN (Reason: pain) RF: 0 lisinopril 40 mg Tablet 40 mg PO DAILY RF: 0 cholecalciferol (vitamin D3) [Vitamin D3] 400 unit Tablet 400 unit PO DAILY RF: 0 atorvastatin 20 mg tablet 20 mg PO DAILY RF: 0 Referrals: Gilles Borges MD [Physician] - Brendan Denis MD [Primary Care Provider] -
[2021-06-05 06:55] VITALS: BP 186/89; PULSE 73; RESP 16; O2SAT 97
== END 2021-06-05 06:15 | disposition home or self-care (01) ==
PROVIDERS: Emergency Provider Emergency Medicine; PCP Hospitalist
DX: R33.9 Retention of urine, unspecified (principal); R10.9 Unspecified abdominal pain
CPT/HCPCS: 36415; 51798; 74176; 80048; 81003; 85025; 96361; 96374; 96375; 99284; J1885; J2405

== ENCOUNTER 2021-06-06 04:07 | Emergency (ER) | payer OTHER, SELFPAY ==
[2018-12-17 17:20] VITALS: BMI 26.6
[2021-06-06 04:22] VITALS: BP 187/81; PULSE 93; RESP 22; TEMP 36.9; O2SAT 96; BMI 25.0
--- NOTE | 2021-06-06 04:26 | ED.MALEGU ---
HPI - Male Genitourinary <Redd Coronado DO - Last Filed: 06/13/21 01:40> General Chief complaint: Urogenital-Male Stated complaint: left abd pain Time Seen by Provider: 06/06/21 04:10 Source: patient Mode of arrival: Ambulatory Limitations: no limitations History of Present Illness HPI Narrative: 80-year-old male nonsmoker with history of hypertension and hyperlipidemia presents with a chief complaint of lower abdominal pain, decreased bowel movements, inability to urinate for the past few hours. He was seen and evaluated yesterday under very similar circumstances and had a thorough evaluation including CT scan which noted a distended bladder with notable bilateral hydro ureteral nephrosis. We had an extensive discussion regarding Mcnamara catheter but patient was very interested in a less invasive approach. We discussed risks and benefits and elected to allow him to self cath at home which he had done previously as well as take Flomax. He self cathed twice and got out about 500 cc per attempt. He denies any chest pain or shortness of breath. He denies fever or chills. He denies nausea, vomiting or diarrhea Related Data Home Medications Medication Instructions Recorded Confirmed amlodipine 10 mg tablet 5 mg PO DAILY 11/27/18 06/08/21 cholecalciferol (vitamin D3) 10 400 unit PO DAILY 11/27/18 06/08/21 mcg (400 unit) tablet (Vitamin D3) ibuprofen 200 mg tablet 2 tab PO DAILY PRN 11/27/18 06/08/21 lisinopril 40 mg tablet 40 mg PO DAILY 11/27/18 06/08/21 atorvastatin 20 mg tablet 10 mg PO DAILY 02/09/21 06/08/21 Previous Rx's Medication Instructions Recorded tamsulosin 0.4 mg capsule (Flomax) 0.4 mg PO DAILY #20 cap 06/05/21 Allergies Allergy/AdvReac Type Severity Reaction Status Date / Time codeine [CODEINE] Allergy Intermediate HIVES, SOB Verified 02/09/21 07:23 Review of Systems <DO Aliza Benson Last Filed: 06/13/21 01:40> Review of Systems Narrative: GENERAL: Denies chills, fatigue, malaise, fever, sweats. HEENT: Denies sinus pain, ear pain, sore throat, difficulty swallowing, dizziness. RESPIRATORY: Denies dyspnea, cough, wheezing, hemoptysis, sputum. CARDIOVASCULAR: Denies chest pain, palpitations, orthopnea, edema, GASTROINTESTINAL: See HPI : See HPI MUSCULOSKELETAL: denies weakness, joint pain, or bony pain SKIN: Denies rash, skin lesions, or other NEUROLOGIC: Denies weakness, headache, numbness, change in speech, confusion, seizures, incoordination. PSYCHIATRIC: No concerning psychosocial issues. 12 point review of systems is negative except for those stated above Patient History <Redd Coronado DO - Last Filed: 06/13/21 01:40> Medical History Basal cell carcinoma (BCC) Essential hypertension HTN (hypertension) Hypochloremia Hyponatremia Nasopharyngeal cancer Osteoarthritis Spinal stenosis Surgical History History of arthroplasty of right knee (~2007) History of prostate surgery (~2003) Hx of decompressive lumbar laminectomy (~2011) Hx of hernia repair Hx of total knee arthroplasty S/P total knee arthroplasty Status post cataract extraction of both eyes with insertion of intraocular lens (~2016) Status post osteotomy (~1995) Family History Father Prostate cancer Brother Alive and well Brother Dementia Mother Old age Social History household members: spouse Smoking Status: Never smoker alcohol intake: current Smoking Status: Never smoker alcohol intake frequency: holidays/special occasions only Substance Use Type: does not use Exam <Redd Coronado DO - Last Filed: 06/13/21 01:40> Narrative Exam Narrative: GENERAL: [80] year old patient appears stated age. Well-developed patient, in mild distress.Obviously uncomfortable HEAD: Atraumatic. Normocephalic. EYES: Pupils equal round and reactive. Extraocular motions intact. No scleral icterus. No injection or drainage. ENT: Nose without bleeding, purulent drainage. Throat without erythema, tonsillar hypertrophy or exudate. Airway patent. NECK: Trachea midline. Non tender CARDIOVASCULAR: Regular rate and rhythm without murmurs, gallops, or rubs. RESPIRATORY: Clear to auscultation. Breath sounds equal bilaterally. No wheezes, rales, or rhonchi. GASTROINTESTINAL: Abdomen soft, tender in the suprapubic region, nondistended. decreased bowel sounds EXTREMITIES: No edema or joint tenderness. BACK: Nontender without deformity or crepitance. No flank tenderness. NEURO: AOx3. SKIN: No rash or erythema of visible areas Initial Vital Signs Initial Vital Signs: Vital Signs Temperature 98.4 F 06/06/21 04:22 Pulse Rate 93 H 06/06/21 04:22 Respiratory Rate 22 06/06/21 04:22 Blood Pressure 187/81 H 06/06/21 04:22 Pulse Oximetry 96 06/06/21 04:22 <Alie Raya, DO - Last Filed: 06/07/21 09:00> Initial Vital Signs Initial Vital Signs: Vital Signs Temperature 98.4 F 06/06/21 04:22 Pulse Rate 93 H 06/06/21 04:22 Respiratory Rate 22 06/06/21 04:22 Blood Pressure 187/81 H 06/06/21 04:22 Pulse Oximetry 96 06/06/21 04:22 Course <Redd Coronado DO - Last Filed: 06/13/21 01:40> Course Course Narrative: Mcnamara catheter placed and over 400 mL of urine out, patient still endorses left lower quadrant pain and really has not much improvement in his symptoms overall Orders Ordered: Discontinued Medications Bisacodyl (Bisacodyl 10 Mg Supp) 10 mg OR NOW ONE Stop: 06/06/21 06:19 Last Admin: 06/06/21 06:45 Dose: 10 mg Documented by: PASCUAL Sodium Chloride (Normal Saline 0.9%) 1,000 mls @ 1,000 mls/hr IV BOLUS ONE Stop: 06/06/21 07:17 Last Infusion: 06/06/21 09:15 Dose: 0 mls/hr Documented by: Admin: 06/06/21 06:45 Dose: 1,000 mls/hr Documented by: PASCUAL Ketorolac Tromethamine (Ketorolac 30 Mg/Ml Vial) 30 mg IM NOW ONE Stop: 06/06/21 05:32 Last Admin: 06/06/21 05:36 Dose: 30 mg Documented by: PASCUAL Lidocaine HCl (Lidocaine 2% (Glydo) 6 Ml Gel) 6 ml TOP NOW ONE Stop: 06/06/21 04:42 Last Admin: 06/06/21 05:05 Dose: 6 ml Documented by: PASCUAL Vital Signs Vital signs: Vital Signs - 8 hr 06/06/21 04:22 06/06/21 06:51 Temperature 98.4 F Pulse Rate 93 H 68 Respiratory Rate 22 16 Blood Pressure 187/81 H 172/81 H Pulse Oximetry 96 97 <Alie Raya DO - Last Filed: 06/07/21 09:00> Orders Ordered: Discontinued Medications Bisacodyl (Bisacodyl 10 Mg Supp) 10 mg OR NOW ONE Stop: 06/06/21 06:19 Last Admin: 06/06/21 06:45 Dose: 10 mg Documented by: PASCUAL Sodium Chloride (Normal Saline 0.9%) 1,000 mls @ 1,000 mls/hr IV BOLUS ONE Stop: 06/06/21 07:17 Last Infusion: 06/06/21 09:15 Dose: 0 mls/hr Documented by: Admin: 06/06/21 06:45 Dose: 1,000 mls/hr Documented by: PASCUAL Ketorolac Tromethamine (Ketorolac 30 Mg/Ml Vial) 30 mg IM NOW ONE Stop: 06/06/21 05:32 Last Admin: 06/06/21 05:36 Dose: 30 mg Documented by: PASCUAL Lidocaine HCl (Lidocaine 2% (Glydo) 6 Ml Gel) 6 ml TOP NOW ONE Stop: 06/06/21 04:42 Last Admin: 06/06/21 05:05 Dose: 6 ml Documented by: PASCUAL Vital Signs Vital signs: Vital Signs - 8 hr 06/06/21 04:22 06/06/21 06:51 Temperature 98.4 F Pulse Rate 93 H 68 Respiratory Rate 22 16 Blood Pressure 187/81 H 172/81 H Pulse Oximetry 96 97 MDM - Male Genitourinary <Redd Coronado DO - Last Filed: 06/13/21 01:40> Lab Data Result diagrams: 06/06/21 06:43 06/06/21 06:43 Labs: Lab Results 06/06/21 06/06/21 06/06/21 Range/Units 05:20 06:43 06:43 WBC 6.1 (4.5-11.0) X10^3/uL RBC 4.27 L (4.5-5.9) X10^6/uL Hgb 13.6 (13.5-17.5) g/dL Hct 39.9 L (41-53) % MCV 93.6 (80-100) fL MCH 31.8 (26-34) PG MCHC 34.0 (30-36) % RDW 13.4 (11.6-14.8) % Plt Count 172 (150-400) X10^3/uL Neut % (Auto) 77.8 H (50-75) % Lymph % (Auto) 7.4 L (25-40) % [place] % (Auto) 13.9 (3-14) % Eos % (Auto) 0.8 L (2-4) % Baso % (Auto) 0.1 (0-2) % Neut # (Auto) 4800 (5669-7201) /uL Lymph # (Auto) 500 L (3043-4047) /uL [place] # (Auto) 800 (0-900) /uL Eos # (Auto) 0 (0-450) /uL Baso # (Auto) 0 (0-100) /uL Sodium 125 L (137-145) mmol/L Potassium 4.3 (3.4-5.1) mmol/L Chloride 95 L (98-107) mmol/L Carbon Dioxide 24 (22-32) mmol/L BUN 19 (9-20) mg/dL Creatinine 0.99 (0.66-1.25) mg/dL Estimated GFR > 60.0 (>60) mL/min BUN/Creatinine Ratio 19.2 (6-22) Glucose 111 H (80-110) mg/dL Lactate (0.7-2.1) mmol/L Calcium 9.0 (8.4-10.2) mg/dL Total Bilirubin 0.9 (0.2-1.3) mg/dL AST 28 (17-59) IU/L ALT 23 (<50) IU/L Alkaline Phosphatase 58 (38-126) U/L Total Protein 6.8 (6.3-8.2) g/dL Albumin 4.0 (3.5-5.0) g/dL Globulin 2.8 (1.7-4.1) g/dL Albumin/Globulin Ratio 1.4 (1.0-2.8) Urine RBC 1-5/hpf (0-5/HPF) Urine WBC None seen (0-5/HPF) Urine Bacteria None seen (None) Ur Culture Indicated? Cult not indicated 06/06/21 Range/Units 07:00 WBC (4.5-11.0) X10^3/uL RBC (4.5-5.9) X10^6/uL Hgb (13.5-17.5) g/dL Hct (41-53) % MCV (80-100) fL MCH (26-34) PG MCHC (30-36) % RDW (11.6-14.8) % Plt Count (150-400) X10^3/uL Neut % (Auto) (50-75) % Lymph % (Auto) (25-40) % [place] % (Auto) (3-14) % Eos % (Auto) (2-4) % Baso % (Auto) (0-2) % Neut # (Auto) (2454-7952) /uL Lymph # (Auto) (7762-8507) /uL [place] # (Auto) (0-900) /uL Eos # (Auto) (0-450) /uL Baso # (Auto) (0-100) /uL Sodium (137-145) mmol/L Potassium (3.4-5.1) mmol/L Chloride (98-107) mmol/L Carbon Dioxide (22-32) mmol/L BUN (9-20) mg/dL Creatinine (0.66-1.25) mg/dL Estimated GFR (>60) mL/min BUN/Creatinine Ratio (6-22) Glucose (80-110) mg/dL Lactate 0.7 (0.7-2.1) mmol/L Calcium (8.4-10.2) mg/dL Total Bilirubin (0.2-1.3) mg/dL AST (17-59) IU/L ALT (<50) IU/L Alkaline Phosphatase (38-126) U/L Total Protein (6.3-8.2) g/dL Albumin (3.5-5.0) g/dL Globulin (1.7-4.1) g/dL Albumin/Globulin Ratio (1.0-2.8) Urine RBC (0-5/HPF) Urine WBC (0-5/HPF) Urine Bacteria (None) Ur Culture Indicated? Urine Dip Bedside Urine Glucose Negative Bedside Urine Bilirubin - Negative Bedside Urine Ketone - Negative Urine Specific [place] 1.015 Bedside Urine Occult Blood + Bedside Urine pH 6.0 Bedside Urine Protein - Negative Bedside Urine Urobilinogen - Negative Bedside Urine Nitrite - Negative Bedside Urine Leukocytes - Negative Esterase <Alie Raya, DO - Last Filed: 06/07/21 09:00> Lab Data Labs: Lab Results 06/06/21 06/06/21 06/06/21 Range/Units 05:20 06:43 06:43 WBC 6.1 (4.5-11.0) X10^3/uL RBC 4.27 L (4.5-5.9) X10^6/uL Hgb 13.6 (13.5-17.5) g/dL Hct 39.9 L (41-53) % MCV 93.6 (80-100) fL MCH 31.8 (26-34) PG MCHC 34.0 (30-36) % RDW 13.4 (11.6-14.8) % Plt Count 172 (150-400) X10^3/uL Neut % (Auto) 77.8 H (50-75) % Lymph % (Auto) 7.4 L (25-40) % [place] % (Auto) 13.9 (3-14) % Eos % (Auto) 0.8 L (2-4) % Baso % (Auto) 0.1 (0-2) % Neut # (Auto) 4800 (8268-5424) /uL Lymph # (Auto) 500 L (8956-8626) /uL [place] # (Auto) 800 (0-900) /uL Eos # (Auto) 0 (0-450) /uL Baso # (Auto) 0 (0-100) /uL Sodium 125 L (137-145) mmol/L Potassium 4.3 (3.4-5.1) mmol/L Chloride 95 L (98-107) mmol/L Carbon Dioxide 24 (22-32) mmol/L BUN 19 (9-20) mg/dL Creatinine 0.99 (0.66-1.25) mg/dL Estimated GFR > 60.0 (>60) mL/min BUN/Creatinine Ratio 19.2 (6-22) Glucose 111 H (80-110) mg/dL Lactate (0.7-2.1) mmol/L Calcium 9.0 (8.4-10.2) mg/dL Total Bilirubin 0.9 (0.2-1.3) mg/dL AST 28 (17-59) IU/L ALT 23 (<50) IU/L Alkaline Phosphatase 58 (38-126) U/L Total Protein 6.8 (6.3-8.2) g/dL Albumin 4.0 (3.5-5.0) g/dL Globulin 2.8 (1.7-4.1) g/dL Albumin/Globulin Ratio 1.4 (1.0-2.8) Urine RBC 1-5/hpf (0-5/HPF) Urine WBC None seen (0-5/HPF) Urine Bacteria None seen (None) Ur Culture Indicated? Cult not indicated 06/06/21 Range/Units 07:00 WBC (4.5-11.0) X10^3/uL RBC (4.5-5.9) X10^6/uL Hgb (13.5-17.5) g/dL Hct (41-53) % MCV (80-100) fL MCH (26-34) PG MCHC (30-36) % RDW (11.6-14.8) % Plt Count (150-400) X10^3/uL Neut % (Auto) (50-75) % Lymph % (Auto) (25-40) % [place] % (Auto) (3-14) % Eos % (Auto) (2-4) % Baso % (Auto) (0-2) % Neut # (Auto) (2492-2696) /uL Lymph # (Auto) (5669-2782) /uL [place] # (Auto) (0-900) /uL Eos # (Auto) (0-450) /uL Baso # (Auto) (0-100) /uL Sodium (137-145) mmol/L Potassium (3.4-5.1) mmol/L Chloride (98-107) mmol/L Carbon Dioxide (22-32) mmol/L BUN (9-20) mg/dL Creatinine (0.66-1.25) mg/dL Estimated GFR (>60) mL/min BUN/Creatinine Ratio (6-22) Glucose (80-110) mg/dL Lactate 0.7 (0.7-2.1) mmol/L Calcium (8.4-10.2) mg/dL Total Bilirubin (0.2-1.3) mg/dL AST (17-59) IU/L ALT (<50) IU/L Alkaline Phosphatase (38-126) U/L Total Protein (6.3-8.2) g/dL Albumin (3.5-5.0) g/dL Globulin (1.7-4.1) g/dL Albumin/Globulin Ratio (1.0-2.8) Urine RBC (0-5/HPF) Urine WBC (0-5/HPF) Urine Bacteria (None) Ur Culture Indicated? Urine Dip Bedside Urine Glucose Negative Bedside Urine Bilirubin - Negative Bedside Urine Ketone - Negative Urine Specific [place] 1.015 Bedside Urine Occult Blood + Bedside Urine pH 6.0 Bedside Urine Protein - Negative Bedside Urine Urobilinogen - Negative Bedside Urine Nitrite - Negative Bedside Urine Leukocytes - Negative Esterase MDM Narrative Medical decision making narrative: This is an 80-year-old male who comes to the emergency department, signed out to myself by Dr. Coronado. Patient came with abdominal pain. He had severe to moderate hydronephrosis on the right with some perinephric edema on the left. Patient self catheterizes and did not have any difficulty at home. They placed a catheter here the patient's abdominal pain did not improve. Patient had been having issues with bowel movements and was given a dose of bisacodyl and patient was able to have a bowel movement and had significant improvement in his discomfort. Patient's labs do show an hyponatremia from June 04. This may be related to his medication he is on lisinopril. Urine did not show any infectious changes. CT did not show any other major changes. Discharged home with suspicion for constipation as the main cause of his pain. Return precautions discussed. All questions answered. Catheter was removed as patient self caths at home. Discharge Plan Departure Patient Disposition: Home Clinical Impression: Abdominal pain Instructions: DI for Constipation Activity Restrictions/Additional Instructions: Follow up with your physician this week for recheck. Today her sodium was noted to be low at 125, this can be related to your lisinopril and you should have your level rechecked. You may continue to take bisacodyl daily until stools are soft and regular. Also recommend make sure you get plenty of water as well as high-fiber foods. A prescription was sent to [facility] in [place] if needed although this medication is over the counter as well. Please return for new or worsening symptoms, if you are having fevers, continued to vomit, unable to self catheter drain urine, black or bloody stools, rapidly worsening abdominal pain or other new or concerning symptoms. Prescriptions: No Action tamsulosin [Flomax] 0.4 mg capsule 0.4 mg PO DAILY Qty: 20 RF: 0 amlodipine 10 mg Tablet 5 mg PO DAILY RF: 0 ibuprofen 200 mg Tablet 2 tab PO DAILY PRN (Reason: pain) RF: 0 lisinopril 40 mg Tablet 40 mg PO DAILY RF: 0 cholecalciferol (vitamin D3) [Vitamin D3] 400 unit Tablet 400 unit PO DAILY RF: 0 atorvastatin 20 mg tablet 10 mg PO DAILY RF: 0 Referrals: Brendan Denis MD [Primary Care Provider] -
[2021-06-06] MEDS: LIDOCAINE 2% (GLYDO) 6 ML GEL TOP (05:05)
--- NOTE | 2021-06-06 05:30 | DI.RAD.S_ITS ---
PROCEDURE: XR ABDOMEN MIN 2V INDICATIONS: severe pain, no bowel movement x4 days TECHNIQUE: 2 views of the abdomen were acquired. COMPARISON: [facility], CT, CT KIDNEY URETER BLADDER (KUB), 06/05/2021, 1:36. FINDINGS: Surgical changes and devices: Lower lumbar fixation is present. Bowel: No pneumoperitoneum. Significant stool is present. Overall gas pattern is nonobstructive. Soft tissues: No masses; visualized solid organ contours appear normal in size. No suspicious abdominal calcifications. Bones: No suspicious bony abnormalities. IMPRESSION: Constipation without obstruction. Dictated by: Sydney Little M.D. on 06/06/2021 at 9:56 Approved by: Sydney Little M.D. on 06/06/2021 at 9:59
[2021-06-06] MEDS: KETOROLAC 30 MG/ML VIAL IM (05:36)
[2021-06-06 05:38] LABS: Bacteria Urine None Seen; WBC Urine None Seen (0-5/HPF)
[2021-06-06 05:56] LABS: RBC Urine 1-5/HPF (0-5/HPF)
[2021-06-06 05:57] LABS: Culture Indicated Urine Cult Not Indicated
[2021-06-06] MEDS: BISACODYL 10 MG SUPP PR (06:45)
[2021-06-06] MEDS: SODIUM CHLORIDE 0.9% 1,000 ML 1000 ML IV (06:45)
[2021-06-06 06:50] LABS: Add Manual Diff / Slide Review NO; Basophils Absolute Auto 0 /uL (0-100); Basophils Percent Auto 0.1 % (0-2); Eosinophils Absolute Auto 0 /uL (0-450); Eosinophils Percent Auto 0.8 % (2-4); Hematocrit 39.9 % (41-53); Hemoglobin 13.6 g/dL (13.5-17.5); Lymphocytes Absolute Auto 500 /uL (1100-4500); Lymphocytes Percent Auto 7.4 % (25-40); Mean Corpuscular Hemoglobin 31.8 PG (26-34); Mean Corpuscular Volume 93.6 fL (80-100); Monocytes Absolute Auto 800 /uL (0-900); Monocytes Percent Auto 13.9 % (3-14); Neutrophils Absolute Auto 4800 /uL (1500-7000); Neutrophils Percent Auto 77.8 % (50-75); Platelet Count 172 X10^3/uL (150-400); Red Blood Cell Count 4.27 X10^6/uL (4.5-5.9); Red Cell Distribution Width 13.4 % (11.6-14.8); White Blood Cell Count 6.1 X10^3/uL (4.5-11.0)
[2021-06-06 06:51] VITALS: BP 172/81; PULSE 68; RESP 16; O2SAT 97
[2021-06-06 07:00] LABS: Alanine Aminotransferase 23 IU/L (<50); Albumin Globulin Ratio 1.4 (1.0-2.8); Alkaline Phosphatase 58 U/L (38-126); Aspartate Aminotransferase 28 IU/L (17-59); BUN Creatinine Ratio 19.2 (6-22); Bilirubin Total 0.9 mg/dL (0.2-1.3); Blood Urea Nitrogen 19 mg/dL (9-20); Carbon Dioxide 24 mmol/L (22-32); Chloride 95 mmol/L (98-107); Estimated Glomerular Filt Rate > 60.0 mL/min (>60); Globulin 2.8 g/dL (1.7-4.1); Glucose 111 mg/dL (80-110); HEMOLYSIS 17 (0-50); Potassium 4.3 mmol/L (3.4-5.1); Sodium 125 mmol/L (137-145); Total Protein 6.8 g/dL (6.3-8.2)
[2021-06-06 07:13] LABS: Lactate (Lactic Acid) 0.7 mmol/L (0.7-2.1)
[2021-06-06 09:14] VITALS: BP 171/79; PULSE 70; RESP 16; O2SAT 99
== END 2021-06-06 09:17 | disposition home or self-care (01) ==
PROVIDERS: Emergency Medicine; Emergency Provider Emergency Medicine; PCP Hospitalist
DX: R10.30 Lower abdominal pain, unspecified (principal)
CPT/HCPCS: 36415; 74019; 80053; 81003; 81015; 83605; 85025; 99284; J1885

== ENCOUNTER 2021-06-07 21:53 | Inpatient (IN) | payer OTHER, SELFPAY ==
[2018-12-17 17:20] VITALS: BMI 26.6
[2021-06-07] VITALS (7 sets, daily range): BP systolic 114–169; BP diastolic 61–76; PULSE 118–126; RESP 20–27; TEMP 38.1–39.2; O2SAT 93–97
--- NOTE | 2021-06-07 22:13 | DI.RAD.S_ITS ---
PROCEDURE: XR CHEST 1V INDICATIONS: suspected sepsis TECHNIQUE: One view of the chest was acquired. COMPARISON: [facility], , CHEST 1 VIEW, 11/08/2010, 21:27. FINDINGS: Surgical changes and devices: None. Lungs and pleura: Lungs are clear. No pleural effusions or pneumothorax. Mediastinum: Mediastinal contours appear normal. Heart size is normal. Bones and chest wall: No suspicious bony lesions. Overlying soft tissues appear unremarkable. IMPRESSION: Normal for age considering reduced inspiratory volume. Dictated by: Ventura Hinds M.D. on 06/08/2021 at 7:22 Approved by: Ventura Hinds M.D. on 06/08/2021 at 7:23
[2021-06-07 22:27] LABS: Lactate (Lactic Acid) 3.1 mmol/L (0.7-2.1)
[2021-06-07] MEDS: SODIUM CHLORIDE 0.9% 1,000 ML 1000 ML IV (22:44)
[2021-06-07] MEDS: cefTRIAXone 1,000 MG in SODIUM CHLORIDE 0.9% 100 ML 200 ML IV (22:44)
--- NOTE | 2021-06-07 22:46 | DI.CT.S_ITS ---
PROCEDURE: CT ABDOMEN PELVIS W CON INDICATIONS: sepsis with abdominal distention TECHNIQUE: After the administration of intravenous contrast, axial sections acquired from the lung bases to the pubic symphysis. Coronal and sagittal reformats were performed. For radiation dose reduction, the following was used: automated exposure control, adjustment of mA and/or kV according to patient size. COMPARISON: [facility], CT, CT KIDNEY URETER BLADDER (KUB), 06/05/2021, 1:36. [facility], CT, ABDOMEN/PELVIS WITH CONTRAST, 10/18/2009, 10:07. FINDINGS: Image quality: Excellent. Lung bases: Unremarkable. Heart: No significant findings. ABDOMEN: Liver: Unremarkable. Gallbladder: Unremarkable. Biliary ducts: Unremarkable. Pancreas: Unremarkable. Spleen: Unremarkable. Adrenal Glands: Unremarkable. Kidneys and Ureters: The right kidney is free of hydronephrosis and nephrolithiasis and shows normal size and enhancement. This represents an improvement from the comparison study 06/05/21 when the right ureter and right collecting system was dilated associated with a dilatation of the bladder during CT scanning at that time. The left kidney is enlarged by hydronephrosis which is moderately severe, and shows reduced renal cortical enhancement to a mild degree. There is a obstructive influence at the ureteral pelvic junction but no calculus is seen. Quality of visualization exactly in this area is somewhat limited by a moderate degree of metal artifact from posterior spine fusion procedure. Given the absence of a visualized stone as cause of this obstruction a mass lesion as the underlying cause must be considered. Stomach and Bowel: Stomach, small bowel loops, and colon are unremarkable. Peritoneum: No abnormal intraperitoneal fluid. No free air. Ventral Wall: No hernias. Abdominal Nodes: No retroperitoneal or mesenteric adenopathy by size criteria. Vessels: Aorta and inferior vena cava are normal in size. PELVIS: Pelvic Organs: Unremarkable. Bladder: Somewhat thick-walled bladder but the finding is concentric and bladder is not fully distended.. Pelvic Nodes: No enlarged lymph nodes. Miscellaneous: No hernias are seen. Bones: Unremarkable. IMPRESSION: Prominent urinary tract obstruction on the left, without a visualized calculus. As discussed the possibility of ureteral pelvic junction mass should be considered. Urology consultation is recommended. Retrograde left-sided pyelogram may be warranted. No alternative source of sepsis syndrome is found. Infection above obstruction may be present. A recent prior CT scan from 06/05/21 had shown bilateral prominent collecting system dilatation which now only remains on the left. The bladder at that time was prominently distended and therefore distension of the upper collecting system related to bladder distension was the likely cause on the right. The left-sided distension of the upper collecting system, however, remains and is unexplained. This information was conveyed to the emergency room physician at time of initial interpretation, 12:20 a.m.. Dictated by: Ventura Hinds M.D. on 06/08/2021 at 9:09 Approved by: Ventura Hinds M.D. on 06/08/2021 at 9:27
--- NOTE | 2021-06-07 22:46 | ED_ITS ---
HPI - General Adult General Chief complaint: Fever Stated complaint: SOB Time Seen by Provider: 06/07/21 22:18 Source: patient Mode of arrival: Ambulatory History of Present Illness HPI narrative: Patient is an 80-year-old male with 3rd visit to the emergency department the past 3 days. He was seen here in the emergency department a couple days ago for abdominal discomfort. He had a CT scan performed that was unremarkable. Labs are unremarkable. He was diagnosed with constipation. Was discharged home. He does self cath at home. He states that over the past 24 hours he has felt more poorly than over the past couple days. Has had generalized abdominal discomfort. Has had fevers and chills and shakes. No chest pain. No vomiting. No change in bowel habits. Related Data Home Medications Medication Instructions Recorded Confirmed amlodipine 10 mg tablet 5 mg PO DAILY 11/27/18 02/09/21 cholecalciferol (vitamin D3) 10 400 unit PO DAILY 11/27/18 02/09/21 mcg (400 unit) tablet (Vitamin D3) ibuprofen 200 mg tablet 2 tab PO DAILY PRN 11/27/18 02/09/21 lisinopril 40 mg tablet 40 mg PO DAILY 11/27/18 02/09/21 atorvastatin 20 mg tablet 20 mg PO DAILY 02/09/21 02/09/21 Previous Rx's Medication Instructions Recorded tamsulosin 0.4 mg capsule (Flomax) 0.4 mg PO DAILY #20 cap 06/05/21 bisacodyl 5 mg tablet 10 mg PO BEDTIME PRN 2 Days #10 tab 06/06/21 Allergies Allergy/AdvReac Type Severity Reaction Status Date / Time codeine [CODEINE] Allergy Intermediate HIVES, SOB Verified 02/09/21 07:23 Review of Systems Constitutional Constitutional: Reports body ache(s), Reports chills, Reports fatigue and Reports fever(s) Eyes Eyes: Reports system reviewed and no additional complaints, except as documented ENT Ears, Nose, Mouth, and Throat: Reports system reviewed and no additional complaints, except as documented Cardiovascular Cardiovascular: Denies chest pain and Denies dyspnea Respiratory Respiratory: Denies cough and Denies dyspnea Gastrointestinal Gastrointestinal: Reports abdominal pain, Denies change in bowel habits and Denies vomiting Genitourinary Comments: No change in his self-catheterizations at home Musculoskeletal Musculoskeletal: Reports myalgias Integumentary/Breasts Skin/Breast: Denies rash Neurologic Neurologic: Reports system reviewed and no additional complaints, except as documented Psychiatric Psychiatric: Reports system reviewed and no additional complaints, except as documented Endocrine Endocrine: Reports fatigue Hematologic/Lymphatic On Anticoagulants: No Allergic/Immunologic Allergic/Immunologic: Reports system reviewed and no additional complaints, except as documented Patient History Medical History Basal cell carcinoma (BCC) Essential hypertension HTN (hypertension) Hypochloremia Hyponatremia Nasopharyngeal cancer Osteoarthritis Spinal stenosis Surgical History History of arthroplasty of right knee (~2007) History of prostate surgery (~2003) Hx of decompressive lumbar laminectomy (~2011) Hx of hernia repair Hx of total knee arthroplasty S/P total knee arthroplasty Status post cataract extraction of both eyes with insertion of intraocular lens (~2016) Status post osteotomy (~1995) Family History Father Prostate cancer Brother Alive and well Brother Dementia Mother Old age Social History household members: spouse Smoking Status: Never smoker alcohol intake: current Smoking Status: Never smoker alcohol intake frequency: holidays/special occasions only Substance Use Type: does not use Exam Initial Vital Signs Initial Vital Signs: Vital Signs Temperature 100.5 F H 06/07/21 22:05 Pulse Rate 126 H 06/07/21 22:05 Respiratory Rate 20 06/07/21 22:05 Blood Pressure 169/76 H 06/07/21 22:05 Pulse Oximetry 97 06/07/21 22:05 Const General: cooperative and comfortable HENMT Head: normal to inspection and normocephalic Eyes General: appearance normal, both eyes and all related structures Chest Chest: normal inspection of the chest Resp Effort & Inspection: not labored and tachypneic Auscultation: clear to auscultation bilaterally Cardio Rate: tachycardic Rhythm: regular rhythm GI Inspection: normal to inspection Palpation: soft and tender Back/Spine/Pelvis Back: No CVA tenderness Skin General: no rashes or lesions noted Neuro General: patient alert, patient awake, patient oriented x3 and moves all extremities Extrem General: normal to inspection and capillary refill normal Psych Appearance: grossly normal and well kempt Scores GCS [place] coma scale eye opening: Spontaneous [place] coma scale verbal response: Orientated [place] coma scale motor response: Obey commands [place] coma scale total score: 15 Course Orders Ordered: ED Orders 06/07/21 22:05 Lactate (Lactic Acid) Stat 06/07/21 22:13 XR chest 1V Stat EKG-12 Lead Stat RT Consult Eval and Treat Now 06/07/21 22:30 Complete Blood Count AUTO DIFF Stat Comprehensive Metabolic Panel Stat Lipase Stat Procalcitonin Stat 06/07/21 22:40 Blood Culture Stat 06/07/21 22:46 CT abdomen pelvis w con Stat 06/07/21 23:13 COVID19 - ADMIT (DISPATCHER SERVICE swab/PCR) Stat 06/08/21 00:44 Urinalysis and Microscopic Stat Urine Culture Stat Acetaminophen (Acetaminophen 325 Mg Tablet) 650 mg PO Q6HR PRN PRN Reason: Fever/Mild Pain (1-3) Amlodipine Besylate (Amlodipine 5 Mg Tablet) 5 mg PO DAILY SHANE Atorvastatin Calcium (Atorvastatin 20 Mg Tablet) 20 mg PO BEDTIME SHANE Sodium Chloride (Normal Saline 0.9%) 1,000 mls @ 125 mls/hr IV CONT SHANE Ceftriaxone Sodium 1,000 mg/ (Sodium Chloride) 100 mls @ 200 mls/hr IV Q24H SHANE Metronidazole (Flagyl) 500 mg in 100 mls @ 100 mls/hr IV Q6H SHANE Lisinopril (Lisinopril 20 Mg Tablet) 40 mg PO DAILY [facility] Naloxone HCl (Naloxone 0.4 Mg/Ml Vial) 0.2 mg IV Q2MIN PRN PRN Reason: Opiate Reversal Ondansetron HCl (Ondansetron 4 Mg/2 Ml Inj) 4 mg IV Q8HR PRN PRN Reason: Nausea And Vomiting Pantoprazole Sodium (Pantoprazole Dr 20 Mg Tablet) 20 mg PO 0600 [facility] Sennosides (Sennosides 8.6 Mg Tablet) 17.2 mg PO BEDTIME SHANE Tamsulosin HCl (Tamsulosin 0.4 Mg Capsule) 0.4 mg PO DAILY SHANE Discontinued Medications Acetaminophen (Acetaminophen 325 Mg Tablet) 650 mg PO NOW ONE Stop: 06/07/21 23:22 Last Admin: 06/07/21 23:46 Dose: 650 mg Documented by: MARIA ISABEL Sodium Chloride (Normal Saline 0.9%) 1,000 mls @ 1,000 mls/hr IV BOLUS ONE Stop: 06/07/21 23:12 Last Infusion: 06/07/21 23:08 Dose: 150 mls/hr Documented by: MARIA ISABEL Infusion: 06/07/21 22:59 Dose: 0 mls/hr Documented by: MARIA ISABEL Admin: 06/07/21 22:44 Dose: 1,000 mls/hr Documented by: MARIA ISABEL Ceftriaxone Sodium 1,000 mg/ (Sodium Chloride) 100 mls @ 200 mls/hr IV NOW ONE Stop: 06/07/21 22:22 Last Infusion: 06/08/21 00:01 Dose: 0 mls/hr Documented by: MARIA ISABEL Infusion: 06/07/21 23:08 Dose: 200 mls/hr Documented by: MARIA ISABEL Infusion: 06/07/21 22:59 Dose: 0 mls/hr Documented by: MARIA ISABEL Admin: 06/07/21 22:44 Dose: 200 mls/hr Documented by: MARIA ISABEL Sodium Chloride (Normal Saline 0.9%) 2,041.17 mls @ 680.39 mls/hr 30 ml/kg infuse over 3 hr (2041.17 ml) IV NOW ONE Stop: 06/08/21 04:33 Last Admin: 06/08/21 02:33 Dose: 680.39 mls/hr Documented by: BRI Metronidazole (Flagyl) 500 mg in 100 mls @ 100 mls/hr IV NOW ONE Stop: 06/08/21 02:48 Last Infusion: 06/08/21 03:21 Dose: 0 mls/hr Documented by: Admin: 06/08/21 02:32 Dose: 100 mls/hr Documented by: BRI Lidocaine HCl (Lidocaine 2% (Glydo) 6 Ml Gel) 6 ml TOP NOW ONE Stop: 06/08/21 00:19 Last Admin: 06/08/21 00:24 Dose: 6 ml Documented by: MARIA ISABEL Vital Signs Vital signs: Vital Signs - 8 hr 06/07/21 22:05 06/07/21 22:35 06/07/21 22:49 Temperature 100.5 F H Pulse Rate 126 H 123 H 123 H Respiratory Rate 20 27 H 25 H Blood Pressure 169/76 H 138/64 Pulse Oximetry 97 95 94 06/07/21 23:07 06/07/21 23:11 06/07/21 23:30 Temperature 102.5 F H Pulse Rate 122 H 119 H 118 H Respiratory Rate 26 H 24 Blood Pressure 137/65 114/61 Pulse Oximetry 95 95 93 06/07/21 23:46 06/08/21 00:00 06/08/21 00:30 Temperature 102.5 F H Pulse Rate 111 H 121 H Respiratory Rate 22 21 Blood Pressure 105/56 L 106/59 L Pulse Oximetry 93 95 06/08/21 01:00 06/08/21 01:03 06/08/21 01:30 Temperature Pulse Rate 110 H 114 H 112 H Respiratory Rate 21 25 H 19 Blood Pressure 84/53 L 94/55 L 88/52 L Pulse Oximetry 92 92 91 06/08/21 01:33 06/08/21 02:00 06/08/21 02:15 Temperature Pulse Rate 111 H 105 H 114 H Respiratory Rate 19 19 24 Blood Pressure 85/46 L 85/51 L 88/51 L Pulse Oximetry 95 95 90 L Medical Decision Making Medical Records Medical records reviewed: Yes I reviewed the patient's medical records. Lab Data Lab results reviewed: Yes I reviewed the patient's lab results. Result diagrams: 06/07/21 22:30 06/07/21 22:30 Labs: Lab Results 06/07/21 06/07/21 06/07/21 Range/Units 22:05 22:30 22:30 WBC 1.5 L* D (4.5-11.0) X10^3/uL RBC 3.89 L (4.5-5.9) X10^6/uL Hgb 12.4 L (13.5-17.5) g/dL Hct 36.1 L (41-53) % MCV 92.9 (80-100) fL MCH 31.9 (26-34) PG MCHC 34.3 (30-36) % RDW 13.2 (11.6-14.8) % Plt Count 116 L (150-400) X10^3/uL Neut % (Auto) Not Reportable Lymph % (Auto) Not Reportable [place] % (Auto) Not Reportable Eos % (Auto) Not Reportable Baso % (Auto) Not Reportable Lymph # (Auto) Not Reportable [place] # (Auto) Not Reportable Baso # (Auto) Not Reportable Total Counted 100 Seg Neutrophils % 88.0 H (38-70) % Monocytes % (Manual) 12.0 H (2-11) % Neutrophils # (Manual) 1320 L (5233-0495) /uL RBC Morphology Normal morphology Sodium 125 L (137-145) mmol/L Potassium 3.9 (3.4-5.1) mmol/L Chloride 94 L (98-107) mmol/L Carbon Dioxide 23 (22-32) mmol/L BUN 16 (9-20) mg/dL Creatinine 1.18 (0.66-1.25) mg/dL Estimated GFR 59.2 L (>60) mL/min BUN/Creatinine Ratio 13.6 (6-22) Glucose 107 (80-110) mg/dL Lactate 3.1 H (0.7-2.1) mmol/L Calcium 8.8 (8.4-10.2) mg/dL Total Bilirubin 1.4 H (0.2-1.3) mg/dL AST 24 (17-59) IU/L ALT 20 (<50) IU/L Alkaline Phosphatase 76 (38-126) U/L Total Protein 6.3 (6.3-8.2) g/dL Albumin 3.7 (3.5-5.0) g/dL Globulin 2.6 (1.7-4.1) g/dL Albumin/Globulin Ratio 1.4 (1.0-2.8) Lipase 36 (23-300) U/L Procalcitonin 10.2 H (<0.5) ng/mL Urine Color Urine Appearance Urine pH (4.5-8.0) Ur Specific [place] (1.000-1.035) Urine Protein (Negative) Urine Glucose (UA) (Negative) g/dL Urine Ketones (NEGATIVE) Urine Occult Blood (Negative) Urine Nitrate (Negative) Urine Bilirubin (NEGATIVE) Urine Urobilinogen (0.2) E.U./dL Ur Leukocyte Esterase (NEGATIVE) Urine RBC (0-5/HPF) Urine WBC (0-5/HPF) Urine Bacteria (None) Ur Culture Indicated? SARS-CoV-2 (PCR) (Negative) 06/07/21 06/08/21 06/08/21 Range/Units 23:13 00:30 00:44 WBC (4.5-11.0) X10^3/uL RBC (4.5-5.9) X10^6/uL Hgb (13.5-17.5) g/dL Hct (41-53) % MCV (80-100) fL MCH (26-34) PG MCHC (30-36) % RDW (11.6-14.8) % Plt Count (150-400) X10^3/uL Neut % (Auto) Lymph % (Auto) [place] % (Auto) Eos % (Auto) Baso % (Auto) Lymph # (Auto) [place] # (Auto) Baso # (Auto) Total Counted Seg Neutrophils % (38-70) % Monocytes % (Manual) (2-11) % Neutrophils # (Manual) (9323-0721) /uL RBC Morphology Sodium (137-145) mmol/L Potassium (3.4-5.1) mmol/L Chloride (98-107) mmol/L Carbon Dioxide (22-32) mmol/L BUN (9-20) mg/dL Creatinine (0.66-1.25) mg/dL Estimated GFR (>60) mL/min BUN/Creatinine Ratio (6-22) Glucose (80-110) mg/dL Lactate 1.5 (0.7-2.1) mmol/L Calcium (8.4-10.2) mg/dL Total Bilirubin (0.2-1.3) mg/dL AST (17-59) IU/L ALT (<50) IU/L Alkaline Phosphatase (38-126) U/L Total Protein (6.3-8.2) g/dL Albumin (3.5-5.0) g/dL Globulin (1.7-4.1) g/dL Albumin/Globulin Ratio (1.0-2.8) Lipase (23-300) U/L Procalcitonin (<0.5) ng/mL Urine Color Yellow Urine Appearance Cloudy Urine pH 5.0 (4.5-8.0) Ur Specific [place] <=1.005 (1.000-1.035) Urine Protein 1+ H (Negative) Urine Glucose (UA) Negative (Negative) g/dL Urine Ketones Negative (NEGATIVE) Urine Occult Blood 3+ H (Negative) Urine Nitrate Positive (Negative) Urine Bilirubin Negative (NEGATIVE) Urine Urobilinogen 0.2 (0.2) E.U./dL Ur Leukocyte Esterase 2+ H (NEGATIVE) Urine RBC 10-30/hpf H (0-5/HPF) Urine WBC 30-100/hpf H (0-5/HPF) Urine Bacteria Many (>30) H (None) Ur Culture Indicated? Culture not indicate SARS-CoV-2 (PCR) Negative (Negative) Imaging Data Chest x-ray: Radiologist's Impression: No consolidation CT scan - abdomen/pelvis: Radiologist's Impression: Wall thickening transverse colon consistent with colitis Nonspecific bladder wall thickening may be incidental but mild cystitis is a possibility Severe left hydronephrosis of uncertain etiology ECG Data Attestation: I personally reviewed and interpreted this ECG as follows: Interpretation: Sinus tachycardia Ventricular rate 132 Occasional PVC Normal QRS QTC 4 for 1 Incomplete right bundle branch block No ST T wave changes MDM Narrative Medical decision making narrative: Patient arrived febrile and tachycardic. He is leukopenic today. He does have a nitrite positive urine today. Urine cultures were obtained. His chest x-ray shows no signs of pneumonia. He is not in any respiratory distress. CT scan of his abdomen shows a colitis but no other signs of obstruction. Blood cultures were obtained. He initially was given Rocephin upon arrival. Flagyl was added later after discussion with the hospitalist to cover any issues with the colitis seen on the CT scan. Initially the 30 cc/kilogram of fluid was not ordered because he was not hypotensive and his lactate was not above 4. During his stay his lactate did improve however he did have an episode of hypotension with a mean arterial pressure less than 65 so the fluid resuscitation was then administered. Patient is not altered. Discussed the case with CHIKIS Oconnor the [facility] provider who will admit for further evaluation and treatment. I did discuss the results of the studies and labs with the patient. He expressed understanding and agreement. Discharge Plan Departure Patient Disposition: Admitted As Inpatient Clinical Impression: Acute UTI, Sepsis, Colitis Admit Date/Time: 06/08/21 02:18 Admit Provider: Julienne Oconnor
[2021-06-07 22:58] LABS: Alanine Aminotransferase 20 IU/L (<50); Albumin 3.7 g/dL (3.5-5.0); Albumin Globulin Ratio 1.4 (1.0-2.8); Alkaline Phosphatase 76 U/L (38-126); Aspartate Aminotransferase 24 IU/L (17-59); BUN Creatinine Ratio 13.6 (6-22); Bilirubin Total 1.4 mg/dL (0.2-1.3); Blood Urea Nitrogen 16 mg/dL (9-20); Calcium 8.8 mg/dL (8.4-10.2); Carbon Dioxide 23 mmol/L (22-32); Chloride 94 mmol/L (98-107); Estimated Glomerular Filt Rate 59.2 mL/min (>60); Globulin 2.6 g/dL (1.7-4.1); Glucose 107 mg/dL (80-110); HEMOLYSIS < 15 (0-50); Lipase 36 U/L (23-300); Potassium 3.9 mmol/L (3.4-5.1); Sodium 125 mmol/L (137-145); Total Protein 6.3 g/dL (6.3-8.2)
[2021-06-07 23:05] LABS: Hematocrit 36.1 % (41-53); Hemoglobin 12.4 g/dL (13.5-17.5); Mean Corpuscular HGB Conc 34.3 % (30-36); Mean Corpuscular Hemoglobin 31.9 PG (26-34); Mean Corpuscular Volume 92.9 fL (80-100); Platelet Count 116 X10^3/uL (150-400); Red Blood Cell Count 3.89 X10^6/uL (4.5-5.9); Red Cell Distribution Width 13.2 % (11.6-14.8)
[2021-06-07 23:07] LABS: White Blood Cell Count 1.5 X10^3/uL (4.5-11.0)
[2021-06-07 23:08] LABS: Add Manual Diff / Slide Review YES
[2021-06-07 23:15] LABS: Procalcitonin 10.2 ng/mL (<0.5)
[2021-06-07] MEDS: ACETAMINOPHEN 325 MG TABLET 650 MG PO (23:46)
[2021-06-08] VITALS (375 sets, daily range): BP systolic 63–136; BP diastolic 41–94; PULSE 97–128; RESP 12–43; TEMP 37.1–38.7; O2SAT 73–99; BMI 23.5
[2021-06-08 00:15] LABS: COVID19 - ADMIT (NP swab/PCR) Negative (Negative)
[2021-06-08 00:18] LABS: Reflexed Lactate in 2 Hours Y
[2021-06-08] MEDS: LIDOCAINE 2% (GLYDO) 6 ML GEL TOP (00:24)
[2021-06-08 00:53] LABS: Lactate 2HR (Lactic Acid Rflx) 1.5 mmol/L (0.7-2.1)
[2021-06-08 01:05] LABS: Appearance Urine UA CLOUDY; Bilirubin Urine UA NEGATIVE (NEGATIVE); Color Urine UA YELLOW; Glucose Urine UA NEGATIVE (Negative); Ketones Urine UA NEGATIVE (NEGATIVE); Leukocyte Esterase Urine UA 2+ (NEGATIVE); Nitrite Urine UA POSITIVE (Negative); Occult Blood Urine UA 3+ (Negative); Protein Urine UA 1+ (Negative); Specific Gravity Urine UA <=1.005 (1.000-1.035); Urobilinogen Urine UA 0.2 E.U./dL (0.2)
[2021-06-08 01:29] LABS: Bacteria Urine Many (>30); RBC Urine 10-30/HPF (0-5/HPF); WBC Urine 30-100/HPF (0-5/HPF)
[2021-06-08] MEDS: metroNIDAZOLE 500 MG/100 ML PIGGYBACK 100 MG IV ×2 (02:32→08:38)
[2021-06-08] MEDS: SODIUM CHLORIDE 0.9% 2,041.17 ML 680.39 ML IV (02:33)
[2021-06-08 02:46] LABS: Neutrophils Absolute Manual 1320 /uL (3000-5900); RBC Morphology Normal Morphology; Total Cells Counted 100
--- NOTE | 2021-06-08 04:30 | P.HP_ITS ---
History of Present Illness History of Present Illness Date Patient Seen: 06/08/21 Time Patient Seen: 03:00 Chief complaint: Abdominal pain, fever and chills Narrative: Slava Bunn is an 80-year-old male with a history of essential hypertension, nasopharyngeal cancer, hyperlipidemia and a newly diagnosed urinary retention requiring self catheterization presented with abdominal pain, fever, dry mouth, constipation. He states that he was starting to have to get up about every half an hour to urinate and would go in small amounts. He was seen in the emergency department on June 05 and June 06 with pain in his left extending from the bottom of his ribs down to his hip. At his last emergency department visit he was noted to have urinary retention and was directed to self catheterize. He has been self catheterizing for 1 day. He did state that he also had some nausea, burning with urination and continued pain. Due to the chemotherapy is undergoing he has also lost his sense of taste and smell which is diminished his appetite. In the emergency department they did a CT of the pelvis and per the emergency department provider the CT read did indicate left-sided hydronephrosis. Tmax was 102.5, currently his temp is 99.7, blood pressure is 93/51, heart rate 98, respiratory rate 22, oxygen saturation of 95% on room air he weighs 68 kg with a BMI of 26.6. His WBC is 1.5, RBC 3.89, hemoglobin 12.4, hematocrit 36.1, his platelet count is a 116, sodium is 125, potassium 3.9, chloride 94, bicarb 23, BUN 16, creatinine 1 1 8, with a GFR 59.2, total bilirubin is 1.4, remainder of liver enzymes are within normal limits, lipase is normal at 36, and his procalcitonin is markedly elevated at 10.2. Urine is positive for bacteria, nitrates, COVID-19 PCR is negative. Patient History Medical History Basal cell carcinoma (BCC) Essential hypertension HTN (hypertension) Hypochloremia Hyponatremia Nasopharyngeal cancer Osteoarthritis Spinal stenosis Surgical History History of arthroplasty of right knee (~2007) History of prostate surgery (~2003) Hx of decompressive lumbar laminectomy (~2011) Hx of hernia repair Hx of total knee arthroplasty S/P total knee arthroplasty Status post cataract extraction of both eyes with insertion of intraocular lens (~2016) Status post osteotomy (~1995) Family & Social History Family History Father Prostate cancer Brother Alive and well Brother Dementia Mother Old age Social History: household members spouse Tobacco & Substance use: Smoking Status Never smoker alcohol intake current, though quit a few months ago due to lack of taste alcohol intake frequency holiday/special occasion Substance Use Type does not use Meds Home Medications and Allergies Home Medications Medication Instructions Recorded Confirmed Type amlodipine 10 mg tablet 5 mg PO DAILY 11/27/18 02/09/21 History cholecalciferol (vitamin D3) 10 400 unit PO DAILY 11/27/18 02/09/21 History mcg (400 unit) tablet (Vitamin D3) ibuprofen 200 mg tablet 2 tab PO DAILY PRN 11/27/18 02/09/21 History lisinopril 40 mg tablet 40 mg PO DAILY 11/27/18 02/09/21 History atorvastatin 20 mg tablet 20 mg PO DAILY 02/09/21 02/09/21 History tamsulosin 0.4 mg capsule (Flomax) 0.4 mg PO DAILY #20 cap 06/05/21 Rx bisacodyl 5 mg tablet 10 mg PO BEDTIME PRN 2 Days #10 tab 06/06/21 Rx Allergies Allergy/AdvReac Type Severity Reaction Status Date / Time codeine [CODEINE] Allergy Intermediate HIVES, SOB Verified 02/09/21 07:23 Review of Systems Review of Systems ROS: Yes All systems reviewed with the patient and are negative except as otherw ise documented Exam Vital Signs (past 8 hours): - 06/07/21 22:05 06/07/21 22:35 06/07/21 22:49 Temperature 100.5 F H Pulse Rate 126 H 123 H 123 H Respiratory Rate 20 27 H 25 H Blood Pressure 169/76 H 138/64 Pulse Oximetry 97 95 94 06/07/21 23:07 06/07/21 23:11 06/07/21 23:30 Temperature 102.5 F H Pulse Rate 122 H 119 H 118 H Respiratory Rate 26 H 24 Blood Pressure 137/65 114/61 Pulse Oximetry 95 95 93 06/07/21 23:46 06/08/21 00:00 06/08/21 00:30 Temperature 102.5 F H Pulse Rate 111 H 121 H Respiratory Rate 22 21 Blood Pressure 105/56 L 106/59 L Pulse Oximetry 93 95 06/08/21 01:00 06/08/21 01:03 06/08/21 01:30 Temperature Pulse Rate 110 H 114 H 112 H Respiratory Rate 21 25 H 19 Blood Pressure 84/53 L 94/55 L 88/52 L Pulse Oximetry 92 92 91 06/08/21 01:33 06/08/21 02:00 06/08/21 02:15 Temperature Pulse Rate 111 H 105 H 114 H Respiratory Rate 19 19 24 Blood Pressure 85/46 L 85/51 L 88/51 L Pulse Oximetry 95 95 90 L 06/08/21 02:43 06/08/21 02:59 06/08/21 03:00 Temperature Pulse Rate 112 H 101 H 101 H Respiratory Rate 20 25 H 22 Blood Pressure 88/53 L 87/54 L Pulse Oximetry 95 95 95 06/08/21 03:16 06/08/21 03:30 06/08/21 03:43 Temperature Pulse Rate 100 H 101 H 97 H Respiratory Rate 21 24 22 Blood Pressure 87/54 L 89/54 L 85/52 L Pulse Oximetry 95 94 97 Oxygen Delivery Method Room Air Narrative Exam Narrative: Gen: Alert, oriented, well-developed 80 y.o. male, appears younger than stated age HEENT: normocephalic, atraumatic, conjunctiva clear, sclera non-icteric, oral mucosa pink and moist Neck: supple, full ROM, no JVD, trachea is midline Resp: Lungs CTA, non-labored breathing CV: RRR, no murmur or rubs Abd: soft, non-tender, normoactive BTs : [place] draining clear yellow urine Skin: no lesions or rashes, dry and intact Neuro: Alert and oriented X 4 w/no focal deficits. Speech clear and coherent. Extremities: moves all 4 extremities, is ambulatory, negative Kala?s sign Psyche: very pleasant, normal mood and affect. Objective Labs Result Diagrams: 06/07/21 22:30 06/07/21 22:30 Labs: Laboratory Results - last 24 hr 06/07/21 06/07/21 06/07/21 22:05 22:30 22:30 WBC 1.5 L* D RBC 3.89 L Hgb 12.4 L Hct 36.1 L MCV 92.9 MCH 31.9 MCHC 34.3 RDW 13.2 Plt Count 116 L Neut % (Auto) Not Reportable Lymph % (Auto) Not Reportable [place] % (Auto) Not Reportable Eos % (Auto) Not Reportable Baso % (Auto) Not Reportable Lymph # (Auto) Not Reportable [place] # (Auto) Not Reportable Baso # (Auto) Not Reportable Total Counted 100 Seg Neutrophils % 88.0 H Monocytes % (Manual) 12.0 H Neutrophils # (Manual) 1320 L RBC Morphology Normal morphology Sodium 125 L Potassium 3.9 Chloride 94 L Carbon Dioxide 23 BUN 16 Creatinine 1.18 Estimated GFR 59.2 L BUN/Creatinine Ratio 13.6 Glucose 107 Lactate 3.1 H Calcium 8.8 Total Bilirubin 1.4 H AST 24 ALT 20 Alkaline Phosphatase 76 Total Protein 6.3 Albumin 3.7 Globulin 2.6 Albumin/Globulin Ratio 1.4 Lipase 36 Procalcitonin 10.2 H Urine Color Urine Appearance Urine pH Ur Specific [place] Urine Protein Urine Glucose (UA) Urine Ketones Urine Occult Blood Urine Nitrate Urine Bilirubin Urine Urobilinogen Ur Leukocyte Esterase Urine RBC Urine WBC Urine Bacteria Ur Culture Indicated? SARS-CoV-2 (PCR) 06/07/21 06/08/21 06/08/21 23:13 00:30 00:44 WBC RBC Hgb Hct MCV MCH MCHC RDW Plt Count Neut % (Auto) Lymph % (Auto) [place] % (Auto) Eos % (Auto) Baso % (Auto) Lymph # (Auto) [place] # (Auto) Baso # (Auto) Total Counted Seg Neutrophils % Monocytes % (Manual) Neutrophils # (Manual) RBC Morphology Sodium Potassium Chloride Carbon Dioxide BUN Creatinine Estimated GFR BUN/Creatinine Ratio Glucose Lactate 1.5 Calcium Total Bilirubin AST ALT Alkaline Phosphatase Total Protein Albumin Globulin Albumin/Globulin Ratio Lipase Procalcitonin Urine Color Yellow Urine Appearance Cloudy Urine pH 5.0 Ur Specific [place] <=1.005 Urine Protein 1+ H Urine Glucose (UA) Negative Urine Ketones Negative Urine Occult Blood 3+ H Urine Nitrate Positive Urine Bilirubin Negative Urine Urobilinogen 0.2 Ur Leukocyte Esterase 2+ H Urine RBC 10-30/hpf H Urine WBC 30-100/hpf H Urine Bacteria Many (>30) H Ur Culture Indicated? Culture not indicate SARS-CoV-2 (PCR) Negative Assessment & Plan Assessment & Plan narrative: Slava Bunn is admitted to the inpatient service for treatment and management of a complicated urinary tract infection likely catheter associated and probable colitis. 1. Sepsis in the setting of suspected catheter associated urinary tract infection, acute, present on admission * In the ED he was initiated on IV Levaquin. * I have started him on IV ceftriaxone 1 g daily and IV Flagyl 500 mg q.i.d. * Patient was bolused with 2 L of IV normal saline per sepsis protocol and will have maintenance fluids at 125 mL/hour 2. Urinary retention/BPH, chronic * Continue home dose of tamsulosin 0.4 mg p.o. daily 3. Essential hypertension, currently hypotensive * He normally takes amlodipine 5 mg p.o. daily and lisinopril 40 mg p.o. daily these will both need to be held until his pressures start to normalize. Will resume lisinopril when his eGFR normalizes 4. Hyperlipidemia, chronic and stable * Continue home dose of atorvastatin 20 mg p.o. daily VTE prophylaxis: Wells risk score: 0 Bilateral SCDs Consults: none Patient is admitted under inpatient status with expected length of stay greater than 2 midnights due to severity of presenting symptoms, risk of adverse event, and complexity of treatment plan. FEN: IV NS at 125 ml/hour X 2 liters, Heart healty diet, BMP and magnesium in the am. Dispo: probable discharge to home Code Status: DNR as discussed with patient, Erinn Lance is his POA COVID-19 COVID-19 status: Negative Result date/Date tested (Pos, Neg/Pending): 06/07/21 Scores Wells' Criteria for PE Clinical signs and symptoms of DVT: No PE is #1 Dx or equally likely: No Heart rate > 100: No Immobilization at least 3 days or surg in previous 4 weeks: No History of PE or DVT: No Hemoptysis: No Malignancy w/Treatment within 6 months or palliative: Yes Wells' PE Score total: 1 Quality VTE Deep Vein Thrombosis/Pulmonary Embolism Present on Admission: No MIPS - Admit I confirm the patient?s Advance Care Plan is present, Code status is documented, Surrogate decision maker is in patient?s record [If Yes, STOP here]: Yes
[2021-06-08 06:24] LABS: Add Manual Diff / Slide Review NO; Basophils Absolute Auto 0 /uL (0-100); Basophils Percent Auto 0.1 % (0-2); Eosinophils Absolute Auto 100 /uL (0-450); Eosinophils Percent Auto 0.8 % (2-4); Hematocrit 37.5 % (41-53); Hemoglobin 12.5 g/dL (13.5-17.5); Lymphocytes Absolute Auto 300 /uL (1100-4500); Lymphocytes Percent Auto 4.9 % (25-40); Mean Corpuscular HGB Conc 33.3 % (30-36); Mean Corpuscular Hemoglobin 31.6 PG (26-34); Mean Corpuscular Volume 94.9 fL (80-100); Monocytes Absolute Auto 100 /uL (0-900); Monocytes Percent Auto 1.8 % (3-14); Neutrophils Absolute Auto 5800 /uL (1500-7000); Neutrophils Percent Auto 92.4 % (50-75); Platelet Count 104 X10^3/uL (150-400); Red Blood Cell Count 3.96 X10^6/uL (4.5-5.9); Red Cell Distribution Width 13.7 % (11.6-14.8); White Blood Cell Count 6.3 X10^3/uL (4.5-11.0)
[2021-06-08] MEDS: ACETAMINOPHEN 325 MG TABLET 650 MG PO (06:34)
[2021-06-08 06:35] LABS: Blood Urea Nitrogen 18 mg/dL (9-20); Calcium 8.2 mg/dL (8.4-10.2); Carbon Dioxide 21 mmol/L (22-32); Chloride 98 mmol/L (98-107); Estimated Glomerular Filt Rate 44.9 mL/min (>60); Glucose 91 mg/dL (80-110); HEMOLYSIS 39 (0-50); Magnesium 1.5 mg/dL (1.6-2.3); Sodium 127 mmol/L (137-145)
--- NOTE | 2021-06-08 07:07 | PC.NURSE ---
His rac iv infiltrated and was removed patent and intact,after 2 attempts by myself and Amber RN,were were unable to gain iv access.The hospitalist Helio notified.ROSALINDA iraheta RN paged.
[2021-06-08] MEDS: PANTOPRAZOLE DR 20 MG TABLET PO (08:36)
[2021-06-08] MEDS: TAMSULOSIN 0.4 MG CAPSULE PO (08:38)
--- NOTE | 2021-06-08 08:47 | PC.NURSE ---
Dr. Raya aware of temp and bp
[2021-06-08] MEDS: SODIUM CHLORIDE 0.9% 1,000 ML 999 ML IV (09:40)
[2021-06-08 10:34] LABS: Sodium Urine Random 12 mmol/L (30-90)
[2021-06-08] MEDS: NOREPINEPHRINE 4 MG in DEXTROSE 5% IN WATER 250 ML 11.43 ML IV (10:34)
[2021-06-08] MEDS: ACETAMINOPHEN 325 MG TABLET 975 MG PO (10:47)
[2021-06-08] MEDS: MEROPENEM 1 GM in SODIUM CHLORIDE 0.9% 100 ML 200 ML IV ×2 (10:55→22:07)
[2021-06-08] MEDS: SODIUM CHLORIDE 0.9% 1,000 ML 1000 ML IV ×4 (10:55→15:20)
[2021-06-08 11:10] LABS: Enterococcus species Not Detected (Not Detect); Listeria monocytogenes Not Detected (Not Detect); Staphylococcus species Not Detected (Not Detect)
[2021-06-08 11:11] LABS: Acinetobacter baumannii Not Detected (Not Detect); Candida albicans Not Detected (Not Detect); Candida glabrata Not Detected (Not Detect); Candida krusei Not Detected (Not Detect); Candida parapsilosis Not Detected (Not Detect); Candida tropicalis Not Detected (Not Detect); E. coli Not Detected (Not Detect); Enterobacter cloacae complex Not Detected (Not Detect); Enterobacteriaceae species Detected (Not Detect); Haemophilus influenzae Not Detected (Not Detect); KPC (carbapenem-resist gene) Not Detected (Not Detect); Neisseria meningitidis Not Detected (Not Detect); Proteus species Not Detected (Not Detect); Pseudomonas aeruginosa Not Detected (Not Detect); Serratia marcescens Not Detected (Not Detect); Streptococcus agalactiae (Gr B Not Detected (Not Detect); Streptococcus pneumonia Not Detected (Not Detect); Streptococcus pyogenes (Gr A) Not Detected (Not Detect); Streptococcus species Not Detected (Not Detect)
--- NOTE | 2021-06-08 11:16 | PC.NURSE ---
Positive Blood Culture enterobacter
--- NOTE | 2021-06-08 11:27 | DI.RAD.S_ITS ---
PROCEDURE: XR CHEST 1V INDICATIONS: central line placement TECHNIQUE: One view of the chest was acquired. COMPARISON: [facility], , XR CHEST 1V, 06/07/2021, 22:16. [facility], , CHEST 1 VIEW, 11/08/2010, 21:27. FINDINGS: Surgical changes and devices: A central line from right internal jugular approach traverses inferiorly in the general region of the superior vena cava. No pneumothorax associated. Lungs and pleura: Lungs are abnormal with mild interstitial prominence or pulmonary edema.. No pleural effusions or pneumothorax. Mediastinum: Mediastinal contours appear normal. Heart size is normal. Bones and chest wall: No suspicious bony lesions. Overlying soft tissues appear unremarkable. IMPRESSION: Central line positioning is in the general region of the superior vena cava. The exact internal position is not established by plain film imaging. No pneumothorax. Interstitial prominence over the lung parenchyma is present which could represent mild pulmonary edema. The patient is tilted and rotated rightward to mild degree. If there is a clinical concern that the central line is not within the superior vena cava noncontrast CT scanning could be utilized to accurately establish its position. Dictated by: Ventura Hinds M.D. on 06/08/2021 at 11:39 Approved by: Ventura Hinds M.D. on 06/08/2021 at 11:42
[2021-06-08] MEDS: VANCOMYCIN 1,000 MG/200 ML PIGGYBACK 200 MG IV (11:50)
--- NOTE | 2021-06-08 11:55 | PC.NURSE ---
triple lumen cp in neck. assisted Dr. Raya.
--- NOTE | 2021-06-08 12:21 | PC.NURSE ---
Dr. Raya aware of pt's blood pressure 60's. pt is talking.states he feels better. Dr. Richardson in room evaluating patient. right subclavian triple lumen cvp placed. pt tolerated well. cxr ok for line placement per Dr. Raya. switched levophed drip to central line. dressing redone. excellent blood return in all ports. to icu
[2021-06-08 13:37] LABS: Lactate (Lactic Acid) 2.7 mmol/L (0.7-2.1)
[2021-06-08 13:39] LABS: BUN Creatinine Ratio 12.7 (6-22); Blood Urea Nitrogen 21 mg/dL (9-20); Calcium 7.3 mg/dL (8.4-10.2); Carbon Dioxide 17 mmol/L (22-32); Chloride 102 mmol/L (98-107); Glucose 96 mg/dL (80-110); HEMOLYSIS < 15 (0-50); Magnesium 1.2 mg/dL (1.6-2.3); Potassium 3.7 mmol/L (3.4-5.1); Sodium 126 mmol/L (137-145)
[2021-06-08 15:14] LABS: Reflexed Lactate in 2 Hours Y
--- NOTE | 2021-06-08 15:22 | PC.NURSE ---
PT TRANSFERRED FROM ED TO ROOM 227- AT [facility]- HE IS ALERT/ORIENTED AND COMPLIANT- LUNGS DIM BUT CLEAR , ROOM AIR SPO2 MID-HIGH 90'S- NO NOTED EDEMA, 3 LUMEN CVL TO RIGHT NECK - PT HYPOTENSIVE AND RECEIVING IV BOLUS OF NS WELL LEVOPHED WHICH WAS INCREASED TO 8.5MCG/MIN - ADDITION OF VASOPRESSIN ORDERED AND PENDING DELIVERY FROM PHARMACY- ALSO MAG RIDER ORDERED FOR MAG LEVEL OF 1.2
--- NOTE | 2021-06-08 15:34 | DI.CT.S_ITS ---
PROCEDURE: CT ABDOMEN PELVIS WO CON INDICATIONS: improvement of L hydronephrosis? TECHNIQUE: Noncontrast 5 mm thick sections acquired from the diaphragms to the symphysis. 5 mm coronal and sagittal reformats were then performed. For radiation dose reduction, the following was used: automated exposure control, adjustment of mA and/or kV according to patient size. COMPARISON: [facility], CT, ABDOMEN/PELVIS WITH CONTRAST, 10/18/2009, 10:07. [facility], CT, CT ABDOMEN PELVIS W CON, 06/07/2021, 23:00. FINDINGS: ABDOMEN: Lung bases: Trace bilateral pleural effusions with adjacent atelectasis. Heart: No significant findings. Liver: Normal. Gallbladder: Grossly normal. Bile ducts: Normal. Pancreas: Normal. Spleen: Normal. Adrenals: Normal. Kidneys and Ureters: Right renal cyst. No right hydronephrosis. The right ureter appears decompressed. There is residual contrast seen within the right renal collecting system. There is redemonstrated left severe pelvocaliectasis, without definite interval change since yesterday. Residual contrast material is present within the left renal collecting system and renal pelvis. The mid and distal left ureter appears decompressed. No discrete soft tissue mass seen. Stomach and duodenum: Normal. Bowel: Unopacified bowel loops appear grossly unremarkable. There is diffuse moderate stool. No specific transition point is seen. Other: Trace pelvic free fluid. No free air. Abdominal nodes: Normal. Aorta and IVC: Normal in size. Ventral wall: Normal. PELVIS: Bladder: The bladder is decompressed and a Mcnamara catheter is present. Inguinal region: Fat containing small left inguinal hernia. Pelvic nodes: Normal. Bones: Diffuse osteopenia and multilevel spondylitic changes with facet arthropathy. Posterior spinal fixation hardware in the lower lumbar spine. IMPRESSION: Overall, grossly unchanged appearance of marked left pelvicaliectasis since yesterday. 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 Trace bilateral pleural effusions with adjacent atelectasis. Aspiration in the differential. If there is persistent clinical diagnostic uncertainty, continued surveillance with short interval radiographic followup after treatment is recommended. Dictated by: Sean Oconnor M.D. on 06/08/2021 at 16:43 Approved by: Sean Oconnor M.D. on 06/08/2021 at 16:54
[2021-06-08] MEDS: MAGNESIUM SULFATE 2 GM/50 ML PIGGYBACK IV (15:35)
[2021-06-08] MEDS: VASOPRESSIN 40 UNIT in SODIUM CHLORIDE 0.9% 100 ML IV (15:42)
[2021-06-08] MEDS: SODIUM CHLORIDE 0.9% 1,000 ML 150 ML IV ×2 (16:19→22:08)
[2021-06-08 18:04] LABS: Lactate 2HR (Lactic Acid Rflx) 2.1 mmol/L (0.7-2.1)
--- NOTE | 2021-06-08 19:09 | P.DS_ITS ---
History of Present Illness History of Present Illness Date Patient Seen: 06/08/21 Time Patient Seen: 08:00 Chief complaint: Abdominal pain, fever and chills Narrative: Priyank Bunn is an 80-year-old male with a history of essential hypert ension, nasopharyngeal cancer, hyperlipidemia and a newly diagnosed urinary retention requiring self catheterization presented with abdominal pain, fever, dry mouth, constipation. He states that he was starting to have to get up about every half an hour to urinate and would go in small amounts. He was seen in the emergency department on June 05 and June 06 with pain in his left extending from the bottom of his ribs down to his hip. At his last emergency department visit he was noted to have urinary retention and was directed to self catheterize. He has been self catheterizing for 1 day. He did state that he also had some nausea, burning with urination and continued pain. Due to the c hemotherapy is undergoing he has also lost his sense of taste and smell which is diminished his appetite. In the emergency department they did a CT of the pelvis and per the emergency department provider the CT read did indicate left-sided hydronephrosis. Tmax was 102.5, currently his temp is 99.7, blood pressure is 93/51, heart rate 98, respiratory rate 22, oxygen saturation of 95% on room air he weighs 68 kg with a BMI of 26.6. His WBC is 1.5, RBC 3.89, hemoglobin 12.4, hematocrit 36.1, his platelet count is a 116, sodium is 125, potassium 3.9, chloride 94, bicarb 23, BUN 16, creatinine 1 1 8, with a GFR 59.2, total bilirubin is 1.4, remainder of liver enzymes are within normal limits, lipase is normal at 36, and his procalcitonin is markedly elevated at 10.2. Urine is positive for bacteria, nitrates, COVID-19 PCR is negative. Discharge Providers Provider Date of admission: 06/08/21 02:18 Discharge Date: 06/08/21 Primary care physician: Brendan Denis MD Consults: 06/08/21 13:29 Consult to Dietitian, Adult Routine Comment: Reason For Exam: POOR PO INTAKE Discharge provider: Adi Ricci MD Summary Hospital Course Discharge Diagnosis: 1. Septic shock 2. Sepsis from urinary source 3. L sided hydronephrosis 4. History of prostate cancer, metastatic, s/p radiation 5. Mantle cell lymphoma, s/p radiation just completed course 6. HTN 7. HL 8. ALESIA 9. Thrombocytopenia, mild 10. Hyponatremia 11. Leukopenia on admission, WBC of 1.5, 6.3 on discharge Hospital Course: Mr. Bunn is an 80M with PMH of prostate cancer, metastatic s/p radiation in remission, previous bladder obstruction, currently mantel cell lymphoma, nasopharyngeal just completed radation, HTN, HL who came in with fever, abdominal pain. He initially presented to the ED on 06/05 who abdominal pain. He was noted to have urinary retention with distended bladder and bilatera l hydronephrosis on CT abdomen on 06/05. He was recommended to self catheterize and he was discharged. He had no evidence of infection. He represented on 06/06 and was discharged from the ED. On 06/07 he was noted to have evidence of sepsis with fevers 102-103, blood pressures low in the 80s-90s, tachycardia in the 100s. Sats 95% and greater on room air. He was noted to have urinary tract infection with positive UA with bacteria and WBCS, and leuk esterase. He had miranda placed. He was started on broad spectrum antibiotics with vancomycin and meropenem. He had a new ALESIA with creatinine of 1.66 from baseline of 0.8-0.9. He was started on IV fluids and in total received 5L of normal saline bolus during his stay. Despite sepsis treatment he had worsening blood pressure down systolic of 60s and he had a R CVL placed and was started on levophed, his blood pressure dropped again and he was started on vasopressin. His blood cultures grew back Enterobacter, with no sensitivities finished. His nasal MRSA swab was negative. He had a repeat CT scan of his abdomen which showed resolved right sided hydr onephrosis, resolved bladder distention, but persistent left sided hydronephrosis that was severe. No stone was noted. There was no definitive etiology of hydronephrosis, but consideration of mass vs edema. Urology was paged, but was not available in hospital for procedure. They recommended that patient be transferred to higher level of care as there was concern about lack of source control with obstructed urinary system. urine output was poor with a total of 680 during his stay which was a total of 0.42 ml/kg/hr His last vitals at time of note: T 98.9, BP 132/73, pulse 107, respiratory rate 27, sats 97% on 2L. Lactate 2.1 on afternoon of discharge. Magnesium 1.2 at discharge, but did received 2gm mag rider after this. Status at Discharge Cognitive/behavioral status at discharge: oriented Functional status at discharge: independent ambulation Overall status at discharge: patient is not back to baseline Exam Vital Signs (past 8 hours): - 06/08/21 11:10 06/08/21 11:12 06/08/21 11:14 Temperature Pulse Rate 108 H 108 H 107 H Respiratory Rate 27 H 26 H 26 H Blood Pressure 80/50 L Pulse Oximetry 95 94 95 06/08/21 11:15 06/08/21 11:16 06/08/21 11:18 Temperature Pulse Rate 106 H 108 H 108 H Respiratory Rate 26 H 25 H 26 H Blood Pressure 75/52 L Pulse Oximetry 95 91 94 06/08/21 11:20 06/08/21 11:22 06/08/21 11:24 Temperature Pulse Rate 109 H 109 H 110 H Respiratory Rate 27 H 27 H 28 H Blood Pressure 81/52 L Pulse Oximetry 96 95 96 06/08/21 11:25 06/08/21 11:26 06/08/21 11:28 Temperature Pulse Rate 111 H 110 H 111 H Respiratory Rate 30 H 26 H 25 H Blood Pressure 86/49 L Pulse Oximetry 95 93 96 06/08/21 11:30 06/08/21 11:32 06/08/21 11:34 Temperature Pulse Rate 122 H 122 H 122 H Respiratory Rate 26 H 25 H 28 H Blood Pressure 91/54 L Pulse Oximetry 96 96 96 06/08/21 11:35 06/08/21 11:36 06/08/21 11:38 Temperature Pulse Rate 122 H 122 H 121 H Respiratory Rate 27 H 26 H 25 H Blood Pressure 93/58 L Pulse Oximetry 97 97 97 06/08/21 11:40 06/08/21 11:42 06/08/21 11:44 Temperature Pulse Rate 121 H 121 H 119 H Respiratory Rate 27 H 25 H 25 H Blood Pressure 94/56 L Pulse Oximetry 98 98 97 06/08/21 11:45 06/08/21 11:46 06/08/21 11:48 Temperature Pulse Rate 121 H 120 H 118 H Respiratory Rate 25 H 26 H 28 H Blood Pressure 91/50 L Pulse Oximetry 98 98 96 06/08/21 11:50 06/08/21 11:52 06/08/21 11:54 Temperature Pulse Rate 122 H 120 H 123 H Respiratory Rate 29 H 43 H 39 H Blood Pressure 93/62 Pulse Oximetry 97 97 98 06/08/21 11:55 06/08/21 11:56 06/08/21 11:58 Temperature Pulse Rate 123 H 122 H 124 H Respiratory Rate 38 H 41 H 28 H Blood Pressure 105/57 L Pulse Oximetry 98 97 98 06/08/21 12:00 06/08/21 12:02 06/08/21 12:04 Temperature Pulse Rate 123 H 125 H 124 H Respiratory Rate 26 H 32 H 40 H Blood Pressure 109/57 L Pulse Oximetry 97 97 97 06/08/21 12:05 06/08/21 12:06 06/08/21 12:08 Temperature Pulse Rate 126 H 126 H 126 H Respiratory Rate 32 H 37 H 39 H Blood Pressure 101/55 L Pulse Oximetry 96 98 94 06/08/21 12:10 06/08/21 12:12 06/08/21 12:14 Temperature Pulse Rate 128 H 126 H 127 H Respiratory Rate 31 H 33 H 31 H Blood Pressure 133/94 H Pulse Oximetry 95 94 96 06/08/21 12:16 06/08/21 12:19 06/08/21 12:45 Temperature 100.3 F H 100.3 F H 100.3 F H Pulse Rate 127 H 126 H Respiratory Rate 36 H 26 H Blood Pressure 118/60 104/55 L Pulse Oximetry 95 97 06/08/21 13:00 06/08/21 13:41 06/08/21 14:00 Temperature Pulse Rate 126 H 113 H 110 H Respiratory Rate 25 H 22 22 Blood Pressure 99/52 L 90/54 L 65/43 L Pulse Oximetry 95 95 95 06/08/21 14:10 06/08/21 14:12 06/08/21 14:14 Temperature Pulse Rate 106 H 106 H 106 H Respiratory Rate 22 21 22 Blood Pressure Pulse Oximetry 94 93 94 06/08/21 14:15 06/08/21 14:16 06/08/21 14:18 Temperature Pulse Rate 105 H 112 H 105 H Respiratory Rate 22 25 H 22 Blood Pressure 63/44 L Pulse Oximetry 94 95 95 06/08/21 14:20 06/08/21 14:22 06/08/21 14:24 Temperature Pulse Rate 105 H 105 H 105 H Respiratory Rate 22 21 21 Blood Pressure Pulse Oximetry 94 93 92 06/08/21 14:26 06/08/21 14:28 06/08/21 14:30 Temperature Pulse Rate 109 H 108 H 111 H Respiratory Rate 23 22 25 H Blood Pressure 69/50 L Pulse Oximetry 87 L 73 L 76 L 06/08/21 14:32 06/08/21 14:34 06/08/21 14:36 Temperature Pulse Rate 111 H 107 H 107 H Respiratory Rate 24 21 21 Blood Pressure Pulse Oximetry 95 95 94 06/08/21 14:38 06/08/21 14:40 06/08/21 14:42 Temperature Pulse Rate 106 H 107 H 108 H Respiratory Rate 23 22 22 Blood Pressure Pulse Oximetry 94 94 94 06/08/21 14:44 06/08/21 14:45 06/08/21 14:46 Temperature Pulse Rate 107 H 107 H 107 H Respiratory Rate 23 23 21 Blood Pressure 68/49 L Pulse Oximetry 95 94 95 06/08/21 14:48 06/08/21 14:50 06/08/21 14:52 Temperature Pulse Rate 107 H 105 H 106 H Respiratory Rate 23 22 23 Blood Pressure 66/45 L Pulse Oximetry 95 95 94 06/08/21 14:54 06/08/21 14:56 06/08/21 14:58 Temperature Pulse Rate 104 H 111 H 105 H Respiratory Rate 21 24 22 Blood Pressure Pulse Oximetry 94 93 95 06/08/21 15:00 06/08/21 15:01 06/08/21 15:02 Temperature 98.8 F Pulse Rate 114 H 113 H 115 H Respiratory Rate 25 H 24 24 Blood Pressure 81/53 L 81/53 L Pulse Oximetry 94 96 96 06/08/21 15:04 06/08/21 15:06 06/08/21 15:08 Temperature Pulse Rate 109 H 113 H 106 H Respiratory Rate 23 24 23 Blood Pressure Pulse Oximetry 95 94 94 06/08/21 15:10 06/08/21 15:12 06/08/21 15:14 Temperature Pulse Rate 110 H 108 H 110 H Respiratory Rate 22 20 23 Blood Pressure Pulse Oximetry 94 94 95 06/08/21 15:15 06/08/21 15:16 06/08/21 15:18 Temperature Pulse Rate 109 H 106 H 107 H Respiratory Rate 22 23 22 Blood Pressure 79/53 L Pulse Oximetry 94 94 93 06/08/21 15:20 06/08/21 15:22 06/08/21 15:24 Temperature Pulse Rate 111 H 111 H 110 H Respiratory Rate 23 24 23 Blood Pressure Pulse Oximetry 93 93 94 06/08/21 15:26 06/08/21 15:28 06/08/21 15:30 Temperature Pulse Rate 109 H 112 H 108 H Respiratory Rate 23 23 22 Blood Pressure 77/52 L Pulse Oximetry 93 93 94 06/08/21 15:32 06/08/21 15:34 06/08/21 15:36 Temperature Pulse Rate 108 H 106 H 112 H Respiratory Rate 23 23 23 Blood Pressure Pulse Oximetry 94 93 94 06/08/21 15:38 06/08/21 15:40 06/08/21 15:42 Temperature Pulse Rate 109 H 113 H 115 H Respiratory Rate 23 28 H 12 Blood Pressure Pulse Oximetry 94 93 94 06/08/21 15:44 06/08/21 15:45 06/08/21 15:46 Temperature Pulse Rate 113 H 111 H 113 H Respiratory Rate 24 24 23 Blood Pressure 73/41 L Pulse Oximetry 95 95 94 06/08/21 15:48 06/08/21 15:50 06/08/21 15:52 Temperature Pulse Rate 111 H 114 H 112 H Respiratory Rate 23 24 25 H Blood Pressure Pulse Oximetry 94 93 93 06/08/21 15:54 06/08/21 15:56 06/08/21 15:58 Temperature Pulse Rate 115 H 114 H 113 H Respiratory Rate 23 26 H 25 H Blood Pressure Pulse Oximetry 94 92 92 06/08/21 16:00 06/08/21 16:02 06/08/21 16:04 Temperature Pulse Rate 113 H 114 H 114 H Respiratory Rate 25 H 25 H 26 H Blood Pressure 82/53 L Pulse Oximetry 93 93 93 06/08/21 16:06 06/08/21 16:08 06/08/21 16:10 Temperature Pulse Rate 113 H 114 H 115 H Respiratory Rate 25 H 12 27 H Blood Pressure Pulse Oximetry 93 92 91 06/08/21 16:12 06/08/21 16:40 06/08/21 16:42 Temperature Pulse Rate 116 H 97 H 118 H Respiratory Rate 26 H 26 H Blood Pressure 104/62 Pulse Oximetry 88 L 90 L 06/08/21 16:44 06/08/21 16:46 06/08/21 16:48 Temperature Pulse Rate 116 H 116 H 115 H Respiratory Rate 27 H 27 H 26 H Blood Pressure Pulse Oximetry 91 90 L 90 L 06/08/21 16:50 06/08/21 16:52 06/08/21 16:54 Temperature Pulse Rate 115 H 115 H 114 H Respiratory Rate 26 H 28 H 26 H Blood Pressure Pulse Oximetry 90 L 89 L 91 06/08/21 16:55 06/08/21 16:56 06/08/21 16:58 Temperature Pulse Rate 116 H 118 H 116 H Respiratory Rate 28 H 28 H 28 H Blood Pressure 102/58 L Pulse Oximetry 90 L 90 L 90 L 06/08/21 17:00 06/08/21 17:02 06/08/21 17:04 Temperature Pulse Rate 117 H 117 H 116 H Respiratory Rate 30 H 26 H 26 H Blood Pressure Pulse Oximetry 90 L 88 L 89 L 06/08/21 17:06 06/08/21 17:08 06/08/21 17:10 Temperature Pulse Rate 114 H 110 H 109 H Respiratory Rate 27 H 26 H 26 H Blood Pressure Pulse Oximetry 89 L 88 L 87 L 06/08/21 17:12 06/08/21 17:14 06/08/21 17:16 Temperature Pulse Rate 109 H 108 H 109 H Respiratory Rate 26 H 25 H 26 H Blood Pressure Pulse Oximetry 87 L 88 L 90 L 06/08/21 17:18 06/08/21 17:20 06/08/21 17:22 Temperature Pulse Rate 108 H 108 H 107 H Respiratory Rate 26 H 27 H 27 H Blood Pressure Pulse Oximetry 89 L 88 L 89 L 06/08/21 17:24 06/08/21 17:26 06/08/21 17:28 Temperature Pulse Rate 111 H 116 H 114 H Respiratory Rate 26 H 26 H 25 H Blood Pressure Pulse Oximetry 89 L 91 94 06/08/21 17:30 06/08/21 17:32 06/08/21 17:34 Temperature Pulse Rate 113 H 113 H 114 H Respiratory Rate 25 H 25 H 26 H Blood Pressure Pulse Oximetry 94 94 94 06/08/21 17:36 06/08/21 17:38 06/08/21 17:40 Temperature Pulse Rate 116 H 114 H 115 H Respiratory Rate 26 H 25 H 25 H Blood Pressure Pulse Oximetry 94 94 95 06/08/21 17:42 06/08/21 17:44 06/08/21 17:45 Temperature Pulse Rate 114 H 109 H 114 H Respiratory Rate 25 H 25 H 25 H Blood Pressure 83/54 L Pulse Oximetry 95 94 95 06/08/21 17:46 06/08/21 17:48 06/08/21 17:50 Temperature Pulse Rate 113 H 111 H 113 H Respiratory Rate 25 H 26 H 25 H Blood Pressure Pulse Oximetry 95 94 95 06/08/21 17:52 06/08/21 17:54 06/08/21 17:56 Temperature Pulse Rate 114 H 110 H 107 H Respiratory Rate 26 H 25 H 24 Blood Pressure Pulse Oximetry 95 94 94 06/08/21 17:58 06/08/21 18:00 06/08/21 18:02 Temperature Pulse Rate 109 H 113 H 114 H Respiratory Rate 24 25 H 26 H Blood Pressure 89/55 L Pulse Oximetry 95 95 94 06/08/21 18:04 06/08/21 18:06 06/08/21 18:08 Temperature Pulse Rate 108 H 115 H 115 H Respiratory Rate 26 H 25 H 25 H Blood Pressure Pulse Oximetry 94 95 94 06/08/21 18:10 06/08/21 18:12 06/08/21 18:14 Temperature Pulse Rate 114 H 114 H 114 H Respiratory Rate 25 H 25 H 25 H Blood Pressure Pulse Oximetry 94 94 95 06/08/21 18:15 06/08/21 18:16 06/08/21 18:18 Temperature Pulse Rate 113 H 113 H 113 H Respiratory Rate 26 H 26 H 25 H Blood Pressure 92/50 L Pulse Oximetry 94 95 95 06/08/21 18:20 06/08/21 18:22 06/08/21 18:24 Temperature Pulse Rate 114 H 114 H 113 H Respiratory Rate 25 H 26 H 25 H Blood Pressure Pulse Oximetry 95 95 95 06/08/21 18:26 06/08/21 18:28 Temperature Pulse Rate 113 H 113 H Respiratory Rate 25 H 25 H Blood Pressure Pulse Oximetry 95 95 Oxygen Delivery Method Nasal Cannula Oxygen Flow Rate 2 Narrative Exam Narrative: Gen: no acute distress Resp: lung clear bilaterally CV: regular rate and rhythm with no murmurs Abd: soft, non-tender, normal bowel sounds : Miranda draining clear yellow urine Neuro: Alert and oriented with no focal deficits. Speech clear and coherent. Objective Labs Result Diagrams: 06/08/21 06:15 06/08/21 13:10 Labs: Laboratory Results - last 24 hr 06/07/21 06/07/21 06/07/21 22:05 22:30 22:30 WBC 1.5 L* D RBC 3.89 L Hgb 12.4 L Hct 36.1 L MCV 92.9 MCH 31.9 MCHC 34.3 RDW 13.2 Plt Count 116 L Neut % (Auto) Not Reportable Lymph % (Auto) Not Reportable [place] % (Auto) Not Reportable Eos % (Auto) Not Reportable Baso % (Auto) Not Reportable Neut # (Auto) Lymph # (Auto) Not Reportable [place] # (Auto) Not Reportable Eos # (Auto) Baso # (Auto) Not Reportable Total Counted 100 Seg Neutrophils % 88.0 H Monocytes % (Manual) 12.0 H Neutrophils # (Manual) 1320 L RBC Morphology Normal morphology Sodium 125 L Potassium 3.9 Chloride 94 L Carbon Dioxide 23 BUN 16 Creatinine 1.18 Estimated GFR 59.2 L BUN/Creatinine Ratio 13.6 Glucose 107 Lactate 3.1 H Calcium 8.8 Magnesium Total Bilirubin 1.4 H AST 24 ALT 20 Alkaline Phosphatase 76 Total Protein 6.3 Albumin 3.7 Globulin 2.6 Albumin/Globulin Ratio 1.4 Lipase 36 Procalcitonin 10.2 H Urine Color Urine Appearance Urine pH Ur Specific [place] Urine Protein Urine Glucose (UA) Urine Ketones Urine Occult Blood Urine Nitrate Urine Bilirubin Urine Urobilinogen Ur Leukocyte Esterase Urine RBC Urine WBC Urine Bacteria Ur Culture Indicated? Ur Random Sodium Urine Creatinine Nasal Screen MRSA (PCR) A. baumannii (PCR) Felicita albicans (PCR) C. glabrata (PCR) C. krusei (PCR) C. parapsilosis (PCR) C. tropicalis (PCR) SARS-CoV-2 (PCR) Enterobacteriac sp PCR E. cloacae complex PCR Enterococcus sp PCR E. coli (PCR) H. influenzae (PCR) Klebsiella oxytoca PCR Klebsiella pneumoniae List. monocytogenes PCR N. meningitidis (PCR) Proteus species (PCR) Serratia marcescens PCR Staphylococcus sp PCR Staph aureus (PCR) mecA-Methicil Res Gene Streptococcus sp PCR Group A Strep (PCR) Strep agalactiae (PCR) Strep pneumoniae (PCR) P. aeruginosa (PCR) Hoang/B-Vanco Res Genes KPC-Carbap Res Gene PCR 06/07/21 06/07/21 06/08/21 22:30 23:13 00:30 WBC RBC Hgb Hct MCV MCH MCHC RDW Plt Count Neut % (Auto) Lymph % (Auto) [place] % (Auto) Eos % (Auto) Baso % (Auto) Neut # (Auto) Lymph # (Auto) [place] # (Auto) Eos # (Auto) Baso # (Auto) Total Counted Seg Neutrophils % Monocytes % (Manual) Neutrophils # (Manual) RBC Morphology Sodium Potassium Chloride Carbon Dioxide BUN Creatinine Estimated GFR BUN/Creatinine Ratio Glucose Lactate 1.5 Calcium Magnesium Total Bilirubin AST ALT Alkaline Phosphatase Total Protein Albumin Globulin Albumin/Globulin Ratio Lipase Procalcitonin Urine Color Urine Appearance Urine pH Ur Specific [place] Urine Protein Urine Glucose (UA) Urine Ketones Urine Occult Blood Urine Nitrate Urine Bilirubin Urine Urobilinogen Ur Leukocyte Esterase Urine RBC Urine WBC Urine Bacteria Ur Culture Indicated? Ur Random Sodium Urine Creatinine Nasal Screen MRSA (PCR) A. baumannii (PCR) Not detected Felicita albicans (PCR) Not detected C. glabrata (PCR) Not detected C. krusei (PCR) Not detected C. parapsilosis (PCR) Not detected C. tropicalis (PCR) Not detected SARS-CoV-2 (PCR) Negative Enterobacteriac sp PCR Detected H E. cloacae complex PCR Not detected Enterococcus sp PCR Not detected E. coli (PCR) Not detected H. influenzae (PCR) Not detected Klebsiella oxytoca PCR Not detected Klebsiella pneumoniae Not detected List. monocytogenes PCR Not detected N. meningitidis (PCR) Not detected Proteus species (PCR) Not detected Serratia marcescens PCR Not detected Staphylococcus sp PCR Not detected Staph aureus (PCR) Not detected mecA-Methicil Res Gene Not Reportable Streptococcus sp PCR Not detected Group A Strep (PCR) Not detected Strep agalactiae (PCR) Not detected Strep pneumoniae (PCR) Not detected P. aeruginosa (PCR) Not detected Hoang/B-Vanco Res Genes Not Reportable KPC-Carbap Res Gene PCR Not detected 06/08/21 06/08/21 06/08/21 00:44 00:44 06:15 WBC 6.3 D RBC 3.96 L Hgb 12.5 L Hct 37.5 L MCV 94.9 MCH 31.6 MCHC 33.3 RDW 13.7 Plt Count 104 L Neut % (Auto) 92.4 H Lymph % (Auto) 4.9 L [place] % (Auto) 1.8 L Eos % (Auto) 0.8 L Baso % (Auto) 0.1 Neut # (Auto) 5800 Lymph # (Auto) 300 L [place] # (Auto) 100 Eos # (Auto) 100 Baso # (Auto) 0 Total Counted Seg Neutrophils % Monocytes % (Manual) Neutrophils # (Manual) RBC Morphology Sodium Potassium Chloride Carbon Dioxide BUN Creatinine Estimated GFR BUN/Creatinine Ratio Glucose Lactate Calcium Magnesium Total Bilirubin AST ALT Alkaline Phosphatase Total Protein Albumin Globulin Albumin/Globulin Ratio Lipase Procalcitonin Urine Color Yellow Urine Appearance Cloudy Urine pH 5.0 Ur Specific [place] <=1.005 Urine Protein 1+ H Urine Glucose (UA) Negative Urine Ketones Negative Urine Occult Blood 3+ H Urine Nitrate Positive Urine Bilirubin Negative Urine Urobilinogen 0.2 Ur Leukocyte Esterase 2+ H Urine RBC 10-30/hpf H Urine WBC 30-100/hpf H Urine Bacteria Many (>30) H Ur Culture Indicated? Culture not indicate Ur Random Sodium 12 L Urine Creatinine 117.0 Nasal Screen MRSA (PCR) A. baumannii (PCR) Felicita albicans (PCR) C. glabrata (PCR) C. krusei (PCR) C. parapsilosis (PCR) C. tropicalis (PCR) SARS-CoV-2 (PCR) Enterobacteriac sp PCR E. cloacae complex PCR Enterococcus sp PCR E. coli (PCR) H. influenzae (PCR) Klebsiella oxytoca PCR Klebsiella pneumoniae List. monocytogenes PCR N. meningitidis (PCR) Proteus species (PCR) Serratia marcescens PCR Staphylococcus sp PCR Staph aureus (PCR) mecA-Methicil Res Gene Streptococcus sp PCR Group A Strep (PCR) Strep agalactiae (PCR) Strep pneumoniae (PCR) P. aeruginosa (PCR) Hoang/B-Vanco Res Genes KPC-Carbap Res Gene PCR 06/08/21 06/08/21 06/08/21 06:15 13:05 13:10 WBC RBC Hgb Hct MCV MCH MCHC RDW Plt Count Neut % (Auto) Lymph % (Auto) [place] % (Auto) Eos % (Auto) Baso % (Auto) Neut # (Auto) Lymph # (Auto) [place] # (Auto) Eos # (Auto) Baso # (Auto) Total Counted Seg Neutrophils % Monocytes % (Manual) Neutrophils # (Manual) RBC Morphology Sodium 127 L Potassium 4.0 Chloride 98 Carbon Dioxide 21 L BUN 18 Creatinine 1.50 H Estimated GFR 44.9 L BUN/Creatinine Ratio 12.0 Glucose 91 Lactate 2.7 H Calcium 8.2 L Magnesium 1.5 L Total Bilirubin AST ALT Alkaline Phosphatase Total Protein Albumin Globulin Albumin/Globulin Ratio Lipase Procalcitonin Urine Color Urine Appearance Urine pH Ur Specific [place] Urine Protein Urine Glucose (UA) Urine Ketones Urine Occult Blood Urine Nitrate Urine Bilirubin Urine Urobilinogen Ur Leukocyte Esterase Urine RBC Urine WBC Urine Bacteria Ur Culture Indicated? Ur Random Sodium Urine Creatinine Nasal Screen MRSA (PCR) Negative for mrsa A. baumannii (PCR) Felicita albicans (PCR) C. glabrata (PCR) C. krusei (PCR) C. parapsilosis (PCR) C. tropicalis (PCR) SARS-CoV-2 (PCR) Enterobacteriac sp PCR E. cloacae complex PCR Enterococcus sp PCR E. coli (PCR) H. influenzae (PCR) Klebsiella oxytoca PCR Klebsiella pneumoniae List. monocytogenes PCR N. meningitidis (PCR) Proteus species (PCR) Serratia marcescens PCR Staphylococcus sp PCR Staph aureus (PCR) mecA-Methicil Res Gene Streptococcus sp PCR Group A Strep (PCR) Strep agalactiae (PCR) Strep pneumoniae (PCR) P. aeruginosa (PCR) Hoang/B-Vanco Res Genes KPC-Carbap Res Gene PCR 06/08/21 06/08/21 13:10 16:55 WBC RBC Hgb Hct MCV MCH MCHC RDW Plt Count Neut % (Auto) Lymph % (Auto) [place] % (Auto) Eos % (Auto) Baso % (Auto) Neut # (Auto) Lymph # (Auto) [place] # (Auto) Eos # (Auto) Baso # (Auto) Total Counted Seg Neutrophils % Monocytes % (Manual) Neutrophils # (Manual) RBC Morphology Sodium 126 L Potassium 3.7 Chloride 102 Carbon Dioxide 17 L BUN 21 H Creatinine 1.66 H Estimated GFR 40.0 L BUN/Creatinine Ratio 12.7 Glucose 96 Lactate 2.1 Calcium 7.3 L Magnesium 1.2 L Total Bilirubin AST ALT Alkaline Phosphatase Total Protein Albumin Globulin Albumin/Globulin Ratio Lipase Procalcitonin Urine Color Urine Appearance Urine pH Ur Specific [place] Urine Protein Urine Glucose (UA) Urine Ketones Urine Occult Blood Urine Nitrate Urine Bilirubin Urine Urobilinogen Ur Leukocyte Esterase Urine RBC Urine WBC Urine Bacteria Ur Culture Indicated? Ur Random Sodium Urine Creatinine Nasal Screen MRSA (PCR) A. baumannii (PCR) Felicita albicans (PCR) C. glabrata (PCR) C. krusei (PCR) C. parapsilosis (PCR) C. tropicalis (PCR) SARS-CoV-2 (PCR) Enterobacteriac sp PCR E. cloacae complex PCR Enterococcus sp PCR E. coli (PCR) H. influenzae (PCR) Klebsiella oxytoca PCR Klebsiella pneumoniae List. monocytogenes PCR N. meningitidis (PCR) Proteus species (PCR) Serratia marcescens PCR Staphylococcus sp PCR Staph aureus (PCR) mecA-Methicil Res Gene Streptococcus sp PCR Group A Strep (PCR) Strep agalactiae (PCR) Strep pneumoniae (PCR) P. aeruginosa (PCR) Hoang/B-Vanco Res Genes KPC-Carbap Res Gene PCR PFSH Medical History Basal cell carcinoma (BCC) Essential hypertension HTN (hypertension) Hypochloremia Hyponatremia Nasopharyngeal cancer Osteoarthritis Spinal stenosis Surgical History History of arthroplasty of right knee (~2007) History of prostate surgery (~2003) Hx of decompressive lumbar laminectomy (~2011) Hx of hernia repair Hx of total knee arthroplasty S/P total knee arthroplasty Status post cataract extraction of both eyes with insertion of intraocular lens (~2016) Status post osteotomy (~1995) Family History Father Prostate cancer Brother Alive and well Brother Dementia Mother Old age Social History household members: spouse Smoking Status: Never smoker alcohol intake: current Discharge Plan Discharge Plan Patient Disposition: [facility] Under care of provider: Dr. Bates Provider Discharge Comment: transfer to [facility] Diet/Activity/Treatments Diet: Nothing by Mouth Discharge Data Primary Care Provider: Brendan Denis VTE Deep Vein Thrombosis/Pulmonary Embolism Present on Admission: No MIPS - DC The patient has current or prior documentation of left ventricular ejection fraction (LVEF) less than 40%, or moderate or severely depressed left ventricular systolic function.: No
[2021-06-08] MEDS: NOREPINEPHRINE 4 MG in DEXTROSE 5% IN WATER 250 ML 34.29 ML IV (19:14)
[2021-06-08] MEDS: ATORVASTATIN 20 MG TABLET 10 MG PO (20:51)
--- NOTE | 2021-06-08 21:54 | PC.NURSE ---
Report called to Codie at [address], preparing patient for transport via air ambulance. Levo and Vasopressin continues in process, NS @ 150/hr. Pt alert and oriented, informed re transfer.
== END 2021-06-08 22:00 | disposition short-term general hospital (02) | DRG 698 ==
LOC: ED 06-08 01:51 → AC 06-08 04:47 → ICU 06-08 10:10 → AC 06-13 15:27 → ICU 06-13 15:27
PROVIDERS: Internal Medicine; Nurse Practitioner Family; Admitting Provider Nurse Practitioner Family; Emergency Provider Emergency Medicine; PCP Hospitalist; Referring Provider Emergency Medicine; Visit Provider Nurse Practitioner Family
DX: T83.518A Infection and inflammatory reaction due to other urinary catheter, initial encounter (principal); A41.81 Sepsis due to Enterococcus; R65.21 Severe sepsis with septic shock; N39.0 Urinary tract infection, site not specified; N13.6 Pyonephrosis; N17.9 Acute kidney failure, unspecified; E87.1 Hypo-osmolality and hyponatremia; I10 Essential (primary) hypertension; D69.6 Thrombocytopenia, unspecified; N40.1 Benign prostatic hyperplasia with lower urinary tract symptoms; R33.8 Other retention of urine; E78.5 Hyperlipidemia, unspecified; Z20.822 Contact with and (suspected) exposure to COVID-19; R10.30 Lower abdominal pain, unspecified
CPT/HCPCS: 36415; 36592; 51702; 51798; 71045; 74019; 74176; 74177; 80048; 80053; 81001; 81003; 81015; 82570; 83605; 83690; 83735; 84145; 84300; 85007; 85025; 87040; 87077; 87086; 87150; 87186; 87205; 87635; 87797; 93005; 96361; 96365; 96367; 99284; 99285; 99291; 99292; C9803; J0696; J1642; J1885; J2185; J3475; Q9967

== ENCOUNTER 2021-09-06 15:34 | Emergency (ER) | payer OTHER, SELFPAY ==
[2021-06-08 13:03] VITALS: BMI 23.5
[2021-09-06] VITALS (10 sets, daily range): BP systolic 124–138; BP diastolic 58–63; PULSE 87–100; RESP 17–23; TEMP 37.7–38.3; O2SAT 96–99; BMI 25.0
--- NOTE | 2021-09-06 16:00 | DI.RAD.S_ITS ---
PROCEDURE: XR CHEST 1V INDICATIONS: suspected sepsis TECHNIQUE: One view of the chest was acquired. COMPARISON: [facility], CR, XR CHEST 1V, 06/08/2021, 11:22. FINDINGS: Surgical changes and devices: None. Lungs and pleura: Lungs are clear. No pleural effusions or pneumothorax. Mediastinum: The cardiac contours are within normal limits. The aorta demonstrates calcification and tortuosity. Bones and chest wall: No suspicious bony lesions. Age-appropriate bony degenerative changes are seen. Remote right posterior rib fractures are seen. Overlying soft tissues appear unremarkable. IMPRESSION: Negative for infiltrate. Dictated by: Karson Perez M.D. on 09/06/2021 at 15:55 Approved by: Karson Perez M.D. on 09/06/2021 at 15:56
[2021-09-06 16:22] LABS: Appearance Urine UA CLOUDY; Bilirubin Urine UA NEGATIVE (NEGATIVE); Color Urine UA YELLOW; Glucose Urine UA NEGATIVE (Negative); Ketones Urine UA NEGATIVE (NEGATIVE); Leukocyte Esterase Urine UA 3+ (NEGATIVE); Nitrite Urine UA POSITIVE (Negative); Occult Blood Urine UA 3+ (Negative); Protein Urine UA 2+ (Negative); Specific Gravity Urine UA 1.015 (1.000-1.035); Urobilinogen Urine UA 0.2 E.U./dL (0.2)
[2021-09-06] MEDS: ACETAMINOPHEN 325 MG TABLET 650 MG PO (16:25)
[2021-09-06] MEDS: SODIUM CHLORIDE 0.9% 1,000 ML 1000 ML IV (16:25)
[2021-09-06 16:31] LABS: Bacteria Urine Many (>30); Culture Indicated Urine Specimen Cultured; RBC Urine None Seen (0-5/HPF); WBC Urine >100/HPF (0-5/HPF)
--- NOTE | 2021-09-06 16:31 | ED.FEVER ---
HPI - Fever General Chief Complaint: Fever Stated Complaint: fever, UTI Time Seen by Provider: 09/06/21 16:01 Source: patient and family Mode of arrival: Ambulatory History of Present Illness HPI Narrative: Patient is a 81-year-old male with history of sepsis. He does self catheterizations. He actually had sepsis in June of 2021 required transfer to [facility] where he had a nephrostomy tube and a stent placed. He was seen evaluated by his urologist today as he was thought to have an infection started on Cipro. stent was actually supposed be removed today however due to the infection urology did not want to remove the stent. Patient has developed fever of 101 in the emergency department. They were instructed that if the temperature goes above 100.6 that he should return to emergency department as soon as possible. He has some left flank pain where his stent is but not any worse than usual. He has no chest pain cough congestion nausea or vomiting. states that last night she noticed the urine was getting a bit more cloudy. He is found to have nitrate in his urine today. Related Data Home Medications Medication Instructions Recorded Confirmed amlodipine 10 mg tablet 5 mg PO DAILY 11/27/18 09/06/21 cholecalciferol (vitamin D3) 10 400 unit PO DAILY 11/27/18 06/08/21 mcg (400 unit) tablet (Vitamin D3) ibuprofen 200 mg tablet 2 tab PO DAILY PRN 11/27/18 06/08/21 lisinopril 40 mg tablet 40 mg PO DAILY 11/27/18 09/06/21 atorvastatin 20 mg tablet 10 mg PO DAILY 02/09/21 09/06/21 ciprofloxacin HCl 500 mg tablet 500 mg PO BID 09/06/21 09/06/21 (Cipro) Previous Rx's Medication Instructions Recorded tamsulosin 0.4 mg capsule (Flomax) 0.4 mg PO DAILY #20 cap 06/05/21 Allergies Allergy/AdvReac Type Severity Reaction Status Date / Time codeine [CODEINE] Allergy Intermediate HIVES, SOB Verified 09/06/21 15:57 Review of Systems Review of Systems Narrative: GENERAL: Denies chills, fatigue, malaise, fever, sweats, travel HEENT: Denies sinus pain, ear pain, sore throat, difficulty swallowing, neck pain RESPIRATORY: Denies dyspnea, cough, wheezing, hemoptysis, sputum. CARDIOVASCULAR: Denies chest pain, palpitations, orthopnea, edema GASTROINTESTINAL: Denies nausea, vomiting, abdominal pain, diarrhea, constipation, melena. : See HPI MUSCULOSKELETAL: Denies weakness, joint pain, or bony pain SKIN: No rash, no erythema, no pruritus NEUROLOGIC: Denies weakness, dizziness, headache, numbness, change in speech, confusion PSYCHIATRIC: No concerning psychosocial issues. 12 point review of systems is negative except for those stated above and HPI Patient History Medical History Basal cell carcinoma (BCC) Essential hypertension HTN (hypertension) Hypochloremia Hyponatremia Nasopharyngeal cancer Osteoarthritis Spinal stenosis Surgical History History of arthroplasty of right knee (~2007) History of prostate surgery (~2003) Hx of decompressive lumbar laminectomy (~2011) Hx of hernia repair Hx of total knee arthroplasty S/P total knee arthroplasty Status post cataract extraction of both eyes with insertion of intraocular lens (~2016) Status post osteotomy (~1995) Family History Father Prostate cancer Brother Alive and well Brother Dementia Mother Old age Social History household members: spouse Smoking Status: Never smoker alcohol intake: current Smoking Status: Never smoker alcohol intake frequency: holidays/special occasions only Substance Use Type: does not use Exam Initial Vital Signs Initial Vital Signs: Vital Signs Temperature 101 F H 09/06/21 15:53 Pulse Rate 99 H 09/06/21 15:53 Respiratory Rate 18 09/06/21 15:53 Blood Pressure 138/63 09/06/21 15:53 Pulse Oximetry 99 09/06/21 15:53 GENERAL: Alert well-appearing 81-year-old male in no acute distress. HEENT: Head atraumatic,EOMI, pupils reactive, face symmetric, moist mucous membranes CARDIOVASCULAR: Regular rate and rhythm without murmurs, rubs or gallops. RESPIRATORY: Breath sounds equal bilaterally, no wheezes rales or rhonchi. ABDOMEN: Soft, nontender. Normoactive bowel sounds all 4 quadrants. No guarding or rebound. : Minimal left flank pain no guarding no rebound EXTREMITIES: Normal range of motion, no clubbing or edema. Neurovascularly intact NEUROLOGICAL: Alert and oriented x4.Normal gait and speech. No focal deficits SKIN: Warm, dry, no laceration, no petechiae, no rashes or lesions. Course Orders Ordered: ED Orders 09/06/21 16:00 XR chest 1V Stat 09/06/21 16:16 Urinalysis and Microscopic Stat Urine Culture Stat 09/06/21 16:20 Complete Blood Count AUTO DIFF Stat Comprehensive Metabolic Panel Stat Lactate (Lactic Acid) Stat Lipase Stat Procalcitonin Stat 09/06/21 16:43 Blood Culture Stat Discontinued Medications Acetaminophen (Acetaminophen 325 Mg Tablet) 650 mg PO NOW ONE Stop: 09/06/21 16:22 Last Admin: 09/06/21 16:25 Dose: 650 mg Documented by: SARAH Sodium Chloride (Normal Saline 0.9%) 1,000 mls @ 1,000 mls/hr IV BOLUS ONE Stop: 09/06/21 16:59 Last Infusion: 09/06/21 18:53 Dose: 0 mls/hr Documented by: Admin: 09/06/21 16:25 Dose: 1,000 mls/hr Documented by: SARAH Levofloxacin (Levaquin) 750 mg in 150 mls @ 100 mls/hr IV NOW ONE Stop: 09/06/21 18:17 Last Infusion: 09/06/21 18:53 Dose: 0 mls/hr Documented by: Admin: 09/06/21 17:14 Dose: 100 mls/hr Documented by: SARAH Vital Signs Vital signs: Vital Signs - 8 hr 09/06/21 15:53 09/06/21 16:10 09/06/21 16:14 Temperature 101 F H Pulse Rate 99 H 100 H 99 H Respiratory Rate 18 23 23 Blood Pressure 138/63 129/60 Pulse Oximetry 99 97 96 09/06/21 16:30 09/06/21 17:00 09/06/21 17:13 Temperature 99.9 F H Pulse Rate 98 H 91 H Respiratory Rate 23 18 Blood Pressure 129/60 135/63 Pulse Oximetry 96 96 09/06/21 17:14 09/06/21 17:30 09/06/21 18:00 Temperature 99.9 F H Pulse Rate 88 92 H Respiratory Rate 17 18 Blood Pressure 130/60 124/60 Pulse Oximetry 96 96 09/06/21 18:30 Temperature Pulse Rate 87 Respiratory Rate 17 Blood Pressure 126/58 L Pulse Oximetry 96 MDM - Fever Lab Data Result diagrams: 09/06/21 16:20 09/06/21 16:20 Labs: Lab Results 09/06/21 09/06/21 09/06/21 Range/Units 16:16 16:20 16:20 WBC 6.1 (4.5-11.0) X10^3/uL RBC 3.32 L (4.5-5.9) X10^6/uL Hgb 10.9 L (13.5-17.5) g/dL Hct 32.3 L (41-53) % MCV 97.2 (80-100) fL MCH 32.8 (26-34) PG MCHC 33.7 (30-36) % RDW 14.8 (11.6-14.8) % Plt Count 154 (150-400) X10^3/uL Neut % (Auto) 86.9 H (50-75) % Lymph % (Auto) 2.9 L (25-40) % Nobles % (Auto) 10.1 (3-14) % Eos % (Auto) 0.0 L (2-4) % Baso % (Auto) 0.1 (0-2) % Neut # (Auto) 5300 (1347-1758) /uL Lymph # (Auto) 200 L (0232-2622) /uL Nobles # (Auto) 600 (0-900) /uL Eos # (Auto) 0 (0-450) /uL Baso # (Auto) 0 (0-100) /uL Sodium 132 L (137-145) mmol/L Potassium 3.8 (3.4-5.1) mmol/L Chloride 99 (98-107) mmol/L Carbon Dioxide 27 (22-32) mmol/L BUN 19 (9-20) mg/dL Creatinine 1.00 (0.66-1.25) mg/dL Estimated GFR > 60.0 (>60) mL/min BUN/Creatinine Ratio 19.0 (6-22) Glucose 121 H (80-110) mg/dL Lactate (0.7-2.1) mmol/L Calcium 9.0 (8.4-10.2) mg/dL Total Bilirubin 0.8 (0.2-1.3) mg/dL AST 20 (17-59) IU/L ALT 19 (<50) IU/L Alkaline Phosphatase 40 (38-126) U/L Total Protein 6.5 (6.3-8.2) g/dL Albumin 3.9 (3.5-5.0) g/dL Globulin 2.6 (1.7-4.1) g/dL Albumin/Globulin Ratio 1.5 (1.0-2.8) Lipase 32 (23-300) U/L Procalcitonin 0.99 H (<0.5) ng/mL Urine Color Yellow Urine Appearance Cloudy Urine pH 7.0 (4.5-8.0) Ur Specific [place] 1.015 (1.000-1.035) Urine Protein 2+ H (Negative) Urine Glucose (UA) Negative (Negative) g/dL Urine Ketones Negative (NEGATIVE) Urine Occult Blood 3+ H (Negative) Urine Nitrate Positive H (Negative) Urine Bilirubin Negative (NEGATIVE) Urine Urobilinogen 0.2 (0.2) E.U./dL Ur Leukocyte Esterase 3+ H (NEGATIVE) Urine RBC None seen (0-5/HPF) Urine WBC >100/hpf H (0-5/HPF) Urine Bacteria Many (>30) H (None) Ur Culture Indicated? Specimen cultured 09/06/21 Range/Units 16:20 WBC (4.5-11.0) X10^3/uL RBC (4.5-5.9) X10^6/uL Hgb (13.5-17.5) g/dL Hct (41-53) % MCV (80-100) fL MCH (26-34) PG MCHC (30-36) % RDW (11.6-14.8) % Plt Count (150-400) X10^3/uL Neut % (Auto) (50-75) % Lymph % (Auto) (25-40) % Nobles % (Auto) (3-14) % Eos % (Auto) (2-4) % Baso % (Auto) (0-2) % Neut # (Auto) (9813-2876) /uL Lymph # (Auto) (2966-5344) /uL Nobles # (Auto) (0-900) /uL Eos # (Auto) (0-450) /uL Baso # (Auto) (0-100) /uL Sodium (137-145) mmol/L Potassium (3.4-5.1) mmol/L Chloride (98-107) mmol/L Carbon Dioxide (22-32) mmol/L BUN (9-20) mg/dL Creatinine (0.66-1.25) mg/dL Estimated GFR (>60) mL/min BUN/Creatinine Ratio (6-22) Glucose (80-110) mg/dL Lactate 2.0 (0.7-2.1) mmol/L Calcium (8.4-10.2) mg/dL Total Bilirubin (0.2-1.3) mg/dL AST (17-59) IU/L ALT (<50) IU/L Alkaline Phosphatase (38-126) U/L Total Protein (6.3-8.2) g/dL Albumin (3.5-5.0) g/dL Globulin (1.7-4.1) g/dL Albumin/Globulin Ratio (1.0-2.8) Lipase (23-300) U/L Procalcitonin (<0.5) ng/mL Urine Color Urine Appearance Urine pH (4.5-8.0) Ur Specific [place] (1.000-1.035) Urine Protein (Negative) Urine Glucose (UA) (Negative) g/dL Urine Ketones (NEGATIVE) Urine Occult Blood (Negative) Urine Nitrate (Negative) Urine Bilirubin (NEGATIVE) Urine Urobilinogen (0.2) E.U./dL Ur Leukocyte Esterase (NEGATIVE) Urine RBC (0-5/HPF) Urine WBC (0-5/HPF) Urine Bacteria (None) Ur Culture Indicated? Imaging Data Chest x-ray: Radiologist's Impression: PROCEDURE:? XR CHEST 1V ? INDICATIONS:? suspected sepsis ? TECHNIQUE:? One view of the chest was acquired.? ? COMPARISON:? [facility], , XR CHEST 1V, 06/08/2021, 11:22. ? FINDINGS:? ? Surgical changes and devices:? None.? ? Lungs and pleura:? Lungs are clear.? No pleural effusions or pneumothorax.? ? Mediastinum:? The cardiac contours are within normal limits. The aorta demonstrates calcification and tortuosity. ? Bones and chest wall:? No suspicious bony lesions.? Age-appropriate bony degenerative changes are seen.? Remote right posterior rib fractures are seen.? Overlying soft tissues appear unremarkable.? IMPRESSION:? Negative for infiltrate. ? ? Dictated by: Karson Perez M.D. on 09/06/2021 at 15:55 ? ? ECG Data Interpretation: Sinus rhythm rate 100 p.r. interval 170 QRS [address] changes artifact noted MDM Narrative Medical decision making narrative: Patient is febrile with known UTI. He got 1 dose of Cipro today. He has an elevated procalcitonin overall does not appear septic. At this time he was seen by Urology who did not feel was appropriate to remove the stent because of the UTI. It does not seem that the stent is infected at this time. He was given 1 dose of Levaquin in the ED. At this time recommend outpatient Cipro and close follow-up. Discharge Plan Departure Patient Disposition: Home Clinical Impression: Acute UTI Instructions: DI for Urinary Tract Infection (UTI) Activity Restrictions/Additional Instructions: *You have been diagnosed with UTI *What to do: At this time please continue Cipro. Monitor closely for any change. We will call you in 2-3 days if antibiotics need to be changed if you do not hear from us in you are improving is then there is no change. Increase fluid. Fever control *Continue to take medications as directed Continue Cipro as previously prescribed Tylenol 650 mg every 4-6 hours if needed for his fever *Follow up with your primary care provider in 2-3 days *Return to ER if you should have increasing confusion, persistent fever, increasing weakness, decreasing fluid intake or any new, worsening or concerning symptoms Prescriptions: No Action tamsulosin [Flomax] 0.4 mg capsule 0.4 mg PO DAILY Qty: 20 RF: 0 ciprofloxacin HCl [Cipro] 500 mg Tablet 500 mg PO BID RF: 0 amlodipine 10 mg Tablet 5 mg PO DAILY RF: 0 ibuprofen 200 mg Tablet 2 tab PO DAILY PRN (Reason: pain) RF: 0 lisinopril 40 mg Tablet 40 mg PO DAILY RF: 0 cholecalciferol (vitamin D3) [Vitamin D3] 400 unit Tablet 400 unit PO DAILY RF: 0 atorvastatin 20 mg tablet 10 mg PO DAILY RF: 0 Referrals: Brendan Denis MD [Primary Care Provider] - Jason Cotter MD [Non-Staff] -
[2021-09-06 16:45] LABS: Add Manual Diff / Slide Review NO; Basophils Absolute Auto 0 /uL (0-100); Basophils Percent Auto 0.1 % (0-2); Eosinophils Absolute Auto 0 /uL (0-450); Hematocrit 32.3 % (41-53); Hemoglobin 10.9 g/dL (13.5-17.5); Lymphocytes Absolute Auto 200 /uL (1100-4500); Lymphocytes Percent Auto 2.9 % (25-40); Mean Corpuscular HGB Conc 33.7 % (30-36); Mean Corpuscular Hemoglobin 32.8 PG (26-34); Mean Corpuscular Volume 97.2 fL (80-100); Monocytes Absolute Auto 600 /uL (0-900); Monocytes Percent Auto 10.1 % (3-14); Neutrophils Absolute Auto 5300 /uL (1500-7000); Neutrophils Percent Auto 86.9 % (50-75); Platelet Count 154 X10^3/uL (150-400); Red Blood Cell Count 3.32 X10^6/uL (4.5-5.9); Red Cell Distribution Width 14.8 % (11.6-14.8); White Blood Cell Count 6.1 X10^3/uL (4.5-11.0)
[2021-09-06 16:57] LABS: Alanine Aminotransferase 19 IU/L (<50); Albumin 3.9 g/dL (3.5-5.0); Albumin Globulin Ratio 1.5 (1.0-2.8); Alkaline Phosphatase 40 U/L (38-126); Aspartate Aminotransferase 20 IU/L (17-59); Bilirubin Total 0.8 mg/dL (0.2-1.3); Blood Urea Nitrogen 19 mg/dL (9-20); Carbon Dioxide 27 mmol/L (22-32); Chloride 99 mmol/L (98-107); Estimated Glomerular Filt Rate > 60.0 mL/min (>60); Globulin 2.6 g/dL (1.7-4.1); Glucose 121 mg/dL (80-110); HEMOLYSIS < 15 (0-50); Lipase 32 U/L (23-300); Potassium 3.8 mmol/L (3.4-5.1); Sodium 132 mmol/L (137-145); Total Protein 6.5 g/dL (6.3-8.2)
[2021-09-06 17:14] LABS: Procalcitonin 0.99 ng/mL (<0.5)
[2021-09-06] MEDS: levoFLOXacin 750 MG/150 ML PIGGYBACK 100 MG IV (17:14)
== END 2021-09-06 19:02 | disposition home or self-care (01) ==
PROVIDERS: Emergency Provider Emergency Medicine; PCP Hospitalist
DX: N39.0 Urinary tract infection, site not specified (principal); R10.9 Unspecified abdominal pain; R79.89 Other specified abnormal findings of blood chemistry
CPT/HCPCS: 36415; 71045; 80053; 81001; 83605; 83690; 84145; 85025; 87040; 87077; 87086; 87186; 93005; 96365; 96366; 99284; J1956

== ENCOUNTER 2021-12-14 09:51 | Emergency (ER) | payer OTHER, SELFPAY ==
[2021-06-08 13:03] VITALS: BMI 23.5
[2021-12-14 09:58] VITALS: BP 184/85; PULSE 63; RESP 15; TEMP 36.8; O2SAT 99; BMI 24.7
--- NOTE | 2021-12-14 10:33 | ED_ITS ---
HPI - Fall General Chief Complaint: Fall Stated Complaint: Series of falls in last month- sent by [facility] Time Seen by Provider: 12/14/21 10:28 Source: patient Mode of arrival: Ambulatory Limitations: no limitations History of Present Illness HPI Narrative: This is an 81-year-old male sent from the walk-in clinic. Patient states he had 3 falls in November. Patient states they were all tripping over objects and falling to the ground he states that he has since then had a little bit of a mild headache in the front and back. He has a history of traumatic head bleed that required transfer to [facility] in the past so he became a little bit anxious that he may have developed another 1. He states he did hit his head at least 1 of these falls. He states 1 was quite hard. The others he did think that he hit his head. He has never had loss of consciousness. He has no neck or back pain. He does not feel that he is any weaker than normal or having any difficulty with ambulation. He states it is all tripping over objects. Patient denies any chest pain, shortness of breath, nausea or vomiting, no new bowel or bladder incontinence. No diarrhea constipation. No numbness, tingling weakness in extremities. Patient is not anticoagulated. He does take medication for hypertension, dyslipidemia and Flomax. He states he has had some renal issues. We discussed obtaining basic labs but patient defers at this time. Related Data Home Medications Medication Instructions Recorded Confirmed amlodipine 10 mg tablet 5 mg PO DAILY 11/27/18 09/06/21 cholecalciferol (vitamin D3) 10 400 unit PO DAILY 11/27/18 06/08/21 mcg (400 unit) tablet (Vitamin D3) ibuprofen 200 mg tablet 2 tab PO DAILY PRN 11/27/18 06/08/21 lisinopril 40 mg tablet 40 mg PO DAILY 11/27/18 09/06/21 atorvastatin 20 mg tablet 10 mg PO DAILY 02/09/21 09/06/21 ciprofloxacin HCl 500 mg tablet 500 mg PO BID 09/06/21 09/06/21 (Cipro) Previous Rx's Medication Instructions Recorded tamsulosin 0.4 mg capsule (Flomax) 0.4 mg PO DAILY #20 cap 06/05/21 Allergies Allergy/AdvReac Type Severity Reaction Status Date / Time codeine [CODEINE] Allergy Intermediate HIVES, SOB Verified 12/14/21 10:04 Review of Systems Review of Systems ROS Unobtainable: All systems reviewed & are unremarkable except as noted in HPI and below Patient History Medical History Basal cell carcinoma (BCC) Essential hypertension HTN (hypertension) Hypochloremia Hyponatremia Nasopharyngeal cancer Osteoarthritis Spinal stenosis Surgical History History of arthroplasty of right knee (~2007) History of prostate surgery (~2003) Hx of decompressive lumbar laminectomy (~2011) Hx of hernia repair Hx of total knee arthroplasty S/P total knee arthroplasty Status post cataract extraction of both eyes with insertion of intraocular lens (~2016) Status post osteotomy (~1995) Family History Father Prostate cancer Brother Alive and well Brother Dementia Mother Old age Social History household members: spouse Smoking Status: Never smoker alcohol intake: current Smoking Status: Never smoker alcohol intake frequency: holidays/special occasions only Substance Use Type: does not use Exam Narrative Exam Narrative: GEN: well nourished, well appearing male, alert and oriented x 3, patient appears to be in mild distress. HEENT: Atraumatic, pupils are equal round reactive to light, extraocular movements are intact, nares are clear. Throat is clear without any exudates, erythema, tonsillar enlargement or uvular deviation. No cervical vertebral tenderness. Full range of motion. HEART: Regular rate and rhythm without murmur, clicks, rubs. LUNGS:Lungs clear to auscultation, no wheezes, rales, crackles, chest moves symmetrically ABD:bowel sounds normal, soft, non-tender, no guarding, rebound, rigidity, no masses noted, no hepatosplenomegaly :No CVA tenderness MSCL: Non-tender, no muscle atrophy, muscles strength 5/5 upper and lower extremities, full range of motion, normal gait NEURO:CN 2-12 intact, sensation normal Initial Vital Signs Initial Vital Signs: Vital Signs Temperature 98.2 F 12/14/21 09:58 Pulse Rate 63 12/14/21 09:58 Respiratory Rate 15 12/14/21 09:58 Blood Pressure 184/85 H 12/14/21 09:58 Pulse Oximetry 99 12/14/21 09:58 Scores GCS Cushing coma scale eye opening: Spontaneous Cushing coma scale verbal response: Orientated Haim coma scale motor response: Obey commands Haim coma scale total score: 15 Course Orders Ordered: ED Orders 12/14/21 10:00 EKG-12 Lead Routine 12/14/21 10:37 CT head/brain wo con Stat Vital Signs Vital signs: Vital Signs - 8 hr 12/14/21 09:58 12/14/21 11:18 Temperature 98.2 F Pulse Rate 63 54 L Respiratory Rate 15 Blood Pressure 184/85 H 156/75 H Pulse Oximetry 99 99 MDM - Fall Imaging Data CT scan - head: Radiologist's Impression: [address] [address] [address] Scan Report Signed Patient: Slava Bunn SR MR#: [id number] : 1940 Acct:[id number] Age/Sex: 81 / M Date of Service: 12/14/21 Loc: ED Accession Number: [id number] ?? Procedure: CT head/brain wo con Ordering Provider: Alie Raya D.O. PROCEDURE:? CT HEAD/BRAIN WO CON ? INDICATIONS:? fall hit head, hx traumatic head bleed, mild fiore ? TECHNIQUE:? Noncontrast 4.5 mm thick angled axial sections acquired from the foramen magnum to the vertex, with coronal and sagittal reformats.? For radiation dose reduction, the following was used:? automated exposure control, adjustment of mA and/or kV according to patient size.? ? COMPARISON:? None. ? FINDINGS:? Image quality:? Excellent.? ? CSF spaces:? Basal cisterns are patent.? No extra-axial fluid collections.? Ventricles are normal in size and shape.? ? Brain:? No midline shift.? No intracranial masses or hemorrhage.? Mejia-white matter interface is normal.? ? Skull and face:? Calvarium and visualized facial bones are intact, without suspicious lesions.? ? Sinuses:? Visualized sinuses and mastoids are clear.? ? IMPRESSION:? No acute intracranial finding. ? ? Dictated by: Wilmer Hernandez M.D. on 12/14/2021 at 9:55 ? ? Approved by: Wilmer Hernandez M.D. on 12/14/2021 at 9:56?? ECG Data Attestation: I personally reviewed and interpreted this ECG as follows: Interpretation: Sinus rhythm occasional PVC. Left axis deviation. Rate of 66, P are 178, QRS of 106 and QTC 419. Patient has prior left anterior fascicular block. EKG at that 1 has 09/06/[address] changes in comparison today. MDM Narrative Medical decision making narrative: This is an 81-year-old male who comes in with multiple falls in which he hit his head at least 1 or more. He has had some mild headache. He has a history of traumatic head bleed. He went to the walk-in clinic to be evaluated and they referred him here. I think appropriate for head CT as he has had prior traumatic bleeds although he is not anticoagulated. He does not have any other acute neurologic changes. We discussed obtaining CBC and BMP for electrolyte evaluation renal function but he very politely defers at this time. His exam is otherwise appropriate he does not appreciate any other red flag symptoms. Discharge Plan Departure Patient Disposition: Home Clinical Impression: Fall, Headache Instructions: How to Prevent Falls Activity Restrictions/Additional Instructions: Your head CT today is negative for bleed or other acute changes. Please return if you have new or worsening symptoms, new weakness, numbness or tingling, difficulty with gait or movement, severe headaches, vision changes, difficulty with speech, or other new or concerning symptoms. Prescriptions: No Action tamsulosin [Flomax] 0.4 mg capsule 0.4 mg PO DAILY Qty: 20 0RF ciprofloxacin HCl [Cipro] 500 mg Tablet 500 mg PO BID 0RF amlodipine 10 mg Tablet 5 mg PO DAILY 0RF ibuprofen 200 mg Tablet 2 tab PO DAILY PRN (Reason: pain) 0RF lisinopril 40 mg Tablet 40 mg PO DAILY 0RF cholecalciferol (vitamin D3) [Vitamin D3] 400 unit Tablet 400 unit PO DAILY 0RF atorvastatin 20 mg tablet 10 mg PO DAILY 0RF Referrals: Brendan Denis MD [Primary Care Provider] -
--- NOTE | 2021-12-14 10:37 | DI.CT.S_ITS ---
PROCEDURE: CT HEAD/BRAIN WO CON INDICATIONS: fall hit head, hx traumatic head bleed, mild fiore TECHNIQUE: Noncontrast 4.5 mm thick angled axial sections acquired from the foramen magnum to the vertex, with coronal and sagittal reformats. For radiation dose reduction, the following was used: automated exposure control, adjustment of mA and/or kV according to patient size. COMPARISON: None. FINDINGS: Image quality: Excellent. CSF spaces: Basal cisterns are patent. No extra-axial fluid collections. Ventricles are normal in size and shape. Brain: No midline shift. No intracranial masses or hemorrhage. Mejia-white matter interface is normal. Skull and face: Calvarium and visualized facial bones are intact, without suspicious lesions. Sinuses: Visualized sinuses and mastoids are clear. IMPRESSION: No acute intracranial finding. Dictated by: Wilmer Hernandez M.D. on 12/14/2021 at 9:55 Approved by: Wilmer Hernandez M.D. on 12/14/2021 at 9:56
[2021-12-14 11:18] VITALS: BP 156/75; PULSE 54; O2SAT 99
== END 2021-12-14 11:18 | disposition home or self-care (01) ==
PROVIDERS: Emergency Provider Emergency Medicine; PCP Hospitalist
DX: R51.9 Headache, unspecified (principal); W18.09XA Striking against other object with subsequent fall, initial encounter
CPT/HCPCS: 70450; 93005; 93010; 99283; 99284

== ENCOUNTER 2021-12-26 04:55 | Emergency (ER) | payer OTHER, SELFPAY ==
[2021-06-08 13:03] VITALS: BMI 23.5
[2021-12-26] VITALS (10 sets, daily range): BP systolic 181–238; BP diastolic 87–106; PULSE 57–71; RESP 16; TEMP 36.2; O2SAT 99–100; BMI 24.3
[2021-12-26 05:34] LABS: Bacteria Urine Moderate (10-30); RBC Urine 0-1/HPF (0-5/HPF); WBC Urine 1-5/HPF (0-5/HPF)
[2021-12-26 05:35] LABS: Culture Indicated Urine Specimen Cultured
--- NOTE | 2021-12-26 05:39 | ED_ITS ---
HPI - Back Pain/Injury <Ren Laws MD - Last Filed: 12/27/21 00:27> General Chief Complaint: Urogenital-Male Stated Complaint: severe kidney pain x1 day Time Seen by Provider: 12/26/21 05:15 Source: patient History of Present Illness HPI Narrative: Patient complains of left flank left abdominal pain that started yesterday that would come and go. Worsened overnight. Feels similar to left-sided kidney infection/urosepsis the had last summer and transferred to [facility]. Had nephrostomy as well as stent. Stent was removed in August 2021. Has been doing well. Does do nightly self catheterization and average 400 mL each night. This is preventive measure to prevent infection according the patient otherwise he is able to void without catheterization during the day. No fever chills. Related Data Home Medications Medication Instructions Recorded Confirmed amlodipine 10 mg tablet 5 mg PO DAILY 11/27/18 09/06/21 cholecalciferol (vitamin D3) 10 400 unit PO DAILY 11/27/18 06/08/21 mcg (400 unit) tablet (Vitamin D3) ibuprofen 200 mg tablet 2 tab PO DAILY PRN 11/27/18 06/08/21 lisinopril 40 mg tablet 40 mg PO DAILY 11/27/18 09/06/21 atorvastatin 20 mg tablet 10 mg PO DAILY 02/09/21 09/06/21 ciprofloxacin HCl 500 mg tablet 500 mg PO BID 09/06/21 09/06/21 (Cipro) Previous Rx's Medication Instructions Recorded tamsulosin 0.4 mg capsule (Flomax) 0.4 mg PO DAILY #20 cap 06/05/21 ciprofloxacin HCl 500 mg tablet 500 mg PO BID #14 tab 12/26/21 (Cipro) Allergies Allergy/AdvReac Type Severity Reaction Status Date / Time codeine [CODEINE] Allergy Intermediate HIVES, SOB Verified 12/14/21 10:04 Review of Systems <Ren Laws MD - Last Filed: 12/27/21 00:27> Review of Systems Narrative: GENERAL: Denies chills, fatigue, malaise, fever, sweats. HEENT: Denies sinus pain, ear pain, sore throat RESPIRATORY: Denies dyspnea, cough CARDIOVASCULAR: Denies chest pain, palpitations GASTROINTESTINAL: Denies nausea, vomiting, positive for flank and abdominal pain : Denies dysuria, frequency, hematuria MUSCULOSKELETAL: denies muscle or bony pain SKIN: Denies rash, skin lesions NEUROLOGIC: Denies weakness, numbness ROS Unobtainable: All systems reviewed & are unremarkable except as noted in HPI and below Patient History <Ren Laws MD - Last Filed: 12/27/21 00:27> Medical History Basal cell carcinoma (BCC) Essential hypertension HTN (hypertension) Hypochloremia Hyponatremia Nasopharyngeal cancer Osteoarthritis Spinal stenosis Surgical History History of arthroplasty of right knee (~2007) History of prostate surgery (~2003) Hx of decompressive lumbar laminectomy (~2011) Hx of hernia repair Hx of total knee arthroplasty S/P total knee arthroplasty Status post cataract extraction of both eyes with insertion of intraocular lens (~2016) Status post osteotomy (~1995) Family History Father Prostate cancer Brother Alive and well Brother Dementia Mother Old age Social History household members: spouse Smoking Status: Never smoker alcohol intake: current Smoking Status: Never smoker alcohol intake frequency: holidays/special occasions only Substance Use Type: does not use Exam <Ren Laws MD - Last Filed: 12/27/21 00:27> Narrative Exam Narrative: GENERAL: in no distress, not toxic not dyspneic HEAD: Normocephalic. EYES: Pupils equal round No scleral icterus. ENT: Mucous membranes moist. NECK: Trachea midline. CARDIOVASCULAR: Regular rate and rhythm without murmurs RESPIRATORY: Clear to auscultation. Breath sounds equal bilaterally. No wheezes, rales, or rhonchi. GASTROINTESTINAL: Abdomen soft, non-tender, no peritoneal signs, bowel sounds pr esent. EXTREMITIES: No gross deformities. BACK: Mild left CVA tenderness NEURO: AOx4. SKIN: Warm and dry PSYCH: Not anxious, is cooperative Initial Vital Signs Initial Vital Signs: Vital Signs Temperature 97.2 F L 12/26/21 05:16 Pulse Rate 60 12/26/21 05:16 Respiratory Rate 16 12/26/21 05:16 Blood Pressure 204/91 H 12/26/21 05:16 Pulse Oximetry 99 12/26/21 05:16 <Gail Brunson DO - Last Filed: 12/26/21 08:39> Initial Vital Signs Initial Vital Signs: Vital Signs Temperature 97.2 F L 12/26/21 05:16 Pulse Rate 60 12/26/21 05:16 Respiratory Rate 16 12/26/21 05:16 Blood Pressure 204/91 H 12/26/21 05:16 Pulse Oximetry 99 12/26/21 05:16 Course <Ren Laws MD - Last Filed: 12/27/21 00:27> Course Course Narrative: Blood pressure noted. Patient has not taken his morning blood pressure medications yet. He takes amlodipine and lisinopril in the morning 7:00 a.m.. Sign out to Dr. Brunson, patient CT scan imaging is pending. Disposition pending on CT results. Differential diagnosis pyelonephritis/UTI Orders Ordered: Discontinued Medications Amlodipine Besylate (Amlodipine 5 Mg Tablet) 5 mg PO NOW ONE Stop: 12/26/21 06:38 Last Admin: 12/26/21 07:31 Dose: 5 mg Documented by: MICHAEL Sodium Chloride (Normal Saline 0.9%) 500 mls @ 1,000 mls/hr IV BOLUS ONE Stop: 12/26/21 06:07 Last Infusion: 12/26/21 09:06 Dose: 0 mls/hr Documented by: Admin: 12/26/21 06:31 Dose: 1,000 mls/hr Documented by: SANTOS Ceftriaxone Sodium 2,000 mg/ (Sodium Chloride) 100 mls @ 200 mls/hr IV NOW ONE Stop: 12/26/21 06:36 Last Infusion: 12/26/21 09:06 Dose: 0 mls/hr Documented by: Admin: 12/26/21 07:31 Dose: 200 mls/hr Documented by: MICHAEL Lisinopril (Lisinopril 20 Mg Tablet) 40 mg PO NOW ONE Stop: 12/26/21 06:38 Last Admin: 12/26/21 07:34 Dose: 20 mg Documented by: MICHAEL Vital Signs Vital signs: Vital Signs - 8 hr 12/26/21 05:16 12/26/21 06:08 12/26/21 06:30 Temperature 97.2 F L Pulse Rate 60 63 61 Respiratory Rate 16 Blood Pressure 204/91 H Pulse Oximetry 99 99 100 12/26/21 06:35 Temperature Pulse Rate 71 Respiratory Rate Blood Pressure 185/88 H Pulse Oximetry 100 <Gail Brunson DO - Last Filed: 12/26/21 08:39> Orders Ordered: Discontinued Medications Amlodipine Besylate (Amlodipine 5 Mg Tablet) 5 mg PO NOW ONE Stop: 12/26/21 06:38 Last Admin: 12/26/21 07:31 Dose: 5 mg Documented by: MICHAEL Sodium Chloride (Normal Saline 0.9%) 500 mls @ 1,000 mls/hr IV BOLUS ONE Stop: 12/26/21 06:07 Last Infusion: 12/26/21 09:06 Dose: 0 mls/hr Documented by: Admin: 12/26/21 06:31 Dose: 1,000 mls/hr Documented by: SANTOS Ceftriaxone Sodium 2,000 mg/ (Sodium Chloride) 100 mls @ 200 mls/hr IV NOW ONE Stop: 12/26/21 06:36 Last Infusion: 12/26/21 09:06 Dose: 0 mls/hr Documented by: Admin: 12/26/21 07:31 Dose: 200 mls/hr Documented by: MICHAEL Lisinopril (Lisinopril 20 Mg Tablet) 40 mg PO NOW ONE Stop: 12/26/21 06:38 Last Admin: 12/26/21 07:34 Dose: 20 mg Documented by: MICHAEL Vital Signs Vital signs: Vital Signs - 8 hr 12/26/21 05:16 12/26/21 06:08 12/26/21 06:30 Temperature 97.2 F L Pulse Rate 60 63 61 Respiratory Rate 16 Blood Pressure 204/91 H Pulse Oximetry 99 99 100 12/26/21 06:35 Temperature Pulse Rate 71 Respiratory Rate Blood Pressure 185/88 H Pulse Oximetry 100 MDM - Back Pain/Injury <Ren Laws MD - Last Filed: 12/27/21 00:27> Lab Data Result diagrams: 12/26/21 05:54 12/26/21 05:54 Labs: Lab Results 12/26/21 12/26/21 12/26/21 Range/Units 05:10 05:54 05:54 WBC 3.3 L (4.5-11.0) X10^3/uL RBC 3.91 L (4.5-5.9) X10^6/uL Hgb 12.5 L (13.5-17.5) g/dL Hct 36.9 L (41-53) % MCV 94.5 (80-100) fL MCH 32.1 (26-34) PG MCHC 33.9 (30-36) % RDW 13.5 (11.6-14.8) % Plt Count 192 (150-400) X10^3/uL Neut % (Auto) 61.3 (50-75) % Lymph % (Auto) 20.7 L (25-40) % [place] % (Auto) 12.8 (3-14) % Eos % (Auto) 4.6 H (2-4) % Baso % (Auto) 0.6 (0-2) % Neut # (Auto) 2000 (4433-4602) /uL Lymph # (Auto) 700 L (3285-3540) /uL [place] # (Auto) 400 (0-900) /uL Eos # (Auto) 200 (0-450) /uL Baso # (Auto) 0 (0-100) /uL Sodium 133 L (137-145) mmol/L Potassium 3.8 (3.4-5.1) mmol/L Chloride 101 (98-107) mmol/L Carbon Dioxide 28 (22-32) mmol/L BUN 14 (9-20) mg/dL Creatinine 0.80 (0.66-1.25) mg/dL Estimated GFR > 60.0 (>60) mL/min BUN/Creatinine Ratio 17.5 (6-22) Glucose 97 (80-110) mg/dL Calcium 9.6 (8.4-10.2) mg/dL Total Bilirubin 0.6 (0.2-1.3) mg/dL AST 25 (17-59) IU/L ALT 23 (<50) IU/L Alkaline Phosphatase 46 (38-126) U/L Total Protein 7.2 (6.3-8.2) g/dL Albumin 4.3 (3.5-5.0) g/dL Globulin 2.9 (1.7-4.1) g/dL Albumin/Globulin Ratio 1.5 (1.0-2.8) Urine RBC 0-1/hpf (0-5/HPF) Urine WBC 1-5/hpf (0-5/HPF) Urine Bacteria Moderate (10-30) H (None) Ur Culture Indicated? Specimen cultured Urine Dip Bedside Urine Glucose Negative Bedside Urine Bilirubin - Negative Bedside Urine Ketone - Negative Urine Specific [place] 1.015 Bedside Urine Occult Blood +/- Bedside Urine pH 7.0 Bedside Urine Protein - Negative Bedside Urine Urobilinogen - Negative Bedside Urine Nitrite - Negative Bedside Urine Leukocytes +/- 15 Esterase <Gail Brunson, DO - Last Filed: 12/26/21 08:39> Lab Data Labs: Lab Results 12/26/21 12/26/21 12/26/21 Range/Units 05:10 05:54 05:54 WBC 3.3 L (4.5-11.0) X10^3/uL RBC 3.91 L (4.5-5.9) X10^6/uL Hgb 12.5 L (13.5-17.5) g/dL Hct 36.9 L (41-53) % MCV 94.5 (80-100) fL MCH 32.1 (26-34) PG MCHC 33.9 (30-36) % RDW 13.5 (11.6-14.8) % Plt Count 192 (150-400) X10^3/uL Neut % (Auto) 61.3 (50-75) % Lymph % (Auto) 20.7 L (25-40) % [place] % (Auto) 12.8 (3-14) % Eos % (Auto) 4.6 H (2-4) % Baso % (Auto) 0.6 (0-2) % Neut # (Auto) 2000 (0665-7719) /uL Lymph # (Auto) 700 L (9967-2972) /uL [place] # (Auto) 400 (0-900) /uL Eos # (Auto) 200 (0-450) /uL Baso # (Auto) 0 (0-100) /uL Sodium 133 L (137-145) mmol/L Potassium 3.8 (3.4-5.1) mmol/L Chloride 101 (98-107) mmol/L Carbon Dioxide 28 (22-32) mmol/L BUN 14 (9-20) mg/dL Creatinine 0.80 (0.66-1.25) mg/dL Estimated GFR > 60.0 (>60) mL/min BUN/Creatinine Ratio 17.5 (6-22) Glucose 97 (80-110) mg/dL Calcium 9.6 (8.4-10.2) mg/dL Total Bilirubin 0.6 (0.2-1.3) mg/dL AST 25 (17-59) IU/L ALT 23 (<50) IU/L Alkaline Phosphatase 46 (38-126) U/L Total Protein 7.2 (6.3-8.2) g/dL Albumin 4.3 (3.5-5.0) g/dL Globulin 2.9 (1.7-4.1) g/dL Albumin/Globulin Ratio 1.5 (1.0-2.8) Urine RBC 0-1/hpf (0-5/HPF) Urine WBC 1-5/hpf (0-5/HPF) Urine Bacteria Moderate (10-30) H (None) Ur Culture Indicated? Specimen cultured Urine Dip Bedside Urine Glucose Negative Bedside Urine Bilirubin - Negative Bedside Urine Ketone - Negative Urine Specific [place] 1.015 Bedside Urine Occult Blood +/- Bedside Urine pH 7.0 Bedside Urine Protein - Negative Bedside Urine Urobilinogen - Negative Bedside Urine Nitrite - Negative Bedside Urine Leukocytes +/- [address] scan - abdomen/pelvis: Radiologist's Impression: PROCEDURE:? CT ABDOMEN PELVIS W CON ? INDICATIONS:? IV contrast only/left-sided pain ? TECHNIQUE:? After the administration of intravenous contrast, axial sections acquired from the lung bases to the pubic symphysis.? Coronal and sagittal reformats were performed.? For radiation dose reduction, the following was used:? automated exposure control, adjustment of mA and/or kV according to patient size.? ? COMPARISON:? Outside Film, [place], PET NECK TO MID THIGH, 07/20/2021, 11:01.? Outside Film, CT, CT ABDOMEN PELVIS WITH CONTRAST, 07/06/2021, 17:59.? Outside Film, CT, CT CHEST ABDOMEN WITH CONTRAST, 07/31/2021, 7:45.? [facility], CT, CT ABDOMEN PELVIS W CON, 06/07/2021, 23:00.? [facility], CT, ABDOMEN/PELVIS WITH CONTRAST, 10/18/2009, 10:07. ? FINDINGS:? Image quality:? Excellent.? ? Lung bases:? There is mild dependent atelectasis in the right lung base. Heart:? No significant findings. ? ABDOMEN: Liver:? Unremarkable.? ? Gallbladder:? Unremarkable. Biliary ducts:? Unremarkable.? ? Pancreas:? Unremarkable.? ? Spleen:? Unremarkable.? ? Adrenal Glands:? Unremarkable.? ? Kidneys and Ureters:? There is moderate bilateral hydroureteronephrosis.? No o bstructing renal or ureteral calculus is seen.? There is a low-density cyst in the right kidney.? Prior left-sided nephrostomy tube is been removed. ? Stomach and Bowel:? Stomach, small bowel loops, and colon are unremarkable.? Peritoneum:? No abnormal intraperitoneal fluid.? No free air.? ? Ventral Wall: ? No hernias.? Abdominal Nodes:? No retroperitoneal or mesenteric adenopathy by size criteria.? Vessels:? Aorta and inferior vena cava are normal in size.? ? PELVIS: Pelvic Organs:? Coarse calcifications are seen in the prostate. Bladder:? The urinary bladder is distended, extending superiorly to the level of the umbilicus..? ? Pelvic Nodes: No enlarged lymph nodes.? Miscellaneous:? A small fat containing left inguinal hernia is present. ? Bones:? Postsurgical changes are seen in the lumbar spine.? Degenerative changes are seen in the hips and spine.? Healed right lower rib fractures are noted. ? ? IMPRESSION:? Distended urinary bladder with moderate bilateral hydroureteronephrosis is suspicious for urinary retention or bladder outlet obstruction.? No obstructing calculus is seen.? Superimposed infection is not excluded and correlation with urinalysis is recommended.? Dictated by: Jose Elias Hernandez M.D. on 12/26/2021 at 7:55 ? ? MDM Narrative Medical decision making narrative: I received sign-out from Dr. Laws I have seen evaluated patient myself. He is having some mild left-sided abdominal pain and discomfort but is not requiring anything for pain. CT does not show any abnormality. He self caths every night an urine does show he has bacteria but overall is not septic he is afebrile in the ED. Previous culture from September shows that he is pansensitive he previously tolerated Cipro. He received 1 dose of Rocephin in the emergency department. Discharge Plan Departure Patient Disposition: Home Clinical Impression: Acute UTI Instructions: DI for Urinary Tract Infection (UTI) Activity Restrictions/Additional Instructions: *You have been diagnosed with UTI *What to do: At this time it does appear you have a bladder infection. Blood work and CT scan are overall reassuring *Continue to take medications as directed Cipro 500 mg twice a day for 7 days--> SENT TO [facility] Tylenol 1000 mg every 6 hours if needed for [id number]-[id number] pain *Follow up with your primary care provider in 2-3 days or call [phone] *Return to ER if you should have increasing pain, fever, vomiting, confusion or any new, worsening or concerning symptoms Prescriptions: New ciprofloxacin HCl [Cipro] 500 mg tablet 500 mg PO BID Qty: 14 0RF No Action tamsulosin [Flomax] 0.4 mg capsule 0.4 mg PO DAILY Qty: 20 0RF ciprofloxacin HCl [Cipro] 500 mg Tablet 500 mg PO BID 0RF amlodipine 10 mg Tablet 5 mg PO DAILY 0RF ibuprofen 200 mg Tablet 2 tab PO DAILY PRN (Reason: pain) 0RF lisinopril 40 mg Tablet 40 mg PO DAILY 0RF cholecalciferol (vitamin D3) [Vitamin D3] 400 unit Tablet 400 unit PO DAILY 0RF atorvastatin 20 mg tablet 10 mg PO DAILY 0RF Referrals: Brendan Denis MD [Primary Care Provider] -
[2021-12-26 06:10] LABS: Add Manual Diff / Slide Review NO; Basophils Absolute Auto 0 /uL (0-100); Basophils Percent Auto 0.6 % (0-2); Eosinophils Absolute Auto 200 /uL (0-450); Eosinophils Percent Auto 4.6 % (2-4); Hematocrit 36.9 % (41-53); Hemoglobin 12.5 g/dL (13.5-17.5); Lymphocytes Absolute Auto 700 /uL (1100-4500); Lymphocytes Percent Auto 20.7 % (25-40); Mean Corpuscular HGB Conc 33.9 % (30-36); Mean Corpuscular Hemoglobin 32.1 PG (26-34); Mean Corpuscular Volume 94.5 fL (80-100); Monocytes Absolute Auto 400 /uL (0-900); Monocytes Percent Auto 12.8 % (3-14); Neutrophils Absolute Auto 2000 /uL (1500-7000); Neutrophils Percent Auto 61.3 % (50-75); Platelet Count 192 X10^3/uL (150-400); Red Blood Cell Count 3.91 X10^6/uL (4.5-5.9); Red Cell Distribution Width 13.5 % (11.6-14.8); White Blood Cell Count 3.3 X10^3/uL (4.5-11.0)
[2021-12-26 06:16] LABS: Alanine Aminotransferase 23 IU/L (<50); Albumin 4.3 g/dL (3.5-5.0); Albumin Globulin Ratio 1.5 (1.0-2.8); Alkaline Phosphatase 46 U/L (38-126); Aspartate Aminotransferase 25 IU/L (17-59); BUN Creatinine Ratio 17.5 (6-22); Bilirubin Total 0.6 mg/dL (0.2-1.3); Blood Urea Nitrogen 14 mg/dL (9-20); Calcium 9.6 mg/dL (8.4-10.2); Carbon Dioxide 28 mmol/L (22-32); Chloride 101 mmol/L (98-107); Estimated Glomerular Filt Rate > 60.0 mL/min (>60); Globulin 2.9 g/dL (1.7-4.1); Glucose 97 mg/dL (80-110); HEMOLYSIS < 15 (0-50); Potassium 3.8 mmol/L (3.4-5.1); Sodium 133 mmol/L (137-145); Total Protein 7.2 g/dL (6.3-8.2)
[2021-12-26] MEDS: SODIUM CHLORIDE 0.9% 500 ML 1000 ML IV (06:31)
[2021-12-26] MEDS: cefTRIAXone 2,000 MG in SODIUM CHLORIDE 0.9% 100 ML 200 ML IV (07:31)
[2021-12-26] MEDS: AMLODIPINE 5 MG TABLET PO (07:31)
[2021-12-26] MEDS: lisinopriL 20 MG TABLET 40 MG PO (07:34)
--- NOTE | 2021-12-26 07:42 | DI.CT.S_ITS ---
PROCEDURE: CT ABDOMEN PELVIS W CON INDICATIONS: IV contrast only/left-sided pain TECHNIQUE: After the administration of intravenous contrast, axial sections acquired from the lung bases to the pubic symphysis. Coronal and sagittal reformats were performed. For radiation dose reduction, the following was used: automated exposure control, adjustment of mA and/or kV according to patient size. COMPARISON: Outside Film, NM, PET NECK TO MID THIGH, 07/20/2021, 11:01. Outside Film, CT, CT ABDOMEN PELVIS WITH CONTRAST, 07/06/2021, 17:59. Outside Film, CT, CT CHEST ABDOMEN WITH CONTRAST, 07/31/2021, 7:45. [facility], CT, CT ABDOMEN PELVIS W CON, 06/07/2021, 23:00. [facility], CT, ABDOMEN/PELVIS WITH CONTRAST, 10/18/2009, 10:07. FINDINGS: Image quality: Excellent. Lung bases: There is mild dependent atelectasis in the right lung base. Heart: No significant findings. ABDOMEN: Liver: Unremarkable. Gallbladder: Unremarkable. Biliary ducts: Unremarkable. Pancreas: Unremarkable. Spleen: Unremarkable. Adrenal Glands: Unremarkable. Kidneys and Ureters: There is moderate bilateral hydroureteronephrosis. No obstructing renal or ureteral calculus is seen. There is a low-density cyst in the right kidney. Prior left-sided nephrostomy tube is been removed. Stomach and Bowel: Stomach, small bowel loops, and colon are unremarkable. Peritoneum: No abnormal intraperitoneal fluid. No free air. Ventral Wall: No hernias. Abdominal Nodes: No retroperitoneal or mesenteric adenopathy by size criteria. Vessels: Aorta and inferior vena cava are normal in size. PELVIS: Pelvic Organs: Coarse calcifications are seen in the prostate. Bladder: The urinary bladder is distended, extending superiorly to the level of the umbilicus.. Pelvic Nodes: No enlarged lymph nodes. Miscellaneous: A small fat containing left inguinal hernia is present. Bones: Postsurgical changes are seen in the lumbar spine. Degenerative changes are seen in the hips and spine. Healed right lower rib fractures are noted. IMPRESSION: Distended urinary bladder with moderate bilateral hydroureteronephrosis is suspicious for urinary retention or bladder outlet obstruction. No obstructing calculus is seen. Superimposed infection is not excluded and correlation with urinalysis is recommended. Dictated by: Jose Elias Hernandez M.D. on 12/26/2021 at 7:55 Approved by: Jose Elias Hernandez M.D. on 12/26/2021 at 8:05
== END 2021-12-26 09:14 | disposition home or self-care (01) ==
PROVIDERS: Emergency Medicine; Emergency Provider Emergency Medicine; PCP Hospitalist
DX: N39.0 Urinary tract infection, site not specified (principal)
CPT/HCPCS: 36415; 74177; 80053; 81003; 81015; 85025; 87086; 96361; 96365; 96366; 99284; J0696

== ENCOUNTER → 2022-05-31 06:41 | Outpatient (CLI) | payer OTHER, SELFPAY ==
[2021-06-08 13:03] VITALS: BMI 23.5
--- NOTE | 2022-05-31 06:42 | DI.US.S_ITS ---
PROCEDURE: US ABDOMEN LIMITED INDICATIONS: right lateral ribs/flank soft tissue masses TECHNIQUE: Real-time scanning was performed of the abdominal and retroperitoneal organs, with image documentation. COMPARISON: Outside Film, NM, PET NECK TO MID THIGH, 02/23/2021, 10:11. Outside Film, NM, PET NECK TO MID THIGH, 07/20/2021, 11:01. Outside Film, CT, CT CHEST ABDOMEN WITH CONTRAST, 07/31/2021, 7:45. [facility], CT, CT ABDOMEN PELVIS W CON, 12/26/2021, 5:44. FINDINGS: Ultrasound was performed in the area of interest. There is a elliptical-shaped mass measuring 3.7 x 1.6 x 3.9 cm in the right lateral posterior chest wall within the musculature, correlating with the palpable abnormality. On Doppler contrast on, there is internal vascularity. IMPRESSION: A 3.7 x 1.6 x 3.9 cm solid mass with internal vascularity in the right lateral posterior chest wall, suspicious for neoplasm. If clinically indicated, ultrasound-guided percutaneous biopsy may be performed. Dictated by: Jen Carmichael M.D. on 05/31/2022 at 8:15 Approved by: Jen Carmichael M.D. on 05/31/2022 at 8:23
== END ==
PROVIDERS: PCP Hospitalist; Referring Provider Physician Assistant; Visit Provider Physician Assistant
DX: M79.89 Other specified soft tissue disorders (principal)
CPT/HCPCS: 76705

== ENCOUNTER 2023-07-31 11:18 | Emergency (ER) | payer OTHER, SELFPAY ==
[2021-06-08 13:03] VITALS: BMI 23.5
[2023-07-31] VITALS (9 sets, daily range): BP systolic 134–148; BP diastolic 67; PULSE 84–95; RESP 16; TEMP 36.8; O2SAT 91–99; BMI 25.8
--- NOTE | 2023-07-31 11:47 | DI.RAD.S_ITS ---
PROCEDURE: XR CHEST 1V INDICATIONS: Shortness of breath TECHNIQUE: One view of the chest was acquired. COMPARISON: [facility], , XR CHEST 1V, 09/06/2021, 16:41. FINDINGS: Surgical changes and devices: Right chest Port-A-Cath Lungs and pleura: Lungs are clear. No pleural effusions or pneumothorax. Mediastinum: Mediastinal contours appear normal. Heart size is normal. Bones and chest wall: No suspicious bony lesions. Old right-sided rib fractures Overlying soft tissues appear unremarkable. IMPRESSION: No evidence acute pulmonary process. Dictated by: Rodo Patterson M.D. on 07/31/2023 at 12:18 Approved by: Rodo Patterson M.D. on 07/31/2023 at 12:18
--- NOTE | 2023-07-31 12:17 | PC.NURSE ---
Reports increase SOB with exertion unable to tolerate normal physical activity. Finds himself stopping to catch his breath. Denies new swelling. Denies chest pain
[2023-07-31 12:25] LABS: Hemoglobin 7.2 g/dL (13.5-17.5); Mean Corpuscular HGB Conc 34.7 % (30-36); Mean Corpuscular Hemoglobin 37.3 PG (26-34); Mean Corpuscular Volume 107.5 fL (80-100); Platelet Count 67 X10^3/uL (150-400); Red Blood Cell Count 1.94 X10^6/uL (4.5-5.9)
--- NOTE | 2023-07-31 12:29 | ED.GENADULT ---
HPI - General Adult General Chief complaint: Shortness of Breath/Dyspnea Stated complaint: SOB started new meds/HX of cancer Time Seen by Provider: 07/31/23 11:32 Source: patient Mode of arrival: Ambulatory History of Present Illness HPI narrative: 83-year-old male. History of mantle cell lymphoma. He states the beginning of the month he was started on a new oral chemotherapy medicine that he takes on a daily basis. Over the past couple days he has noticed some increasing dyspnea on exertion. Some mild cough. Occasional chest discomfort but he states that that has not happened in a while. No fevers although he did have ?night sweats? a couple days ago. He is noticed that he can walk as far as what he normally does. No abdominal pain or nausea or vomiting. No lower extremity swelling. Related Data Home Medications Medication Instructions Recorded Confirmed amlodipine 10 mg tablet 5 mg PO DAILY 11/27/18 05/30/22 cholecalciferol (vitamin D3) 10 400 unit PO DAILY 11/27/18 05/30/22 mcg (400 unit) tablet (Vitamin D3) ibuprofen 200 mg tablet 2 tab PO DAILY PRN pain 11/27/18 05/30/22 lisinopril 40 mg tablet 40 mg PO DAILY 11/27/18 05/30/22 atorvastatin 20 mg tablet 10 mg PO DAILY 02/09/21 05/30/22 ciprofloxacin HCl 500 mg tablet 500 mg PO BID 09/06/21 05/30/22 (Cipro) Previous Rx's Medication Instructions Recorded tamsulosin 0.4 mg capsule (Flomax) 0.4 mg PO DAILY #20 caps 06/05/21 ciprofloxacin HCl 500 mg tablet 500 mg PO BID #14 tabs 12/26/21 (Cipro) nirmatrelvir 300 mg (150 mg See Rx Instructions PO .COMPLEX 07/31/23 x2)-ritonavir 100 mg tablet,dose #30 ea pack (Paxlovid) Allergies Allergy/AdvReac Type Severity Reaction Status Date / Time codeine [CODEINE] Allergy Intermediate HIVES, SOB Verified 07/31/23 11:39 Review of Systems Review of Systems ROS Unobtainable: All systems reviewed & are unremarkable except as noted in HPI and below Patient History Medical History Basal cell carcinoma (BCC) Essential hypertension HTN (hypertension) Hypochloremia Hyponatremia Nasopharyngeal cancer Osteoarthritis Spinal stenosis Surgical History History of arthroplasty of right knee (~2007) History of prostate surgery (~2003) Hx of decompressive lumbar laminectomy (~2011) Hx of hernia repair Hx of total knee arthroplasty S/P total knee arthroplasty Status post cataract extraction of both eyes with insertion of intraocular lens (~2016) Status post osteotomy (~1995) Family History Father Prostate cancer Brother Alive and well Brother Dementia Mother Old age Social History household members: spouse Smoking Status: Never smoker alcohol intake: current Smoking Status: Never smoker alcohol intake frequency: other Substance Use Type: does not use Exam Initial Vital Signs Initial Vital Signs: Vital Signs Temperature 98.3 F 07/31/23 11:27 Pulse Rate 95 H 07/31/23 11:27 Respiratory Rate 16 07/31/23 11:27 Blood Pressure 148/67 H 07/31/23 11:27 Pulse Oximetry 98 07/31/23 11:27 Oxygen Delivery Method Room Air 07/31/23 11:27 Const General: cooperative, comfortable and No ill appearing HENMT Head: normal to inspection and normocephalic Resp Effort & Inspection: normal respiratory effort Auscultation: clear to auscultation bilaterally Cardio Rate: regular rate Rhythm: regular rhythm GI Inspection: normal to inspection and non-distended Extrem General: No edema Course Orders Ordered: ED Orders 07/31/23 11:47 XR chest 1V Stat EKG-12 Lead Stat 07/31/23 11:55 Covid-19 + FLU A/B + RSV - PCR Stat 07/31/23 12:10 BNP [NT-proBNP (BNP-Adult 18+)] Stat Basic Metabolic Panel Stat Complete Blood Count AUTO DIFF Stat D Dimer Stat Troponin & CK Cardiac Panel Stat 07/31/23 13:38 CT angio chest PE protocol Stat Vital Signs Vital signs: Vital Signs - 8 hr 07/31/23 11:27 07/31/23 11:51 07/31/23 12:00 Temperature 98.3 F Pulse Rate 95 H 89 85 Respiratory Rate 16 Blood Pressure 148/67 H Pulse Oximetry 98 99 99 Oxygen Delivery Method Room Air 07/31/23 12:30 07/31/23 13:00 07/31/23 13:30 Temperature Pulse Rate 89 87 92 H Respiratory Rate Blood Pressure Pulse Oximetry 98 97 98 Oxygen Delivery Method Room Air 07/31/23 14:00 07/31/23 14:01 07/31/23 14:01 Temperature Pulse Rate 92 H Respiratory Rate Blood Pressure 144/67 H Pulse Oximetry 91 98 Oxygen Delivery Method 07/31/23 14:30 07/31/23 14:30 Temperature Pulse Rate 84 Respiratory Rate Blood Pressure 134/67 Pulse Oximetry 96 Oxygen Delivery Method Medical Decision Making Medical Records Medical records reviewed: Yes I reviewed the patient's medical records. Lab Data Lab results reviewed: Yes I reviewed the patient's lab results. 07/31/23 12:10 07/31/23 12:10 Labs: Lab Results 07/31/23 07/31/23 07/31/23 Range/Units 11:55 12:10 12:10 WBC 1.7 L* (4.5-11.0) X10^3/uL RBC 1.94 L (4.5-5.9) X10^6/uL Hgb 7.2 L (13.5-17.5) g/dL Hct 20.8 L* (41-53) % MCV 107.5 H (80-100) fL MCH 37.3 H (26-34) PG MCHC 34.7 (30-36) % RDW 16.0 H (11.6-14.8) % Plt Count 67 L (150-400) X10^3/uL Neut % (Auto) Not Reportable Lymph % (Auto) Not Reportable [place] % (Auto) Not Reportable Eos % (Auto) Not Reportable Baso % (Auto) Not Reportable Lymph # (Auto) Not Reportable [place] # (Auto) Not Reportable Baso # (Auto) Not Reportable Total Counted 100 Seg Neutrophils % 65.0 (38-70) % Band Neutrophils % 3.0 (3-7) % Lymphocytes % (Manual) 19.0 L (25-45) % Atypical Lymphs % 3.0 H ( - 0) % Monocytes % (Manual) 6.0 (2-11) % Eosinophils % (Manual) 1.0 L (2-4) % Basophils % (Manual) 1.0 (0-1) % Metamyelocytes % 2.0 H (-0) % Neutrophils # (Manual) 1156 L (3684-9709) /uL Platelet Estimate Decr RBC Morphology See below Anisocytosis 1+ H Macrocytosis 1+ H D-Dimer (<500) ng/ml Sodium 128 L (137-145) mmol/L Potassium 4.0 (3.4-5.1) mmol/L Chloride 95 L (98-107) mmol/L Carbon Dioxide 25 (22-32) mmol/L BUN 13 (9-20) mg/dL Creatinine 0.77 (0.66-1.25) mg/dL Estimated GFR > 60 (>60) mL/min BUN/Creatinine Ratio 16.9 (6-22) Glucose 150 H (80-110) mg/dL Calcium 8.4 (8.4-10.2) mg/dL Total Creatine Kinase (55-170) U/L Troponin I (0.01-0.034) ng/mL NT-Pro-B Natriuret Pep (<450) pg/mL SARS-CoV-2 (PCR) Positive H (Negative) Influenza A (RT-PCR) Flu a negative (NEGATIVE) Influenza B (RT-PCR) Flu b negative (NEGATIVE) RSV (PCR) Negative (Negative) 07/31/23 07/31/23 Range/Units 12:10 12:10 WBC (4.5-11.0) X10^3/uL RBC (4.5-5.9) X10^6/uL Hgb (13.5-17.5) g/dL Hct (41-53) % MCV (80-100) fL MCH (26-34) PG MCHC (30-36) % RDW (11.6-14.8) % Plt Count (150-400) X10^3/uL Neut % (Auto) Lymph % (Auto) [place] % (Auto) Eos % (Auto) Baso % (Auto) Lymph # (Auto) [place] # (Auto) Baso # (Auto) Total Counted Seg Neutrophils % (38-70) % Band Neutrophils % (3-7) % Lymphocytes % (Manual) (25-45) % Atypical Lymphs % ( - 0) % Monocytes % (Manual) (2-11) % Eosinophils % (Manual) (2-4) % Basophils % (Manual) (0-1) % Metamyelocytes % (-0) % Neutrophils # (Manual) (0850-3783) /uL Platelet Estimate RBC Morphology Anisocytosis Macrocytosis D-Dimer 1005 H (<500) ng/ml Sodium (137-145) mmol/L Potassium (3.4-5.1) mmol/L Chloride (98-107) mmol/L Carbon Dioxide (22-32) mmol/L BUN (9-20) mg/dL Creatinine (0.66-1.25) mg/dL Estimated GFR (>60) mL/min BUN/Creatinine Ratio (6-22) Glucose (80-110) mg/dL Calcium (8.4-10.2) mg/dL Total Creatine Kinase 78 (55-170) U/L Troponin I < 0.012 (0.01-0.034) ng/mL NT-Pro-B Natriuret Pep 1200 H (<450) pg/mL SARS-CoV-2 (PCR) (Negative) Influenza A (RT-PCR) (NEGATIVE) Influenza B (RT-PCR) (NEGATIVE) RSV (PCR) (Negative) Urine Dip Bedside Urine Glucose Negative Bedside Urine Bilirubin - Negative Bedside Urine Ketone - Negative Urine Specific [place] 1.010 Bedside Urine Occult Blood - Negative Bedside Urine pH 6.5 Bedside Urine Protein - Negative Bedside Urine Urobilinogen - Negative Bedside Urine Nitrite - Negative Bedside Urine Leukocytes - Negative Esterase Point of care testing: Urine Dip Bedside Urine Glucose Negative Bedside Urine Bilirubin - Negative Bedside Urine Ketone - Negative Urine Specific [place] 1.010 Bedside Urine Occult Blood - Negative Bedside Urine pH 6.5 Bedside Urine Protein - Negative Bedside Urine Urobilinogen - Negative Bedside Urine Nitrite - Negative Bedside Urine Leukocytes - Negative Esterase Imaging Data Chest x-ray: Radiologist's Impression: No evidence of acute pulmonary process CT scan - chest: Radiologist's Impression: No acute pulmonary emboli Resolution of previous for a lateral chest subcutaneous nodule Stable pulmonary nodule Development of multifocal patchy areas of interstitial infiltrates and nodular opacities, possibly representing development of hypersensitivity pneumonitis or viral pneumonitis ECG Data Attestation: I personally reviewed and interpreted this ECG as follows: Interpretation: Sinus rhythm QRS 1-4 milliseconds Right bundle-branch block No ST T wave changes MDM Narrative Medical decision making narrative: Patient does have a history of lymphoma. Has taken oral chemotherapy. Workup here in the emergency department as positive for COVID. He is not hypoxic. No indication for admission to the hospital. He is nontoxic appearing. I did discuss the case with his on-call oncologist who did recommend starting the patient on Paxlovid. Will discharge patient home with return precautions. He expressed understanding and agreement. Discharge Plan Departure Patient Disposition: Home Clinical Impression: COVID-19 Instructions: COVID-19 Activity Restrictions/Additional Instructions: I did talk with the oncologist about your positive COVID status and they would like you to start on a medicine called Paxlovid. This was sent to [facility]. Please take it as directed. Continue to take all of your other medications as directed. Follow-up current CDC guidelines with regard to quarantine. Keep all of your scheduled medical appointments. Return to the emergency department for new or worsening symptoms. Prescriptions: New Paxlovid 300 mg (150 mg x 2)-100 mg tablets,dose pack See Rx Instructions .ROUTE .COMPLEX Qty: 30 0RF Rx Instructions: take TWO 150 mg tablets of nirmatrelvir with ONE 100 mg tablet of ritonavir twice daily for 5 days No Action tamsulosin [Flomax] 0.4 mg capsule 0.4 mg PO DAILY Qty: 20 0RF ciprofloxacin HCl [Cipro] 500 mg Tablet 500 mg PO BID amlodipine 10 mg Tablet 5 mg PO DAILY ibuprofen 200 mg Tablet 2 tab PO DAILY PRN (Reason: pain) lisinopril 40 mg Tablet 40 mg PO DAILY cholecalciferol (vitamin D3) [Vitamin D3] 400 unit Tablet 400 unit PO DAILY atorvastatin 20 mg tablet 10 mg PO DAILY ciprofloxacin HCl [Cipro] 500 mg tablet 500 mg PO BID Qty: 14 0RF Referrals: Brendan Denis MD [Primary Care Provider] - Stand Alone Forms: Patient Portal/API
[2023-07-31 12:31] LABS: Add Manual Diff / Slide Review YES
[2023-07-31 12:37] LABS: Influenza A - CEPHEID Flu A NEGATIVE (NEGATIVE); Influenza B - CEPHEID Flu B NEGATIVE (NEGATIVE); Respiratory Syncytial Virus Negative (Negative)
[2023-07-31 12:38] LABS: BUN Creatinine Ratio 16.9 (6-22); Blood Urea Nitrogen 13 mg/dL (9-20); Calcium 8.4 mg/dL (8.4-10.2); Carbon Dioxide 25 mmol/L (22-32); Chloride 95 mmol/L (98-107); Estimated Glomerular Filt Rate > 60 mL/min (>60); Glucose 150 mg/dL (80-110); HEMOLYSIS < 15 (0-50); Hematocrit 20.8 % (41-53); Sodium 128 mmol/L (137-145); White Blood Cell Count 1.7 X10^3/uL (4.5-11.0)
[2023-07-31 12:45] LABS: Anisocytosis 1+; Macrocytosis 1+; Neutrophils Absolute Manual 1156 /uL (3000-5900); Total Cells Counted 100
[2023-07-31 12:48] LABS: COVID-19 CEPHEID 4-PLEX PCR POSITIVE (Negative)
[2023-07-31 12:48] LABS: Platelet Estimate Decr
[2023-07-31 13:03] LABS: Creatine Kinase 78 U/L (55-170); D Dimer 1005 ng/ml (<500)
[2023-07-31 13:16] LABS: NT-proBNP (BNP-Adult 18+) 1200 pg/mL (<450); Troponin I < 0.012 ng/mL (0.01-0.034)
--- NOTE | 2023-07-31 13:38 | DI.CT.S_ITS ---
PROCEDURE: CT ANGIO CHEST PE PROTOCOL INDICATIONS: Chest pain, shortness of breath, tachycardia TECHNIQUE: After the administration of intravenous contrast, 2 mm thick sections acquired from the pulmonary apices to the posterior costophrenic angles. 3-dimensional maximum intensity projection (MIP) coronal and sagittal reformats were then acquired through the thorax. For radiation dose reduction, the following was used: automated exposure control, adjustment of mA and/or kV according to patient size. COMPARISON: Outside Film, CT, CT CHEST ABDOMEN PELVIS WITH CONTRAST, 04/15/2023, 15:27. FINDINGS: Image quality: Excellent. Pulmonary arteries: Pulmonary arteries are normal in size, and demonstrate no intraluminal filling defects to suggest central pulmonary embolism. Lungs and pleura: Development of multifocal patchy areas interstitial infiltrates and subsolid pulmonary nodular densities. Findings may potentially represent hypersensitivity pneumonitis versus viral pneumonitis. 8 mm right upper lobe pulmonary nodule abutting the minor fissure on image 145/5 is stable. No pleural effusions or pneumothorax. Central and peripheral airways are patent. Mediastinum: Heart size is normal, without pericardial effusion. No mediastinal or hilar adenopathy. Thoracic aorta is normal in caliber and enhancement. Esophagus is normal in caliber, without hiatal hernia. Bones and chest wall: No suspicious bony lesions. Ribs and thoracic spine appear intact throughout. Thyroid gland is unremarkable. No axillary or supraclavicular adenopathy. Right lateral subcutaneous nodule seen previous image 183/4 has resolved. Abdomen: Visualized upper abdominal solid organs appear normal in the early arterial phase of enhancement. IMPRESSION: 1. No acute pulmonary emboli. 2. Resolution of previous right lateral chest subcutaneous nodule. 3. Stable pulmonary nodule. 4. Development of multifocal patchy areas of interstitial infiltrates and subsolid nodular opacities, possibly representing development of hypersensitivity pneumonitis or viral pneumonitis. Dictated by: Rodo Patterson M.D. on 07/31/2023 at 13:58 Approved by: Rodo Patterson M.D. on 07/31/2023 at 14:20
== END 2023-07-31 16:14 | disposition home or self-care (01) ==
PROVIDERS: Emergency Provider Emergency Medicine; PCP Hospitalist
DX: U07.1 COVID-19 (principal); R07.9 Chest pain, unspecified; R00.0 Tachycardia, unspecified; Z79.899 Other long term (current) drug therapy
CPT/HCPCS: 0241U; 71045; 71275; 80048; 81003; 82550; 83880; 84484; 85007; 85025; 85379; 93005; 99284; J1642; Q9967